=== PATIENT | male | born 1955 | race Caucasian/White ===

== ENCOUNTER 2018-01-30 00:29 | Inpatient (IN) ==
--- NOTE | 2018-01-30 01:09 | XR ---
EXAM DATE: 01/30/2018 12:56 AM EDT AGE/SEX: 62 years / Male INDICATIONS: Chest pain. Weakness. CLINICAL DATA: This is the patient's initial encounter. Patient reports that signs and symptoms have been present for 1 day and indicates a pain score of 5/10. MEDICAL/SURGICAL HISTORY: None. None. COMPARISON: No prior exams available for comparison. FINDINGS: A single AP view of the chest demonstrates the lungs to be symmetrically aerated without evidence of mass, infiltrate or effusion. The cardiomediastinal contours are unremarkable. Osseous structures a re intact. CONCLUSION: No acute cardiopulmonary disease Electronically signed by: Nikita Vernon MD 01/30/2018 1:07 AM EDT
[2018-01-30 01:19] LABS: Hematocrit 50.8 % (39.0-51.0); Hemoglobin 17.1 gm/dL (13.0-17.0); Mean Corpuscular HGB Conc 33.6 % (32.0-36.0); Mean Corpuscular Hemoglobin 32.3 pg (27.0-34.0); Mean Corpuscular Volume 95.9 fL (80.0-100.0); Mean Platelet Volume 7.1 fL (7.0-11.0); Platelet Count 233 th/mm3 (150-450); Red Blood Count 5.29 mil/mm3 (4.50-5.90); White Blood Count 5.3 th/mm3 (4.0-11.0)
[2018-01-30 01:30] LABS: Activated Partial Thrombo Time 30.7 sec (24.3-30.1); INR 1.1 Ratio
[2018-01-30 01:55] LABS: Anion Gap 16 meq/L (5-15); Blood Urea Nitrogen 15 mg/dL (7-18); Calcium 8.3 mg/dL (8.5-10.1); Carbon Dioxide 21.9 meq/L (21.0-32.0); Chloride 71 meq/L (98-107); Creatine Kinase 1575 U/L (39-308); Glomerular Filtration Rate 80 mL/min (>89); Glucose,Random 159 mg/dL (74-106); Magnesium 1.5 mg/dL (1.5-2.5); Potassium 4.1 meq/L (3.5-5.1)
[2018-01-30 01:57] LABS: Sodium 109 meq/L (136-145)
[2018-01-30] MEDS ORDERED: Sod Chloride 0.9% Inj 1,000 ML IV.SIG ONE (02:05)
[2018-01-30] MEDS ORDERED: Labetalol HCl Inj 100 MG/20 ML Vial IV.PUSH ONE (02:05)
[2018-01-30] MEDS ORDERED: Aspirin 325 MG Tablet PO ONE (02:06)
--- NOTE | 2018-01-30 02:11 | ED ---
HPI General Chief complaint: Chest Pain Stated complaint: High BP x 2 days Time Seen by Provider: 01/30/18 00:50 Source: patient Mode of arrival: ambulatory Limitations: no limitations History of Present Illness HPI narrative: Patient is a 62-year-old male with history of hypertension, hypothyroidism, alcoholism, presents the emergency room with multiple complaints. Patient reports that he is an alcoholic, reports that he usually drinks about 1/5 of whiskey per day. Patient reports that he decided to quit drinking alcohol 2 days ago and has put himself on a detox schedule. Patient has been decreasing the amount of alcohol he has been drinking, reports that today he only drinks 6 beers. Patient reports that tonight, he checked his blood pressure and noted it to be elevated and in the 200's. Reports that on route to the ER, he developed chest pain. Reports that he had chest tightness to his mid sternum. Denies any diaphoresis with this chest pain. Patient reports mild shortness of breath with this chest pain, reports resolution of chest pain while in the emergency room. Patient denies any history of coronary artery disease, she does not follow with a communications department chair. Patient reports that he thinks that the symptoms are due to his alcohol withdrawal. Patient reports that he is feeling shaky. Patient reports that he has not been feeling well over the past 2 days as he has been unable to tolerate p.o.'s. Reports "i just don't have an appetite and I'm not feeling well with the withdrawl symptoms." Related Data Home Medications Medication Instructions Recorded Confirmed levothyroxine 200 mcg PO DAILY 01/30/18 01/30/18 lisinopril 20 mg PO DAILY 01/30/18 01/30/18 Allergies Allergy/AdvReac Type Severity Reaction Status Date / Time No Known Allergies Allergy Unverified 01/30/18 01:38 Review of Systems Except as stated in HPI: all other systems reviewed are negative [facility] Medical History Medical History Hypertension (Acute) Hypothyroid (Acute) Social History Social History Second Hand Smoke Exposure: No Smoking Status: Current every day smoker Tobacco Type: Cigarettes How Often Do You Have a Drink Containing Alcohol: 4 or more times a week Recent Travel in [facility] within the Last 8 Weeks: No Recent Out of Country Travel within the Last 8 Weeks: No Immunization History Tetanus Immunization: Unsure Exam Narrative Exam Narrative: GENERAL: moderate distress SKIN: Focused skin assessment warm/dry. HEAD: Atraumatic. Normocephalic. EYES: Pupils equal and round. No scleral icterus. No injection or drainage. ENT: No nasal bleeding or discharge. Mucous membranes pink and moist. NECK: Trachea midline. No JVD. CARDIOVASCULAR: tachycardic. No murmur appreciated. RESPIRATORY: No accessory muscle use. Clear to auscultation. Breath sounds equal bilaterally. GASTROINTESTINAL: Abdomen soft, non-tender, nondistended. Hepatic and splenic margins not palpable. MUSCULOSKELETAL: No obvious deformities. No clubbing. No cyanosis. No edema. NEUROLOGICAL: Awake and alert. No obvious cranial nerve deficits. Motor grossly within normal limits. Normal speech. PSYCHIATRIC: Appropriate mood and affect; insight and judgment normal. Course Initial Documented Vital Signs Temperature 97.8 F 01/30/18 00:41 Pulse Rate 104 H 01/30/18 00:41 Respiratory Rate 24 01/30/18 00:41 Blood Pressure 232/124 H 01/30/18 00:41 Pulse Oximetry 99 01/30/18 00:41 Last Documented Vital Signs Temperature 97.8 F 01/30/18 00:41 Pulse Rate 92 H 01/30/18 01:42 Respiratory Rate 20 01/30/18 01:42 Blood Pressure 204/93 H 01/30/18 01:42 Pulse Oximetry 99 01/30/18 01:42 Critical Care Time Critical Care Time: Yes Total Critical Care Time: 30 Attestation: Aggregate critical care time was 30 minutes. Time to perform other separately billable procedures was not included in the critical care time. My time did not include minutes spent treating any other patients simultaneously or on activities that did not directly contribute to the patient's treatment. The services I provided to this patient were to treat and/or prevent clinically significant deterioration that could result in: , decompensation, deterioration I provided critical care services requiring my management, as noted below: Chart data review, documentation time, medication orders and management, vital sign assessments/reviewing monitor data, ordering and reviewing lab tests, ordering and interpreting/reviewing x-rays and diagnostic studies, care of the patient and discussion of the patient with the admitting physicians. Medical Decision Making MDM Narrative Medical decision making narrative: During the course of the patients emergency department visit, the patients history, examination, and differential diagnosis were reviewed with the patient. The patient was placed on a compliance monitor with oximetry and frequent blood pressure monitoring. The patient had an IV access obtained and blood work sent for analysis. The patient was initially provided IVF. Patient's initial blood pressure was 234/128, he was given 2 mg of IV Ativan as he does appear to be going through with alcohol withdrawal. His blood pressure did go down to 176/81. Blood pressure then went back up to 204/93, 10 mg of IV labetalol was ordered - repeat bp now with sbp's in the 170 - labetolol was held. Labs have resulted, patient with a sodium of 109, CK of 1575. Patient will require admission to the ICU Case reviewed with Dr. Lux who accepts patient to his service ASA was held as he took 3 baby asa at home Differential Diagnosis Differential Diagnosis: ACS, arrhythmia, alcohol withdrawal, electrolyte abnormality, hypertensive emergency, hypertensive urgency Medical Records Medical records reviewed: Yes I reviewed the patient's medical records. Lab Data Lab results reviewed: Yes I reviewed the patient's lab results. Result diagrams: 01/30/18 00:50 01/30/18 00:50 Lab Results 01/30/18 01/30/18 01/30/18 Range/Units 00:50 00:50 00:50 CBC w Diff Slide review pending WBC 5.3 (4.0-11.0) th/mm3 RBC 5.29 (4.50-5.90) mil/mm3 Hgb 17.1 H (13.0-17.0) gm/dL Hct 50.8 (39.0-51.0) % MCV 95.9 (80.0-100.0) fL MCH 32.3 (27.0-34.0) pg MCHC 33.6 (32.0-36.0) % RDW 13.0 (11.6-17.2) % Plt Count 233 (150-450) th/mm3 MPV 7.1 (7.0-11.0) fL Differential Comment . PT 11.0 (9.8-11.6) sec INR 1.1 Ratio APTT 30.7 H (24.3-30.1) sec Sodium 109 L* (136-145) meq/L Potassium 4.1 (3.5-5.1) meq/L Chloride 71 L (98-107) meq/L Carbon Dioxide 21.9 (21.0-32.0) meq/L Anion Gap 16 H (5-15) meq/L BUN 15 (7-18) mg/dL Creatinine 0.96 (0.60-1.30) mg/dL Estimated GFR 80 L (>89) mL/min Random Glucose 159 H (74-106) mg/dL Calcium 8.3 L (8.5-10.1) mg/dL Magnesium 1.5 (1.5-2.5) mg/dL Total Creatine Kinase 1575 H (39-308) U/L Troponin I Less than 0.02 L (0.02-0.05) ng/mL Serum Alcohol (0-5) mg/dL 01/30/18 Range/Units 00:50 CBC w Diff WBC (4.0-11.0) th/mm3 RBC (4.50-5.90) mil/mm3 Hgb (13.0-17.0) gm/dL Hct (39.0-51.0) % MCV (80.0-100.0) fL MCH (27.0-34.0) pg MCHC (32.0-36.0) % RDW (11.6-17.2) % Plt Count (150-450) th/mm3 MPV (7.0-11.0) fL Differential Comment PT (9.8-11.6) sec INR Ratio APTT (24.3-30.1) sec Sodium (136-145) meq/L Potassium (3.5-5.1) meq/L Chloride (98-107) meq/L Carbon Dioxide (21.0-32.0) meq/L Anion Gap (5-15) meq/L BUN (7-18) mg/dL Creatinine (0.60-1.30) mg/dL Estimated GFR (>89) mL/min Random Glucose (74-106) mg/dL Calcium (8.5-10.1) mg/dL Magnesium (1.5-2.5) mg/dL Total Creatine Kinase (39-308) U/L Troponin I (0.02-0.05) ng/mL Serum Alcohol Less than 3 (0-5) mg/dL Imaging Data Attestation: I personally reviewed and interpreted this imaging study as follows : Radiologist's impression: ITS Impressions Chest X-Ray 01/30/18 00:41 CONCLUSION: No acute cardiopulmonary disease ECG Data EKG Prior to Arrival: No Attestation: I personally reviewed and interpreted this ECG as follows: Interpretation: EKG at 0045: Sinus tachycardia at 102 bpm, QT/QTc 334/392, first -degree AV block Discharge Plan Discharge Disposition Patient Disposition: 30 Still Patient Discharge Condition Condition: Serious Physicians Team ED Provider: Samantha Block Primary Care Provider: Luke Gutiérrez Rxs /Orders / Referrals /Forms Prescriptions: No Action lisinopril 20 mg Tablet 20 mg PO DAILY RF: 0 levothyroxine 200 mcg Tablet 200 mcg PO DAILY RF: 0 Discharge Instructions Patient Printed Instructions: Chest Pain (ED) Status ED Status: With Doctor
[2018-01-30] MEDS ORDERED: Sodium Chloride 0.45 % Inj 1,000 ML IV.CONT SCH (02:15)
[2018-01-30] MEDS ORDERED: Potassium Chlor 20 mEq Premix 20 MEQ/100 ML PIGGYBACK IV.SIG PRN (02:16)
[2018-01-30] MEDS ORDERED: Magnesium Oxide 400 MG Tablet PO PRN (02:16)
[2018-01-30] MEDS ORDERED: Bisacodyl 10 MG Supp RECTAL PRN (02:16)
[2018-01-30] MEDS ORDERED: Magnesium Sulfate Inj 4 GM in Sodium Chlor 0.9% Inj 92 ML IV.SIG PRN (02:16)
[2018-01-30] MEDS ORDERED: Potassium Phosphate 500 MG Soluble Tablet PO PRN (02:16)
[2018-01-30] MEDS ORDERED: Potassium Chloride 25 MEQ Effervescent Tablet PO PRN (02:16)
[2018-01-30] MEDS ORDERED: Potassium Chlor 40 mEq Premix 40 MEQ/100 ML PIGGYBACK IV.SIG PRN ×2 (02:16)
[2018-01-30] MEDS ORDERED: LORazepam 1 MG Tablet PO PRN (02:16)
[2018-01-30 02:23] LABS: Creatine Kinase MB 15.2 ng/mL (0.5-3.6)
[2018-01-30 02:31] LABS: Lymphocytes 3 % (9-44); Monocytes 9 % (0-8); Platelet Estimate Normal (Normal); Platelet Morphology Normal (Normal); RBC Morphology Normal (Normal)
[2018-01-30] MEDS ORDERED: Thiamine Inj 500 MG in Sodium Chlor 0.9% Inj 250 ML IV.SIG SCH (03:00)
[2018-01-30 03:48] LABS: Baso % (Auto) 0.5 % (0.0-2.0); Eos % (Auto) 0.5 % (0.0-4.0); Hematocrit 50.1 % (39.0-51.0); Hemoglobin 17.2 gm/dL (13.0-17.0); Lymph # (Auto) 0.5 th/mm3 (1.0-4.8); Lymph % (Auto) 5.8 % (9.0-44.0); Mean Corpuscular HGB Conc 34.4 % (32.0-36.0); Mean Corpuscular Hemoglobin 32.1 pg (27.0-34.0); Mean Corpuscular Volume 93.3 fL (80.0-100.0); Mean Platelet Volume 7.3 fL (7.0-11.0); Mono % (Auto) 11.1 % (0.0-8.0); Neut # (Auto) 7.2 th/mm3 (1.8-7.7); Neut % (Auto) 82.1 % (16.0-70.0); Platelet Count 217 th/mm3 (150-450); Red Blood Count 5.37 mil/mm3 (4.50-5.90); Red Cell Distribution Width 13.1 % (11.6-17.2); White Blood Count 8.7 th/mm3 (4.0-11.0)
[2018-01-30] MEDS ORDERED: Chlorhexidine Gluconate 2% 1 Pack (2 Cloths) TOPICAL PRN (04:00)
[2018-01-30 04:10] LABS: Albumin 3.8 g/dL (3.4-5.0); Alkaline Phosphatase 80 U/L (45-117); Anion Gap 14 meq/L (5-15); Blood Urea Nitrogen 14 mg/dL (7-18); Calcium 8.3 mg/dL (8.5-10.1); Carbon Dioxide 23.1 meq/L (21.0-32.0); Chloride 73 meq/L (98-107); Glomerular Filtration Rate Greater Than 89 mL/min (>89); Glucose,Random 136 mg/dL (74-106); Potassium 3.8 meq/L (3.5-5.1); Total Protein 7.4 g/dL (6.4-8.2)
[2018-01-30 04:11] LABS: Alanine Aminotransferase 408 U/L (12-78); Aspartate Aminotransferase 463 U/L (15-37)
[2018-01-30 04:12] LABS: Sodium 110 meq/L (136-145)
[2018-01-30] MEDS ORDERED: diazePAM 5 MG Tablet PO ONE (04:15)
[2018-01-30] MEDS: Enoxaparin Inj 40 MG/0.4 ML Syringe SQ SCH (04:22)
[2018-01-30] MEDS: Chlorhexidine Gluconate 2% 1 Pack (2 Cloths) TOPICAL SCH (06:32)
[2018-01-30] MEDS ORDERED: Labetalol HCl Inj 100 MG/20 ML Vial IV.PUSH PRN (07:41)
--- NOTE | 2018-01-30 07:41 | P.HPCC ---
History of Present Illness Primary Care Physician: Luke Gutiérrez DO History of Present Illness: 01/30: Patient is a 62-year-old male with history of hypertension, hypothyroidism , alcoholism, presents the emergency room with multiple complaints. Patient reports that he is an alcoholic, reports that he usually drinks about 1/5 of whiskey per day. Patient reports that he decided to quit drinking alcohol 2 days ago and has put himself on a detox schedule. Patient has been decreasing the amount of alcohol he has been drinking, reports that today he only drinks 6 beers. Patient reports that tonight, he checked his blood pressure and noted it to be elevated and in the 200's. Reports that on route to the ER, he developed chest pain. Reports that he had chest tightness to his mid sternum. Denies any diaphoresis with this chest pain. Patient reports mild shortness of breath with this chest pain, reports resolution of chest pain while in the emergency room. Patient denies any history of coronary artery disease, she does not follow with a investor relations manager. Patient reports that he thinks that the symptoms are due to his alcohol withdrawal. Patient reports that he is feeling shaky. Patient reports that he has not been feeling well over the past 2 days as he has been unable to tolerate p.o.'s. Reports "i just don't have an appetite and I'm not feeling well with the withdrawl symptoms." Patient tells me he actually came to the hospital because his blood pressure was running extremely high in the 240 systolic range at home. Patient was noted to be hyponatremic with a sodium of 108 in the ER. Patient was accepted for admission by critical care medicine service. He has been receiving half normal saline overnight. This morning when I evaluated the patient he was awake and alert resting comfortably in bed not in any acute distress. Inpatient Certification: I certify that the inpatient services were ordered in accordance with Medicare regulations governing the order. This includes certification that hospital inpatient services are reasonable and necessary and in the case of services not specified as inpatient-only under 42 CFR 419.22(n), that they are appropriately provided as inpatient services in accordance to with the 2-midnight benchmark under 43 CFR 412.3(e) Estimated Total Length of Stay (Days): 5 Plans for Post Hospital Care: Not yet determined Review of Systems All other systems reviewed negative except as stated in HPI PMFSH - History History Provided By: Patient - Medical History Medical History: Medical History (Last Updated 01/30/18 @ 02:18 by Samantha Block) Hypertension Hypothyroid - Tobacco History Second Hand Smoke Exposure: No Tobacco Use In Past 30 Days: No Smoking Status: Former smoker Tobacco Type: Cigarettes - Alcohol History How Often Do You Have a Drink Containing Alcohol: 4 or more times a week - Substance Use History Substance History: Active Abuse - Substance Use Type Alcohol Status: Active Route Used: By Mouth Frequency: etoh abuse Reason for Use: Socialization - Travel History Recent Travel in the [place] Within the Last 8 Weeks: No Recent Travel Out of the Country Within the Last 8 Weeks: No - Immunization History Tetanus Immunization: Unsure Hx Influenza Vaccine This Season: No Medications and Allergies Active Medications: Active Medications Al Hydroxide/Mg Hydroxide (Milk Of Kyra Liq) 30 ml PO Q12H PRN PRN Reason: Mild Constipation Albuterol (Duoneb Neb (Prn)) 1 ampul NEB Q2HR NEB PRN PRN Reason: WHEEZING Bisacodyl (Dulcolax Supp) 10 mg RECTAL DAILY PRN PRN Reason: SEVERE CONSITIPATION Chlorhexidine Gluconate (Chlorhexidine 2% Cloth) 3 pack TOPICAL DAILY@0400 [facility] Stop: 02/04/18 03:59 Last Admin: 01/30/18 06:32 Dose: 3 pack Chlorhexidine Gluconate (Chlorhexidine 2% Cloth) 3 pack TOPICAL DAILY@0400 PRN PRN Reason: Extra cloth needed Stop: 02/04/18 03:59 Clonidine HCl (Catapres) 0.3 mg PO Q8H MICHAEL Diazepam (Valium) 10 mg PO Q8H MICHAEL Enoxaparin Sodium (Lovenox Inj) 40 mg SQ Q24H [facility] Last Admin: 01/30/18 04:22 Dose: 40 mg Flumazenil (Romazecon Inj) 0.2 mg IV.PUSH Q1M PRN PRN Reason: OVERSEDATION Folic Acid (Folic Acid) 1 mg PO DAILY [facility] Stop: 02/04/18 08:59 Haloperidol Lactate (Haldol Inj) 1 mg IV.PUSH Q15M PRN PRN Reason: for severe agitation Magnesium Sulfate Inj 4 gm/ (Sodium Chloride) 100 mls @ 50 mls/hr IV.SIG UNSCH PRN PRN Reason: For Magnesium 0.9 - 1.1 mg/dL Magnesium Sulfate Inj 2 gm/ (Sodium Chloride) 100 mls @ 50 mls/hr IV.SIG UNSCH PRN PRN Reason: For Magnesium 1.2 - 1.6 mg/dL Thiamine HCl 100 mg/ Sodium (Chloride) 101 mls @ 100 mls/hr IV.SIG DAILY MICHAEL Stop: 02/02/18 08:59 Potassium Chloride (Kcl 40 Meq Premix Inj) 40 meq in 100 mls @ 25 mls/hr IV.SIG Q2H PRN PRN Reason: For Potassium 2.8 - 3.2 mEq/L Potassium Chloride (Kcl 20 Meq Premix Inj) 20 meq in 100 mls @ 50 mls/hr IV.SIG Q2H PRN PRN Reason: For Potassium 3.3 - 3.5 mEq/L Potassium Chloride (Kcl 40 Meq Premix Inj) 40 meq in 100 mls @ 25 mls/hr IV.SIG UNSCH PRN PRN Reason: For Potassium 3.3 - 3.5 mEq/L Potassium Phosphate 30 mmol/ (Sodium Chloride) 260 mls @ 42 mls/hr IV.SIG UNSCH PRN PRN Reason: SEE LABEL COMMENTS Sodium Phosphate 30 mmol/ (Sodium Chloride) 260 mls @ 42 mls/hr IV.SIG UNSCH PRN PRN Reason: For Phosphorus < 2.5 mg/dL Potassium Chloride (Kcl 20 Meq Premix Inj) 20 meq in 100 mls @ 50 mls/hr IV.SIG Q2H PRN PRN Reason: For Potassium 2.8 - 3.2 mEq/L Lactated Ringer's (Lr 1000 Ml Inj) 1,000 mls @ 84 mls/hr IV.CONT .[id number] MICHAEL Lactulose (Lactulose Liq) 30 ml PO DAILY PRN PRN Reason: SEVERE CONSITIPATION Levothyroxine Sodium (Synthroid) 200 mcg PO DAILY MICHAEL Lisinopril (Prinivil) 20 mg PO DAILY MICHAEL Lorazepam (Ativan) 1 mg PO Q4H PRN PRN Reason: for CIWA 8-10 Last Admin: 01/30/18 03:35 Dose: 1 mg Lorazepam (Ativan) 2 mg PO Q2H PRN PRN Reason: for CIWA 11-14 Lorazepam (Ativan Inj) 2 mg IV.PUSH Q2H PRN PRN Reason: for CIWA 11-14 Lorazepam (Ativan Inj) 2 mg IV.PUSH Q1H PRN PRN Reason: for CIWA 15-20 Lorazepam (Ativan Inj) 2 mg IV.PUSH Q15M PRN PRN Reason: for CIWA > 20 Lorazepam (Ativan Inj) 1 mg IV.PUSH Q4H PRN PRN Reason: for CIWA 8-10 Magnesium Oxide (Mag-Ox) 800 mg PO UNSCH PRN PRN Reason: For Magnesium 1.2 - 1.6 mg/dL Multivitamins/Minerals (Theragran-M) 1 tab PO DAILY [facility] Stop: 02/04/18 08:59 Ondansetron HCl (Zofran Inj) 4 mg IV.PUSH Q6H PRN PRN Reason: NAUSEA OR VOMITING Pantoprazole Sodium (Protonix) 40 mg PO DAILY [facility] Potassium Bicarb/Potassium Chloride (K-Lyte Cl Eff) 50 meq PO UNSCH PRN PRN Reason: For Potassium 3.3 - 3.5 mEq/L Potassium Phosphate (K-Phos Original) 2,000 mg PO Q4H PRN PRN Reason: Phosphorus Less Than 2.5 mg/dL Potassium Phosphate (K-Phos Original) 2,000 mg PO UNSCH PRN PRN Reason: SEE LABEL COMMENTS Senna/Docusate Sodium (Ophelia-Colace) 1 tab PO BID [facility] Sennosides (Senokot) 17.2 mg PO Q12H PRN PRN Reason: Moderate Constipation Sodium Chloride (Ns Flush) 2 ml IV.FLUSH BID [facility] Sodium Chloride (Ns Flush) 2 ml IV.FLUSH PRN PRN PRN Reason: FLUSH AFTER USING IV ACCESS Thiamine HCl (Vitamin B1) 100 mg PO DAILY [facility] Allergies Allergy/AdvReac Type Severity Reaction Status Date / Time No Known Allergies Allergy Unverified 01/30/18 01:38 Home Medications Medication Instructions Recorded Confirmed Type clonidine HCl 0.2 mg PO BID 01/30/18 01/30/18 History levothyroxine 200 mcg PO DAILY 01/30/18 01/30/18 History lisinopril 20 mg PO DAILY 01/30/18 01/30/18 History Results - Labs CBC & Chem 7: 01/30/18 03:30 01/30/18 03:30 Labs: Short CBC 01/30/18 01/30/18 Range/Units 00:50 03:30 WBC 5.3 8.7 D (4.0-11.0) th/mm3 Hgb 17.1 H 17.2 H (13.0-17.0) gm/dL Hct 50.8 50.1 (39.0-51.0) % Plt Count 233 217 (150-450) th/mm3 BMP 01/30/18 01/30/18 00:50 03:30 Sodium 109 L* 110 L* Potassium 4.1 3.8 Chloride 71 L 73 L Carbon Dioxide 21.9 23.1 BUN 15 14 Creatinine 0.96 0.82 Calcium 8.3 L 8.3 L Cardiac Enzymes 01/30/18 Range/Units 00:50 Total Creatine Kinase 1575 H (39-308) U/L CK-MB (CK-2) 15.2 H (0.5-3.6) ng/mL Troponin I Less than 0.02 L (0.02-0.05) ng/mL Liver Function 01/30/18 Range/Units 03:30 Total Bilirubin 2.6 H (0.2-1.0) mg/dL AST 463 H (15-37) U/L ALT 408 H (12-78) U/L Alkaline Phosphatase 80 (45-117) U/L Albumin 3.8 (3.4-5.0) g/dL - Imaging Impressions Chest X-Ray 01/30/18 00:41 CONCLUSION: No acute cardiopulmonary disease Exam Vital signs: Vital Signs 01/30/18 00:41 01/30/18 01:30 01/30/18 01:42 Temperature 97.8 F Pulse Rate 104 H 100 H 92 H Respiratory Rate 24 22 20 Blood Pressure 232/124 H 176/81 H 204/93 H Pulse Oximetry 99 99 99 01/30/18 02:21 01/30/18 02:38 01/30/18 03:20 Temperature Pulse Rate 100 H 98 H Respiratory Rate 18 18 Blood Pressure 171/89 H 173/78 H Pulse Oximetry 99 99 01/30/18 04:27 01/30/18 05:00 01/30/18 05:06 Temperature 97.9 F Pulse Rate 90 88 Respiratory Rate 20 20 Blood Pressure 185/72 H 182/87 H 151/74 H Pulse Oximetry 98 98 01/30/18 06:00 01/30/18 06:51 Temperature Pulse Rate 88 88 Respiratory Rate 20 20 Blood Pressure 176/73 H 149/75 H Pulse Oximetry 97 98 Intake & Output 01/29/18 01/30/18 01/30/18 18:59 06:59 18:59 Output Total 350 / 350 Balance -350 / -350 Weight 97.5 kg Output: Urine 350 / 350 Other: # Voids 1 Date of Last Bowel Movement 01/29/18 Weight On Admission 97.5 kg Narrative: HEENT/Neuro: No pallor or icterus, tongue moist, ROMAN, Awake alert oriented 3 , nonfocal grossly, moving all 4 extremities. No tremors noted currently. Neck: No JVD Chest/pulmonary: CTA bilaterally Cardiovascular: S1-S2 regular no gallop or murmur GI/abdomen: Soft, nontender, bowel sounds present Extremities: Warm bilaterally, no edema Caprini VTE Risk Assessment Caprini VTE Risk Assessment: Moderate/High Risk (score >= 2) Caprini Risk Assessment Model: Point Value = 1 Point Value = 2 Point Value = 3 Point Value = 5 Age 41-60 Minor surgery BMI > 25 kg/m2 Swollen legs Varicose veins or History of unexplained or recurrent spontaneous Oral contraceptives or hormone replacement Sepsis (< 1 month) Serious lung disease, including pneumonia (< 1 month) Abnormal pulmonary function Acute myocardial infarction Congestive heart failure (< 1 month) History of inflammatory bowel disease Medical patient at bed rest Age 61-74 Arthroscopic surgery Major open surgery (> 45 min) Laparoscopic surgery (> 45 min) Malignancy Confined to bed (> 72 hours) Immobilizing plaster cast Central venous access Age >= 75 History of VTE Family history of VTE Factor V Leiden Prothrombin [id number] Lupus anticoagulant Anticardiolipin antibodies Elevated serum homocysteine Heparin-induced thrombocytopenia Other congenital or acquired thrombophilia Stroke (< 1 month) Elective arthroplasty Hip, pelvis, or leg fracture Acute spinal cord injury (< 1 month) Prophylaxis Regimen: Total Risk Factor Score Risk Level Prophylaxis Regimen 0-1 Low Early ambulation 2 Moderate Order ONE of the following: *Sequential Compression Device (SCD) *Heparin 5000 units SQ BID 3-4 Higher Order ONE of the following medications: *Heparin 5000 units SQ TID *Enoxaparin/Lovenox 40 mg SQ daily (WT < 150 kg, CrCl > 30 mL/min) *Enoxaparin/Lovenox 30 mg SQ daily (WT < 150 kg, CrCl > 10-29 mL/min) *Enoxaparin/Lovenox 30 mg SQ BID (WT < 150 kg, CrCl > 30 mL/min) AND/OR *Sequential Compression Device (SCD) 5 or more Highest Order ONE of the following medications: *Heparin 5000 units SQ TID (Preferred with Epidurals) *Enoxaparin/Lovenox 40 mg SQ daily (WT < 150 kg, CrCl > 30 mL/min) *Enoxaparin/Lovenox 30 mg SQ daily (WT < 150 kg, CrCl > 10-29 mL/min) *Enoxaparin/Lovenox 30 mg SQ BID (WT < 150 kg, CrCl > 30 mL/min) AND *Sequential Compression Device (SCD) Assessment and Plan - Assessment and Plan Plan: Severe hyponatremia Uncontrolled hypertension Alcohol withdrawal Hypothyroidism Plan: Neuro: Follow neuro status. Initiated CIWA alcohol withdrawal protocol. Continue IV thiamine MVI per protocol. Ativan/Haldol as needed. Follow serial sodium was correcting hyponatremia. Cardiovascular: Continue lisinopril, clonidine as needed. Will add labetalol as needed. Pulmonary: Supplemental O2 as needed. Bronchodilators as needed GI/liver: P.o. diet as tolerated Renal/: Follow serial sodiums. Switching IV fluid to LR in view of hyponatremia. Check TSH, triglycerides, serum osmolarity. Awaiting UA and urine osmolarity. Check urine sodium. Endocrine: Check TSH. Watch for hyperglycemia, SSI for glycemic control if needed. Heme: Follow CBC ID: No indication for antibiotics at this time Prophylaxis: PPI/SCDs/Lovenox Condition critical with severe hyponatremia, alcohol withdrawal. Time spent on critical care excluding procedures 60 minutes H&P: Quality - VTE Deep Vein Thrombosis/Pulmonary Embolism Present on Admission: No
[2018-01-30 08:28] LABS: Thyroid Stimulating Hormone 9.1 uIU/mL (0.358-3.740)
[2018-01-30] MEDS: Folic Acid 1 MG Tablet PO SCH (08:30)
[2018-01-30] MEDS: Senna/Docusate Sodium 8.6/50 MG Tablet PO SCH (08:30)
[2018-01-30] MEDS: Multivitamin/Minerals Therapeutic Tablet PO SCH (08:30)
[2018-01-30] MEDS ORDERED: Lisinopril 20 MG Tablet PO SCH (09:00)
[2018-01-30] MEDS: Acetaminophen 325 MG Tablet PO PRN (09:12)
[2018-01-30] MEDS: Thiamine Inj 100 MG in Sodium Chlor 0.9% Inj 100 ML IV.SIG SCH (09:55)
[2018-01-30] MEDS ORDERED: Diatrizoate Meglum/Diatrizoate Sod Liq 9 ML UDC PO ONE (15:25)
[2018-01-30] MEDS: chlordiazePOXIDE 25 MG Capsule PO SCH (15:50)
[2018-01-30] MEDS ORDERED: Dexmedetomidine Inj 200 MCG/2 ML Vial IV.PUSH ONE (16:35)
[2018-01-30] MEDS: Dexmedetomidine Inj 200 MCG/50 ML INFUS..BTL IV.CONT PRN (17:23)
--- NOTE | 2018-01-30 17:34 | ECG ---
Date Performed: 01/30/2018 Time Performed: 00:45:50 PTAGE: 62 years EKG: SINUS TACHYCARDIA WITH FIRST DEGREE AV BLOCK ABNORMAL ECG NO PREVIOUS TRACING DOCTOR: Rios Torres Interpretating Date/Time 01/30/2018 17:32:51
[2018-01-30] MEDS: Haloperidol Inj 5 MG/ML Ampul IV.PUSH PRN ×2 (17:37→17:55)
[2018-01-30] MEDS ORDERED: Albumin Human 5% Inj 500 ML IV.SIG STA (18:36)
[2018-01-30] MEDS ORDERED: Etomidate Inj 20 MG/10 ML Ampul IV.PUSH ONE (19:41)
[2018-01-30] MEDS ORDERED: Succinylcholine Inj 200 MG/10 ML Vial ONE (19:42)
[2018-01-30 19:55] LABS: Alanine Aminotransferase 274 U/L (12-78); Albumin 3.3 g/dL (3.4-5.0); Alkaline Phosphatase 67 U/L (45-117); Anion Gap 14 meq/L (5-15); Aspartate Aminotransferase 355 U/L (15-37); Blood Urea Nitrogen 12 mg/dL (7-18); Calcium 7.6 mg/dL (8.5-10.1); Carbon Dioxide 23.1 meq/L (21.0-32.0); Chloride 71 meq/L (98-107); Glomerular Filtration Rate 85 mL/min (>89); Glucose,Random 138 mg/dL (74-106); Potassium 3.8 meq/L (3.5-5.1); Total Protein 6.4 g/dL (6.4-8.2)
--- NOTE | 2018-01-30 19:55 | XR ---
EXAM DATE: 01/30/2018 7:17 PM EDT AGE/SEX: 62 years / Male INDICATIONS: Status post NG tube placement. CLINICAL DATA: This is the patient's initial encounter. Patient reports that signs and symptoms have been present for 1 day and indicates a pain score of Nonresponsive. MEDICAL/SURGICAL HISTORY: Non-responsive. Non-responsive. COMPARISON: No prior exams available for comparison. FINDINGS: Examination of the abdomen demonstrates a normal bowel gas pattern. No free air is identified. No o rganomegaly is evident. Osseous structures are intact. There is an NG tube in place with the tip in the stomach. There is hazy density in the abdomen which could be related to some ascites. The patient is scheduled for CT of the abdomen. CONCLUSION: NG tube in the stomach. Electronically signed by: Wisam Patiño MD 01/30/2018 7:53 PM EDT
[2018-01-30 19:56] LABS: Sodium 108 meq/L (136-145)
[2018-01-30] MEDS ORDERED: Propofol Inj 500 MG/50 ML Vial ONE (19:56)
[2018-01-30] MEDS ORDERED: Midazolam Inj 5 MG/ML 1 ML Vial ONE ×3 (20:02→20:21)
[2018-01-30] MEDS ORDERED: Midazolam Inj 5 MG/ML 1 ML Vial IV.PUSH ONE ×3 (20:02→20:21)
--- NOTE | 2018-01-30 20:37 | XR ---
EXAM DATE: 01/30/2018 8:20 PM EDT AGE/SEX: 62 years / Male INDICATIONS: Status post intubation. CLINICAL DATA: This is the patient's initial encounter. Patient reports that signs and symptoms have been present for 1 day and indicates a pain score of Nonresponsive. MEDICAL/SURGICAL HISTORY: Non-responsive. Non-responsive. COMPARISON: [facility]PO, CHEST 1V SINGLE AP, 01/30/2018. . FINDINGS: The ET tube and NG tube are well placed. The tip of ET tube is 3.7 cm from the gerard. The heart size is enlarged. The lungs are grossly clear. CONCLUSION: ET tube in good position. Electronically signed by: Wisam Patiño MD 01/30/2018 8:36 PM EDT
[2018-01-30] MEDS: Phenylephrine Inj 40 MG in Dextrose 5% in Water Inj 496 ML IV.CONT PRN ×2 (20:54)
[2018-01-30] MEDS: fentaNYL 10 mcg/mL Premix Drip 2,500 MCG/250 ML BAG IV.SIG PRN (21:21)
[2018-01-30] MEDS: Midazolam 50 MG/50 ML Inj 50 MG/50 ML BAG IV.CONT PRN (21:21)
[2018-01-30 21:26] LABS: ABG Base Excess -0.4 mmol/L (-2-2); ABG PCO2 32 mmHg (38-42); ABG PO2 276 mmHg (61-120)
[2018-01-30] MEDS ORDERED: Propofol 1000 mg/100 ml Inj 1,000 MG/100 ML BOTTLE IV.CONT PRN (22:50)
[2018-01-30 23:36] LABS: Bilirubin,Urine Negative (Negative); Clarity,Urine Clear (Clear); Color,Urine Yellow (Yellw/Straw); Glucose,Urine (UA) Negative (Negative); Leukocyte Esterase,Urine Negative (Negative); Nitrite,Urine Negative (Negative); Specific Gravity,Urine Less/Equal 1.005 (1.002-1.035); Urobilinogen,Urine 0.2 mg/dL (Less than 2)
[2018-01-30 23:43] LABS: RBC,Urine 0-3 /hpf (0-3); Squamous Epithelial Cell,Urine 0-5 /hpf (0-5); WBC,Urine 0-5 /hpf (0-5)
[2018-01-31 00:54] LABS: Amphetamine Screen,Urine Neg (Neg); Barbiturate Screen,Urine Neg (Neg); Cannabinoid Screen,Urine Neg (Neg)
[2018-01-31 00:55] LABS: Cocaine Screen,Urine Neg (Neg)
[2018-01-31 01:38] LABS: Opiate Screen,Urine Neg (Neg)
[2018-01-31] MEDS: Senna/Docusate Sodium 8.6/50 MG Tablet PO SCH ×3 (02:02→20:15)
[2018-01-31] MEDS: chlordiazePOXIDE 25 MG Capsule PO SCH ×4 (02:02→23:14)
[2018-01-31] MEDS: Chlorhexidine Gluconate 2% 1 Pack (2 Cloths) TOPICAL SCH (03:09)
[2018-01-31] MEDS: Enoxaparin Inj 40 MG/0.4 ML Syringe SQ SCH (03:51)
[2018-01-31] MEDS: Midazolam 50 MG/50 ML Inj 50 MG/50 ML BAG IV.CONT PRN ×3 (06:14→22:47)
[2018-01-31 06:56] LABS: Baso % (Auto) 0.3 % (0.0-2.0); Eos # (Auto) 0.1 th/mm3 (0.0-0.4); Eos % (Auto) 0.8 % (0.0-4.0); Hematocrit 41.3 % (39.0-51.0); Lymph # (Auto) 0.9 th/mm3 (1.0-4.8); Lymph % (Auto) 8.3 % (9.0-44.0); Mean Corpuscular HGB Conc 33.9 % (32.0-36.0); Mean Corpuscular Hemoglobin 31.9 pg (27.0-34.0); Mean Corpuscular Volume 94.1 fL (80.0-100.0); Mean Platelet Volume 7.7 fL (7.0-11.0); Mono # (Auto) 0.9 th/mm3 (0.0-0.9); Mono % (Auto) 8.9 % (0.0-8.0); Neut # (Auto) 8.4 th/mm3 (1.8-7.7); Neut % (Auto) 81.7 % (16.0-70.0); Platelet Count 175 th/mm3 (150-450); Red Blood Count 4.39 mil/mm3 (4.50-5.90); Red Cell Distribution Width 13.2 % (11.6-17.2); White Blood Count 10.3 th/mm3 (4.0-11.0)
[2018-01-31 07:11] LABS: Albumin 2.9 g/dL (3.4-5.0); Calcium 7.3 mg/dL (8.5-10.1); Carbon Dioxide 26.8 meq/L (21.0-32.0); Magnesium 1.5 mg/dL (1.5-2.5); Potassium 3.5 meq/L (3.5-5.1)
[2018-01-31 07:18] LABS: Total Protein 5.7 g/dL (6.4-8.2)
--- NOTE | 2018-01-31 07:59 | P.PNCC ---
Subjective Subjective Remarks/Hospital Course: 01/30: Patient is a 62-year-old male with history of hypertension, hypothyroidism , alcoholism, presents the emergency room with multiple complaints. Patient reports that he is an alcoholic, reports that he usually drinks about 1/5 of whiskey per day. Patient reports that he decided to quit drinking alcohol 2 days ago and has put himself on a detox schedule. Patient has been decreasing the amount of alcohol he has been drinking, reports that today he only drinks 6 beers. Patient reports that tonight, he checked his blood pressure and noted it to be elevated and in the 200's. Reports that on route to the ER, he developed chest pain. Reports that he had chest tightness to his mid sternum. Denies any diaphoresis with this chest pain. Patient reports mild shortness of breath with this chest pain, reports resolution of chest pain while in the emergency room. Patient denies any history of coronary artery disease, she does not follow with a collateral clerk. Patient reports that he thinks that the symptoms are due to his alcohol withdrawal. Patient reports that he is feeling shaky. Patient reports that he has not been feeling well over the past 2 days as he has been unable to tolerate p.o.'s. Reports "i just don't have an appetite and I'm not feeling well with the withdrawl symptoms." Patient tells me he actually came to the hospital because his blood pressure was running extremely high in the 240 systolic range at home. Patient was noted to be hyponatremic with a sodium of 108 in the ER. Patient was accepted for admission by critical care medicine service. He has been receiving half normal saline overnight. This morning when I evaluated the patient he was awake and alert resting comfortably in bed not in any acute distress. 01/31: Patient was complaining of some epigastric discomfort yesterday morning. CT abdomen pelvis was ordered however patient went into worsening alcohol withdrawal and despite starting Precedex and multiple boluses of Ativan was staying very agitated. Eventually he became more lethargic with tachypnea. He had also been vomiting previously. Decision was made to intubate and patient was placed on mechanical ventilation after intubation by ER physician. Of note patient had a difficult airway with some laryngeal edema noted per report and a 6.5 ET tube was used for intubation after failed attempt at intubating with an 8 Croatian and 7 Croatian ET tube. This morning patient is sedated with Versed and fentanyl drips, orally intubated on mechanical ventilation at the time of my evaluation. He was initiated on Son-Synephrine for hypotension following intubation and sedation. Currently he is on Son-Synephrine 70 mics per minute. He has had a good urine output overnight. He was started on 3% saline at 10 cc an hour last evening and the sodium has come up to 115 mEq/liter this morning. He has also been receiving LR at 1 50 cc an hour. NG tube was placed after intubation and 1 L of gastric contents were suctioned out. Patient did spike a temperature of 100.5 axillary this morning. Pancultures were ordered and empiric Zosyn to be started in view of concern for aspiration. Objective Vital Signs / I&O: Vital Signs 01/30/18 07:52 01/30/18 08:00 01/30/18 08:26 Temperature 97.8 F Pulse Rate 92 H Respiratory Rate 32 H Blood Pressure 134/72 Pulse Oximetry 96 98 01/30/18 09:00 01/30/18 10:36 01/30/18 11:36 Temperature Pulse Rate 86 80 82 Respiratory Rate 21 23 25 H Blood Pressure 133/75 164/91 H 183/149 H Pulse Oximetry 01/30/18 12:00 01/30/18 12:34 01/30/18 13:30 Temperature 97.8 F Pulse Rate 82 82 Respiratory Rate 28 H 26 H Blood Pressure 174/88 H 181/105 H 184/95 H Pulse Oximetry 01/30/18 13:46 01/30/18 14:00 01/30/18 14:18 Temperature Pulse Rate 78 82 90 Respiratory Rate 26 H 29 H 27 H Blood Pressure 183/99 H 195/91 H Pulse Oximetry 98 01/30/18 14:21 01/30/18 14:37 01/30/18 14:40 Temperature Pulse Rate 86 104 H Respiratory Rate 29 H 48 H Blood Pressure 168/76 H 204/103 H 210/91 H Pulse Oximetry 01/30/18 15:02 01/30/18 15:15 01/30/18 15:38 Temperature Pulse Rate 106 H 114 H 102 H Respiratory Rate 34 H 53 H Blood Pressure 194/87 H 187/126 H 197/102 H Pulse Oximetry 01/30/18 15:39 01/30/18 16:13 01/30/18 16:32 Temperature Pulse Rate 102 H 104 H Respiratory Rate 47 H Blood Pressure 152/102 H 159/78 H 195/137 H Pulse Oximetry 01/30/18 17:27 01/30/18 18:00 01/30/18 18:13 Temperature Pulse Rate 110 H 94 H Respiratory Rate 28 H 48 H 25 H Blood Pressure 206/88 H 133/108 H 117/56 L Pulse Oximetry 91 L 100 01/30/18 18:18 01/30/18 18:19 01/30/18 18:31 Temperature Pulse Rate 82 80 72 Respiratory Rate 23 20 13 Blood Pressure 99/53 L 100/55 L 88/48 L Pulse Oximetry 95 95 98 01/30/18 18:34 01/30/18 18:36 01/30/18 18:42 Temperature Pulse Rate 72 72 86 Respiratory Rate 9 L 15 30 H Blood Pressure 69/39 L 69/30 L 79/58 L Pulse Oximetry 99 98 98 01/30/18 18:43 01/30/18 18:45 01/30/18 18:46 Temperature Pulse Rate 80 84 Respiratory Rate 23 24 Blood Pressure 126/70 125/62 Pulse Oximetry 100 99 93 L 01/30/18 19:49 01/30/18 20:00 01/30/18 20:07 Temperature Pulse Rate 102 H 122 H 112 H Respiratory Rate 30 H 36 H 38 H Blood Pressure 229/116 H 261/117 H 165/72 H Pulse Oximetry 88 L 95 100 01/30/18 20:10 01/30/18 20:17 01/30/18 20:32 Temperature Pulse Rate 88 74 72 Respiratory Rate 16 16 16 Blood Pressure 109/66 100/64 93/56 L Pulse Oximetry 100 100 100 01/30/18 20:40 01/30/18 20:47 01/30/18 21:00 Temperature Pulse Rate 74 72 72 Respiratory Rate 16 16 17 Blood Pressure 84/63 L 91/57 L Pulse Oximetry 100 100 100 01/30/18 21:02 01/30/18 21:17 01/30/18 21:32 Temperature Pulse Rate 70 68 68 Respiratory Rate 15 16 16 Blood Pressure 104/59 L 99/55 L 100/58 L Pulse Oximetry 100 100 100 01/30/18 21:47 01/30/18 22:00 01/30/18 22:17 Temperature 100 F H Pulse Rate 68 66 64 Respiratory Rate 16 15 16 Blood Pressure 104/54 L 101/53 L 95/56 L Pulse Oximetry 100 100 100 01/30/18 22:32 01/30/18 22:47 01/30/18 23:00 Temperature Pulse Rate 64 64 Respiratory Rate 16 16 16 Blood Pressure 92/54 L 87/52 L Pulse Oximetry 100 100 100 01/30/18 23:02 01/30/18 23:17 01/30/18 23:32 Temperature Pulse Rate 62 62 62 Respiratory Rate 16 16 16 Blood Pressure 100/58 L 96/57 L 96/54 L Pulse Oximetry 100 100 100 01/30/18 23:47 01/31/18 00:02 01/31/18 00:08 Temperature 100.2 F H Pulse Rate 62 94 H 100 H Respiratory Rate 16 25 H 28 H Blood Pressure 94/55 L 147/78 H 133/65 Pulse Oximetry 100 85 L 100 01/31/18 00:15 01/31/18 00:17 01/31/18 00:32 Temperature Pulse Rate 76 68 Respiratory Rate 16 16 Blood Pressure 99/55 L 92/53 L 104/61 Pulse Oximetry 100 100 01/31/18 00:47 01/31/18 01:02 01/31/18 01:17 Temperature Pulse Rate 70 72 70 Respiratory Rate 15 16 16 Blood Pressure 105/60 110/61 102/63 Pulse Oximetry 100 100 100 01/31/18 01:32 01/31/18 01:47 01/31/18 02:00 Temperature Pulse Rate 68 66 Respiratory Rate 16 16 16 Blood Pressure 100/56 L 97/56 L Pulse Oximetry 100 100 100 01/31/18 02:02 01/31/18 02:17 01/31/18 02:32 Temperature Pulse Rate 66 66 66 Respiratory Rate 16 16 16 Blood Pressure 91/57 L 93/55 L 97/55 L Pulse Oximetry 100 100 100 01/31/18 02:47 01/31/18 03:00 01/31/18 03:02 Temperature Pulse Rate 66 68 68 Respiratory Rate 16 16 16 Blood Pressure 102/57 L 96/59 L 96/59 L Pulse Oximetry 100 100 100 01/31/18 03:17 01/31/18 03:32 01/31/18 03:47 Temperature Pulse Rate 68 66 68 Respiratory Rate 16 16 16 Blood Pressure 94/58 L 103/58 L 106/59 L Pulse Oximetry 100 100 100 01/31/18 04:02 01/31/18 04:17 01/31/18 04:32 Temperature Pulse Rate 68 68 68 Respiratory Rate 16 16 15 Blood Pressure 102/62 105/62 104/60 Pulse Oximetry 100 100 100 01/31/18 04:47 01/31/18 05:00 01/31/18 05:10 Temperature Pulse Rate 70 70 Respiratory Rate 16 15 16 Blood Pressure 107/60 98/57 L Pulse Oximetry 100 100 100 01/31/18 05:17 01/31/18 05:32 01/31/18 05:47 Temperature Pulse Rate 72 70 70 Respiratory Rate 16 16 16 Blood Pressure 106/64 102/60 104/61 Pulse Oximetry 100 100 100 01/31/18 06:02 01/31/18 06:17 01/31/18 06:32 Temperature 100.4 F H Pulse Rate 70 70 70 Respiratory Rate 16 16 15 Blood Pressure 106/57 L 100/56 L 99/58 L Pulse Oximetry 100 100 100 Intake & Output 01/30/18 01/31/18 01/31/18 18:59 06:59 18:59 Intake Total 2261 / 2261 2570 / 2570 Output Total 450 / 450 2800 / 2800 Balance 1811 / 1811 -230 / -230 Intake: IV 101 / 101 2570 / 2570 Precedex Inj 200 mcg In 50 ml @ 20 / 20 0.2 MCG/KG/HR 4.875 mls/hr IV. CONT TITRATE PRN Rx#:[id number] LR 1000 mL Inj 1,000 ML @ 150 1000 / 1000 mls/hr IV.CONT .[id number] MICHAEL Rx#: [id number] Versed Inj 50 mg In 50 ml @ 2 50 / 50 MG/HR 2 mls/hr IV.CONT TITRATE PRN Rx#:[id number] Alburx 5% Inj 500 ML @ 250 mls/ 500 / 500 hr IV.SIG STAT STA Rx#: [id number] Thiamine Inj 100 MG In NS Inj 101 / 101 100 ML @ 100 mls/hr IV.SIG DAILY MICHAEL Rx#:[id number] Oral 2159 / 2159 Output: Urine 450 / 450 Urine Amount (Catheter) 1849 Indwelling Urethral Catheter 1849 Gastric Drainage 950 / 950 Left Nare 950 / 950 Other: Date of Last Bowel Movement 01/29/18 01/29/18 Result Diagrams: 01/31/18 05:50 01/31/18 05:50 Other Results: Laboratory Results - last 24 hr 01/30/18 01/30/18 01/30/18 03:30 03:30 03:30 CBC w Diff WBC RBC Hgb Hct MCV MCH MCHC RDW Plt Count MPV Neut % (Auto) Lymph % (Auto) [place] % (Auto) Eos % (Auto) Baso % (Auto) Neut # (Auto) Lymph # (Auto) [place] # (Auto) Eos # (Auto) Baso # (Auto) WBC Differential Differential Comment Puncture Site Patient Temperature O2 Saturation ABG pH ABG pCO2 ABG pO2 ABG HCO3 ABG O2 Content ABG Base Excess ABG Methemoglobin Cristiano Test Hemoglobin Carboxyhemoglobin O2 Delivery Device Vent Setting Inspired O2 Critical Value Sodium Potassium Chloride Carbon Dioxide Anion Gap BUN Creatinine Estimated GFR POC Glucose Random Glucose Osmolality 244 L Calcium Prot Corrected Calcium Phosphorus Magnesium Total Bilirubin AST ALT Alkaline Phosphatase Total Protein Albumin Triglycerides Lipase TSH Urine Color Urine Clarity Urine pH Ur Specific [place] Urine Protein Urine Glucose (UA) Urine Ketones Urine Occult Blood Urine Nitrate Urine Bilirubin Urine Urobilinogen Ur Leukocyte Esterase Urine RBC Urine WBC Ur Squamous Epith Cells Micro UA Comment Urine Culture Comments Urine Osmolality 694 Ur Random Sodium 47 Nasal Screen MRSA (PCR) Urine Opiates Screen Ur Barbiturates Screen Ur Amphetamines Screen U Benzodiazepines Scrn Urine Cocaine Screen U Cannabinoids Screen 01/30/18 01/30/18 01/30/18 07:35 07:35 07:35 CBC w Diff WBC RBC Hgb Hct MCV MCH MCHC RDW Plt Count MPV Neut % (Auto) Lymph % (Auto) [place] % (Auto) Eos % (Auto) Baso % (Auto) Neut # (Auto) Lymph # (Auto) [place] # (Auto) Eos # (Auto) Baso # (Auto) WBC Differential Differential Comment Puncture Site Patient Temperature O2 Saturation ABG pH ABG pCO2 ABG pO2 ABG HCO3 ABG O2 Content ABG Base Excess ABG Methemoglobin Cristiano Test Hemoglobin Carboxyhemoglobin O2 Delivery Device Vent Setting Inspired O2 Critical Value Sodium 111 L* Potassium Chloride Carbon Dioxide Anion Gap BUN Creatinine Estimated GFR POC Glucose Random Glucose Osmolality 240 L Calcium Prot Corrected Calcium Phosphorus Magnesium Total Bilirubin AST ALT Alkaline Phosphatase Total Protein Albumin Triglycerides 1576 H Lipase TSH 9.100 H Urine Color Urine Clarity Urine pH Ur Specific [place] Urine Protein Urine Glucose (UA) Urine Ketones Urine Occult Blood Urine Nitrate Urine Bilirubin Urine Urobilinogen Ur Leukocyte Esterase Urine RBC Urine WBC Ur Squamous Epith Cells Micro UA Comment Urine Culture Comments Urine Osmolality Ur Random Sodium Nasal Screen MRSA (PCR) Urine Opiates Screen Ur Barbiturates Screen Ur Amphetamines Screen U Benzodiazepines Scrn Urine Cocaine Screen U Cannabinoids Screen 01/30/18 01/30/18 01/30/18 08:50 12:07 13:35 CBC w Diff WBC RBC Hgb Hct MCV MCH MCHC RDW Plt Count MPV Neut % (Auto) Lymph % (Auto) [place] % (Auto) Eos % (Auto) Baso % (Auto) Neut # (Auto) Lymph # (Auto) [place] # (Auto) Eos # (Auto) Baso # (Auto) WBC Differential Differential Comment Puncture Site Patient Temperature O2 Saturation ABG pH ABG pCO2 ABG pO2 ABG HCO3 ABG O2 Content ABG Base Excess ABG Methemoglobin Cristiano Test Hemoglobin Carboxyhemoglobin O2 Delivery Device Vent Setting Inspired O2 Critical Value Sodium 106 L* Potassium Chloride Carbon Dioxide Anion Gap BUN Creatinine Estimated GFR POC Glucose 141 H Random Glucose Osmolality Calcium Prot Corrected Calcium Phosphorus Magnesium Total Bilirubin AST ALT Alkaline Phosphatase Total Protein Albumin Triglycerides Lipase TSH Urine Color Urine Clarity Urine pH Ur Specific [place] Urine Protein Urine Glucose (UA) Urine Ketones Urine Occult Blood Urine Nitrate Urine Bilirubin Urine Urobilinogen Ur Leukocyte Esterase Urine RBC Urine WBC Ur Squamous Epith Cells Micro UA Comment Urine Culture Comments Urine Osmolality Ur Random Sodium Nasal Screen MRSA (PCR) Not detected Urine Opiates Screen Ur Barbiturates Screen Ur Amphetamines Screen U Benzodiazepines Scrn Urine Cocaine Screen U Cannabinoids Screen 01/30/18 01/30/18 01/30/18 13:35 18:30 18:30 CBC w Diff WBC RBC Hgb Hct MCV MCH MCHC RDW Plt Count MPV Neut % (Auto) Lymph % (Auto) [place] % (Auto) Eos % (Auto) Baso % (Auto) Neut # (Auto) Lymph # (Auto) [place] # (Auto) Eos # (Auto) Baso # (Auto) WBC Differential Differential Comment Puncture Site Patient Temperature O2 Saturation ABG pH ABG pCO2 ABG pO2 ABG HCO3 ABG O2 Content ABG Base Excess ABG Methemoglobin Cristiano Test Hemoglobin Carboxyhemoglobin O2 Delivery Device Vent Setting Inspired O2 Critical Value Sodium 108 L* Potassium 3.8 Chloride 71 L Carbon Dioxide 23.1 Anion Gap 14 BUN 12 Creatinine 0.91 Estimated GFR 85 L POC Glucose Random Glucose 138 H Osmolality Calcium 7.6 L Prot Corrected Calcium Phosphorus 2.7 Magnesium Total Bilirubin 2.5 H AST 355 H ALT 274 H Alkaline Phosphatase 67 Total Protein 6.4 D Albumin 3.3 L Triglycerides Lipase 1843 H TSH Urine Color Urine Clarity Urine pH Ur Specific [place] Urine Protein Urine Glucose (UA) Urine Ketones Urine Occult Blood Urine Nitrate Urine Bilirubin Urine Urobilinogen Ur Leukocyte Esterase Urine RBC Urine WBC Ur Squamous Epith Cells Micro UA Comment Urine Culture Comments Urine Osmolality Ur Random Sodium Nasal Screen MRSA (PCR) Urine Opiates Screen Ur Barbiturates Screen Ur Amphetamines Screen U Benzodiazepines Scrn Urine Cocaine Screen U Cannabinoids Screen 01/30/18 01/30/18 01/30/18 19:15 19:57 21:15 CBC w Diff WBC RBC Hgb Hct MCV MCH MCHC RDW Plt Count MPV Neut % (Auto) Lymph % (Auto) [place] % (Auto) Eos % (Auto) Baso % (Auto) Neut # (Auto) Lymph # (Auto) [place] # (Auto) Eos # (Auto) Baso # (Auto) WBC Differential Differential Comment Puncture Site Right radial Patient Temperature 98.6 O2 Saturation 98 ABG pH 7.46 H ABG pCO2 32 L ABG pO2 276 H ABG HCO3 23 ABG O2 Content 19.1 ABG Base Excess -0.4 ABG Methemoglobin 0.6 Cristiano Test Y Hemoglobin 13.4 Carboxyhemoglobin 1.1 O2 Delivery Device Ventilator Vent Setting Prvc/ac Inspired O2 100 Critical Value No Sodium Potassium Chloride Carbon Dioxide Anion Gap BUN Creatinine Estimated GFR POC Glucose 147 H Random Glucose Osmolality Calcium Prot Corrected Calcium Phosphorus Magnesium Total Bilirubin AST ALT Alkaline Phosphatase Total Protein Albumin Triglycerides Lipase TSH Urine Color Urine Clarity Urine pH Ur Specific [place] Urine Protein Urine Glucose (UA) Urine Ketones Urine Occult Blood Urine Nitrate Urine Bilirubin Urine Urobilinogen Ur Leukocyte Esterase Urine RBC Urine WBC Ur Squamous Epith Cells Micro UA Comment Urine Culture Comments Urine Osmolality Ur Random Sodium Nasal Screen MRSA (PCR) Urine Opiates Screen Neg Ur Barbiturates Screen Neg Ur Amphetamines Screen Neg U Benzodiazepines Scrn Pos H Urine Cocaine Screen Neg U Cannabinoids Screen Neg 01/30/18 01/31/1818 23:27 00:35 03:02 CBC w Diff WBC RBC Hgb Hct MCV MCH MCHC RDW Plt Count MPV Neut % (Auto) Lymph % (Auto) [place] % (Auto) Eos % (Auto) Baso % (Auto) Neut # (Auto) Lymph # (Auto) [place] # (Auto) Eos # (Auto) Baso # (Auto) WBC Differential Differential Comment Puncture Site Patient Temperature O2 Saturation ABG pH ABG pCO2 ABG pO2 ABG HCO3 ABG O2 Content ABG Base Excess ABG Methemoglobin Cristiano Test Hemoglobin Carboxyhemoglobin O2 Delivery Device Vent Setting Inspired O2 Critical Value Sodium 112 L* Potassium Chloride Carbon Dioxide Anion Gap BUN Creatinine Estimated GFR POC Glucose 106 Random Glucose Osmolality Calcium Prot Corrected Calcium Phosphorus Magnesium Total Bilirubin AST ALT Alkaline Phosphatase Total Protein Albumin Triglycerides Lipase TSH Urine Color Yellow Urine Clarity Clear Urine pH 6.0 Ur Specific [place] Less/equal 1.005 Urine Protein Negative Urine Glucose (UA) Negative Urine Ketones Negative Urine Occult Blood Moderate H Urine Nitrate Negative Urine Bilirubin Negative Urine Urobilinogen 0.2 Ur Leukocyte Esterase Negative Urine RBC 0-3 Urine WBC 0-5 Ur Squamous Epith Cells 0-5 Micro UA Comment Culture not ind Urine Culture Comments Culture not ind Urine Osmolality Ur Random Sodium Nasal Screen MRSA (PCR) Urine Opiates Screen Ur Barbiturates Screen Ur Amphetamines Screen U Benzodiazepines Scrn Urine Cocaine Screen U Cannabinoids Screen 01/31/18 01/31/18 05:50 05:50 CBC w Diff Auto diff final WBC 10.3 RBC 4.39 L Hgb 14.0 D Hct 41.3 MCV 94.1 MCH 31.9 MCHC 33.9 RDW 13.2 Plt Count 175 MPV 7.7 Neut % (Auto) 81.7 H Lymph % (Auto) 8.3 L [place] % (Auto) 8.9 H Eos % (Auto) 0.8 Baso % (Auto) 0.3 Neut # (Auto) 8.4 H Lymph # (Auto) 0.9 L [place] # (Auto) 0.9 Eos # (Auto) 0.1 Baso # (Auto) 0.0 WBC Differential . Differential Comment . Puncture Site Patient Temperature O2 Saturation ABG pH ABG pCO2 ABG pO2 ABG HCO3 ABG O2 Content ABG Base Excess ABG Methemoglobin Cristiano Test Hemoglobin Carboxyhemoglobin O2 Delivery Device Vent Setting Inspired O2 Critical Value Sodium 115 L* Potassium 3.5 Chloride 77 L Carbon Dioxide 26.8 Anion Gap 11 BUN 10 Creatinine 0.89 Estimated GFR 87 L POC Glucose Random Glucose 97 Osmolality Calcium 7.3 L* Prot Corrected Calcium 8.1 L Phosphorus Magnesium 1.5 Total Bilirubin 2.5 H AST 238 H ALT 185 H Alkaline Phosphatase 52 Total Protein 5.7 L D Albumin 2.9 L Triglycerides Lipase 1028 H TSH Urine Color Urine Clarity Urine pH Ur Specific [place] Urine Protein Urine Glucose (UA) Urine Ketones Urine Occult Blood Urine Nitrate Urine Bilirubin Urine Urobilinogen Ur Leukocyte Esterase Urine RBC Urine WBC Ur Squamous Epith Cells Micro UA Comment Urine Culture Comments Urine Osmolality Ur Random Sodium Nasal Screen MRSA (PCR) Urine Opiates Screen Ur Barbiturates Screen Ur Amphetamines Screen U Benzodiazepines Scrn Urine Cocaine Screen U Cannabinoids Screen Imaging: Chest X-Ray 01/30/18 00:41 CONCLUSION: No acute cardiopulmonary disease Abdomen X-Ray 01/30/18 18:46 CONCLUSION: NG tube in the stomach. Chest X-Ray 01/30/18 20:03 CONCLUSION: ET tube in good position. Objective Remarks: HEENT/ Neuro: Sedated, orally intubated, No pallor, no icterus, tongue/ mucosa moist Neck: No JVD Chest/Pulm: on mech vent, good air entry bilaterally, no wheezing or crackles CVS: S1-S2 regular, no murmur GI/abdomen: soft, nontender, bowel sounds sluggish Extremities: warm bilaterally, no edema Assessment and Plan - Assessment and Plan Plan: Severe hyponatremia Uncontrolled hypertension (resolved) Hypotension (possibly secondary to high sedation requirement as patient was admitted with severe hypertension) Acute pancreatitis Hypertriglyceridemia Elevated LFTs Fever: Possible source from pancreatitis versus sepsis versus related to alcohol withdrawal. Alcohol withdrawal Hypothyroidism Plan: Neuro: Follow neuro status. Initiated [facility] alcohol withdrawal protocol. Continue IV thiamine MVI per protocol. Ativan/Haldol as needed. Follow serial sodium . Switched IV fluids from NS and LR to normal saline at 150 cc/h Cardiovascular: Stopped lisinopril, clonidine, labetalol as needed due to hypotension requiring phenylephrine GTT for pressor support following intubation.. Pulmonary: Continue mechanical ventilation, vent bundle, bronchodilators as needed. GI/liver: NG tube to low intermittent wall suction. CT abdomen pelvis with p.o. and IV contrast pending. Consult GI for further evaluation of pancreatitis. Renal/: Follow serial sodiums. Switching IV fluid from LR 150cc/hr and 3% saline at 10 cc an hour to normal saline 150 cc/h. TSH 9, triglycerides elevated, low serum osmolarity(240s). urine osmolarity 694. Urine sodium 47. Nephrology consult. Endocrine: Elevated TSH(9). Continue Synthroid, watch for hyperglycemia, SSI for glycemic control if needed. Heme: Follow CBC ID: Pancultures ordered on 01/31 in view of fever. Possible cirrhosis related to pancreatitis and alcohol withdrawal however will initiate empiric Zosyn while awaiting culture results. Check pro-calcitonin. Prophylaxis: PPI/SCDs/Lovenox Condition critical with severe hyponatremia, alcohol withdrawal, acute respiratory failure on mechanical ventilation Time spent on critical care excluding procedures 60 minutes
[2018-01-31] MEDS ORDERED: Vasopressin Inj 40 UNIT in Sodium Chlor 0.9% Inj 98 ML IV.CONT SCH (08:00)
[2018-01-31] MEDS: Phenylephrine Inj 40 MG in Dextrose 5% in Water Inj 496 ML IV.CONT PRN ×6 (08:03→21:19)
[2018-01-31] MEDS ORDERED: Diatrizoate Meglum/Diatrizoate Sod Liq 9 ML UDC PO ONE (09:42)
[2018-01-31] MEDS: Folic Acid 1 MG Tablet PO SCH (09:48)
[2018-01-31] MEDS: Multivitamin/Minerals Therapeutic Tablet PO SCH (09:48)
[2018-01-31 10:09] LABS: CKMB Percent 0.4 % (0.0-4.0); Creatine Kinase MB 14.1 ng/mL (0.5-3.6)
[2018-01-31] MEDS: Magnesium Sulfate Inj 2 GM in Sodium Chlor 0.9% Inj 96 ML IV.SIG PRN (10:17)
[2018-01-31] MEDS: Piperacil/Tazo 3.375 GM Premix 50 ML IV.SIG SCH ×3 (10:21→21:08)
[2018-01-31] MEDS: Thiamine Inj 100 MG in Sodium Chlor 0.9% Inj 100 ML IV.SIG SCH (10:26)
--- NOTE | 2018-01-31 12:18 | P.CONNP ---
History of Present Illness Reason for Consult: Hyponatremia Primary Care Provider: Luke Gutiérrez DO Family Provider: Luke Gutiérrez DO History of Present Illness: This patient is a 62-year-old male who can provide me with no medical history due to mental status change and he is currently intubated also on the ventilator. Patient has a history of hypertension and alcohol abuse. Apparently the patient tried to discontinue alcohol usage 2 days prior to this admission subsequently presented with chest pain and elevated blood pressure and on presentation was found to have a sodium of 109. Critical care has been managing the sodium level overnight and it has improved to 115. Unfortunately the patient developed increasing decompensation related to his alcohol abuse and subsequent withdrawal and was intubated to protect his airway. He is also hypotensive. There is a question of cirrhosis also. [facility] - History History Provided By: Patient - Medical History Medical History: Medical History (Last Updated 01/31/18 @ 12:10 by Leonila Gotti MD) Alcohol abuse History of prostate cancer Hypertension Hypothyroid - Tobacco History Second Hand Smoke Exposure: No Tobacco Use In Past 30 Days: No Smoking Status: Former smoker Tobacco Type: Cigarettes - Alcohol History How Often Do You Have a Drink Containing Alcohol: 4 or more times a week - Substance Use History Substance History: Active Abuse - Substance Use Type Alcohol Status: Active Route Used: By Mouth Frequency: etoh abuse Reason for Use: Socialization - Travel History Recent Travel in the [place] Within the Last 8 Weeks: No Recent Travel Out of the Country Within the Last 8 Weeks: No - Immunization History Tetanus Immunization: Unsure Hx Influenza Vaccine This Season: No Medications and Allergies Active Medications: Active Medications Acetaminophen (Tylenol) 650 mg PO Q6H PRN PRN Reason: TEMP>100.4 &/OR PAIN Last Admin: 01/30/18 09:12 Dose: 650 mg Al Hydroxide/Mg Hydroxide (Milk Of Magnesia Liq) 30 ml PO Q12H PRN PRN Reason: Mild Constipation Albuterol (Duoneb Neb (Prn)) 1 ampul NEB Q2HR NEB PRN PRN Reason: WHEEZING Bisacodyl (Dulcolax Supp) 10 mg RECTAL DAILY PRN PRN Reason: SEVERE CONSITIPATION Chlordiazepoxide (Librium) 25 mg PO Q8H MICHAEL Last Admin: 01/31/18 07:51 Dose: 25 mg Chlorhexidine Gluconate (Chlorhexidine 2% Cloth) 3 pack TOPICAL DAILY@0400 [facility] Stop: 02/04/18 03:59 Last Admin: 01/31/18 03:09 Dose: 3 pack Chlorhexidine Gluconate (Chlorhexidine 2% Cloth) 3 pack TOPICAL DAILY@0400 PRN PRN Reason: Extra cloth needed Stop: 02/04/18 03:59 Diazepam (Valium) 10 mg PO Q8H [facility] Last Admin: 01/31/18 06:52 Dose: Not Given Enoxaparin Sodium (Lovenox Inj) 40 mg SQ Q24H [facility] Last Admin: 01/31/18 03:51 Dose: 40 mg Flumazenil (Romazecon Inj) 0.2 mg IV.PUSH Q1M PRN PRN Reason: OVERSEDATION Folic Acid (Folic Acid) 1 mg PO DAILY [facility] Stop: 02/04/18 08:59 Last Admin: 01/31/18 09:48 Dose: 1 mg Haloperidol Lactate (Haldol Inj) 1 mg IV.PUSH Q15M PRN PRN Reason: for severe agitation Last Admin: 01/30/18 17:55 Dose: 1 mg Magnesium Sulfate Inj 4 gm/ (Sodium Chloride) 100 mls @ 50 mls/hr IV.SIG UNSCH PRN PRN Reason: For Magnesium 0.9 - 1.1 mg/dL Magnesium Sulfate Inj 2 gm/ (Sodium Chloride) 100 mls @ 50 mls/hr IV.SIG UNSCH PRN PRN Reason: For Magnesium 1.2 - 1.6 mg/dL Last Admin: 01/31/18 10:17 Dose: 50 mls/hr Thiamine HCl 100 mg/ Sodium (Chloride) 101 mls @ 100 mls/hr IV.SIG DAILY [facility] Stop: 02/02/18 08:59 Last Admin: 01/31/18 10:26 Dose: 8 mls/hr Potassium Chloride (Kcl 40 Meq Premix Inj) 40 meq in 100 mls @ 25 mls/hr IV.SIG Q2H PRN PRN Reason: For Potassium 2.8 - 3.2 mEq/L Potassium Chloride (Kcl 20 Meq Premix Inj) 20 meq in 100 mls @ 50 mls/hr IV.SIG Q2H PRN PRN Reason: For Potassium 3.3 - 3.5 mEq/L Potassium Chloride (Kcl 40 Meq Premix Inj) 40 meq in 100 mls @ 25 mls/hr IV.SIG UNSCH PRN PRN Reason: For Potassium 3.3 - 3.5 mEq/L Potassium Phosphate 30 mmol/ (Sodium Chloride) 260 mls @ 42 mls/hr IV.SIG UNSCH PRN PRN Reason: SEE LABEL COMMENTS Sodium Phosphate 30 mmol/ (Sodium Chloride) 260 mls @ 42 mls/hr IV.SIG UNSCH PRN PRN Reason: For Phosphorus < 2.5 mg/dL Potassium Chloride (Kcl 20 Meq Premix Inj) 20 meq in 100 mls @ 50 mls/hr IV.SIG Q2H PRN PRN Reason: For Potassium 2.8 - 3.2 mEq/L Dexmedetomidine/Sodium Chloride (Precedex Inj) 200 mcg in 50 mls @ 4.875 mls/ hr IV.CONT TITRATE PRN; Protocol PRN Reason: Per Protocol Last Titration: 01/30/18 19:45 Dose: Infused Phenylephrine HCl 40 mg/ (Dextrose) 500 mls @ 30 mls/hr IV.CONT TITRATE PRN; Protocol PRN Reason: Per Protocol Last Admin: 01/31/18 08:03 Dose: 70 mcg/min, 52.5 mls/hr Fentanyl (Fentanyl 10 Mcg/Ml Premix Drip) 2,500 mcg in 250 mls @ 5 mls/hr IV.SIG TITRATE PRN; Protocol PRN Reason: Per Protocol Last Titration: 01/31/18 06:49 Dose: 200 mcg/hr, 20 mls/hr Midazolam HCl (Versed Inj) 50 mg in 50 mls @ 2 mls/hr IV.CONT TITRATE PRN; Protocol PRN Reason: SEDATION Last Titration: 01/31/18 06:49 Dose: 8 mg/hr, 8 mls/hr Propofol (Diprivan 1000 Mg/100 Ml Inj) 1,000 mg in 100 mls @ 2.925 mls/hr IV.CONT TITRATE PRN; Protocol PRN Reason: Per Protocol Potassium Chloride/Sodium Chloride (Ns + Kcl 20 Meq Inj) 1,000 mls @ 150 mls/ hr IV.CONT .Q6H40M MICHAEL Last Admin: 01/31/18 07:52 Dose: 150 mls/hr Piperacillin/Tazobactam/Dextrose (Zosyn 3.375 Gm Premix) 50 mls @ 100 mls/hr IV.SIG Q6H [facility] Last Admin: 01/31/18 10:21 Dose: 100 mls/hr Lactulose (Lactulose Liq) 30 ml PO DAILY PRN PRN Reason: SEVERE CONSITIPATION Levothyroxine Sodium (Synthroid) 200 mcg PO DAILY [facility] Last Admin: 01/31/18 09:48 Dose: 200 mcg Lorazepam (Ativan) 1 mg PO Q4H PRN PRN Reason: for CIWA 8-10 Last Admin: 01/30/18 03:35 Dose: 1 mg Lorazepam (Ativan) 2 mg PO Q2H PRN PRN Reason: for CIWA 11-14 Lorazepam (Ativan Inj) 2 mg IV.PUSH Q2H PRN PRN Reason: for CIWA 11-14 Last Admin: 01/30/18 13:52 Dose: 2 mg Lorazepam (Ativan Inj) 2 mg IV.PUSH Q1H PRN PRN Reason: for CIWA 15-20 Last Admin: 01/30/18 14:14 Dose: 2 mg Lorazepam (Ativan Inj) 2 mg IV.PUSH Q15M PRN PRN Reason: for CIWA > 20 Last Admin: 01/30/18 15:50 Dose: 2 mg Lorazepam (Ativan Inj) 1 mg IV.PUSH Q4H PRN PRN Reason: for CIWA 8-10 Last Admin: 01/30/18 12:49 Dose: 1 mg Magnesium Oxide (Mag-Ox) 800 mg PO UNSCH PRN PRN Reason: For Magnesium 1.2 - 1.6 mg/dL Multivitamins/Minerals (Theragran-M) 1 tab PO DAILY [facility] Stop: 02/04/18 08:59 Last Admin: 01/31/18 09:48 Dose: 1 tab Ondansetron HCl (Zofran Inj) 4 mg IV.PUSH Q6H PRN PRN Reason: NAUSEA OR VOMITING Pantoprazole Sodium (Protonix) 40 mg PO DAILY [facility] Last Admin: 01/31/18 09:48 Dose: 40 mg Potassium Bicarb/Potassium Chloride (K-Lyte Cl Eff) 50 meq PO UNSCH PRN PRN Reason: For Potassium 3.3 - 3.5 mEq/L Potassium Phosphate (K-Phos Original) 2,000 mg PO Q4H PRN PRN Reason: Phosphorus Less Than 2.5 mg/dL Potassium Phosphate (K-Phos Original) 2,000 mg PO UNSCH PRN PRN Reason: SEE LABEL COMMENTS Senna/Docusate Sodium (Ophelia-Colace) 1 tab PO BID [facility] Last Admin: 01/31/18 09:48 Dose: 1 tab Sennosides (Senokot) 17.2 mg PO Q12H PRN PRN Reason: Moderate Constipation Sodium Chloride (Ns Flush) 2 ml IV.FLUSH BID [facility] Last Admin: 01/31/18 09:48 Dose: 2 ml Sodium Chloride (Ns Flush) 2 ml IV.FLUSH PRN PRN PRN Reason: FLUSH AFTER USING IV ACCESS Last Admin: 01/30/18 22:44 Dose: 2 ml Terbutaline Sulfate (Brethine Inj) 1 mg SQ UNSCH PRN PRN Reason: For Extravasation Thiamine HCl (Vitamin B1) 100 mg PO DAILY [facility] Allergies Allergy/AdvReac Type Severity Reaction Status Date / Time No Known Allergies Allergy Unverified 01/30/18 01:38 Home Medications Medication Instructions Recorded Confirmed Type clonidine HCl 0.2 mg PO BID 01/30/18 01/30/18 History levothyroxine 200 mcg PO DAILY 01/30/18 01/30/18 History lisinopril 20 mg PO DAILY 01/30/18 01/30/18 History Exam Vital signs: Vital Signs 01/30/18 12:34 01/30/18 13:30 01/30/18 13:46 Temperature Pulse Rate 82 78 Respiratory Rate 26 H 26 H Blood Pressure 181/105 H 184/95 H 183/99 H Pulse Oximetry 01/30/18 14:00 01/30/18 14:18 01/30/18 14:21 Temperature Pulse Rate 82 90 86 Respiratory Rate 29 H 27 H 29 H Blood Pressure 195/91 H 168/76 H Pulse Oximetry 98 01/30/18 14:37 01/30/18 14:40 01/30/18 15:02 Temperature Pulse Rate 104 H 106 H Respiratory Rate 48 H 34 H Blood Pressure 204/103 H 210/91 H 194/87 H Pulse Oximetry 01/30/18 15:15 01/30/18 15:38 01/30/18 15:39 Temperature Pulse Rate 114 H 102 H 102 H Respiratory Rate 53 H 47 H Blood Pressure 187/126 H 197/102 H 152/102 H Pulse Oximetry 01/30/18 16:13 01/30/18 16:32 01/30/18 17:27 Temperature Pulse Rate 104 H Respiratory Rate 28 H Blood Pressure 159/78 H 195/137 H 206/88 H Pulse Oximetry 91 L 01/30/18 18:00 01/30/18 18:13 01/30/18 18:18 Temperature Pulse Rate 110 H 94 H 82 Respiratory Rate 48 H 25 H 23 Blood Pressure 133/108 H 117/56 L 99/53 L Pulse Oximetry 100 95 01/30/18 18:19 01/30/18 18:31 01/30/18 18:34 Temperature Pulse Rate 80 72 72 Respiratory Rate 20 13 9 L Blood Pressure 100/55 L 88/48 L 69/39 L Pulse Oximetry 95 98 99 01/30/18 18:36 01/30/18 18:42 01/30/18 18:43 Temperature Pulse Rate 72 86 Respiratory Rate 15 30 H Blood Pressure 69/30 L 79/58 L Pulse Oximetry 98 98 100 01/30/18 18:45 01/30/18 18:46 01/30/18 19:49 Temperature Pulse Rate 80 84 102 H Respiratory Rate 23 24 30 H Blood Pressure 126/70 125/62 229/116 H Pulse Oximetry 99 93 L 88 L 01/30/18 20:00 01/30/18 20:07 01/30/18 20:10 Temperature Pulse Rate 122 H 112 H 88 Respiratory Rate 36 H 38 H 16 Blood Pressure 261/117 H 165/72 H 109/66 Pulse Oximetry 95 100 100 01/30/18 20:17 01/30/18 20:32 01/30/18 20:40 Temperature Pulse Rate 74 72 74 Respiratory Rate 16 16 16 Blood Pressure 100/64 93/56 L 84/63 L Pulse Oximetry 100 100 100 01/30/18 20:47 01/30/18 21:00 01/30/18 21:02 Temperature Pulse Rate 72 72 70 Respiratory Rate 16 17 15 Blood Pressure 91/57 L 104/59 L Pulse Oximetry 100 100 100 01/30/18 21:17 01/30/18 21:32 01/30/18 21:47 Temperature 100 F H Pulse Rate 68 68 68 Respiratory Rate 16 16 16 Blood Pressure 99/55 L 100/58 L 104/54 L Pulse Oximetry 100 100 100 01/30/18 22:00 01/30/18 22:17 01/30/18 22:32 Temperature Pulse Rate 66 64 64 Respiratory Rate 15 16 16 Blood Pressure 101/53 L 95/56 L 92/54 L Pulse Oximetry 100 100 100 01/30/18 22:47 01/30/18 23:00 01/30/18 23:02 Temperature Pulse Rate 64 62 Respiratory Rate 16 16 16 Blood Pressure 87/52 L 100/58 L Pulse Oximetry 100 100 100 01/30/18 23:17 01/30/18 23:32 01/30/18 23:47 Temperature Pulse Rate 62 62 62 Respiratory Rate 16 16 16 Blood Pressure 96/57 L 96/54 L 94/55 L Pulse Oximetry 100 100 100 01/31/18 00:02 01/31/18 00:08 01/31/18 00:15 Temperature 100.2 F H Pulse Rate 94 H 100 H 76 Respiratory Rate 25 H 28 H 16 Blood Pressure 147/78 H 133/65 99/55 L Pulse Oximetry 85 L 100 100 01/31/18 00:17 01/31/18 00:32 01/31/18 00:47 Temperature Pulse Rate 68 70 Respiratory Rate 16 15 Blood Pressure 92/53 L 104/61 105/60 Pulse Oximetry 100 100 01/31/18 01:02 01/31/18 01:17 01/31/18 01:32 Temperature Pulse Rate 72 70 68 Respiratory Rate 16 16 16 Blood Pressure 110/61 102/63 100/56 L Pulse Oximetry 100 100 100 01/31/18 01:47 01/31/18 02:00 01/31/18 02:02 Temperature Pulse Rate 66 66 Respiratory Rate 16 16 16 Blood Pressure 97/56 L 91/57 L Pulse Oximetry 100 100 100 01/31/18 02:17 01/31/18 02:32 01/31/18 02:47 Temperature Pulse Rate 66 66 66 Respiratory Rate 16 16 16 Blood Pressure 93/55 L 97/55 L 102/57 L Pulse Oximetry 100 100 100 01/31/18 03:00 01/31/18 03:02 01/31/18 03:17 Temperature Pulse Rate 68 68 68 Respiratory Rate 16 16 16 Blood Pressure 96/59 L 96/59 L 94/58 L Pulse Oximetry 100 100 100 01/31/18 03:32 01/31/18 03:47 01/31/18 04:02 Temperature Pulse Rate 66 68 68 Respiratory Rate 16 16 16 Blood Pressure 103/58 L 106/59 L 102/62 Pulse Oximetry 100 100 100 01/31/18 04:17 01/31/18 04:32 01/31/18 04:47 Temperature Pulse Rate 68 68 70 Respiratory Rate 16 15 16 Blood Pressure 105/62 104/60 107/60 Pulse Oximetry 100 100 100 01/31/18 05:00 01/31/18 05:10 01/31/18 05:17 Temperature Pulse Rate 70 72 Respiratory Rate 15 16 16 Blood Pressure 98/57 L 106/64 Pulse Oximetry 100 100 100 01/31/18 05:32 01/31/18 05:47 01/31/18 06:02 Temperature 100.4 F H Pulse Rate 70 70 70 Respiratory Rate 16 16 16 Blood Pressure 102/60 104/61 106/57 L Pulse Oximetry 100 100 100 01/31/18 06:17 01/31/18 06:32 01/31/18 06:47 Temperature Pulse Rate 70 70 70 Respiratory Rate 16 15 12 Blood Pressure 100/56 L 99/58 L 111/79 Pulse Oximetry 100 100 100 01/31/18 07:00 01/31/18 07:02 01/31/18 07:17 Temperature Pulse Rate 72 72 68 Respiratory Rate 15 16 16 Blood Pressure 100/60 95/57 L Pulse Oximetry 99 99 100 01/31/18 07:30 01/31/18 07:32 01/31/18 07:47 Temperature Pulse Rate 68 66 Respiratory Rate 16 16 16 Blood Pressure 92/58 L 100/53 L Pulse Oximetry 100 100 100 01/31/18 08:00 01/31/18 08:02 01/31/18 08:17 Temperature 100 F H Pulse Rate 70 70 70 Respiratory Rate 15 15 15 Blood Pressure 90/56 L 96/53 L Pulse Oximetry 99 98 98 01/31/18 08:32 01/31/18 08:47 01/31/18 09:00 Temperature Pulse Rate 68 68 68 Respiratory Rate 16 16 16 Blood Pressure 90/54 L 87/53 L Pulse Oximetry 97 97 97 01/31/18 09:02 01/31/18 09:17 01/31/18 09:32 Temperature Pulse Rate 66 66 66 Respiratory Rate 16 15 16 Blood Pressure 91/53 L 88/51 L 89/48 L Pulse Oximetry 97 97 97 01/31/18 09:38 01/31/18 09:47 01/31/18 10:00 Temperature Pulse Rate 66 64 64 Respiratory Rate 16 16 15 Blood Pressure 85/51 L 83/49 L Pulse Oximetry 97 97 98 01/31/18 10:02 01/31/18 10:17 01/31/18 10:32 Temperature Pulse Rate 64 64 64 Respiratory Rate 16 16 16 Blood Pressure 90/52 L 92/50 L 90/52 L Pulse Oximetry 98 98 98 01/31/18 10:47 Temperature Pulse Rate Respiratory Rate 16 Blood Pressure Pulse Oximetry 100 Intake & Output 01/30/18 01/31/18 01/31/18 18:59 06:59 18:59 Intake Total 2261 / 2261 2570 / 2570 500 / 500 Output Total 450 / 450 2800 / 2800 Balance 1811 / 1811 -230 / -230 500 / 500 Weight 101.9 kg Intake: IV 101 / 101 2570 / 2570 500 / 500 Precedex Inj 200 mcg In 50 ml @ 20 / 20 0.2 MCG/KG/HR 4.875 mls/hr IV. CONT TITRATE PRN Rx#:[id number] LR 1000 mL Inj 1,000 ML @ 150 1000 / 1000 mls/hr IV.CONT .Q6H40M MICHAEL Rx#: [id number] Versed Inj 50 mg In 50 ml @ 2 50 / 50 MG/HR 2 mls/hr IV.CONT TITRATE PRN Rx#:[id number] Neosynephrine Inj 40 MG In D5W 500 / 500 Inj 496 ML @ 40 MCG/MIN 30 mls/ hr IV.CONT TITRATE PRN Rx#: [id number] Alburx 5% Inj 500 ML @ 250 mls/ 500 / 500 hr IV.SIG STAT STA Rx#: [id number] Thiamine Inj 100 MG In NS Inj 101 / 101 0 / 0 100 ML @ 100 mls/hr IV.SIG DAILY MICHAEL Rx#:[id number] Oral 2159 Output: Urine 450 / 450 Urine Amount (Catheter) 185 / 1850 Indwelling Urethral Catheter 1849 / 1849 Gastric Drainage 950 / 950 Left Nare 950 / 950 Other: Date of Last Bowel Movement 01/29/18 01/29/18 Narrative: GENERAL: Obese male lying in bed with an ET tube in place currently on ventilatory support. Sedated. SKIN: Warm and dry. HEAD: Normocephalic. EYES: No scleral icterus. No injection or drainage. NECK: Supple, trachea midline. No JVD or lymphadenopathy. CARDIOVASCULAR: Regular rate and rhythm without murmurs, gallops, or rubs. RESPIRATORY: Breath sounds equal bilaterally. No accessory muscle use. GASTROINTESTINAL: Abdomen soft, non-tender, nondistended. MUSCULOSKELETAL: No cyanosis, or edema. Results - Lab Results 01/31/18 05:50 01/31/18 05:50 Most recent lab results ABG pH 7.46 (7.380-7.420) H 01/30/18 21:15 ABG pCO2 32 mmHg (38-42) L 01/30/18 21:15 ABG pO2 276 mmHg (61-120) H 01/30/18 21:15 ABG HCO3 23 mmol/L (22-26) 01/30/18 21:15 Calcium 7.3 mg/dL (8.5-10.1) L* 01/31/18 05:50 Phosphorus 1.8 mg/dL (2.5-4.9) L 01/31/18 05:50 Magnesium 1.5 mg/dL (1.5-2.5) 01/31/18 05:50 Assessment and Plan - Assessment (1) Hyponatremia Code(s): E87.1 - Hypo-osmolality and hyponatremia Status: Acute Plan: Most likely multifactorial in origin. Primary etiology most likely related to alcohol abuse with a paucity of osmoles required for free water clearance. Also suspect some degree of intravascular volume depletion on presentation resulting in non-osmotic stimulation of antidiuretic hormone secretion. Patient also has a history of hypothyroidism and his TSH level was noted to be elevated at the time of presentation also a contributory factor possibly. Goal to increase him sodium level by about 6-8 mEq per 24 hours. Critical care has done a good job in improving his sodium level at desired rate. Continue to monitor sodium level every 6 hourly as already ordered. Would recommend administration of desmopressin 2 mcg plus or minus boluses 400 mL's of D5W every 6 hourly if the sodium level increases above desired rate. Long-term management of hyponatremia as an outpatient would of course include the patient discontinuing alcohol abuse, maintaining adequate nutritional intake and adequate treatment of his hyponatremia. Will defer that to his primary care physician. Patient will be followed peripherally. If any questions please call. (2) Alcohol withdrawal Code(s): F10.239 - Alcohol dependence with withdrawal, unspecified Status: Acute
--- NOTE | 2018-01-31 15:04 | CT ---
EXAM DATE: 01/31/2018 2:20 PM EDT AGE/SEX: 62 years / Male INDICATIONS: Abdominal pain, increased liver functions CLINICAL DATA: This is the patient's initial encounter. Patient reports that signs and symptoms have been present for 1 day and indicates a pain score of 5/10. MEDICAL/SURGICAL HISTORY: Hypertension. Carcinoma, prostatic. Hypothyroidism. Alcoholism No ne. ORAL CONTRAST: Prescribed oral contrast ingested. RADIATION DOSE: 20.35 CTDI (mGy) COMPARISON: No prior exams available for comparison. TECHNIQUE: Multiple contiguous axial images were obtained through the abdomen following bolus infusi on of 96ML ml Omnipaque 350 (iohexol) nonionic water-soluble contrast as a single exam dose. Prescr ibed oral contrast ingested. Using automated exposure control and adjustment of the mA and/or kV acc ording to patient size, radiation dose was kept as low as reasonably achievable to obtain optimal silvia gnostic quality images. DICOM format image data is available electronically for review and compariso n. FINDINGS: There is subsegmental atelectasis in the both bases. Coronary artery calcifications are present. Ther e is decreased density of the liver with respect to the spleen compatible with fatty infiltration. Th e spleen is unremarkable. There is inflammatory change surrounding the tail the pancreas as well as f luid surrounding the liver. This likely is related to pancreatitis. The gallbladder is normal without wall thickening or pericholecystic fluid. The adrenal glands and kidneys appear normal bilaterally. No hydronephrosis or mass lesions are identified. Examination of the pelvis demonstrates no evidence of free fluid or pelvic mass. No abnormally enlarg ed inguinal or retroperitoneal lymph nodes are present. A Conway catheter is present within the bladde r which does not allow for evaluation. CONCLUSION: Findings of pancreatitis involving the tail with phlegmonous change and fluid surrounding the spleen. Bibasilar atelectasis Hypodense liver compatible with fatty infiltration or hepatocellular disease. Electronically signed by: Pilo Churchill MD 01/31/2018 3:02 PM EDT
[2018-01-31] MEDS ORDERED: Desmopressin Inj 4 MCG/ML Ampul IV.SIG ONE (15:22)
[2018-01-31] MEDS: Potassium Phosphate Inj 30 MMOL in Sodium Chlor 0.9% Inj 250 ML IV.SIG PRN (15:33)
[2018-01-31] MEDS: fentaNYL 10 mcg/mL Premix Drip 2,500 MCG/250 ML BAG IV.SIG PRN (16:05)
--- NOTE | 2018-01-31 17:08 | MB ---
cc: Hayden Pimentel MD, Mohammad A MD DATE: 01/31/2018 REASON FOR CONSULTATION: Abnormal liver enzymes. HISTORY OF PRESENT ILLNESS: This is a 62-year-old male patient with history of alcoholism for several years, along with other comorbid conditions. The patient presented to the emergency room with multiple complaints. The patient has a history of long use of different kinds of alcoholic beverages, but drinks at least half a pint of whiskey per day. He he decided to quit drinking alcohol 2 days ago and to detoxify himself, when he went down to 6 cans of beers daily. He reported having agitation, chest pain along with other associated symptoms. When the patient presented to the emergency room, he was feeling shaky, not feeling well, requiring immediate intubation for controlling of his agitation. During the hospitalization, the patient's labs showed evidence of severe hyponatremia and increase in liver enzymes in the form of a transaminitis. GI was consulted for further evaluation and assessment and management. PAST MEDICAL HISTORY: Hypertension, hypothyroidism, chronic alcoholism. FAMILY HISTORY: Not available now. PSYCHOSOCIAL HISTORY: The patient is a heavy alcohol drinker as mentioned in the history of present illness, ex-smoker. CURRENT MEDICATIONS: 1. Thiamine 2. IV fluid 3. Valium 4. Librium. 5. Haldol p.r.n. ALLERGIES: NO KNOWN DRUG ALLERGIES. PHYSICAL EXAMINATION: GENERAL: The patient is currently intubated, hemodynamically stable and heavily sedated. HEENT: Normocephalic, atraumatic. Pupils equal and reactive to light. NECK: Supple. CHEST: Clear to auscultation bilaterally. No crackles or wheezes. CARDIOVASCULAR: Regular rate and rhythm. No murmurs. ABDOMEN: Soft, nontender. No hepatosplenomegaly. No palpable masses. EXTREMITIES: Normal pulses. NEUROLOGIC: Intubated and heavily sedated. SKIN: No rashes. LABORATORY DATA: Revealed a white count of 8.7, hemoglobin of 17, hematocrit 50.1 down to 14 and 41 after hydration, platelet count of 271. Electrolytes showed an ALT of 408, AST 463, total bilirubin of 2.6. INR of 1.2 and albumin of 3.3. IMAGING STUDIES: CT of the abdomen showed hypodense liver compatible with fatty infiltration or severe hepatocellular damage. ASSESSMENT: A 62-year-old male patient with multiple comorbid conditions with recent alcohol detoxification by himself, presented with the following problems: 1. Severe confusion and agitation requiring intubation. 2. Liver enzyme elevation in the form of transaminitis compatible with alcohol-induced hepatitis. 3. Hyponatremia, likely delusional and secondary to alcohol abuse. 4. Heavy alcohol use and recent detoxification. PLAN: Agree with the plan by the arch cushion press operator. We will need to monitor for DT. Continue Librium and Valium as needed. Thiamine and other multivitamins. Aggressive hydration. The patient does not need Pentoxifylline or methylprednisolone at this time since his DF function is below 30. We will follow up with you daily. Check liver enzymes and continue aggressive hydration. Thank you for the consult. MD CALVIN Stephenson/ , 04:46 PM , 05:07 PM
[2018-02-01 01:11] LABS: Phosphorus 2.2 mg/dL (2.5-4.9); Potassium 4.1 meq/L (3.5-5.1)
[2018-02-01] MEDS: Potassium Phosphate 500 MG Soluble Tablet PO PRN ×2 (01:30→05:45)
[2018-02-01] MEDS: Enoxaparin Inj 40 MG/0.4 ML Syringe SQ SCH (02:04)
[2018-02-01] MEDS ORDERED: Thiamine Inj 500 MG in Sodium Chlor 0.9% Inj 500 ML IV.SIG SCH (02:16)
[2018-02-01] MEDS: Piperacil/Tazo 3.375 GM Premix 50 ML IV.SIG SCH ×4 (02:46→23:17)
[2018-02-01] MEDS: Phenylephrine Inj 40 MG in Dextrose 5% in Water Inj 496 ML IV.CONT PRN ×4 (04:15→12:24)
[2018-02-01] MEDS: Midazolam 50 MG/50 ML Inj 50 MG/50 ML BAG IV.CONT PRN ×2 (04:58→15:15)
[2018-02-01 05:15] LABS: Baso % (Auto) 0.3 % (0.0-2.0); Eos % (Auto) 0.5 % (0.0-4.0); Hematocrit 37.5 % (39.0-51.0); Hemoglobin 12.7 gm/dL (13.0-17.0); Lymph # (Auto) 0.5 th/mm3 (1.0-4.8); Lymph % (Auto) 5.5 % (9.0-44.0); Mean Corpuscular HGB Conc 33.8 % (32.0-36.0); Mean Corpuscular Hemoglobin 32.2 pg (27.0-34.0); Mean Corpuscular Volume 95.2 fL (80.0-100.0); Mean Platelet Volume 7.3 fL (7.0-11.0); Mono % (Auto) 10.1 % (0.0-8.0); Neut # (Auto) 8.4 th/mm3 (1.8-7.7); Neut % (Auto) 83.6 % (16.0-70.0); Platelet Count 158 th/mm3 (150-450); Red Blood Count 3.94 mil/mm3 (4.50-5.90); Red Cell Distribution Width 13.6 % (11.6-17.2); White Blood Count 9.9 th/mm3 (4.0-11.0)
[2018-02-01] MEDS: Chlorhexidine Gluconate 2% 1 Pack (2 Cloths) TOPICAL SCH (05:20)
[2018-02-01 05:53] LABS: Albumin 2.3 g/dL (3.4-5.0); Calcium 6.9 mg/dL (8.5-10.1); Carbon Dioxide 25.9 meq/L (21.0-32.0); Potassium 4.2 meq/L (3.5-5.1); Total Protein 5.5 g/dL (6.4-8.2)
[2018-02-01] MEDS ORDERED: Magnesium Sulfate Inj 2 GM in Sodium Chlor 0.9% Inj 96 ML IV.SIG ONE (06:57)
--- NOTE | 2018-02-01 07:43 | XR ---
EXAM DATE: 02/01/2018 7:32 AM EDT AGE/SEX: 62 years / Male INDICATIONS: Respiratory failure CLINICAL DATA: This is the patient's subsequent encounter. Patient reports that signs and symptoms h ave been present for 3 days and indicates a pain score of Nonresponsive. MEDICAL/SURGICAL HISTORY: . Hypertension. Carcinoma, prostatic. Hypothyroidism. Alcoholism No ne. COMPARISON: HPO, CHEST 1V SINGLE AP, 01/30/2018. . FINDINGS: Single AP portable view of the chest demonstrates endotracheal tube with the tip at the level of the clavicles, stable. Gastric tubing extending beyond the imaged portion of the film. There is new hazy opacity overlying the inferior left hemithorax and loss of visualization of the lef t hemidiaphragm consistent with atelectasis and likely pleural effusion. The right hemithorax is brendan sly clear. Heart size is enlarged with diffuse cephalization of pulmonary vasculature. CONCLUSION: New airspace abnormalities identified within the left hemithorax consistent with left lower lobe atel ectasis and pleural effusion. Lines and tubes appear appropriate. Electronically signed by: Luma Shin MD 02/01/2018 7:42 AM EDT
[2018-02-01] MEDS: Thiamine Inj 100 MG in Sodium Chlor 0.9% Inj 100 ML IV.SIG SCH (08:18)
[2018-02-01] MEDS: Folic Acid 1 MG Tablet PO SCH (08:19)
[2018-02-01] MEDS: Multivitamin/Minerals Therapeutic Tablet PO SCH (08:19)
[2018-02-01] MEDS: chlordiazePOXIDE 25 MG Capsule PO SCH ×4 (08:19→21:58)
[2018-02-01] MEDS: Senna/Docusate Sodium 8.6/50 MG Tablet PO SCH ×2 (08:20→20:05)
[2018-02-01] MEDS: Acetaminophen 325 MG Tablet PO PRN (08:29)
[2018-02-01 09:14] LABS: CKMB Percent 0.2 % (0.0-4.0); Creatine Kinase MB 2.5 ng/mL (0.5-3.6)
--- NOTE | 2018-02-01 11:34 | P.DIET ---
Nutritional Evaluation Type of nutrition evaluation: initial Nutrition consult regarding: Tube Feeding Objective - Diagnosis Hyponatremia, impending DT's, chest pain - Objective % IBW: 134 (BMI using adm. wt-31.8) Body Weight Used for Calculations: IBW (72.7kg ) Energy Needs - Lower Range (kCal/kg): 25 Energy Needs - Upper Range (kCal/kg): 30 Lower Limit kCal/kg (kCals): 1,818 Upper Limit kCal/kg (kCals): 2,181 Lower Limit Protein Factor (Grams per Kg): 1.2 Upper Limit Protein Factor (Grams per Kg): 1.5 Lower Protein Needs (Protein): 87 Upper Protein Needs (Protein): 109 Dietitian Reviewed in Medical Record: Current diet, Curent medications, Intake & Output, Labs, Medical history Objective Comments: PMH: Alcohol Abuse, hx prostate CA, HTN, hypothyroidism Meds include: Fentanyl, Folic Acid, Theragran M, Thiamine, Synthroid Labs include: Na 122, Cr 1.1, elevated LFT's (-)BM Assessment Assessment: Pt at nutritional risk r/t need for a TF for nutrition support. Pt intubated and sedated on fentanyl. TF Jevity 1.5 with goal rate 60 ml/hr per MD. Because pt is on Synthroid and TF must be held one hour before and after administration , recommend goal rate of 65 ml/hr for 22 hrs to provide 2145 kcals, 91 gms protein and 1087 mls free water. Will monitor TF tolerance, clinical course. Recommendations: Recommend TF Jevity 1.5 with goal rate 65 ml/hr for 22 hrs (Synthroid) Dietitian to Monitor: Lab values, Intake & Output, Tube feeding tolerance, Weight change, Medical course
[2018-02-01] MEDS: fentaNYL 10 mcg/mL Premix Drip 2,500 MCG/250 ML BAG IV.SIG PRN ×2 (12:06→23:45)
[2018-02-01] MEDS: Norepinephrine Inj 4 MG in Sodium Chlor 0.9% Inj 246 ML IV.SIG PRN (15:27)
--- NOTE | 2018-02-01 15:47 | P.PNGI ---
Subjective Interval history: Still intubated and sedated, had BM after lactulose , very agitated when sedation is lowered. Physical Exam Vital signs: Vital Signs 01/31/18 15:45 01/31/18 16:00 01/31/18 16:15 Temperature Pulse Rate 60 58 L 60 Respiratory Rate 16 16 16 Blood Pressure 91/53 L 91/56 L 86/57 L Pulse Oximetry 97 99 99 01/31/18 16:23 01/31/18 16:30 01/31/18 16:45 Temperature Pulse Rate 62 60 58 L Respiratory Rate 16 16 15 Blood Pressure 90/53 L 98/51 L 95/49 L Pulse Oximetry 97 98 100 01/31/18 17:00 01/31/18 17:15 01/31/18 17:30 Temperature Pulse Rate 58 L 58 L 70 Respiratory Rate 16 15 17 Blood Pressure 97/48 L 95/49 L 95/41 L Pulse Oximetry 100 100 98 01/31/18 17:36 01/31/18 17:42 01/31/18 17:45 Temperature Pulse Rate 64 60 60 Respiratory Rate 13 16 16 Blood Pressure 86/44 L 99/52 L 102/53 L Pulse Oximetry 99 99 100 01/31/18 18:00 01/31/18 18:15 01/31/18 18:30 Temperature Pulse Rate 58 L 60 78 Respiratory Rate 16 18 21 Blood Pressure 93/48 L 96/50 L 79/52 L Pulse Oximetry 100 100 97 01/31/18 18:34 01/31/18 18:45 01/31/18 19:00 Temperature Pulse Rate 70 62 64 Respiratory Rate 15 13 12 Blood Pressure 91/48 L 103/50 L 82/48 L Pulse Oximetry 96 98 01/31/18 19:03 01/31/18 19:15 01/31/18 19:30 Temperature Pulse Rate 64 62 84 Respiratory Rate 16 16 18 Blood Pressure 89/50 L 92/51 L 98/60 L Pulse Oximetry 96 01/31/18 19:34 01/31/18 19:45 01/31/18 20:00 Temperature 100.3 F H Pulse Rate 64 62 Respiratory Rate 18 9 L 7 L Blood Pressure 97/53 L 95/52 L Pulse Oximetry 96 97 99 01/31/18 20:15 01/31/18 20:30 01/31/18 20:47 Temperature Pulse Rate 60 62 76 Respiratory Rate 10 L 15 21 Blood Pressure 94/51 L 96/52 L 114/58 L Pulse Oximetry 98 98 99 01/31/18 21:00 01/31/18 21:15 01/31/18 21:30 Temperature Pulse Rate 66 64 62 Respiratory Rate 17 16 16 Blood Pressure 114/59 L 111/51 L 109/53 L Pulse Oximetry 99 100 98 01/31/18 21:45 01/31/18 21:57 01/31/18 22:00 Temperature Pulse Rate 60 60 Respiratory Rate 16 16 16 Blood Pressure 110/52 L 107/50 L Pulse Oximetry 98 98 99 01/31/18 22:15 01/31/18 22:30 01/31/18 22:45 Temperature Pulse Rate 60 58 L 62 Respiratory Rate 16 16 15 Blood Pressure 114/55 L 115/57 L 107/50 L Pulse Oximetry 99 99 100 01/31/18 23:00 01/31/18 23:09 01/31/18 23:15 Temperature Pulse Rate 80 76 70 Respiratory Rate 34 H 21 15 Blood Pressure 137/70 101/54 L 113/59 L Pulse Oximetry 92 L 97 96 01/31/18 23:30 01/31/18 23:45 02/01/18 00:00 Temperature 99.6 F Pulse Rate 64 78 64 Respiratory Rate 16 15 16 Blood Pressure 113/63 115/57 L 114/60 Pulse Oximetry 97 95 94 L 02/01/18 00:15 02/01/18 00:30 02/01/18 00:45 Temperature Pulse Rate 64 62 60 Respiratory Rate 16 16 16 Blood Pressure 108/59 L 113/57 L 110/60 Pulse Oximetry 94 L 95 95 02/01/18 01:00 02/01/18 01:06 02/01/18 01:15 Temperature Pulse Rate 64 64 Respiratory Rate 17 16 15 Blood Pressure 107/55 L 111/56 L Pulse Oximetry 95 95 93 L 02/01/18 01:30 02/01/18 01:45 02/01/18 01:51 Temperature Pulse Rate 64 78 72 Respiratory Rate 19 22 15 Blood Pressure 104/58 L 152/72 H 91/49 L Pulse Oximetry 94 L 90 L 92 L 02/01/18 01:54 02/01/18 02:00 02/01/18 02:15 Temperature Pulse Rate 72 76 64 Respiratory Rate 15 14 16 Blood Pressure 98/50 L 117/55 L 117/61 Pulse Oximetry 91 L 95 96 02/01/18 02:30 02/01/18 02:45 02/01/18 03:00 Temperature Pulse Rate 62 60 60 Respiratory Rate 15 16 16 Blood Pressure 119/61 115/61 113/61 Pulse Oximetry 96 96 95 02/01/18 03:15 02/01/18 03:30 02/01/18 03:45 Temperature Pulse Rate 60 60 60 Respiratory Rate 16 16 16 Blood Pressure 104/56 L 111/62 120/65 Pulse Oximetry 95 96 96 02/01/18 04:00 02/01/18 04:03 02/01/18 04:15 Temperature 100.1 F H Pulse Rate 60 60 Respiratory Rate 16 16 16 Blood Pressure 124/62 123/61 Pulse Oximetry 96 96 96 02/01/18 04:30 02/01/18 04:45 02/01/18 05:00 Temperature Pulse Rate 58 L 78 66 Respiratory Rate 16 9 L 16 Blood Pressure 98/55 L 119/58 L 95/48 L Pulse Oximetry 95 95 97 02/01/18 05:06 02/01/18 05:08 02/01/18 05:15 Temperature Pulse Rate 64 62 62 Respiratory Rate 15 16 16 Blood Pressure 97/49 L 88/44 L Pulse Oximetry 98 100 96 02/01/18 05:21 02/01/18 05:30 02/01/18 05:45 Temperature Pulse Rate 60 58 L 58 L Respiratory Rate 16 15 19 Blood Pressure 100/50 L 114/54 L 116/57 L Pulse Oximetry 95 98 97 02/01/18 06:00 02/01/18 06:15 02/01/18 06:30 Temperature Pulse Rate 58 L 56 L 58 L Respiratory Rate 16 16 15 Blood Pressure 119/58 L 118/57 L 111/57 L Pulse Oximetry 97 97 96 02/01/18 06:45 02/01/18 07:00 02/01/18 07:15 Temperature Pulse Rate 58 L 58 L 58 L Respiratory Rate 15 15 15 Blood Pressure 98/55 L 98/53 L 99/53 L Pulse Oximetry 96 97 96 02/01/18 07:30 02/01/18 07:45 02/01/18 07:52 Temperature Pulse Rate 58 L 58 L Respiratory Rate 16 15 17 Blood Pressure 108/51 L 100/50 L Pulse Oximetry 96 96 97 02/01/18 08:00 02/01/18 08:15 02/01/18 08:30 Temperature 101.1 F H Pulse Rate 62 76 64 Respiratory Rate 15 13 16 Blood Pressure 86/59 L 111/63 117/58 L Pulse Oximetry 98 97 100 02/01/18 08:45 02/01/18 09:00 02/01/18 09:15 Temperature Pulse Rate 62 62 60 Respiratory Rate 16 16 15 Blood Pressure 115/55 L 100/50 L 100/50 L Pulse Oximetry 100 99 97 02/01/18 09:30 02/01/18 09:45 02/01/18 10:00 Temperature 100.6 F H Pulse Rate 58 L 58 L 56 L Respiratory Rate 16 15 16 Blood Pressure 104/52 L 103/51 L 108/51 L Pulse Oximetry 97 98 99 02/01/18 10:18 02/01/18 10:47 02/01/18 10:54 Temperature Pulse Rate 86 62 Respiratory Rate 16 16 16 Blood Pressure 115/59 L 105/55 L Pulse Oximetry 97 98 98 02/01/18 11:00 02/01/18 11:15 02/01/18 11:30 Temperature 99.2 F Pulse Rate 58 L 56 L 54 L Respiratory Rate 16 16 16 Blood Pressure 106/59 L 109/60 111/59 L Pulse Oximetry 98 99 99 02/01/18 11:45 02/01/18 12:00 02/01/18 12:15 Temperature Pulse Rate 54 L 52 L 56 L Respiratory Rate 15 15 16 Blood Pressure 111/60 112/64 79/47 L Pulse Oximetry 99 99 99 02/01/18 12:19 02/01/18 12:20 02/01/18 12:22 Temperature Pulse Rate 56 L 56 L 56 L Respiratory Rate 16 16 16 Blood Pressure 75/44 L 72/43 L 71/42 L Pulse Oximetry 98 98 97 02/01/18 12:23 02/01/18 12:27 02/01/18 12:30 Temperature Pulse Rate 56 L 56 L 54 L Respiratory Rate 16 16 16 Blood Pressure 73/43 L 75/42 L 99/55 L Pulse Oximetry 98 98 98 02/01/18 12:45 02/01/18 13:00 02/01/18 13:15 Temperature Pulse Rate 64 58 L 52 L Respiratory Rate 21 16 16 Blood Pressure 108/71 106/60 116/67 Pulse Oximetry 98 100 100 02/01/18 13:30 02/01/18 13:45 02/01/18 14:17 Temperature 98.6 F Pulse Rate 52 L 52 L Respiratory Rate 16 16 16 Blood Pressure 116/69 114/63 Pulse Oximetry 100 100 97 Intake & Output 01/31/18 02/01/18 02/01/18 18:59 06:59 18:59 Intake Total 3400 / 3400 3200 / 3200 701 / 701 Output Total 600 / 600 Balance 3400 / 3400 2600 / 2600 701 / 701 Weight 101.9 kg 102 kg Intake: IV 3400 / 3400 3200 / 3200 701 / 701 Versed Inj 50 mg In 50 ml @ 2 50 / 50 100 / 100 50 / 50 MG/HR 2 mls/hr IV.CONT TITRATE PRN Rx#:[id number] NS + KCl 20 mEq Inj 1,000 ML @ 1000 / 1000 2000 / 2000 150 mls/hr IV.CONT .Q6H40M MICHAEL Rx#:[id number] Neosynephrine Inj 40 MG In D5W 1000 / 1000 1000 / 1000 500 / 500 Inj 496 ML @ 40 MCG/MIN 30 mls/ hr IV.CONT TITRATE PRN Rx#: [id number] Zosyn 3.375 GM Premix 50 ML @ 100 / 100 100 / 100 50 / 50 100 mls/hr IV.SIG Q6H MICHAEL Rx#: [id number] Thiamine Inj 100 MG In NS Inj 0 / 0 101 / 101 100 ML @ 100 mls/hr IV.SIG DAILY MICHAEL Rx#:[id number] fentaNYL 10 mcg/mL Premix Drip 250 / 250 2,500 mcg In 250 ml @ 50 MCG/HR 5 mls/hr IV.SIG TITRATE PRN Rx #:[id number] Output: Stool 0 / 0 Urine Amount (Catheter) 450 / 450 Indwelling Urethral Catheter 450 / 450 Gastric Drainage 150 / 150 Left Nare 150 / 150 Other: Bladder Irrigation Fluid - Amount Drained Indwelling Urethral Catheter 1,700 Date of Last Bowel Movement 01/29/18 01/31/18 02/01/18 # Bowel Movements 0 0 - Constitutional no acute distress, morbidly obese, chronically ill appearing - Routine HEENT Exam Head: Present: normocephalic, atraumatic, facial swelling Eye: Present: scleral injection - Routine Respiratory Exam Present: patient mechanically ventilated, CTA bilaterally - Routine Cardiovascular Exam Present: RRR, S1, S2 - Routine Abdominal Exam Present: distended - Routine Extremities Exam Present: edema, pulses intact - Routine Skin Exam Present: intact, warm - Detailed Neurological Exam: Coma Scale Eye Opening: None - Urinary Catheter Management Indwelling Urethral Catheter Cath placed during this visit: yes Reason for continuing: Other continuation reason Insertion date: 01/30/18 Insertion time: 21:20 Results - Labs CBC & Chem 7: 02/01/18 05:02 02/01/18 12:00 Laboratory Results - last 24 hr 01/31/18 01/31/18 02/01/18 18:10 18:26 00:38 CBC w Diff WBC RBC Hgb Hct MCV MCH MCHC RDW Plt Count MPV Neut % (Auto) Lymph % (Auto) [place] % (Auto) Eos % (Auto) Baso % (Auto) Neut # (Auto) Lymph # (Auto) [place] # (Auto) Eos # (Auto) Baso # (Auto) WBC Differential Differential Comment Sodium 120 L* 122 L* Potassium Chloride Carbon Dioxide Anion Gap BUN Creatinine Estimated GFR POC Glucose 102 Random Glucose Calcium Prot Corrected Calcium Phosphorus Magnesium Total Bilirubin AST ALT Alkaline Phosphatase Total Creatine Kinase CK-MB (CK-2) CK-MB (CK-2) % Total Protein Albumin Lipase 02/01/18 02/01/18 02/01/18 00:38 01:12 05:02 CBC w Diff WBC RBC Hgb Hct MCV MCH MCHC RDW Plt Count MPV Neut % (Auto) Lymph % (Auto) [place] % (Auto) Eos % (Auto) Baso % (Auto) Neut # (Auto) Lymph # (Auto) [place] # (Auto) Eos # (Auto) Baso # (Auto) WBC Differential Differential Comment Sodium 122 L* Potassium 4.1 4.2 Chloride 89 L D Carbon Dioxide 25.9 Anion Gap 7 BUN 11 Creatinine 1.10 Estimated GFR 68 L POC Glucose 99 Random Glucose 96 Calcium 6.9 L* Prot Corrected Calcium 7.7 L Phosphorus 2.2 L Magnesium Total Bilirubin 1.5 H AST 117 H ALT 109 H Alkaline Phosphatase 48 Total Creatine Kinase CK-MB (CK-2) CK-MB (CK-2) % Total Protein 5.5 L Albumin 2.3 L D Lipase 239 02/01/18 02/01/18 02/01/18 05:02 08:00 10:50 CBC w Diff Auto diff final WBC 9.9 RBC 3.94 L Hgb 12.7 L Hct 37.5 L MCV 95.2 MCH 32.2 MCHC 33.8 RDW 13.6 Plt Count 158 MPV 7.3 Neut % (Auto) 83.6 H Lymph % (Auto) 5.5 L [place] % (Auto) 10.1 H Eos % (Auto) 0.5 Baso % (Auto) 0.3 Neut # (Auto) 8.4 H Lymph # (Auto) 0.5 L [place] # (Auto) 1.0 H Eos # (Auto) 0.0 Baso # (Auto) 0.0 WBC Differential . Differential Comment . Sodium Potassium Chloride Carbon Dioxide Anion Gap BUN Creatinine Estimated GFR POC Glucose Random Glucose Calcium Prot Corrected Calcium Phosphorus 2.2 L Magnesium Total Bilirubin AST ALT Alkaline Phosphatase Total Creatine Kinase 1373 H CK-MB (CK-2) 2.5 CK-MB (CK-2) % 0.2 Total Protein Albumin Lipase 02/01/18 02/01/18 02/01/18 12:00 12:00 12:16 CBC w Diff WBC RBC Hgb Hct MCV MCH MCHC RDW Plt Count MPV Neut % (Auto) Lymph % (Auto) [place] % (Auto) Eos % (Auto) Baso % (Auto) Neut # (Auto) Lymph # (Auto) [place] # (Auto) Eos # (Auto) Baso # (Auto) WBC Differential Differential Comment Sodium 122 L* Potassium Chloride Carbon Dioxide Anion Gap BUN Creatinine Estimated GFR POC Glucose 101 Random Glucose Calcium Prot Corrected Calcium Phosphorus Magnesium 2.8 H D Total Bilirubin AST ALT Alkaline Phosphatase Total Creatine Kinase CK-MB (CK-2) CK-MB (CK-2) % Total Protein Albumin Lipase Microbiology 01/31/18 08:30 Sputum - Endotracheal Gram Stain - Final 01/31/18 08:30 Sputum - Endotracheal Sputum Culture - Preliminary Staphylococcus aureus 01/31/18 08:40 Blood - Peripheral Aerobic Blood Culture - Preliminary No growth in 1 day 01/31/18 08:40 Blood - Peripheral Anaerobic Blood Culture - Preliminary Staphylococcus aureus 01/31/18 08:48 Blood - Peripheral Aerobic Blood Culture - Preliminary No growth in 1 day 01/31/18 08:48 Blood - Peripheral Anaerobic Blood Culture - Preliminary No growth in 1 day 01/31/18 11:30 Catheterized Urine Urine Culture - Preliminary No growth in 24 hours - Imaging Impressions Chest X-Ray 02/01/18 07:04 CONCLUSION: New airspace abnormalities identified within the left hemithorax consistent with left lower lobe atelectasis and pleural effusion. Lines and tubes appear appropriate. Assessment and Plan - Plan 1. Severe confusion and agitation requiring intubation. 2. Liver enzyme elevation in the form of transaminitis compatible with alcohol-induced hepatitis. 3. Hyponatremia, likely delusional and secondary to alcohol abuse. 4. Heavy alcohol use and recent detoxification. PLAN: Agree with the plan by the school social worker. We will need to monitor for DT. Continue Librium and Valium as needed. Thiamine and other multivitamins. Aggressive hydration. We will follow up with you daily. Check liver enzymes and continue aggressive hydration. Further recommendations to follow
--- NOTE | 2018-02-01 16:56 | P.PNCC ---
Subjective Subjective Remarks/Hospital Course: 01/30: Patient is a 62-year-old male with history of hypertension, hypothyroidism , alcoholism, presents the emergency room with multiple complaints. Patient reports that he is an alcoholic, reports that he usually drinks about 1/5 of whiskey per day. Patient reports that he decided to quit drinking alcohol 2 days ago and has put himself on a detox schedule. Patient has been decreasing the amount of alcohol he has been drinking, reports that today he only drinks 6 beers. Patient reports that tonight, he checked his blood pressure and noted it to be elevated and in the 200's. Reports that on route to the ER, he developed chest pain. Reports that he had chest tightness to his mid sternum. Denies any diaphoresis with this chest pain. Patient reports mild shortness of breath with this chest pain, reports resolution of chest pain while in the emergency room. Patient denies any history of coronary artery disease, she does not follow with a presser machine. Patient reports that he thinks that the symptoms are due to his alcohol withdrawal. Patient reports that he is feeling shaky. Patient reports that he has not been feeling well over the past 2 days as he has been unable to tolerate p.o.'s. Reports "i just don't have an appetite and I'm not feeling well with the withdrawl symptoms." Patient tells me he actually came to the hospital because his blood pressure was running extremely high in the 240 systolic range at home. Patient was noted to be hyponatremic with a sodium of 108 in the ER. Patient was accepted for admission by critical care medicine service. He has been receiving half normal saline overnight. This morning when I evaluated the patient he was awake and alert resting comfortably in bed not in any acute distress. 01/31: Patient was complaining of some epigastric discomfort yesterday morning. CT abdomen pelvis was ordered however patient went into worsening alcohol withdrawal and despite starting Precedex and multiple boluses of Ativan was staying very agitated. Eventually he became more lethargic with tachypnea. He had also been vomiting previously. Decision was made to intubate and patient was placed on mechanical ventilation after intubation by ER physician. Of note patient had a difficult airway with some laryngeal edema noted per report and a 6.5 ET tube was used for intubation after failed attempt at intubating with an 8 Nepali and 7 Nepali ET tube. This morning patient is sedated with Versed and fentanyl drips, orally intubated on mechanical ventilation at the time of my evaluation. He was initiated on Son-Synephrine for hypotension following intubation and sedation. Currently he is on Son-Synephrine 70 mics per minute. He has had a good urine output overnight. He was started on 3% saline at 10 cc an hour last evening and the sodium has come up to 115 mEq/liter this morning. He has also been receiving LR at 1 50 cc an hour. NG tube was placed after intubation and 1 L of gastric contents were suctioned out. Patient did spike a temperature of 100.5 axillary this morning. Pancultures were ordered and empiric Zosyn to be started in view of concern for aspiration. 02/01: Remains sedated, orally intubated on mechanical ventilation. On Levophed 2 mics per minute. Significant positive fluid balance. Sodium 122. CT abdomen pelvis done yesterday revealed inflammation around tail of pancreas with fluid around liver consistent with pancreatitis. Objective Vital Signs / I&O: Vital Signs 01/31/18 17:00 01/31/18 17:15 01/31/18 17:30 Temperature Pulse Rate 58 L 58 L 70 Respiratory Rate 16 15 17 Blood Pressure 97/48 L 95/49 L 95/41 L Pulse Oximetry 100 100 98 01/31/18 17:36 01/31/18 17:42 01/31/18 17:45 Temperature Pulse Rate 64 60 60 Respiratory Rate 13 16 16 Blood Pressure 86/44 L 99/52 L 102/53 L Pulse Oximetry 99 99 100 01/31/18 18:00 01/31/18 18:15 01/31/18 18:30 Temperature Pulse Rate 58 L 60 78 Respiratory Rate 16 18 21 Blood Pressure 93/48 L 96/50 L 79/52 L Pulse Oximetry 100 100 97 01/31/18 18:34 01/31/18 18:45 01/31/18 19:00 Temperature Pulse Rate 70 62 64 Respiratory Rate 15 13 12 Blood Pressure 91/48 L 103/50 L 82/48 L Pulse Oximetry 96 98 01/31/18 19:03 01/31/18 19:15 01/31/18 19:30 Temperature Pulse Rate 64 62 84 Respiratory Rate 16 16 18 Blood Pressure 89/50 L 92/51 L 98/60 L Pulse Oximetry 96 01/31/18 19:34 01/31/18 19:45 01/31/18 20:00 Temperature 100.3 F H Pulse Rate 64 62 Respiratory Rate 18 9 L 7 L Blood Pressure 97/53 L 95/52 L Pulse Oximetry 96 97 99 01/31/18 20:15 01/31/18 20:30 01/31/18 20:47 Temperature Pulse Rate 60 62 76 Respiratory Rate 10 L 15 21 Blood Pressure 94/51 L 96/52 L 114/58 L Pulse Oximetry 98 98 99 01/31/18 21:00 01/31/18 21:15 01/31/18 21:30 Temperature Pulse Rate 66 64 62 Respiratory Rate 17 16 16 Blood Pressure 114/59 L 111/51 L 109/53 L Pulse Oximetry 99 100 98 01/31/18 21:45 01/31/18 21:57 01/31/18 22:00 Temperature Pulse Rate 60 60 Respiratory Rate 16 16 16 Blood Pressure 110/52 L 107/50 L Pulse Oximetry 98 98 99 01/31/18 22:15 01/31/18 22:30 01/31/18 22:45 Temperature Pulse Rate 60 58 L 62 Respiratory Rate 16 16 15 Blood Pressure 114/55 L 115/57 L 107/50 L Pulse Oximetry 99 99 100 01/31/18 23:00 01/31/18 23:09 01/31/18 23:15 Temperature Pulse Rate 80 76 70 Respiratory Rate 34 H 21 15 Blood Pressure 137/70 101/54 L 113/59 L Pulse Oximetry 92 L 97 96 01/31/18 23:30 01/31/18 23:45 02/01/18 00:00 Temperature 99.6 F Pulse Rate 64 78 64 Respiratory Rate 16 15 16 Blood Pressure 113/63 115/57 L 114/60 Pulse Oximetry 97 95 94 L 02/01/18 00:15 02/01/18 00:30 02/01/18 00:45 Temperature Pulse Rate 64 62 60 Respiratory Rate 16 16 16 Blood Pressure 108/59 L 113/57 L 110/60 Pulse Oximetry 94 L 95 95 02/01/18 01:00 02/01/18 01:06 02/01/18 01:15 Temperature Pulse Rate 64 64 Respiratory Rate 17 16 15 Blood Pressure 107/55 L 111/56 L Pulse Oximetry 95 95 93 L 02/01/18 01:30 02/01/18 01:45 02/01/18 01:51 Temperature Pulse Rate 64 78 72 Respiratory Rate 19 22 15 Blood Pressure 104/58 L 152/72 H 91/49 L Pulse Oximetry 94 L 90 L 92 L 02/01/18 01:54 02/01/18 02:00 02/01/18 02:15 Temperature Pulse Rate 72 76 64 Respiratory Rate 15 14 16 Blood Pressure 98/50 L 117/55 L 117/61 Pulse Oximetry 91 L 95 96 02/01/18 02:30 02/01/18 02:45 02/01/18 03:00 Temperature Pulse Rate 62 60 60 Respiratory Rate 15 16 16 Blood Pressure 119/61 115/61 113/61 Pulse Oximetry 96 96 95 02/01/18 03:15 02/01/18 03:30 02/01/18 03:45 Temperature Pulse Rate 60 60 60 Respiratory Rate 16 16 16 Blood Pressure 104/56 L 111/62 120/65 Pulse Oximetry 95 96 96 02/01/18 04:00 02/01/18 04:03 02/01/18 04:15 Temperature 100.1 F H Pulse Rate 60 60 Respiratory Rate 16 16 16 Blood Pressure 124/62 123/61 Pulse Oximetry 96 96 96 02/01/18 04:30 02/01/18 04:45 02/01/18 05:00 Temperature Pulse Rate 58 L 78 66 Respiratory Rate 16 9 L 16 Blood Pressure 98/55 L 119/58 L 95/48 L Pulse Oximetry 95 95 97 02/01/18 05:06 02/01/18 05:08 02/01/18 05:15 Temperature Pulse Rate 64 62 62 Respiratory Rate 15 16 16 Blood Pressure 97/49 L 88/44 L Pulse Oximetry 98 100 96 02/01/18 05:21 02/01/18 05:30 02/01/18 05:45 Temperature Pulse Rate 60 58 L 58 L Respiratory Rate 16 15 19 Blood Pressure 100/50 L 114/54 L 116/57 L Pulse Oximetry 95 98 97 02/01/18 06:00 02/01/18 06:15 02/01/18 06:30 Temperature Pulse Rate 58 L 56 L 58 L Respiratory Rate 16 16 15 Blood Pressure 119/58 L 118/57 L 111/57 L Pulse Oximetry 97 97 96 02/01/18 06:45 02/01/18 07:00 02/01/18 07:15 Temperature Pulse Rate 58 L 58 L 58 L Respiratory Rate 15 15 15 Blood Pressure 98/55 L 98/53 L 99/53 L Pulse Oximetry 96 97 96 02/01/18 07:30 02/01/18 07:45 02/01/18 07:52 Temperature Pulse Rate 58 L 58 L Respiratory Rate 16 15 17 Blood Pressure 108/51 L 100/50 L Pulse Oximetry 96 96 97 02/01/18 08:00 02/01/18 08:15 02/01/18 08:30 Temperature 101.1 F H Pulse Rate 62 76 64 Respiratory Rate 15 13 16 Blood Pressure 86/59 L 111/63 117/58 L Pulse Oximetry 98 97 100 02/01/18 08:45 02/01/18 09:00 02/01/18 09:15 Temperature Pulse Rate 62 62 60 Respiratory Rate 16 16 15 Blood Pressure 115/55 L 100/50 L 100/50 L Pulse Oximetry 100 99 97 02/01/18 09:30 02/01/18 09:45 02/01/18 10:00 Temperature 100.6 F H Pulse Rate 58 L 58 L 56 L Respiratory Rate 16 15 16 Blood Pressure 104/52 L 103/51 L 108/51 L Pulse Oximetry 97 98 99 02/01/18 10:18 02/01/18 10:47 02/01/18 10:54 Temperature Pulse Rate 86 62 Respiratory Rate 16 16 16 Blood Pressure 115/59 L 105/55 L Pulse Oximetry 97 98 98 02/01/18 11:00 02/01/18 11:15 02/01/18 11:30 Temperature 99.2 F Pulse Rate 58 L 56 L 54 L Respiratory Rate 16 16 16 Blood Pressure 106/59 L 109/60 111/59 L Pulse Oximetry 98 99 99 02/01/18 11:45 02/01/18 12:00 02/01/18 12:15 Temperature Pulse Rate 54 L 52 L 56 L Respiratory Rate 15 15 16 Blood Pressure 111/60 112/64 79/47 L Pulse Oximetry 99 99 99 02/01/18 12:19 02/01/18 12:20 02/01/18 12:22 Temperature Pulse Rate 56 L 56 L 56 L Respiratory Rate 16 16 16 Blood Pressure 75/44 L 72/43 L 71/42 L Pulse Oximetry 98 98 97 02/01/18 12:23 02/01/18 12:27 02/01/18 12:30 Temperature Pulse Rate 56 L 56 L 54 L Respiratory Rate 16 16 16 Blood Pressure 73/43 L 75/42 L 99/55 L Pulse Oximetry 98 98 98 02/01/18 12:45 02/01/18 13:00 02/01/18 13:15 Temperature Pulse Rate 64 58 L 52 L Respiratory Rate 21 16 16 Blood Pressure 108/71 106/60 116/67 Pulse Oximetry 98 100 100 02/01/18 13:30 02/01/18 13:45 02/01/18 14:00 Temperature 98.6 F Pulse Rate 52 L 52 L 54 L Respiratory Rate 16 16 16 Blood Pressure 116/69 114/63 103/60 Pulse Oximetry 100 100 100 02/01/18 14:15 02/01/18 14:17 02/01/18 14:30 Temperature Pulse Rate 58 L 56 L Respiratory Rate 15 16 16 Blood Pressure 90/51 L 86/53 L Pulse Oximetry 100 97 100 02/01/18 14:31 02/01/18 14:34 02/01/18 14:38 Temperature Pulse Rate 56 L 54 L 54 L Respiratory Rate 16 16 15 Blood Pressure 87/52 L 94/56 L 95/54 L Pulse Oximetry 100 100 100 02/01/18 14:47 02/01/18 14:57 02/01/18 15:00 Temperature Pulse Rate 54 L 52 L 52 L Respiratory Rate 15 16 15 Blood Pressure 96/56 L 97/57 L Pulse Oximetry 100 100 100 02/01/18 15:07 02/01/18 15:17 02/01/18 15:27 Temperature Pulse Rate 54 L 54 L 52 L Respiratory Rate 15 16 16 Blood Pressure 95/58 L 103/58 L 101/58 L Pulse Oximetry 100 100 100 02/01/18 15:37 02/01/18 15:40 02/01/18 15:47 Temperature Pulse Rate 56 L 58 L 68 Respiratory Rate 16 16 16 Blood Pressure 85/58 L 87/54 L 131/71 Pulse Oximetry 100 100 98 02/01/18 15:57 02/01/18 16:00 02/01/18 16:07 Temperature 98.0 F Pulse Rate 58 L 58 L 60 Respiratory Rate 15 16 15 Blood Pressure 111/66 104/62 Pulse Oximetry 99 99 99 02/01/18 16:17 02/01/18 16:29 02/01/18 16:43 Temperature Pulse Rate 76 70 75 Respiratory Rate 16 16 18 Blood Pressure 128/80 102/59 L Pulse Oximetry 99 97 98 02/01/18 16:44 Temperature Pulse Rate 74 Respiratory Rate 14 Blood Pressure 121/67 Pulse Oximetry 99 Intake & Output 01/31/18 02/01/18 02/01/18 18:59 06:59 18:59 Intake Total 3400 / 3400 3200 / 3200 701 / 701 Output Total 600 / 600 300 / 300 Balance 3400 / 3400 2600 / 2600 401 / 401 Weight 101.9 kg 102 kg Intake: IV 3400 / 3400 3200 / 3200 701 / 701 Versed Inj 50 mg In 50 ml @ 2 50 / 50 100 / 100 50 / 50 MG/HR 2 mls/hr IV.CONT TITRATE PRN Rx#:[id number] NS + KCl 20 mEq Inj 1,000 ML @ 1000 / 1000 2000 / 2000 150 mls/hr IV.CONT .Q6H40M [facility] Rx#:[id number] Neosynephrine Inj 40 MG In D5W 1000 / 1000 1000 / 1000 500 / 500 Inj 496 ML @ 40 MCG/MIN 30 mls/ hr IV.CONT TITRATE PRN Rx#: [id number] Zosyn 3.375 GM Premix 50 ML @ 100 / 100 100 / 100 50 / 50 100 mls/hr IV.SIG Q6H [facility] Rx#: [id number] Thiamine Inj 100 MG In NS Inj 0 / 0 101 / 101 100 ML @ 100 mls/hr IV.SIG DAILY MICHAEL Rx#:[id number] fentaNYL 10 mcg/mL Premix Drip 250 / 250 2,500 mcg In 250 ml @ 50 MCG/HR 5 mls/hr IV.SIG TITRATE PRN Rx #:[id number] Output: Stool 0 / 0 Urine Amount (Catheter) 450 / 450 300 / 300 Indwelling Urethral Catheter 450 / 450 300 / 300 Gastric Drainage 150 / 150 Left Nare 150 / 150 Other: Bladder Irrigation Fluid - Amount Drained Indwelling Urethral Catheter 1,700 Date of Last Bowel Movement 01/29/18 01/31/18 02/01/18 # Bowel Movements 0 0 Result Diagrams: 02/01/18 05:02 02/01/18 12:00 Other Results: Laboratory Results - last 24 hr 01/31/18 01/31/18 02/01/18 18:10 18:26 00:38 CBC w Diff WBC RBC Hgb Hct MCV MCH MCHC RDW Plt Count MPV Neut % (Auto) Lymph % (Auto) [place] % (Auto) Eos % (Auto) Baso % (Auto) Neut # (Auto) Lymph # (Auto) [place] # (Auto) Eos # (Auto) Baso # (Auto) WBC Differential Differential Comment Sodium 120 L* 122 L* Potassium Chloride Carbon Dioxide Anion Gap BUN Creatinine Estimated GFR POC Glucose 102 Random Glucose Calcium Prot Corrected Calcium Phosphorus Magnesium Total Bilirubin AST ALT Alkaline Phosphatase Total Creatine Kinase CK-MB (CK-2) CK-MB (CK-2) % Total Protein Albumin Lipase 02/01/18 02/01/18 02/01/18 00:38 01:12 05:02 CBC w Diff WBC RBC Hgb Hct MCV MCH MCHC RDW Plt Count MPV Neut % (Auto) Lymph % (Auto) [place] % (Auto) Eos % (Auto) Baso % (Auto) Neut # (Auto) Lymph # (Auto) [place] # (Auto) Eos # (Auto) Baso # (Auto) WBC Differential Differential Comment Sodium 122 L* Potassium 4.1 4.2 Chloride 89 L D Carbon Dioxide 25.9 Anion Gap 7 BUN 11 Creatinine 1.10 Estimated GFR 68 L POC Glucose 99 Random Glucose 96 Calcium 6.9 L* Prot Corrected Calcium 7.7 L Phosphorus 2.2 L Magnesium Total Bilirubin 1.5 H AST 117 H ALT 109 H Alkaline Phosphatase 48 Total Creatine Kinase CK-MB (CK-2) CK-MB (CK-2) % Total Protein 5.5 L Albumin 2.3 L D Lipase 239 02/01/18 02/01/18 02/01/18 05:02 08:00 10:50 CBC w Diff Auto diff final WBC 9.9 RBC 3.94 L Hgb 12.7 L Hct 37.5 L MCV 95.2 MCH 32.2 MCHC 33.8 RDW 13.6 Plt Count 158 MPV 7.3 Neut % (Auto) 83.6 H Lymph % (Auto) 5.5 L [place] % (Auto) 10.1 H Eos % (Auto) 0.5 Baso % (Auto) 0.3 Neut # (Auto) 8.4 H Lymph # (Auto) 0.5 L [place] # (Auto) 1.0 H Eos # (Auto) 0.0 Baso # (Auto) 0.0 WBC Differential . Differential Comment . Sodium Potassium Chloride Carbon Dioxide Anion Gap BUN Creatinine Estimated GFR POC Glucose Random Glucose Calcium Prot Corrected Calcium Phosphorus 2.2 L Magnesium Total Bilirubin AST ALT Alkaline Phosphatase Total Creatine Kinase 1373 H CK-MB (CK-2) 2.5 CK-MB (CK-2) % 0.2 Total Protein Albumin Lipase 02/01/18 02/01/18 02/01/18 12:00 12:00 12:16 CBC w Diff WBC RBC Hgb Hct MCV MCH MCHC RDW Plt Count MPV Neut % (Auto) Lymph % (Auto) [place] % (Auto) Eos % (Auto) Baso % (Auto) Neut # (Auto) Lymph # (Auto) [place] # (Auto) Eos # (Auto) Baso # (Auto) WBC Differential Differential Comment Sodium 122 L* Potassium Chloride Carbon Dioxide Anion Gap BUN Creatinine Estimated GFR POC Glucose 101 Random Glucose Calcium Prot Corrected Calcium Phosphorus Magnesium 2.8 H D Total Bilirubin AST ALT Alkaline Phosphatase Total Creatine Kinase CK-MB (CK-2) CK-MB (CK-2) % Total Protein Albumin Lipase Imaging: Chest X-Ray 01/30/18 00:41 CONCLUSION: No acute cardiopulmonary disease Abdomen X-Ray 01/30/18 18:46 CONCLUSION: NG tube in the stomach. Chest X-Ray 01/30/18 20:03 CONCLUSION: ET tube in good position. Abdomen CT 01/31/18 00:00 Examination of the pelvis demonstrates no evidence of free fluid or pelvic mass. No abnormally enlarged inguinal or retroperitoneal lymph nodes are present. A [place] catheter is present within the bladder which does not allow for evaluation. CONCLUSION: Findings of pancreatitis involving the tail with phlegmonous change and fluid surrounding the spleen. Bibasilar atelectasis Hypodense liver compatible with fatty infiltration or hepatocellular disease. Chest X-Ray 02/01/18 07:04 CONCLUSION: New airspace abnormalities identified within the left hemithorax consistent with left lower lobe atelectasis and pleural effusion. Lines and tubes appear appropriate. Objective Remarks: HEENT/ Neuro: Sedated, orally intubated, No pallor, no icterus, tongue/ mucosa moist Neck: No JVD Chest/Pulm: on mech vent, good air entry bilaterally, no wheezing or crackles CVS: S1-S2 regular, no murmur GI/abdomen: soft, nontender, bowel sounds sluggish Extremities: warm bilaterally, no edema Assessment and Plan - Assessment and Plan Plan: Severe hyponatremia Uncontrolled hypertension (resolved) Hypotension (possibly secondary to high sedation requirement as patient was admitted with severe hypertension) Acute pancreatitis Hypertriglyceridemia Elevated LFTs Fever: Possible source from pancreatitis versus sepsis versus related to alcohol withdrawal. Alcohol withdrawal Hypothyroidism Plan: Neuro: Follow neuro status. Initiated CIWA alcohol withdrawal protocol. Continue IV thiamine MVI per protocol. Ativan/Haldol as needed. Follow serial sodium . Switched IV fluids from NS and LR to normal saline at 150 cc/h. increase Librium from 25 mg to 50 mg p.o. every 8 hourly, continue Valium. Remains on Versed and fentanyl drips at high doses and still gets agitated with minimal movement of stimulation. Cardiovascular: Stopped lisinopril, clonidine, labetalol as needed due to hypotension. Switched to Levophed for pressor support. Pulmonary: Continue mechanical ventilation, vent bundle, bronchodilators as needed. GI/ liver: Tolerating tube feeds. CT revealed acute pancreatitis. GI following. Lipase has come down. Renal/: TSH 9, triglycerides elevated, low serum osmolarity(240s). urine osmolarity 694. Urine sodium 47. Nephrology consult. Follow serial sodiums. Decreased normal saline to 42 cc/h in view of significant positive fluid balance. Started on salt tabs per nephrology. Sodium 122. Endocrine: Elevated TSH(9). Continue Synthroid, watch for hyperglycemia, SSI for glycemic control if needed. Heme: Follow CBC ID: Pancultures ordered on 01/31 in view of fever. Possible cirrhosis related to pancreatitis and alcohol withdrawal however will initiate empiric Zosyn while awaiting culture results. Sputum and blood cultures growing staph aureus , sensitivities pending. Added Zyvox 600 mg IV every 12 hourly on 02/01. Prophylaxis: PPI/SCDs/Lovenox Condition critical with severe hyponatremia, alcohol withdrawal, acute pancreatitis, septic shock, staph pneumonia, acute respiratory failure on mechanical ventilation Time spent on critical care excluding procedures 50 minutes
[2018-02-01] MEDS: Sodium Chloride 1 GM Tablet PO SCH ×2 (17:06→20:04)
[2018-02-01] MEDS: Sodium Phosphate Inj 30 MMOL in Sodium Chlor 0.9% Inj 250 ML IV.SIG PRN (18:29)
[2018-02-01] MEDS: Chlorhexidine 0.12% Oral Kit 15 ML UDC OROPHARYNG SCH (21:34)
[2018-02-01] MEDS: Artificial Tears Opth Drops 15 ML Bottle EACH EYE SCH (21:58)
[2018-02-02] MEDS: Artificial Tears Opth Drops 15 ML Bottle EACH EYE SCH ×6 (01:57→23:12)
[2018-02-02] MEDS: Enoxaparin Inj 40 MG/0.4 ML Syringe SQ SCH (02:50)
[2018-02-02] MEDS: Piperacil/Tazo 3.375 GM Premix 50 ML IV.SIG SCH ×4 (03:40→21:44)
[2018-02-02] MEDS: Midazolam 50 MG/50 ML Inj 50 MG/50 ML BAG IV.CONT PRN ×4 (04:32→20:01)
[2018-02-02] MEDS: Chlorhexidine Gluconate 2% 1 Pack (2 Cloths) TOPICAL SCH (05:01)
[2018-02-02 05:09] LABS: Baso % (Auto) 0.3 % (0.0-2.0); Eos # (Auto) 0.2 th/mm3 (0.0-0.4); Eos % (Auto) 2.1 % (0.0-4.0); Hematocrit 35.4 % (39.0-51.0); Hemoglobin 11.9 gm/dL (13.0-17.0); Lymph # (Auto) 0.7 th/mm3 (1.0-4.8); Lymph % (Auto) 7.5 % (9.0-44.0); Mean Corpuscular HGB Conc 33.6 % (32.0-36.0); Mean Corpuscular Volume 95.3 fL (80.0-100.0); Mean Platelet Volume 7.4 fL (7.0-11.0); Mono # (Auto) 0.9 th/mm3 (0.0-0.9); Mono % (Auto) 10.3 % (0.0-8.0); Neut % (Auto) 79.8 % (16.0-70.0); Platelet Count 166 th/mm3 (150-450); Red Blood Count 3.72 mil/mm3 (4.50-5.90); Red Cell Distribution Width 13.7 % (11.6-17.2); White Blood Count 8.8 th/mm3 (4.0-11.0)
[2018-02-02 05:27] LABS: Albumin 2.2 g/dL (3.4-5.0); Calcium 7.2 mg/dL (8.5-10.1); Carbon Dioxide 26.6 meq/L (21.0-32.0); Magnesium 2.5 mg/dL (1.5-2.5); Phosphorus 2.4 mg/dL (2.5-4.9); Potassium 3.9 meq/L (3.5-5.1)
[2018-02-02 05:47] LABS: CKMB Percent 0.2 % (0.0-4.0); Creatine Kinase MB 1.6 ng/mL (0.5-3.6)
[2018-02-02] MEDS: chlordiazePOXIDE 25 MG Capsule PO SCH ×3 (06:14→21:44)
--- NOTE | 2018-02-02 09:20 | XR ---
EXAM DATE: 02/02/2018 8:21 AM EDT AGE/SEX: 62 years / Male INDICATIONS: Central line placement. CLINICAL DATA: This is the patient's subsequent encounter. Patient reports that signs and symptoms h ave been present for 3 days and indicates a pain score of Nonresponsive. MEDICAL/SURGICAL HISTORY: . Hypertension. Carcinoma, prostatic. Hypothyroidism. Alcoholism No ne. COMPARISON: HPO, CHEST 1V SINGLE AP, 02/01/2018. HPO, CHEST 1V SINGLE AP, 01/30/2018. . FINDINGS: 2 portable AP views of the chest demonstrate cardiac silhouette size at the upper limits for normal w ith calcification of the aorta. Endotracheal tube distal tip remains at the clavicular head level, na sogastric tube courses beyond the GE junction, and right IJ line tip is in the SVC. EKG lines overlie the patient. Lungs are underinflated with atelectasis at the right lung base and is stable small lef t basilar pleural-parenchymal opacity. No pneumothorax is visualized. CONCLUSION: 1. Right IJ central line distal tip in the superior vena cava. No pneumothorax is present. 2. Stable small left basilar opacity representing pleural effusion with associated volume loss and/o r airspace consolidation. Electronically signed by: Wisam Goetz MD 02/02/2018 9:19 AM EDT
[2018-02-02] MEDS: Pantoprazole Inj 40 MG Vial IV.PUSH SCH (09:41)
[2018-02-02] MEDS: Sodium Chloride 1 GM Tablet PO SCH ×3 (09:42→20:10)
[2018-02-02] MEDS: Senna/Docusate Sodium 8.6/50 MG Tablet PO SCH ×2 (09:42→20:10)
[2018-02-02] MEDS: Multivitamin/Minerals Therapeutic Tablet PO SCH (09:42)
[2018-02-02] MEDS: Folic Acid 1 MG Tablet PO SCH (09:42)
[2018-02-02] MEDS: Chlorhexidine 0.12% Oral Kit 15 ML UDC OROPHARYNG SCH ×2 (12:34→20:17)
--- NOTE | 2018-02-02 17:04 | P.PNGI ---
Subjective Interval history: Seen during rounds.Remains intubated, sedated .On TF. Physical Exam Vital signs: Vital Signs 02/01/18 16:59 02/01/18 17:00 02/01/18 17:14 Temperature Pulse Rate 68 68 66 Respiratory Rate 5 L 4 L 16 Blood Pressure 101/59 L 96/54 L Pulse Oximetry 98 98 98 02/01/18 17:29 02/01/18 17:44 02/01/18 17:59 Temperature Pulse Rate 66 68 66 Respiratory Rate 15 16 15 Blood Pressure 99/55 L 95/54 L 99/56 L Pulse Oximetry 98 98 99 02/01/18 18:00 02/01/18 18:14 02/01/18 18:29 Temperature Pulse Rate 66 66 66 Respiratory Rate 16 16 16 Blood Pressure 97/56 L 92/55 L Pulse Oximetry 99 99 99 02/01/18 18:44 02/01/18 18:59 02/01/18 19:00 Temperature Pulse Rate 66 64 64 Respiratory Rate 16 15 16 Blood Pressure 90/54 L 89/55 L 89/55 L Pulse Oximetry 99 99 100 02/01/18 19:14 02/01/18 19:23 02/01/18 19:28 Temperature Pulse Rate 66 70 Respiratory Rate 15 16 16 Blood Pressure 90/55 L Pulse Oximetry 99 100 02/01/18 19:29 02/01/18 19:44 02/01/18 20:00 Temperature 99.8 F H Pulse Rate 64 84 73 Respiratory Rate 16 15 16 Blood Pressure 91/54 L 123/54 L 115/61 Pulse Oximetry 99 97 99 02/01/18 20:14 02/01/18 20:29 02/01/18 20:44 Temperature Pulse Rate 74 76 74 Respiratory Rate 8 L 16 16 Blood Pressure 129/76 103/56 L 83/46 L Pulse Oximetry 100 100 100 02/01/18 20:59 02/01/18 21:00 02/01/18 21:14 Temperature Pulse Rate 72 72 72 Respiratory Rate 16 16 16 Blood Pressure 81/42 L 83/43 L Pulse Oximetry 99 99 100 02/01/18 21:29 02/01/18 21:44 02/01/18 22:00 Temperature Pulse Rate 70 68 68 Respiratory Rate 16 16 16 Blood Pressure 90/47 L 94/49 L 92/49 L Pulse Oximetry 100 100 100 02/01/18 22:06 02/01/18 22:14 02/01/18 22:31 Temperature Pulse Rate 68 72 Respiratory Rate 16 16 22 Blood Pressure 89/50 L 84/55 L Pulse Oximetry 100 100 100 02/01/18 22:46 02/01/18 23:00 02/01/18 23:15 Temperature Pulse Rate 72 70 70 Respiratory Rate 16 16 16 Blood Pressure 97/54 L 94/52 L 96/52 L Pulse Oximetry 100 100 99 02/01/18 23:30 02/01/18 23:45 02/02/18 00:00 Temperature 100.2 F H Pulse Rate 70 70 70 Respiratory Rate 16 16 16 Blood Pressure 93/52 L 92/53 L 96/52 L Pulse Oximetry 97 97 96 02/02/18 00:15 02/02/18 00:30 02/02/18 00:45 Temperature Pulse Rate 68 70 70 Respiratory Rate 16 16 16 Blood Pressure 96/51 L 97/56 L 98/56 L Pulse Oximetry 98 97 98 02/02/18 00:47 02/02/18 01:00 02/02/18 01:15 Temperature Pulse Rate 70 84 Respiratory Rate 16 16 16 Blood Pressure 95/53 L 142/62 H Pulse Oximetry 98 97 97 02/02/18 01:30 02/02/18 01:45 02/02/18 02:00 Temperature Pulse Rate 74 72 72 Respiratory Rate 16 16 16 Blood Pressure 111/59 L 104/55 L 98/56 L Pulse Oximetry 98 100 98 02/02/18 02:15 02/02/18 02:30 02/02/18 02:45 Temperature Pulse Rate 72 70 70 Respiratory Rate 16 15 16 Blood Pressure 97/53 L 102/53 L 100/55 L Pulse Oximetry 98 96 96 02/02/18 03:00 02/02/18 03:15 02/02/18 03:30 Temperature Pulse Rate 70 68 68 Respiratory Rate 15 16 16 Blood Pressure 104/58 L 101/57 L 96/56 L Pulse Oximetry 96 97 96 02/02/18 03:45 02/02/18 04:00 02/02/18 04:04 Temperature 100.4 F H Pulse Rate 68 68 Respiratory Rate 16 16 16 Blood Pressure 98/56 L 100/58 L Pulse Oximetry 96 96 96 02/02/18 04:15 02/02/18 04:33 02/02/18 04:55 Temperature Pulse Rate 68 86 94 H Respiratory Rate 16 22 16 Blood Pressure 101/56 L 167/85 H 132/60 Pulse Oximetry 96 97 95 02/02/18 05:00 02/02/18 05:15 02/02/18 05:30 Temperature Pulse Rate 86 80 76 Respiratory Rate 15 15 16 Blood Pressure 121/67 92/53 L 89/54 L Pulse Oximetry 95 97 97 02/02/18 06:00 02/02/18 06:15 02/02/18 06:30 Temperature Pulse Rate 72 70 68 Respiratory Rate 16 16 15 Blood Pressure 92/53 L 91/54 L 95/56 L Pulse Oximetry 98 99 100 02/02/18 06:45 02/02/18 07:00 02/02/18 07:15 Temperature 100.1 F H Pulse Rate 78 72 78 Respiratory Rate 22 17 16 Blood Pressure 99/62 L 111/70 110/60 Pulse Oximetry 97 99 98 02/02/18 07:30 02/02/18 07:45 02/02/18 08:00 Temperature Pulse Rate 72 72 72 Respiratory Rate 16 16 16 Blood Pressure 110/64 101/56 L 106/66 Pulse Oximetry 99 98 98 02/02/18 08:12 02/02/18 08:15 02/02/18 08:30 Temperature Pulse Rate 70 66 Respiratory Rate 16 16 15 Blood Pressure 95/61 L 91/59 L Pulse Oximetry 96 96 96 02/02/18 08:45 02/02/18 09:00 02/02/18 09:15 Temperature Pulse Rate 64 64 62 Respiratory Rate 16 15 16 Blood Pressure 85/57 L 90/58 L 90/55 L Pulse Oximetry 96 96 96 02/02/18 09:30 02/02/18 09:45 02/02/18 10:00 Temperature Pulse Rate 62 62 64 Respiratory Rate 16 16 15 Blood Pressure 97/66 L 100/60 98/58 L Pulse Oximetry 96 96 02/02/18 10:15 02/02/18 10:30 02/02/18 10:45 Temperature Pulse Rate 64 64 64 Respiratory Rate 16 15 16 Blood Pressure 95/57 L 94/60 L 95/58 L Pulse Oximetry 97 96 97 02/02/18 11:00 02/02/18 11:15 02/02/18 11:28 Temperature Pulse Rate 64 64 Respiratory Rate 16 16 16 Blood Pressure 96/57 L 95/58 L Pulse Oximetry 97 96 96 02/02/18 11:30 02/02/18 11:45 02/02/18 12:00 Temperature Pulse Rate 64 64 64 Respiratory Rate 16 16 Blood Pressure 93/55 L 92/59 L Pulse Oximetry 96 96 02/02/18 14:00 02/02/18 16:35 Temperature Pulse Rate Respiratory Rate 16 16 Blood Pressure Pulse Oximetry 93 L 96 Intake & Output 02/01/18 02/02/18 02/02/18 18:59 06:59 18:59 Intake Total 2050 400 / 400 1100 / 1100 Output Total 850 / 850 675 / 675 Balance 1201 / 1201 -275 / -275 1100 / 1100 Weight 104.5 kg Intake: IV 2050 400 / 400 1100 / 1100 Versed Inj 50 mg In 50 ml @ 2 50 / 50 50 / 50 100 / 100 MG/HR 2 mls/hr IV.CONT TITRATE PRN Rx#:[id number] NS + KCl 20 mEq Inj 1,000 ML @ 1000 / 1000 1000 / 1000 42 mls/hr IV.CONT .[id number] MICHAEL Rx#:[id number] Neosynephrine Inj 40 MG In D5W 500 / 500 Inj 496 ML @ 40 MCG/MIN 30 mls/ hr IV.CONT TITRATE PRN Rx#: [id number] Zyvox 600 mg Premix 300 ML @ 300 / 300 300 mls/hr IV.SIG Q12H MICHAEL Rx#: [id number] Zosyn 3.375 GM Premix 50 ML @ 100 / 100 100 / 100 100 mls/hr IV.SIG Q6H MICHAEL Rx#: [id number] Thiamine Inj 100 MG In NS Inj 101 / 101 100 ML @ 100 mls/hr IV.SIG DAILY MICHAEL Rx#:[id number] fentaNYL 10 mcg/mL Premix Drip 250 / 250 2,500 mcg In 250 ml @ 50 MCG/HR 5 mls/hr IV.SIG TITRATE PRN Rx #:[id number] Output: Urine Amount (Catheter) 850 / 850 675 / 675 Indwelling Urethral Catheter 850 / 850 675 / 675 Other: Date of Last Bowel Movement 02/01/18 02/01/18 02/01/18 # Bowel Movements 0 - Constitutional Comments: patient intubated , sedated, unable to obtain informations - Routine HEENT Exam Head: Present: normocephalic - Routine Neck Exam Present: supple - Routine Respiratory Exam Comments: intubated - Routine Cardiovascular Exam Present: S1, S2 - Routine Abdominal Exam Present: soft - Routine Extremities Exam Present: pulses intact - Routine Skin Exam Present: intact - Routine Neurological Exam sedated - Routine Psychiatric Exam Comments: sedated - Urinary Catheter Management Indwelling Urethral Catheter Cath placed during this visit: yes Reason for continuing: Other continuation reason Insertion date: 01/30/18 Insertion time: 21:20 Results - Labs CBC & Chem 7: 02/02/18 05:00 02/02/18 12:15 Laboratory Results - last 24 hr 02/01/18 02/01/18 02/02/18 17:02 17:32 00:30 CBC w Diff WBC RBC Hgb Hct MCV MCH MCHC RDW Plt Count MPV Neut % (Auto) Lymph % (Auto) Walsh % (Auto) Eos % (Auto) Baso % (Auto) Neut # (Auto) Lymph # (Auto) Walsh # (Auto) Eos # (Auto) Baso # (Auto) WBC Differential Differential Comment Sodium 123 L* 124 L* Potassium Chloride Carbon Dioxide Anion Gap BUN Creatinine Estimated GFR POC Glucose 99 Random Glucose Calcium Prot Corrected Calcium Phosphorus Magnesium Total Bilirubin AST ALT Alkaline Phosphatase Total Creatine Kinase CK-MB (CK-2) CK-MB (CK-2) % Total Protein Albumin Lipase 02/02/18 02/02/18 02/02/18 00:30 05:00 05:00 CBC w Diff Auto diff final WBC 8.8 RBC 3.72 L Hgb 11.9 L Hct 35.4 L MCV 95.3 MCH 32.0 MCHC 33.6 RDW 13.7 Plt Count 166 MPV 7.4 Neut % (Auto) 79.8 H Lymph % (Auto) 7.5 L Walsh % (Auto) 10.3 H Eos % (Auto) 2.1 Baso % (Auto) 0.3 Neut # (Auto) 7.0 Lymph # (Auto) 0.7 L Walsh # (Auto) 0.9 Eos # (Auto) 0.2 Baso # (Auto) 0.0 WBC Differential . Differential Comment . Sodium 123 L* Potassium 3.9 Chloride 89 L Carbon Dioxide 26.6 Anion Gap 7 BUN 10 Creatinine 0.99 Estimated GFR 77 L POC Glucose 122 H Random Glucose 112 H Calcium 7.2 L* Prot Corrected Calcium 7.8 L Phosphorus 2.4 L Magnesium 2.5 Total Bilirubin 1.1 H AST 72 H ALT 82 H Alkaline Phosphatase 56 Total Creatine Kinase 648 H CK-MB (CK-2) 1.6 CK-MB (CK-2) % 0.2 Total Protein 6.0 L Albumin 2.2 L Lipase 113 02/02/18 02/02/18 02/02/18 05:01 12:15 12:15 CBC w Diff WBC RBC Hgb Hct MCV MCH MCHC RDW Plt Count MPV Neut % (Auto) Lymph % (Auto) Walsh % (Auto) Eos % (Auto) Baso % (Auto) Neut # (Auto) Lymph # (Auto) Walsh # (Auto) Eos # (Auto) Baso # (Auto) WBC Differential Differential Comment Sodium 127 L Potassium Chloride Carbon Dioxide Anion Gap BUN Creatinine Estimated GFR POC Glucose 131 H 151 H Random Glucose Calcium Prot Corrected Calcium Phosphorus Magnesium Total Bilirubin AST ALT Alkaline Phosphatase Total Creatine Kinase CK-MB (CK-2) CK-MB (CK-2) % Total Protein Albumin Lipase Microbiology 01/31/18 08:30 Sputum - Endotracheal Gram Stain - Final 01/31/18 08:30 Sputum - Endotracheal Sputum Culture - Final Staphylococcus aureus 01/31/18 08:40 Blood - Peripheral Aerobic Blood Culture - Preliminary No growth in 2 days 01/31/18 08:40 Blood - Peripheral Anaerobic Blood Culture - Preliminary Staphylococcus aureus 01/31/18 08:48 Blood - Peripheral Aerobic Blood Culture - Preliminary No growth in 2 days 01/31/18 08:48 Blood - Peripheral Anaerobic Blood Culture - Preliminary No growth in 2 days 01/31/18 11:30 Catheterized Urine Urine Culture - Final No growth in 48 hours - Imaging Impressions Chest X-Ray 02/02/18 00:00 CONCLUSION: 1. Right IJ central line distal tip in the superior vena cava. No pneumothorax is present. 2. Stable small left basilar opacity representing pleural effusion with associated volume loss and/or airspace consolidation. Assessment and Plan - Attending Attestation acute pancreatitis secondary ETOH withdrawal syndrome from etoh-intubated, sedated elevated lfts secondary etoh Recommendations Supportive care monitor lfts iv hydration ammonia level-if high add Rifaximin 550 mg po bid avoid etoh
--- NOTE | 2018-02-02 20:01 | P.PNCC ---
Subjective Subjective Remarks/Hospital Course: 01/30: Patient is a 62-year-old male with history of hypertension, hypothyroidism , alcoholism, presents the emergency room with multiple complaints. Patient reports that he is an alcoholic, reports that he usually drinks about 1/5 of whiskey per day. Patient reports that he decided to quit drinking alcohol 2 days ago and has put himself on a detox schedule. Patient has been decreasing the amount of alcohol he has been drinking, reports that today he only drinks 6 beers. Patient reports that tonight, he checked his blood pressure and noted it to be elevated and in the 200's. Reports that on route to the ER, he developed chest pain. Reports that he had chest tightness to his mid sternum. Denies any diaphoresis with this chest pain. Patient reports mild shortness of breath with this chest pain, reports resolution of chest pain while in the emergency room. Patient denies any history of coronary artery disease, she does not follow with a resolution analyst. Patient reports that he thinks that the symptoms are due to his alcohol withdrawal. Patient reports that he is feeling shaky. Patient reports that he has not been feeling well over the past 2 days as he has been unable to tolerate p.o.'s. Reports "i just don't have an appetite and I'm not feeling well with the withdrawl symptoms." Patient tells me he actually came to the hospital because his blood pressure was running extremely high in the 240 systolic range at home. Patient was noted to be hyponatremic with a sodium of 108 in the ER. Patient was accepted for admission by critical care medicine service. He has been receiving half normal saline overnight. This morning when I evaluated the patient he was awake and alert resting comfortably in bed not in any acute distress. 01/31: Patient was complaining of some epigastric discomfort yesterday morning. CT abdomen pelvis was ordered however patient went into worsening alcohol withdrawal and despite starting Precedex and multiple boluses of Ativan was staying very agitated. Eventually he became more lethargic with tachypnea. He had also been vomiting previously. Decision was made to intubate and patient was placed on mechanical ventilation after intubation by ER physician. Of note patient had a difficult airway with some laryngeal edema noted per report and a 6.5 ET tube was used for intubation after failed attempt at intubating with an 8 Estonian and 7 Estonian ET tube. This morning patient is sedated with Versed and fentanyl drips, orally intubated on mechanical ventilation at the time of my evaluation. He was initiated on Son-Synephrine for hypotension following intubation and sedation. Currently he is on Son-Synephrine 70 mics per minute. He has had a good urine output overnight. He was started on 3% saline at 10 cc an hour last evening and the sodium has come up to 115 mEq/liter this morning. He has also been receiving LR at 1 50 cc an hour. NG tube was placed after intubation and 1 L of gastric contents were suctioned out. Patient did spike a temperature of 100.5 axillary this morning. Pancultures were ordered and empiric Zosyn to be started in view of concern for aspiration. 02/01: Remains sedated, orally intubated on mechanical ventilation. On Levophed 2 mics per minute. Significant positive fluid balance. Sodium 122. CT abdomen pelvis done yesterday revealed inflammation around tail of pancreas with fluid around liver consistent with pancreatitis. 02/02: Remains sedated, orally intubated on mechanical ventilation. Femoral central line replaced with right IJ central line today. Remains on Levophed for pressor support. Objective Vital Signs / I&O: Vital Signs 02/01/18 20:00 02/01/18 20:14 02/01/18 20:29 Temperature 99.8 F H Pulse Rate 73 74 76 Respiratory Rate 16 8 L 16 Blood Pressure 115/61 129/76 103/56 L Pulse Oximetry 99 100 100 02/01/18 20:44 02/01/18 20:59 02/01/18 21:00 Temperature Pulse Rate 74 72 72 Respiratory Rate 16 16 16 Blood Pressure 83/46 L 81/42 L Pulse Oximetry 100 99 99 02/01/18 21:14 02/01/18 21:29 02/01/18 21:44 Temperature Pulse Rate 72 70 68 Respiratory Rate 16 16 16 Blood Pressure 83/43 L 90/47 L 94/49 L Pulse Oximetry 100 100 100 02/01/18 22:00 02/01/18 22:06 02/01/18 22:14 Temperature Pulse Rate 68 68 Respiratory Rate 16 16 16 Blood Pressure 92/49 L 89/50 L Pulse Oximetry 100 100 100 02/01/18 22:31 02/01/18 22:46 02/01/18 23:00 Temperature Pulse Rate 72 72 70 Respiratory Rate 22 16 16 Blood Pressure 84/55 L 97/54 L 94/52 L Pulse Oximetry 100 100 100 02/01/18 23:15 02/01/18 23:30 02/01/18 23:45 Temperature Pulse Rate 70 70 70 Respiratory Rate 16 16 16 Blood Pressure 96/52 L 93/52 L 92/53 L Pulse Oximetry 99 97 97 02/02/18 00:00 02/02/18 00:15 02/02/18 00:30 Temperature 100.2 F H Pulse Rate 70 68 70 Respiratory Rate 16 16 16 Blood Pressure 96/52 L 96/51 L 97/56 L Pulse Oximetry 96 98 97 02/02/18 00:45 02/02/18 00:47 02/02/18 01:00 Temperature Pulse Rate 70 70 Respiratory Rate 16 16 16 Blood Pressure 98/56 L 95/53 L Pulse Oximetry 98 98 97 02/02/18 01:15 02/02/18 01:30 02/02/18 01:45 Temperature Pulse Rate 84 74 72 Respiratory Rate 16 16 16 Blood Pressure 142/62 H 111/59 L 104/55 L Pulse Oximetry 97 98 100 02/02/18 02:00 02/02/18 02:15 02/02/18 02:30 Temperature Pulse Rate 72 72 70 Respiratory Rate 16 16 15 Blood Pressure 98/56 L 97/53 L 102/53 L Pulse Oximetry 98 98 96 02/02/18 02:45 02/02/18 03:00 02/02/18 03:15 Temperature Pulse Rate 70 70 68 Respiratory Rate 16 15 16 Blood Pressure 100/55 L 104/58 L 101/57 L Pulse Oximetry 96 96 97 02/02/18 03:30 02/02/18 03:45 02/02/18 04:00 Temperature 100.4 F H Pulse Rate 68 68 68 Respiratory Rate 16 16 16 Blood Pressure 96/56 L 98/56 L 100/58 L Pulse Oximetry 96 96 96 02/02/18 04:04 02/02/18 04:15 02/02/18 04:33 Temperature Pulse Rate 68 86 Respiratory Rate 16 16 22 Blood Pressure 101/56 L 167/85 H Pulse Oximetry 96 96 97 02/02/18 04:55 02/02/18 05:00 02/02/18 05:15 Temperature Pulse Rate 94 H 86 80 Respiratory Rate 16 15 15 Blood Pressure 132/60 121/67 92/53 L Pulse Oximetry 95 95 97 02/02/18 05:30 02/02/18 06:00 02/02/18 06:15 Temperature Pulse Rate 76 72 70 Respiratory Rate 16 16 16 Blood Pressure 89/54 L 92/53 L 91/54 L Pulse Oximetry 97 98 99 02/02/18 06:30 02/02/18 06:45 02/02/18 07:00 Temperature 100.1 F H Pulse Rate 68 78 72 Respiratory Rate 15 22 17 Blood Pressure 95/56 L 99/62 L 111/70 Pulse Oximetry 100 97 99 02/02/18 07:15 02/02/18 07:30 02/02/18 07:45 Temperature Pulse Rate 78 72 72 Respiratory Rate 16 16 16 Blood Pressure 110/60 110/64 101/56 L Pulse Oximetry 98 99 98 02/02/18 08:00 02/02/18 08:12 02/02/18 08:15 Temperature Pulse Rate 72 70 Respiratory Rate 16 16 16 Blood Pressure 106/66 95/61 L Pulse Oximetry 98 96 96 02/02/18 08:30 02/02/18 08:45 02/02/18 09:00 Temperature Pulse Rate 66 64 64 Respiratory Rate 15 16 15 Blood Pressure 91/59 L 85/57 L 90/58 L Pulse Oximetry 96 96 96 02/02/18 09:15 02/02/18 09:30 02/02/18 09:45 Temperature Pulse Rate 62 62 62 Respiratory Rate 16 16 16 Blood Pressure 90/55 L 97/66 L 100/60 Pulse Oximetry 96 96 02/02/18 10:00 02/02/18 10:15 02/02/18 10:30 Temperature Pulse Rate 64 64 64 Respiratory Rate 15 16 15 Blood Pressure 98/58 L 95/57 L 94/60 L Pulse Oximetry 96 97 96 02/02/18 10:45 02/02/18 11:00 02/02/18 11:15 Temperature Pulse Rate 64 64 64 Respiratory Rate 16 16 16 Blood Pressure 95/58 L 96/57 L 95/58 L Pulse Oximetry 97 97 96 02/02/18 11:28 02/02/18 11:30 02/02/18 11:45 Temperature Pulse Rate 64 64 Respiratory Rate 16 16 16 Blood Pressure 93/55 L 92/59 L Pulse Oximetry 96 96 96 02/02/18 12:00 02/02/18 12:15 02/02/18 12:20 Temperature 99 F Pulse Rate 64 64 66 Respiratory Rate 16 16 16 Blood Pressure 89/53 L 99/60 L 98/60 L Pulse Oximetry 96 96 96 02/02/18 12:30 02/02/18 12:45 02/02/18 13:00 Temperature Pulse Rate 72 72 76 Respiratory Rate 15 16 16 Blood Pressure 109/64 110/64 112/65 Pulse Oximetry 96 96 96 02/02/18 13:15 02/02/18 13:30 02/02/18 13:45 Temperature Pulse Rate 98 H 84 92 H Respiratory Rate 16 16 16 Blood Pressure 126/71 132/71 131/71 Pulse Oximetry 95 94 L 94 L 02/02/18 14:00 02/02/18 14:15 02/02/18 14:30 Temperature Pulse Rate 86 78 96 H Respiratory Rate 16 16 16 Blood Pressure 125/68 113/63 133/74 Pulse Oximetry 93 L 93 L 93 L 02/02/18 14:45 02/02/18 15:00 02/02/18 15:15 Temperature Pulse Rate 96 H 90 66 Respiratory Rate 16 16 16 Blood Pressure 131/72 105/59 L 90/49 L Pulse Oximetry 93 L 92 L 93 L 02/02/18 15:30 02/02/18 15:45 02/02/18 16:00 Temperature Pulse Rate 66 66 66 Respiratory Rate 16 16 15 Blood Pressure 91/52 L 92/54 L 92/52 L Pulse Oximetry 95 95 95 02/02/18 16:15 02/02/18 16:30 02/02/18 16:35 Temperature Pulse Rate 66 70 Respiratory Rate 16 16 16 Blood Pressure 89/53 L 92/52 L Pulse Oximetry 95 96 96 02/02/18 16:45 02/02/18 17:00 02/02/18 17:15 Temperature 98.9 F Pulse Rate 72 66 72 Respiratory Rate 16 16 16 Blood Pressure 93/56 L 92/54 L 91/52 L Pulse Oximetry 95 95 95 02/02/18 17:30 02/02/18 17:45 02/02/18 18:00 Temperature Pulse Rate 68 78 102 H Respiratory Rate 16 16 16 Blood Pressure 89/52 L 98/62 L 109/63 Pulse Oximetry 95 95 94 L 02/02/18 18:15 02/02/18 18:19 02/02/18 18:30 Temperature Pulse Rate 102 H 106 H 102 H Respiratory Rate 16 16 16 Blood Pressure 112/64 114/61 109/67 Pulse Oximetry 93 L 93 L 93 L 02/02/18 18:45 02/02/18 19:00 02/02/18 19:15 Temperature Pulse Rate 102 H 100 H 98 H Respiratory Rate 16 16 16 Blood Pressure 111/60 106/68 109/64 Pulse Oximetry 93 L 93 L 93 L 02/02/18 19:30 02/02/18 19:45 Temperature Pulse Rate 90 Respiratory Rate 16 Blood Pressure 107/62 108/66 Pulse Oximetry 93 L Intake & Output 02/02/18 02/02/18 02/03/18 06:59 18:59 06:59 Intake Total 400 / 400 1450 / 1450 50 / 50 Output Total 675 / 675 2200 / 2200 Balance -275 / -275 -750 / -750 50 / 50 Weight 104.5 kg Intake: IV 400 / 400 1450 / 1450 50 / 50 Versed Inj 50 mg In 50 ml @ 2 50 / 50 100 / 100 MG/HR 2 mls/hr IV.CONT TITRATE PRN Rx#:[id number] NS + KCl 20 mEq Inj 1,000 ML @ 1000 / 1000 42 mls/hr IV.CONT .[id number] MICHAEL Rx#:[id number] Zyvox 600 mg Premix 300 ML @ 300 / 300 300 mls/hr IV.SIG Q12H MICHAEL Rx#: [id number] Zosyn 3.375 GM Premix 50 ML @ 100 / 100 50 / 50 50 / 50 100 mls/hr IV.SIG Q6H MICHAEL Rx#: [id number] fentaNYL 10 mcg/mL Premix Drip 250 / 250 2,500 mcg In 250 ml @ 50 MCG/HR 5 mls/hr IV.SIG TITRATE PRN Rx #:[id number] Output: Urine Amount (Catheter) 675 / 675 2200 / 2200 Indwelling Urethral Catheter 675 / 675 2200 / 2200 Other: Date of Last Bowel Movement 02/01/18 02/01/18 # Bowel Movements 0 Result Diagrams: 02/02/18 05:00 02/02/18 18:20 Imaging: Impressions Chest X-Ray 02/01/18 07:04 CONCLUSION: New airspace abnormalities identified within the left hemithorax consistent with left lower lobe atelectasis and pleural effusion. Lines and tubes appear appropriate. Chest X-Ray 02/02/18 00:00 CONCLUSION: 1. Right IJ central line distal tip in the superior vena cava. No pneumothorax is present. 2. Stable small left basilar opacity representing pleural effusion with associated volume loss and/or airspace consolidation. Objective Remarks: HEENT/ Neuro: Sedated, orally intubated, No pallor, no icterus, tongue/ mucosa moist Neck: No JVD Chest/Pulm: on mech vent, good air entry bilaterally, no wheezing or crackles CVS: S1-S2 regular, no murmur GI/abdomen: soft, nontender, bowel sounds sluggish Extremities: warm bilaterally, trace edema Assessment and Plan - Assessment and Plan Plan: Severe hyponatremia Uncontrolled hypertension (resolved) Hypotension (possibly secondary to high sedation requirement as patient was admitted with severe hypertension) Acute pancreatitis Hypertriglyceridemia Elevated LFTs Fever: Possible source from pancreatitis versus sepsis versus related to alcohol withdrawal. Septic shock Staph pneumonia Staph bacteremia Alcohol withdrawal Hypothyroidism Plan: Neuro: Follow neuro status. Initiated [facility] alcohol withdrawal protocol. Continue IV thiamine MVI per protocol. Ativan/Haldol as needed. Follow serial sodium . Switched IV fluids from NS and LR to normal saline at 150 cc/h. increase Librium from 25 mg to 50 mg p.o. every 8 hourly, continue Valium. Remains on Versed and fentanyl drips at high doses and still gets agitated with minimal movement of stimulation. Cardiovascular: Stopped lisinopril, clonidine, labetalol as needed due to hypotension. Switched to Levophed for pressor support. Pulmonary: Continue mechanical ventilation, vent bundle, bronchodilators as needed. GI/ liver: Tolerating tube feeds. CT revealed acute pancreatitis. GI following. Lipase has come down. Renal/: TSH 9, triglycerides elevated, low serum osmolarity(240s). urine osmolarity 694. Urine sodium 47. Nephrology consult. Follow serial sodiums. Decreased normal saline to 42 cc/h in view of significant positive fluid balance. Started on salt tabs per nephrology. Sodium 122. Endocrine: Elevated TSH(9). Continue Synthroid, watch for hyperglycemia, SSI for glycemic control if needed. Heme: Follow CBC ID: Pancultures ordered on 01/31 in view of fever. Possible cirrhosis related to pancreatitis and alcohol withdrawal however will initiate empiric Zosyn while awaiting culture results. Sputum and blood cultures growing staph aureus , sensitivities pending. Added Zyvox 600 mg IV every 12 hourly on 02/01. Prophylaxis: PPI/SCDs/Lovenox Access: RIJ central line (placed 02/02) Condition critical with severe hyponatremia, alcohol withdrawal, acute pancreatitis, septic shock, staph pneumonia, acute respiratory failure on mechanical ventilation Time spent on critical care excluding procedures : 40 minutes
--- NOTE | 2018-02-02 20:03 | P.PCN ---
Date of procedure: 02/02/18 Pre-op diagnosis: Septic shock, pneumonia, bacteremia, acute respiratory failure Post-op diagnosis: same Procedure: PROCEDURE PERFORMED [] internal jugular vein central venous catheter placement under ultrasound guidance. INDICATIONS Hypotension requiring pressors, multiple IV infusions INFORMED CONSENT Informed consent obtained from family and documented on chart. ANESTHESIA 1% Lidocaine for local infiltration anesthesia. PROCEDURE After sterile prepping and draping using 1% lidocaine for local infiltration anesthesia, the right internal jugular vein was visualized using an ultrasound vessel finder and under direct visualization was cannulated using an introducer Angiocath with dark non-pulsatile blood return. An Angiocath was advanced into the internal jugular vein without any resistance and the needle was then removed. Blood return was confirmed through the Angiocath following which a guidewire was passed through the Angiocath into the right internal jugular vein without any resistance and the Angiocath was then removed. After making a skin robert and dilation of tract, a 20 cm antimicrobial coated triple lumen catheter was passed over the guidewire by modified Seldinger technique into the right internal jugular vein up to the 19 cm sol and the guidewire was then removed. Good blood return obtained through all three ports which were then flushed and capped. After suturing the catheter in place, a Bio-occlusive dressing with Biopatch was applied to the site. The patient tolerated the procedure well with no immediate complications noted. A postprocedure chest x-ray was ordered and reviewed with good placement of right IJ central venous catheter with tip overlying SVC. No pneumothorax on post- procedure film.
[2018-02-02] MEDS: fentaNYL 10 mcg/mL Premix Drip 2,500 MCG/250 ML BAG IV.SIG PRN (23:12)
[2018-02-03] MEDS: Enoxaparin Inj 40 MG/0.4 ML Syringe SQ SCH (02:39)
[2018-02-03] MEDS: Piperacil/Tazo 3.375 GM Premix 50 ML IV.SIG SCH (02:39)
[2018-02-03 05:02] LABS: Baso % (Auto) 0.5 % (0.0-2.0); Eos # (Auto) 0.3 th/mm3 (0.0-0.4); Eos % (Auto) 4.5 % (0.0-4.0); Hematocrit 32.6 % (39.0-51.0); Lymph # (Auto) 0.4 th/mm3 (1.0-4.8); Lymph % (Auto) 6.3 % (9.0-44.0); Mean Corpuscular HGB Conc 33.7 % (32.0-36.0); Mean Corpuscular Hemoglobin 32.1 pg (27.0-34.0); Mean Corpuscular Volume 95.4 fL (80.0-100.0); Mean Platelet Volume 7.3 fL (7.0-11.0); Mono # (Auto) 0.8 th/mm3 (0.0-0.9); Mono % (Auto) 13.5 % (0.0-8.0); Neut # (Auto) 4.2 th/mm3 (1.8-7.7); Neut % (Auto) 75.2 % (16.0-70.0); Platelet Count 206 th/mm3 (150-450); Red Blood Count 3.42 mil/mm3 (4.50-5.90); Red Cell Distribution Width 13.8 % (11.6-17.2); White Blood Count 5.7 th/mm3 (4.0-11.0)
[2018-02-03 05:13] LABS: Potassium 3.9 meq/L (3.5-5.1)
[2018-02-03 05:17] LABS: Calcium 7.1 mg/dL (8.5-10.1); Magnesium 2.1 mg/dL (1.5-2.5)
[2018-02-03 05:18] LABS: Carbon Dioxide 29.2 meq/L (21.0-32.0)
[2018-02-03 05:23] LABS: Phosphorus 1.6 mg/dL (2.5-4.9); Total Protein 5.6 g/dL (6.4-8.2)
[2018-02-03] MEDS: chlordiazePOXIDE 25 MG Capsule PO SCH ×4 (05:57→22:26)
[2018-02-03] MEDS: Midazolam 50 MG/50 ML Inj 50 MG/50 ML BAG IV.CONT PRN ×5 (06:06→19:49)
[2018-02-03] MEDS: Artificial Tears Opth Drops 15 ML Bottle EACH EYE SCH ×5 (06:08→19:49)
[2018-02-03] MEDS: Chlorhexidine Gluconate 2% 1 Pack (2 Cloths) TOPICAL SCH (06:08)
[2018-02-03] MEDS ORDERED: Magnesium Citrate Liq 300 ML Bottle PO ONE (06:17)
[2018-02-03] MEDS ORDERED: Calcium Chloride Inj 1 GM in Sodium Chlor 0.9% Inj 100 ML IV.SIG ONE (06:19)
[2018-02-03] MEDS ORDERED: chlordiazePOXIDE 25 MG Capsule PO SCH (06:22)
--- NOTE | 2018-02-03 06:39 | P.PNCC ---
Subjective Subjective Remarks/Hospital Course: 01/30: Patient is a 62-year-old male with history of hypertension, hypothyroidism , alcoholism, presents the emergency room with multiple complaints. Patient reports that he is an alcoholic, reports that he usually drinks about 1/5 of whiskey per day. Patient reports that he decided to quit drinking alcohol 2 days ago and has put himself on a detox schedule. Patient has been decreasing the amount of alcohol he has been drinking, reports that today he only drinks 6 beers. Patient reports that tonight, he checked his blood pressure and noted it to be elevated and in the 200's. Reports that on route to the ER, he developed chest pain. Reports that he had chest tightness to his mid sternum. Denies any diaphoresis with this chest pain. Patient reports mild shortness of breath with this chest pain, reports resolution of chest pain while in the emergency room. Patient denies any history of coronary artery disease, she does not follow with a manufacturing engineering technologist. Patient reports that he thinks that the symptoms are due to his alcohol withdrawal. Patient reports that he is feeling shaky. Patient reports that he has not been feeling well over the past 2 days as he has been unable to tolerate p.o.'s. Reports "i just don't have an appetite and I'm not feeling well with the withdrawl symptoms." Patient tells me he actually came to the hospital because his blood pressure was running extremely high in the 240 systolic range at home. Patient was noted to be hyponatremic with a sodium of 108 in the ER. Patient was accepted for admission by critical care medicine service. He has been receiving half normal saline overnight. This morning when I evaluated the patient he was awake and alert resting comfortably in bed not in any acute distress. 01/31: Patient was complaining of some epigastric discomfort yesterday morning. CT abdomen pelvis was ordered however patient went into worsening alcohol withdrawal and despite starting Precedex and multiple boluses of Ativan was staying very agitated. Eventually he became more lethargic with tachypnea. He had also been vomiting previously. Decision was made to intubate and patient was placed on mechanical ventilation after intubation by ER physician. Of note patient had a difficult airway with some laryngeal edema noted per report and a 6.5 ET tube was used for intubation after failed attempt at intubating with an 8 Kisw[place]ili and 7 Kiswahili ET tube. This morning patient is sedated with Versed and fentanyl drips, orally intubated on mechanical ventilation at the time of my evaluation. He was initiated on Son-Synephrine for hypotension following intubation and sedation. Currently he is on Son-Synephrine 70 mics per minute. He has had a good urine output overnight. He was started on 3% saline at 10 cc an hour last evening and the sodium has come up to 115 mEq/liter this morning. He has also been receiving LR at 1 50 cc an hour. NG tube was placed after intubation and 1 L of gastric contents were suctioned out. Patient did spike a temperature of 100.5 axillary this morning. Pancultures were ordered and empiric Zosyn to be started in view of concern for aspiration. 02/01: Remains sedated, orally intubated on mechanical ventilation. On Levophed 2 mics per minute. Significant positive fluid balance. Sodium 122. CT abdomen pelvis done yesterday revealed inflammation around tail of pancreas with fluid around liver consistent with pancreatitis. 02/02: Remains sedated, orally intubated on mechanical ventilation. Femoral central line replaced with right IJ central line today. Remains on Levophed for pressor support. 02/03: remains intubated. perioral edema persists, but this is concomitant with significant generalized edema. remains on vasopressor support. lipase trending down. Objective Vital Signs / I&O: Vital Signs 02/02/18 06:30 02/02/18 06:45 02/02/18 07:00 Temperature 37.8 C H Pulse Rate 68 78 72 Respiratory Rate 15 22 17 Blood Pressure 95/56 L 99/62 L 111/70 Pulse Oximetry 100 97 99 02/02/18 07:15 02/02/18 07:30 02/02/18 07:45 Temperature Pulse Rate 78 72 72 Respiratory Rate 16 16 16 Blood Pressure 110/60 110/64 101/56 L Pulse Oximetry 98 99 98 02/02/18 08:00 02/02/18 08:12 02/02/18 08:15 Temperature Pulse Rate 72 70 Respiratory Rate 16 16 16 Blood Pressure 106/66 95/61 L Pulse Oximetry 98 96 96 02/02/18 08:30 02/02/18 08:45 02/02/18 09:00 Temperature Pulse Rate 66 64 64 Respiratory Rate 15 16 15 Blood Pressure 91/59 L 85/57 L 90/58 L Pulse Oximetry 96 96 96 02/02/18 09:15 02/02/18 09:30 02/02/18 09:45 Temperature Pulse Rate 62 62 62 Respiratory Rate 16 16 16 Blood Pressure 90/55 L 97/66 L 100/60 Pulse Oximetry 96 96 02/02/18 10:00 02/02/18 10:15 02/02/18 10:30 Temperature Pulse Rate 64 64 64 Respiratory Rate 15 16 15 Blood Pressure 98/58 L 95/57 L 94/60 L Pulse Oximetry 96 97 96 02/02/18 10:45 02/02/18 11:00 02/02/18 11:15 Temperature Pulse Rate 64 64 64 Respiratory Rate 16 16 16 Blood Pressure 95/58 L 96/57 L 95/58 L Pulse Oximetry 97 97 96 02/02/18 11:28 02/02/18 11:30 02/02/18 11:45 Temperature Pulse Rate 64 64 Respiratory Rate 16 16 16 Blood Pressure 93/55 L 92/59 L Pulse Oximetry 96 96 96 02/02/18 12:00 02/02/18 12:15 02/02/18 12:20 Temperature 37.2 C Pulse Rate 64 64 66 Respiratory Rate 16 16 16 Blood Pressure 89/53 L 99/60 L 98/60 L Pulse Oximetry 96 96 96 02/02/18 12:30 02/02/18 12:45 02/02/18 13:00 Temperature Pulse Rate 72 72 76 Respiratory Rate 15 16 16 Blood Pressure 109/64 110/64 112/65 Pulse Oximetry 96 96 96 02/02/18 13:15 02/02/18 13:30 02/02/18 13:45 Temperature Pulse Rate 98 H 84 92 H Respiratory Rate 16 16 16 Blood Pressure 126/71 132/71 131/71 Pulse Oximetry 95 94 L 94 L 02/02/18 14:00 02/02/18 14:15 02/02/18 14:30 Temperature Pulse Rate 86 78 96 H Respiratory Rate 16 16 16 Blood Pressure 125/68 113/63 133/74 Pulse Oximetry 93 L 93 L 93 L 02/02/18 14:45 02/02/18 15:00 02/02/18 15:15 Temperature Pulse Rate 96 H 90 66 Respiratory Rate 16 16 16 Blood Pressure 131/72 105/59 L 90/49 L Pulse Oximetry 93 L 92 L 93 L 0716/18 15:30 02/02/18 15:45 02/02/18 16:00 Temperature Pulse Rate 66 66 66 Respiratory Rate 16 16 15 Blood Pressure 91/52 L 92/54 L 92/52 L Pulse Oximetry 95 95 95 02/02/18 16:15 02/02/18 16:30 02/02/18 16:35 Temperature Pulse Rate 66 70 Respiratory Rate 16 16 16 Blood Pressure 89/53 L 92/52 L Pulse Oximetry 95 96 96 02/02/18 16:45 02/02/18 17:00 02/02/18 17:15 Temperature 37.2 C Pulse Rate 72 66 72 Respiratory Rate 16 16 16 Blood Pressure 93/56 L 92/54 L 91/52 L Pulse Oximetry 95 95 95 02/02/18 17:30 02/02/18 17:45 02/02/18 18:00 Temperature Pulse Rate 68 78 102 H Respiratory Rate 16 16 16 Blood Pressure 89/52 L 98/62 L 109/63 Pulse Oximetry 95 95 94 L 02/02/18 18:15 02/02/18 18:19 02/02/18 18:30 Temperature Pulse Rate 102 H 106 H 102 H Respiratory Rate 16 16 16 Blood Pressure 112/64 114/61 109/67 Pulse Oximetry 93 L 93 L 93 L 02/02/18 18:45 02/02/18 19:00 02/02/18 19:15 Temperature Pulse Rate 102 H 100 H 98 H Respiratory Rate 16 16 16 Blood Pressure 111/60 106/68 109/64 Pulse Oximetry 93 L 93 L 93 L 02/02/18 19:30 02/02/18 19:40 02/02/18 19:45 Temperature Pulse Rate 90 Respiratory Rate 16 16 Blood Pressure 107/62 108/66 Pulse Oximetry 94 L 93 L 02/02/18 20:00 02/02/18 20:45 02/02/18 21:14 Temperature 37.2 C Pulse Rate 74 90 76 Respiratory Rate 12 16 Blood Pressure 100/68 98/55 L Pulse Oximetry 96 92 L 96 02/02/18 21:30 02/02/18 22:00 18 22:45 Temperature Pulse Rate 82 Respiratory Rate 17 16 Blood Pressure 97/51 L 122/74 Pulse Oximetry 95 95 02/02/18 23:00 02/02/18 23:30 02/03/18 00:00 Temperature Pulse Rate 68 64 84 Respiratory Rate 16 16 Blood Pressure 97/60 L 94/60 L Pulse Oximetry 95 96 02/03/18 01:15 02/03/18 01:18 02/03/18 01:30 Temperature 36.7 C Pulse Rate 76 82 Respiratory Rate 16 24 16 Blood Pressure 119/72 124/62 Pulse Oximetry 93 L 94 L 92 L 02/03/18 02:00 02/03/18 03:00 02/03/18 04:00 Temperature Pulse Rate 72 66 75 Respiratory Rate 16 16 Blood Pressure 96/53 L 98/56 L Pulse Oximetry 92 L 94 L 02/03/18 04:09 02/03/18 04:25 02/03/18 05:00 Temperature 37.3 C Pulse Rate 92 H 64 Respiratory Rate 20 16 16 Blood Pressure 152/73 H 99/59 L Pulse Oximetry 93 L 93 L 95 02/03/18 05:14 02/03/18 06:00 Temperature Pulse Rate 66 66 Respiratory Rate 15 15 Blood Pressure 99/59 L 109/68 Pulse Oximetry 94 L 94 L Intake & Output 02/02/18 02/02/18 02/03/18 06:59 18:59 06:59 Intake Total 400 / 400 1450 / 1450 500 / 500 Output Total 675 / 675 2200 / 2200 1950 / 1950 Balance -275 / -275 -750 / -750 -1450 / -1450 Weight 104.5 kg 106.5 kg Intake: IV 400 / 400 1450 / 1450 500 / 500 Versed Inj 50 mg In 50 ml @ 2 50 / 50 100 / 100 100 / 100 MG/HR 2 mls/hr IV.CONT TITRATE PRN Rx#:[id number] NS + KCl 20 mEq Inj 1,000 ML @ 1000 / 1000 42 mls/hr IV.CONT .[id number] MICHAEL Rx#:[id number] Zyvox 600 mg Premix 300 ML @ 300 / 300 300 / 300 300 mls/hr IV.SIG Q12H MICHAEL Rx#: [id number] Zosyn 3.375 GM Premix 50 ML @ 100 / 100 50 / 50 100 / 100 100 mls/hr IV.SIG Q6H MICHAEL Rx#: [id number] fentaNYL 10 mcg/mL Premix Drip 250 / 250 2,500 mcg In 250 ml @ 50 MCG/HR 5 mls/hr IV.SIG TITRATE PRN Rx #:[id number] Oral 0 / 0 Output: Urine 1800 / 1800 Stool 0 / 0 Urine Amount (Catheter) 675 / 675 2200 / 2200 Indwelling Urethral Catheter 675 / 675 2200 / 2200 Gastric Drainage 150 / 150 Left Nare 150 / 150 Other: # Voids 1 Date of Last Bowel Movement 02/01/18 02/01/18 02/01/18 # Bowel Movements 0 0 Result Diagrams: 02/03/18 04:05 02/03/18 04:05 Objective Remarks: gen: middle-aged male, lying in bed, intubated. HEENT: Sedated, orally intubated, No pallor, no icterus, tongue/ mucosa moist, significant perioral edema. Neck: No JVD Chest/Pulm: on mech vent, good air entry bilaterally, no wheezing or crackles CVS: S1-S2 regular, no murmur GI/abdomen: soft, nontender, bowel sounds sluggish Extremities: warm bilaterally, 2+ generalized edema. neuro: RASS -3. withdraws to pain. Assessment and Plan - Assessment and Plan Plan: Severe Agitated Delirium Severe hyponatremia Uncontrolled hypertension (resolved) Distributive Shock secondary to acute pancreatitis Severe Acute pancreatitis Hypertriglyceridemia Acute liver dysfunction secondary to alcoholic hepatitis Staph pneumonia Staph bacteremia Alcohol withdrawal Hypothyroidism Plan: Neuro: taper librium- currently on 3 benzos. continue valium scheduled. continue versed drip. continue fentanyl drip goal RASS -2 d/c ciwa. start seroquel for persistent agitation 50mg po q8hr haldol for breakthrough agitation. Cardiovascular: continue to hold antihypertensives. continue levophed, goal map > 65 mmHg. Pulmonary: Continue mechanical ventilation, vent bundle, bronchodilators as needed. no SBT yet- still in shock and with persistent edema, airway concerns. 6.5 ett due to laryngeal edema diuresing as below wean fio2 for goal spo2 > 90% FEN/GI/ liver: Tolerating tube feeds. CT revealed acute pancreatitis. GI following. Lipase has come down. Add miralax, schedule suppository, add lactulose. goal BM today. increase sodium tabs to 2gm q6h Renal/: TSH 9, triglycerides elevated, low serum osmolarity(240s). urine osmolarity 694. Urine sodium 47. Nephrology consult. Follow serial sodiums. Decreased normal saline to 42 cc/h in view of significant positive fluid balance. increase lasix to 40mg iv q8h add concentrated albumin to help with oncotic intravascular pressure (and additional salt balance). Endocrine: Elevated TSH(9). Continue Synthroid, watch for hyperglycemia, SSI for glycemic control if needed. Heme: Follow CBC ID: blood cultures 01/31: pansensitive staph. d/c linezolid and zosyn. start unasyn 3gm iv q6h with a anticipated stop date 02/06 (full 7 day course for aspiration pneumonia, MSSA). Prophylaxis: PPI/SCDs/Lovenox Access: RIJ central line (placed 02/02). must keep while on vasopressors. Condition critical with severe hyponatremia, alcohol withdrawal, acute pancreatitis, septic shock, staph pneumonia, acute respiratory failure on mechanical ventilation. minimal improvements. still life-threatening at this time. Time spent on critical care excluding procedures : 51 minutes
[2018-02-03] MEDS: fentaNYL 10 mcg/mL Premix Drip 2,500 MCG/250 ML BAG IV.SIG PRN ×2 (09:16→20:44)
[2018-02-03] MEDS: Ampicillin/Sulbactam Inj 3 GM in Sodium Chloride 0.9% Inj 100 ML IV.SIG SCH ×3 (09:46→19:58)
[2018-02-03] MEDS: Sodium Phosphate Inj 30 MMOL in Sodium Chlor 0.9% Inj 250 ML IV.SIG PRN (09:49)
[2018-02-03] MEDS: Pantoprazole Inj 40 MG Vial IV.PUSH SCH (09:52)
[2018-02-03] MEDS: Folic Acid 1 MG Tablet PO SCH (09:53)
[2018-02-03] MEDS: Sodium Chloride 1 GM Tablet PO SCH ×4 (09:53→20:12)
[2018-02-03] MEDS: Multivitamin/Minerals Therapeutic Tablet PO SCH (09:54)
[2018-02-03] MEDS: Senna/Docusate Sodium 8.6/50 MG Tablet PO SCH ×2 (09:54→20:02)
[2018-02-03] MEDS: Bisacodyl 10 MG Supp RECTAL SCH (09:55)
[2018-02-03] MEDS: Chlorhexidine 0.12% Oral Kit 15 ML UDC OROPHARYNG SCH ×2 (09:56→19:50)
[2018-02-03] MEDS: Albumin Human 25% Inj 100 ML IV.SIG SCH ×3 (09:59→23:26)
[2018-02-03] MEDS: Acetaminophen 325 MG Tablet PO PRN (14:28)
[2018-02-03] MEDS: QUEtiapine 25 MG Tablet PO SCH ×2 (14:30→22:25)
[2018-02-03 16:16] LABS: Potassium 3.4 meq/L (3.5-5.1)
[2018-02-03 16:18] LABS: Magnesium 1.9 mg/dL (1.5-2.5)
[2018-02-03 17:03] LABS: Phosphorus 2.8 mg/dL (2.5-4.9)
[2018-02-03] MEDS: Norepinephrine Inj 4 MG in Sodium Chlor 0.9% Inj 246 ML IV.SIG PRN (19:00)
[2018-02-03] MEDS ORDERED: Magnesium Sulfate Inj 2 GM in Sodium Chlor 0.9% Inj 96 ML IV.SIG ONE (21:00)
[2018-02-04] MEDS: Midazolam 50 MG/50 ML Inj 50 MG/50 ML BAG IV.CONT PRN ×5 (00:38→21:50)
[2018-02-04] MEDS: Enoxaparin Inj 40 MG/0.4 ML Syringe SQ SCH (01:38)
[2018-02-04] MEDS: Ampicillin/Sulbactam Inj 3 GM in Sodium Chloride 0.9% Inj 100 ML IV.SIG SCH ×4 (01:38→21:15)
[2018-02-04] MEDS ORDERED: Dexmedetomidine Inj 200 MCG/50 ML INFUS..BTL IV.CONT PRN (02:24)
[2018-02-04] MEDS ORDERED: Dexmedetomidine Inj 200 MCG in Sodium Chlor 0.9% Inj 48 ML IV.CONT PRN (02:37)
[2018-02-04] MEDS: Dexmedetomidine Inj 200 MCG/50 ML INFUS..BTL IV.CONT PRN (02:58)
[2018-02-04] MEDS: Artificial Tears Opth Drops 15 ML Bottle EACH EYE SCH ×6 (03:00→21:16)
[2018-02-04 05:02] LABS: Baso % (Auto) 0.5 % (0.0-2.0); Eos # (Auto) 0.1 th/mm3 (0.0-0.4); Eos % (Auto) 2.5 % (0.0-4.0); Hematocrit 32.6 % (39.0-51.0); Hemoglobin 11.1 gm/dL (13.0-17.0); Lymph # (Auto) 0.3 th/mm3 (1.0-4.8); Lymph % (Auto) 5.2 % (9.0-44.0); Mean Corpuscular Hemoglobin 32.5 pg (27.0-34.0); Mean Corpuscular Volume 95.7 fL (80.0-100.0); Mean Platelet Volume 6.8 fL (7.0-11.0); Mono # (Auto) 0.9 th/mm3 (0.0-0.9); Mono % (Auto) 15.9 % (0.0-8.0); Neut # (Auto) 4.5 th/mm3 (1.8-7.7); Neut % (Auto) 75.9 % (16.0-70.0); Platelet Count 269 th/mm3 (150-450); Red Cell Distribution Width 13.9 % (11.6-17.2); White Blood Count 5.8 th/mm3 (4.0-11.0)
[2018-02-04 05:11] LABS: Chloride 91 meq/L (98-107); Potassium 3.5 meq/L (3.5-5.1); Sodium 130 meq/L (136-145)
[2018-02-04 05:15] LABS: Calcium 7.6 mg/dL (8.5-10.1)
[2018-02-04 05:19] LABS: Alanine Aminotransferase 63 U/L (12-78); Albumin 2.7 g/dL (3.4-5.0); Anion Gap 5 meq/L (5-15); Aspartate Aminotransferase 54 U/L (15-37); Blood Urea Nitrogen 8 mg/dL (7-18); Carbon Dioxide 34.3 meq/L (21.0-32.0); Glomerular Filtration Rate 87 mL/min (>89); Glucose,Random 135 mg/dL (74-106); Magnesium 2.1 mg/dL (1.5-2.5); Phosphorus 2.5 mg/dL (2.5-4.9)
[2018-02-04 05:28] LABS: Alkaline Phosphatase 79 U/L (45-117); Total Protein 6.2 g/dL (6.4-8.2)
[2018-02-04] MEDS: QUEtiapine 25 MG Tablet PO SCH (06:23)
[2018-02-04] MEDS ORDERED: Potassium Bicarbonate 25 MEQ Effervescent Tablet PO ONE (06:33)
--- NOTE | 2018-02-04 06:51 | P.PNCC ---
Subjective Subjective Remarks/Hospital Course: 01/30: Patient is a 62-year-old male with history of hypertension, hypothyroidism , alcoholism, presents the emergency room with multiple complaints. Patient reports that he is an alcoholic, reports that he usually drinks about 1/5 of whiskey per day. Patient reports that he decided to quit drinking alcohol 2 days ago and has put himself on a detox schedule. Patient has been decreasing the amount of alcohol he has been drinking, reports that today he only drinks 6 beers. Patient reports that tonight, he checked his blood pressure and noted it to be elevated and in the 200's. Reports that on route to the ER, he developed chest pain. Reports that he had chest tightness to his mid sternum. Denies any diaphoresis with this chest pain. Patient reports mild shortness of breath with this chest pain, reports resolution of chest pain while in the emergency room. Patient denies any history of coronary artery disease, she does not follow with a direct marketing analyst. Patient reports that he thinks that the symptoms are due to his alcohol withdrawal. Patient reports that he is feeling shaky. Patient reports that he has not been feeling well over the past 2 days as he has been unable to tolerate p.o.'s. Reports "i just don't have an appetite and I'm not feeling well with the withdrawl symptoms." Patient tells me he actually came to the hospital because his blood pressure was running extremely high in the 240 systolic range at home. Patient was noted to be hyponatremic with a sodium of 108 in the ER. Patient was accepted for admission by critical care medicine service. He has been receiving half normal saline overnight. This morning when I evaluated the patient he was awake and alert resting comfortably in bed not in any acute distress. 01/31: Patient was complaining of some epigastric discomfort yesterday morning. CT abdomen pelvis was ordered however patient went into worsening alcohol withdrawal and despite starting Precedex and multiple boluses of Ativan was staying very agitated. Eventually he became more lethargic with tachypnea. He had also been vomiting previously. Decision was made to intubate and patient was placed on mechanical ventilation after intubation by ER physician. Of note patient had a difficult airway with some laryngeal edema noted per report and a 6.5 ET tube was used for intubation after failed attempt at intubating with an 8 Khmer and 7 Khmer ET tube. This morning patient is sedated with Versed and fentanyl drips, orally intubated on mechanical ventilation at the time of my evaluation. He was initiated on Son-Synephrine for hypotension following intubation and sedation. Currently he is on Son-Synephrine 70 mics per minute. He has had a good urine output overnight. He was started on 3% saline at 10 cc an hour last evening and the sodium has come up to 115 mEq/liter this morning. He has also been receiving LR at 1 50 cc an hour. NG tube was placed after intubation and 1 L of gastric contents were suctioned out. Patient did spike a temperature of 100.5 axillary this morning. Pancultures were ordered and empiric Zosyn to be started in view of concern for aspiration. 02/01: Remains sedated, orally intubated on mechanical ventilation. On Levophed 2 mics per minute. Significant positive fluid balance. Sodium 122. CT abdomen pelvis done yesterday revealed inflammation around tail of pancreas with fluid around liver consistent with pancreatitis. 02/02: Remains sedated, orally intubated on mechanical ventilation. Femoral central line replaced with right IJ central line today. Remains on Levophed for pressor support. 02/03: remains intubated. perioral edema persists, but this is concomitant with significant generalized edema. remains on vasopressor support. lipase trending down. 02/04: continues with severe agitated delirium. precedex added to control agitation. good diuresis with net -2L/24h. Objective Vital Signs / I&O: Vital Signs 02/03/18 07:00 02/03/18 08:00 02/03/18 09:00 Temperature 37.9 C H Pulse Rate 62 64 70 Respiratory Rate 16 Blood Pressure 109/68 107/65 116/71 Pulse Oximetry 95 95 94 L 02/03/18 10:00 02/03/18 11:03 02/03/18 12:00 Temperature Pulse Rate 60 74 Respiratory Rate 16 15 Blood Pressure 102/65 118/62 Pulse Oximetry 95 97 90 L 02/03/18 13:00 02/03/18 14:00 02/03/18 15:00 Temperature 37.8 C H Pulse Rate 62 62 64 Respiratory Rate 15 16 Blood Pressure 99/52 L 106/58 L 113/61 Pulse Oximetry 93 L 95 94 L 02/03/18 16:00 02/03/18 16:26 02/03/18 17:00 Temperature 37.4 C Pulse Rate 64 56 L Respiratory Rate 15 16 16 Blood Pressure 92/52 L 97/60 L Pulse Oximetry 92 L 94 L 94 L 02/03/18 18:00 02/03/18 19:15 02/03/18 19:25 Temperature Pulse Rate 62 56 L Respiratory Rate 16 15 16 Blood Pressure 102/58 L 112/62 Pulse Oximetry 93 L 97 96 02/03/18 19:30 02/03/18 20:00 02/03/18 20:15 Temperature Pulse Rate 65 58 L Respiratory Rate 16 Blood Pressure 115/69 109/64 Pulse Oximetry 96 02/03/18 20:30 02/03/18 20:45 02/03/18 21:00 Temperature Pulse Rate 58 L 60 Respiratory Rate 16 16 Blood Pressure 116/63 115/62 113/65 Pulse Oximetry 95 95 02/03/18 21:15 02/03/18 21:20 02/03/18 21:30 Temperature Pulse Rate 82 78 104 H Respiratory Rate 33 H 14 29 H Blood Pressure 153/81 H 151/70 H 160/86 H Pulse Oximetry 91 L 92 L 92 L 02/03/18 21:50 02/03/18 22:08 02/03/18 22:15 Temperature 36.6 C Pulse Rate 126 H 110 H 102 H Respiratory Rate 30 H 17 16 Blood Pressure 148/105 H 217/96 H 179/87 H Pulse Oximetry 91 L 92 L 92 L 02/03/18 22:40 02/03/18 22:45 02/03/18 23:00 Temperature Pulse Rate 84 84 Respiratory Rate 16 16 16 Blood Pressure 133/66 113/63 Pulse Oximetry 93 L 93 L 94 L 02/03/18 23:15 02/03/18 23:30 02/03/18 23:45 Temperature Pulse Rate 86 84 88 Respiratory Rate 16 14 15 Blood Pressure 116/65 119/66 117/58 L Pulse Oximetry 95 95 94 L 02/04/18 00:00 02/04/18 00:15 02/04/18 00:30 Temperature 37.5 C Pulse Rate 82 74 72 Respiratory Rate 16 16 16 Blood Pressure 104/56 L 109/62 112/60 Pulse Oximetry 95 96 96 02/04/18 00:45 02/04/18 01:00 02/04/18 01:15 Temperature Pulse Rate 70 66 64 Respiratory Rate 16 16 15 Blood Pressure 106/59 L 105/60 108/60 Pulse Oximetry 97 98 98 02/04/18 01:30 02/04/18 01:45 02/04/18 02:00 Temperature Pulse Rate 64 78 98 H Respiratory Rate 15 16 21 Blood Pressure 112/65 145/73 H 165/74 H Pulse Oximetry 99 92 L 91 L 02/04/18 02:15 02/04/18 02:30 02/04/18 02:45 Temperature Pulse Rate 114 H 120 H 118 H Respiratory Rate 23 21 26 H Blood Pressure 172/87 H 197/86 H 178/85 H Pulse Oximetry 86 L 91 L 92 L 02/04/18 03:00 02/04/18 03:15 02/04/18 03:18 Temperature Pulse Rate 90 80 78 Respiratory Rate 16 16 16 Blood Pressure 100/55 L 86/49 L 90/54 L Pulse Oximetry 95 97 97 02/04/18 03:23 02/04/18 03:30 02/04/18 03:45 Temperature Pulse Rate 76 72 68 Respiratory Rate 16 16 16 Blood Pressure 100/59 L 105/60 103/56 L Pulse Oximetry 98 98 98 02/04/18 04:00 02/04/18 04:15 02/04/18 04:30 Temperature 37.2 C Pulse Rate 66 82 74 Respiratory Rate 16 14 16 Blood Pressure 108/60 118/62 105/61 Pulse Oximetry 99 93 L 93 L 02/04/18 04:40 02/04/18 04:45 02/04/18 04:51 Temperature Pulse Rate 68 64 Respiratory Rate 16 16 Blood Pressure 87/52 L 80/49 L Pulse Oximetry 95 94 L 95 02/04/18 04:55 02/04/18 05:00 02/04/18 05:15 Temperature Pulse Rate 62 68 60 Respiratory Rate 16 16 16 Blood Pressure 119/69 127/70 89/55 L Pulse Oximetry 95 96 95 02/04/18 05:20 02/04/18 05:27 02/04/18 05:30 Temperature Pulse Rate 60 60 60 Respiratory Rate 16 16 16 Blood Pressure 86/54 L 105/67 105/63 Pulse Oximetry 95 95 96 02/04/18 05:37 02/04/18 05:45 02/04/18 05:50 Temperature Pulse Rate 60 Respiratory Rate 16 Blood Pressure 102/61 Pulse Oximetry 95 95 95 02/04/18 06:00 Temperature Pulse Rate 60 Respiratory Rate 16 Blood Pressure 109/66 Pulse Oximetry 94 L Intake & Output 02/03/18 02/03/18 02/04/18 06:59 18:59 06:59 Intake Total 500 / 500 4264 / 4264 1550 / 1550 Output Total 1950 / 1950 4110 / 4110 3800 / 3800 Balance -1450 / -1450 154 / 154 -2250 / -2250 Weight 106.5 kg 103.4 kg Intake: IV 500 / 500 1720 / 1720 1550 / 1550 Versed Inj 50 mg In 50 ml @ 2 100 / 100 100 / 100 200 / 200 MG/HR 2 mls/hr IV.CONT TITRATE PRN Rx#:[id number] NS + KCl 20 mEq Inj 1,000 ML @ 1000 / 1000 42 mls/hr IV.CONT .[id number] MICHAEL Rx#:[id number] Flexbumin 25% Inj 100 ML @ 12.5 200 / 200 mls/hr IV.SIG Q8H MICHAEL Rx#: [id number] Unasyn Inj 3 GM In NS Inj 100 200 / 200 100 / 100 ML @ 200 mls/hr IV.SIG Q6H MICHAEL Rx#:[id number] Calcium Chloride Inj 1 GM In NS 110 / 110 Inj 100 ML @ 110 mls/hr IV.SIG ONCE ONE Rx#:[id number] Zyvox 600 mg Premix 300 ML @ 300 / 300 300 / 300 300 mls/hr IV.SIG Q12H MICHAEL Rx#: [id number] Levophed Inj 4 MG In NS Inj 246 250 / 250 ML @ 2 MCG/MIN 7.5 mls/hr IV. SIG TITRATE PRN Rx#:[id number] Zosyn 3.375 GM Premix 50 ML @ 100 / 100 50 / 50 100 mls/hr IV.SIG Q6H MICHAEL Rx#: [id number] Sodium Phosphate Inj 30 MMOL In 260 / 260 NS Inj 250 ML @ 42 mls/hr IV. SIG UNSCH PRN Rx#:[id number] fentaNYL 10 mcg/mL Premix Drip 250 / 250 250 / 250 2,500 mcg In 250 ml @ 50 MCG/HR 5 mls/hr IV.SIG TITRATE PRN Rx #:[id number] Oral 0 / 0 Tube Feeding 2454 / 2454 Tube Irrigant 90 / 90 Output: Urine 1800 / 1800 3800 / 3800 Stool 0 / 0 Urine Amount (Catheter) 4110 / 4110 Indwelling Urethral Catheter 4110 / 4110 Gastric Drainage 150 / 150 Left Nare 150 / 150 Other: # Voids 1 Date of Last Bowel Movement 02/01/18 02/01/18 02/04/18 # Bowel Movements 0 0 Result Diagrams: 02/04/18 04:55 02/04/18 04:55 Objective Remarks: gen: middle-aged male, lying in bed, intubated. HEENT: Sedated, orally intubated, No pallor, no icterus, tongue/ mucosa moist, significant perioral edema. Neck: No JVD Chest/Pulm: on mech vent, good air entry bilaterally, no wheezing or crackles CVS: S1-S2 regular, no murmur GI/abdomen: soft, nontender, bowel sounds sluggish Extremities: warm bilaterally, 2+ generalized edema. neuro: RASS -3. withdraws to pain. Assessment and Plan - Assessment and Plan Plan: Severe Agitated Delirium Severe hyponatremia Uncontrolled hypertension (resolved) Distributive Shock secondary to acute pancreatitis Severe Acute pancreatitis Hypertriglyceridemia Acute liver dysfunction secondary to alcoholic hepatitis Staph pneumonia Staph bacteremia Alcohol withdrawal Hypothyroidism Contraction metabolic alkalosis Plan: Neuro: taper librium- currently on 3 benzos. continue valium scheduled. continue versed drip. continue fentanyl drip goal RASS -2 d/c ciwa. increased seroquel for persistent agitation 100mg po q8hr haldol for breakthrough agitation. Cardiovascular: continue to hold antihypertensives. continue levophed, goal map > 65 mmHg. Pulmonary: Continue mechanical ventilation, vent bundle, bronchodilators as needed. no SBT yet- still in shock and with persistent edema, airway concerns. 6.5 ett due to laryngeal edema diuresing as below wean fio2 for goal spo2 > 90% FEN/GI/ liver: Tolerating tube feeds. CT revealed acute pancreatitis. GI following. Lipase has come down. miralax, schedule suppository, lactulose. goal BM today. add one dose of methylnaltrexone today. sodium tabs 2gm q6h Renal/: TSH 9, triglycerides elevated, low serum osmolarity(240s). urine osmolarity 694. Urine sodium 47. Nephrology consult. Follow serial sodiums. continue normal saline to 42 cc/h in view of significant positive fluid balance. lasix 40mg iv q8h add concentrated albumin to help with oncotic intravascular pressure (and additional salt balance). start diamox 500mg iv q8h for metabolic alkalosis. Endocrine: Elevated TSH(9). Continue Synthroid, watch for hyperglycemia, SSI for glycemic control if needed. Heme: Follow CBC ID: blood cultures 01/31: pansensitive staph. unasyn 3gm iv q6h with a anticipated stop date 02/06 (full 7 day course for aspiration pneumonia, MSSA). Prophylaxis: PPI/SCDs/Lovenox Access: RIJ central line (placed 02/02). must keep while on vasopressors. Condition critical with severe hyponatremia, alcohol withdrawal, acute pancreatitis, septic shock, staph pneumonia, acute respiratory failure on mechanical ventilation. minimal improvements. still life-threatening at this time. Time spent on critical care excluding procedures : 35 minutes
[2018-02-04] MEDS ORDERED: Methylnaltrexone Inj 12 MG/0.6 ML Vial SQ ONE (07:32)
[2018-02-04] MEDS: Chlorhexidine 0.12% Oral Kit 15 ML UDC OROPHARYNG SCH ×2 (08:10→21:27)
[2018-02-04] MEDS: Pantoprazole Inj 40 MG Vial IV.PUSH SCH (08:11)
[2018-02-04] MEDS: Bisacodyl 10 MG Supp RECTAL SCH (08:42)
[2018-02-04] MEDS: chlordiazePOXIDE 25 MG Capsule PO SCH ×2 (08:42→21:14)
[2018-02-04] MEDS: Senna/Docusate Sodium 8.6/50 MG Tablet PO SCH ×2 (08:42→21:12)
[2018-02-04] MEDS: Sodium Chloride 1 GM Tablet PO SCH ×4 (08:43→21:27)
[2018-02-04] MEDS: QUEtiapine 100 MG Tablet PO SCH ×3 (08:47→21:14)
[2018-02-04] MEDS: Dexmedetomidine Inj 200 MCG in Sodium Chlor 0.9% Inj 48 ML IV.CONT PRN (09:19)
[2018-02-04] MEDS: fentaNYL 10 mcg/mL Premix Drip 2,500 MCG/250 ML BAG IV.SIG PRN ×2 (09:35→23:22)
[2018-02-04 16:21] LABS: Potassium 3.4 meq/L (3.5-5.1)
[2018-02-04 16:24] LABS: Magnesium 2.1 mg/dL (1.5-2.5)
--- NOTE | 2018-02-04 18:35 | P.PNGI ---
Subjective Interval history: Remains intubated , sedated .No gi symptoms so far . Physical Exam Vital signs: Vital Signs 02/03/18 19:15 02/03/18 19:25 02/03/18 19:30 Temperature Pulse Rate 56 L Respiratory Rate 15 16 Blood Pressure 112/62 115/69 Pulse Oximetry 97 96 02/03/18 20:00 02/03/18 20:15 02/03/18 20:30 Temperature Pulse Rate 65 58 L Respiratory Rate 16 Blood Pressure 109/64 116/63 Pulse Oximetry 96 02/03/18 20:45 02/03/18 21:00 02/03/18 21:15 Temperature Pulse Rate 58 L 60 82 Respiratory Rate 16 16 33 H Blood Pressure 115/62 113/65 153/81 H Pulse Oximetry 95 95 91 L 02/03/18 21:20 02/03/18 21:30 02/03/18 21:50 Temperature Pulse Rate 78 104 H 126 H Respiratory Rate 14 29 H 30 H Blood Pressure 151/70 H 160/86 H 148/105 H Pulse Oximetry 92 L 92 L 91 L 02/03/18 22:08 02/03/18 22:15 02/03/18 22:40 Temperature 97.9 F Pulse Rate 110 H 102 H Respiratory Rate 17 16 16 Blood Pressure 217/96 H 179/87 H Pulse Oximetry 92 L 92 L 93 L 02/03/18 22:45 02/03/18 23:00 02/03/18 23:15 Temperature Pulse Rate 84 84 86 Respiratory Rate 16 16 16 Blood Pressure 133/66 113/63 116/65 Pulse Oximetry 93 L 94 L 95 02/03/18 23:30 02/03/18 23:45 02/04/18 00:00 Temperature 99.5 F Pulse Rate 84 88 82 Respiratory Rate 14 15 16 Blood Pressure 119/66 117/58 L 104/56 L Pulse Oximetry 95 94 L 95 02/04/18 00:15 02/04/18 00:30 02/04/18 00:45 Temperature Pulse Rate 74 72 70 Respiratory Rate 16 16 16 Blood Pressure 109/62 112/60 106/59 L Pulse Oximetry 96 96 97 02/04/18 01:00 02/04/18 01:15 02/04/18 01:30 Temperature Pulse Rate 66 64 64 Respiratory Rate 16 15 15 Blood Pressure 105/60 108/60 112/65 Pulse Oximetry 98 98 99 02/04/18 01:45 02/04/18 02:00 02/04/18 02:15 Temperature Pulse Rate 78 98 H 114 H Respiratory Rate 16 21 23 Blood Pressure 145/73 H 165/74 H 172/87 H Pulse Oximetry 92 L 91 L 86 L 02/04/18 02:30 02/04/18 02:45 02/04/18 03:00 Temperature Pulse Rate 120 H 118 H 90 Respiratory Rate 21 26 H 16 Blood Pressure 197/86 H 178/85 H 100/55 L Pulse Oximetry 91 L 92 L 95 02/04/18 03:15 02/04/18 03:18 02/04/18 03:23 Temperature Pulse Rate 80 78 76 Respiratory Rate 16 16 16 Blood Pressure 86/49 L 90/54 L 100/59 L Pulse Oximetry 97 97 98 02/04/18 03:30 02/04/18 03:45 02/04/18 04:00 Temperature 99.0 F Pulse Rate 72 68 66 Respiratory Rate 16 16 16 Blood Pressure 105/60 103/56 L 108/60 Pulse Oximetry 98 98 99 02/04/18 04:15 02/04/18 04:30 02/04/18 04:40 Temperature Pulse Rate 82 74 Respiratory Rate 14 16 Blood Pressure 118/62 105/61 Pulse Oximetry 93 L 93 L 95 02/04/18 04:45 02/04/18 04:51 02/04/18 04:55 Temperature Pulse Rate 68 64 62 Respiratory Rate 16 16 16 Blood Pressure 87/52 L 80/49 L 119/69 Pulse Oximetry 94 L 95 95 02/04/18 05:00 02/04/18 05:15 02/04/18 05:20 Temperature Pulse Rate 68 60 60 Respiratory Rate 16 16 16 Blood Pressure 127/70 89/55 L 86/54 L Pulse Oximetry 96 95 95 02/04/18 05:27 02/04/18 05:30 02/04/18 05:37 Temperature Pulse Rate 60 60 Respiratory Rate 16 16 Blood Pressure 105/67 105/63 Pulse Oximetry 95 96 95 02/04/18 05:45 02/04/18 05:50 02/04/18 06:00 Temperature Pulse Rate 60 60 Respiratory Rate 16 16 Blood Pressure 102/61 109/66 Pulse Oximetry 95 95 94 L 07/18/18 06:15 02/04/18 06:30 02/04/18 06:31 Temperature Pulse Rate 78 78 82 Respiratory Rate 15 17 16 Blood Pressure 172/116 H 175/98 H 164/91 H Pulse Oximetry 95 93 L 93 L 02/04/18 06:45 02/04/18 07:00 02/04/18 07:15 Temperature Pulse Rate 74 68 62 Respiratory Rate 15 0 L 16 Blood Pressure 139/77 106/62 104/65 Pulse Oximetry 93 L 93 L 93 L 02/04/18 07:17 02/04/18 07:30 02/04/18 07:45 Temperature Pulse Rate 62 58 L Respiratory Rate 16 16 16 Blood Pressure 97/61 L 104/64 Pulse Oximetry 93 L 93 L 93 L 02/04/18 08:00 02/04/18 08:15 02/04/18 08:30 Temperature 98.7 F Pulse Rate 58 L 58 L 56 L Respiratory Rate 15 15 15 Blood Pressure 106/67 103/64 114/69 Pulse Oximetry 93 L 93 L 94 L 02/04/18 08:45 02/04/18 09:00 02/04/18 09:01 Temperature Pulse Rate 74 84 88 Respiratory Rate 16 16 17 Blood Pressure 144/78 H 181/102 H Pulse Oximetry 93 L 90 L 90 L 02/04/18 09:04 02/04/18 09:11 02/04/18 09:16 Temperature Pulse Rate 82 99 H 98 H Respiratory Rate 13 18 17 Blood Pressure 171/94 H 199/100 H Pulse Oximetry 93 L 89 L 02/04/18 09:25 02/04/18 09:31 02/04/18 09:46 Temperature Pulse Rate 86 74 Respiratory Rate 14 0 L Blood Pressure 140/72 95/50 L Pulse Oximetry 88 L 92 L 91 L 02/04/18 10:00 02/04/18 10:01 02/04/18 10:16 Temperature Pulse Rate 68 68 64 Respiratory Rate 16 16 16 Blood Pressure 90/52 L 94/53 L Pulse Oximetry 93 L 94 L 95 02/04/18 10:31 02/04/18 10:46 02/04/18 11:00 Temperature Pulse Rate 60 60 58 L Respiratory Rate 16 16 16 Blood Pressure 91/55 L 98/58 L Pulse Oximetry 96 97 97 02/04/18 11:01 02/04/18 11:13 02/04/18 11:16 Temperature Pulse Rate 58 L 56 L Respiratory Rate 16 16 16 Blood Pressure 98/60 L 101/58 L Pulse Oximetry 97 97 97 02/04/18 11:31 02/04/18 11:46 02/04/18 12:00 Temperature 98.6 F Pulse Rate 56 L 56 L 56 L Respiratory Rate 16 16 16 Blood Pressure 95/58 L 96/54 L 97/58 L Pulse Oximetry 96 96 97 02/04/18 12:01 02/04/18 12:16 02/04/18 12:31 Temperature Pulse Rate 54 L 54 L 54 L Respiratory Rate 16 16 15 Blood Pressure 97/58 L 96/60 L 96/55 L Pulse Oximetry 97 97 97 02/04/18 12:46 02/04/18 13:00 02/04/18 13:01 Temperature Pulse Rate 54 L 54 L 54 L Respiratory Rate 15 15 15 Blood Pressure 94/59 L 96/58 L Pulse Oximetry 97 97 97 02/04/18 13:16 02/04/18 13:31 02/04/18 13:46 Temperature Pulse Rate 52 L 52 L 52 L Respiratory Rate 5 L 15 16 Blood Pressure 103/62 92/58 L 102/64 Pulse Oximetry 98 97 97 02/04/18 13:48 02/04/18 14:00 02/04/18 14:01 Temperature Pulse Rate 52 L 52 L Respiratory Rate 16 16 15 Blood Pressure 104/61 Pulse Oximetry 98 96 96 02/04/18 14:16 02/04/18 14:31 02/04/18 14:46 Temperature Pulse Rate 52 L 52 L 52 L Respiratory Rate 16 16 15 Blood Pressure 100/60 99/63 L 103/61 Pulse Oximetry 96 96 95 02/04/18 15:00 02/04/18 15:01 02/04/18 15:16 Temperature Pulse Rate 52 L 52 L 52 L Respiratory Rate 16 15 16 Blood Pressure 96/59 L 98/60 L Pulse Oximetry 96 95 95 02/04/18 15:31 02/04/18 15:46 02/04/18 16:00 Temperature 96.6 F L Pulse Rate 54 L 50 L 52 L Respiratory Rate 15 16 16 Blood Pressure 100/58 L 95/59 L 91/59 L Pulse Oximetry 96 96 95 02/04/18 16:01 02/04/18 16:16 02/04/18 16:31 Temperature Pulse Rate 50 L 52 L 54 L Respiratory Rate 16 16 16 Blood Pressure 91/59 L 114/69 91/51 L Pulse Oximetry 95 97 97 02/04/18 16:38 02/04/18 16:46 02/04/18 16:55 Temperature Pulse Rate 78 72 Respiratory Rate 16 16 16 Blood Pressure 110/69 112/68 Pulse Oximetry 96 95 94 L 02/04/18 17:00 02/04/18 17:01 02/04/18 17:16 Temperature Pulse Rate 76 72 90 Respiratory Rate 16 15 20 Blood Pressure 98/55 L 53/32 L Pulse Oximetry 92 L 92 L 92 L 02/04/18 17:19 02/04/18 17:31 02/04/18 17:39 Temperature Pulse Rate 90 98 H 86 Respiratory Rate 22 27 H 15 Blood Pressure 107/60 153/81 H 102/57 L Pulse Oximetry 95 95 97 02/04/18 17:46 02/04/18 17:54 02/04/18 18:00 Temperature Pulse Rate 82 64 Respiratory Rate 15 13 Blood Pressure 100/51 L Pulse Oximetry 97 94 L 94 L 02/04/18 18:01 Temperature Pulse Rate 66 Respiratory Rate 14 Blood Pressure 123/72 Pulse Oximetry 94 L Intake & Output 02/03/18 02/04/18 02/04/18 18:59 06:59 18:59 Intake Total 4264 / 4264 1650 / 1650 1190 / 1190 Output Total 4110 / 4110 3800 / 3800 4495 / 4495 Balance 154 / 154 -2150 / -2150 -3305 / -3305 Weight 103.4 kg Intake: IV 1720 / 1720 1650 / 1650 800 / 800 Precedex Inj 200 mcg In 50 ml @ 50 / 50 0.5 MCG/KG/HR 12.188 mls/hr IV .CONT TITRATE PRN Rx#: [id number] Versed Inj 50 mg In 50 ml @ 2 100 / 100 200 / 200 100 / 100 MG/HR 2 mls/hr IV.CONT TITRATE PRN Rx#:[id number] NS + KCl 20 mEq Inj 1,000 ML @ 1000 / 1000 42 mls/hr IV.CONT .[id number] MICHAEL Rx#:[id number] Flexbumin 25% Inj 100 ML @ 12.5 200 / 200 100 / 100 mls/hr IV.SIG Q8H MICHAEL Rx#: [id number] Unasyn Inj 3 GM In NS Inj 100 200 / 200 200 / 200 200 / 200 ML @ 200 mls/hr IV.SIG Q6H MICHAEL Rx#:[id number] Calcium Chloride Inj 1 GM In NS 110 / 110 Inj 100 ML @ 110 mls/hr IV.SIG ONCE ONE Rx#:[id number] Zyvox 600 mg Premix 300 ML @ 300 / 300 300 mls/hr IV.SIG Q12H MICHAEL Rx#: [id number] Magnesium Sulfate Inj 2 GM In 100 / 100 NS Inj 96 ML @ 50 mls/hr IV.SIG ONCE ONE Rx#:[id number] Levophed Inj 4 MG In NS Inj 246 250 / 250 ML @ 2 MCG/MIN 7.5 mls/hr IV. SIG TITRATE PRN Rx#:[id number] Zosyn 3.375 GM Premix 50 ML @ 50 / 50 100 mls/hr IV.SIG Q6H MICHAEL Rx#: [id number] Sodium Phosphate Inj 30 MMOL In 260 / 260 NS Inj 250 ML @ 42 mls/hr IV. SIG UNSCH PRN Rx#:[id number] fentaNYL 10 mcg/mL Premix Drip 250 / 250 250 / 250 250 / 250 2,500 mcg In 250 ml @ 50 MCG/HR 5 mls/hr IV.SIG TITRATE PRN Rx #:[id number] Tube Feeding 2454 / 2454 330 / 330 Tube Irrigant 90 / 90 60 / 60 Output: Urine 3800 / 3800 2725 / 2725 Urine Amount (Catheter) 4110 / 4110 1670 / 1670 Indwelling Urethral Catheter 4110 / 4110 1670 / 1670 Gastric Drainage 100 / 100 Left Nare 100 / 100 Other: Date of Last Bowel Movement 02/01/18 02/04/18 # Bowel Movements 0 0 - Constitutional Comments: intubated, sedated - Routine HEENT Exam Head: Present: normocephalic Eye: Present: PERRL ENT: Present: mucous membranes moist - Routine Abdominal Exam Present: soft - Routine Neurological Exam sedated - Urinary Catheter Management Indwelling Urethral Catheter Cath placed during this visit: yes Reason for continuing: Hourly intake/output Insertion date: 01/30/18 Insertion time: 21:20 Results - Labs CBC & Chem 7: 02/04/18 04:55 02/04/18 15:57 Laboratory Results - last 24 hr 02/04/18 02/04/18 02/04/18 00:17 04:55 04:55 CBC w Diff WBC RBC Hgb Hct MCV MCH MCHC RDW Plt Count MPV Neut % (Auto) Lymph % (Auto) Curry % (Auto) Eos % (Auto) Baso % (Auto) Neut # (Auto) Lymph # (Auto) Curry # (Auto) Eos # (Auto) Baso # (Auto) WBC Differential Differential Comment Sodium 130 L Potassium 3.5 Chloride 91 L Carbon Dioxide 34.3 H Anion Gap 5 BUN 8 Creatinine 0.89 Estimated GFR 87 L POC Glucose 121 H Random Glucose 135 H Lactic Acid 0.8 Calcium 7.6 L Phosphorus 2.5 Magnesium 2.1 Total Bilirubin 0.8 AST 54 H ALT 63 Alkaline Phosphatase 79 Total Protein 6.2 L D Albumin 2.7 L D 02/04/18 02/04/18 02/04/18 04:55 11:52 15:57 CBC w Diff Auto diff final WBC 5.8 RBC 3.40 L Hgb 11.1 L Hct 32.6 L MCV 95.7 MCH 32.5 MCHC 34.0 RDW 13.9 Plt Count 269 D MPV 6.8 L Neut % (Auto) 75.9 H Lymph % (Auto) 5.2 L Curry % (Auto) 15.9 H Eos % (Auto) 2.5 Baso % (Auto) 0.5 Neut # (Auto) 4.5 Lymph # (Auto) 0.3 L Curry # (Auto) 0.9 Eos # (Auto) 0.1 Baso # (Auto) 0.0 WBC Differential . Differential Comment . Sodium 130 L Potassium 3.4 L Chloride Carbon Dioxide Anion Gap BUN Creatinine Estimated GFR POC Glucose 102 Random Glucose Lactic Acid Calcium Phosphorus Magnesium 2.1 Total Bilirubin AST ALT Alkaline Phosphatase Total Protein Albumin 02/04/18 17:53 CBC w Diff WBC RBC Hgb Hct MCV MCH MCHC RDW Plt Count MPV Neut % (Auto) Lymph % (Auto) Curry % (Auto) Eos % (Auto) Baso % (Auto) Neut # (Auto) Lymph # (Auto) Curry # (Auto) Eos # (Auto) Baso # (Auto) WBC Differential Differential Comment Sodium Potassium Chloride Carbon Dioxide Anion Gap BUN Creatinine Estimated GFR POC Glucose 113 H Random Glucose Lactic Acid Calcium Phosphorus Magnesium Total Bilirubin AST ALT Alkaline Phosphatase Total Protein Albumin Microbiology 01/31/18 08:48 Blood - Peripheral Aerobic Blood Culture - Preliminary No growth in 4 days 01/31/18 08:48 Blood - Peripheral Anaerobic Blood Culture - Preliminary No growth in 4 days 01/31/18 08:40 Blood - Peripheral Aerobic Blood Culture - Preliminary No growth in 4 days 01/31/18 08:40 Blood - Peripheral Anaerobic Blood Culture - Final Staphylococcus aureus Assessment and Plan - Attending Attestation pancreatitis secondary etoh- elevted lfts secondary etoh-stable DT's remains intubated Recommendations continue present care monitor lfts avoid etoh gi will sign off call us as needed fu gi op
[2018-02-04] MEDS: Albumin Human 25% Inj 100 ML IV.SIG SCH (21:24)
[2018-02-05] MEDS: Artificial Tears Opth Drops 15 ML Bottle EACH EYE SCH ×6 (00:54→21:01)
[2018-02-05] MEDS: Ampicillin/Sulbactam Inj 3 GM in Sodium Chloride 0.9% Inj 100 ML IV.SIG SCH ×4 (02:05→19:17)
[2018-02-05] MEDS: Enoxaparin Inj 40 MG/0.4 ML Syringe SQ SCH (02:05)
[2018-02-05] MEDS: Norepinephrine Inj 4 MG in Sodium Chlor 0.9% Inj 246 ML IV.SIG PRN (02:15)
[2018-02-05] MEDS: Albumin Human 25% Inj 100 ML IV.SIG SCH ×2 (03:04→11:45)
[2018-02-05] MEDS: Dexmedetomidine Inj 200 MCG in Sodium Chlor 0.9% Inj 48 ML IV.CONT PRN ×6 (03:17→23:27)
[2018-02-05] MEDS: Midazolam 50 MG/50 ML Inj 50 MG/50 ML BAG IV.CONT PRN (03:18)
[2018-02-05 05:14] LABS: Baso % (Auto) 0.4 % (0.0-2.0); Eos # (Auto) 0.4 th/mm3 (0.0-0.4); Eos % (Auto) 5.1 % (0.0-4.0); Hematocrit 37.2 % (39.0-51.0); Hemoglobin 12.5 gm/dL (13.0-17.0); Lymph # (Auto) 0.4 th/mm3 (1.0-4.8); Lymph % (Auto) 5.9 % (9.0-44.0); Mean Corpuscular HGB Conc 33.5 % (32.0-36.0); Mean Corpuscular Hemoglobin 32.2 pg (27.0-34.0); Mean Corpuscular Volume 95.9 fL (80.0-100.0); Mean Platelet Volume 6.7 fL (7.0-11.0); Mono % (Auto) 13.8 % (0.0-8.0); Neut # (Auto) 5.5 th/mm3 (1.8-7.7); Neut % (Auto) 74.8 % (16.0-70.0); Platelet Count 375 th/mm3 (150-450); Red Blood Count 3.88 mil/mm3 (4.50-5.90); Red Cell Distribution Width 13.8 % (11.6-17.2); White Blood Count 7.3 th/mm3 (4.0-11.0)
[2018-02-05] MEDS: QUEtiapine 100 MG Tablet PO SCH ×3 (05:21→22:41)
[2018-02-05 05:26] LABS: Chloride 97 meq/L (98-107); Potassium 3.6 meq/L (3.5-5.1); Sodium 132 meq/L (136-145)
[2018-02-05 06:16] LABS: Alanine Aminotransferase 55 U/L (12-78); Albumin 3.2 g/dL (3.4-5.0); Alkaline Phosphatase 71 U/L (45-117); Anion Gap 8 meq/L (5-15); Aspartate Aminotransferase 35 U/L (15-37); Blood Urea Nitrogen 11 mg/dL (7-18); Calcium 8.8 mg/dL (8.5-10.1); Carbon Dioxide 27.3 meq/L (21.0-32.0); Glomerular Filtration Rate 82 mL/min (>89); Glucose,Random 105 mg/dL (74-106); Magnesium 2.3 mg/dL (1.5-2.5); Phosphorus 3.1 mg/dL (2.5-4.9); Total Protein 7.4 g/dL (6.4-8.2)
--- NOTE | 2018-02-05 06:31 | P.PNCC ---
Subjective Subjective Remarks/Hospital Course: 01/30: Patient is a 62-year-old male with history of hypertension, hypothyroidism , alcoholism, presents the emergency room with multiple complaints. Patient reports that he is an alcoholic, reports that he usually drinks about 1/5 of whiskey per day. Patient reports that he decided to quit drinking alcohol 2 days ago and has put himself on a detox schedule. Patient has been decreasing the amount of alcohol he has been drinking, reports that today he only drinks 6 beers. Patient reports that tonight, he checked his blood pressure and noted it to be elevated and in the 200's. Reports that on route to the ER, he developed chest pain. Reports that he had chest tightness to his mid sternum. Denies any diaphoresis with this chest pain. Patient reports mild shortness of breath with this chest pain, reports resolution of chest pain while in the emergency room. Patient denies any history of coronary artery disease, she does not follow with a fleece tier. Patient reports that he thinks that the symptoms are due to his alcohol withdrawal. Patient reports that he is feeling shaky. Patient reports that he has not been feeling well over the past 2 days as he has been unable to tolerate p.o.'s. Reports "i just don't have an appetite and I'm not feeling well with the withdrawl symptoms." Patient tells me he actually came to the hospital because his blood pressure was running extremely high in the 240 systolic range at home. Patient was noted to be hyponatremic with a sodium of 108 in the ER. Patient was accepted for admission by critical care medicine service. He has been receiving half normal saline overnight. This morning when I evaluated the patient he was awake and alert resting comfortably in bed not in any acute distress. 01/31: Patient was complaining of some epigastric discomfort yesterday morning. CT abdomen pelvis was ordered however patient went into worsening alcohol withdrawal and despite starting Precedex and multiple boluses of Ativan was staying very agitated. Eventually he became more lethargic with tachypnea. He had also been vomiting previously. Decision was made to intubate and patient was placed on mechanical ventilation after intubation by ER physician. Of note patient had a difficult airway with some laryngeal edema noted per report and a 6.5 ET tube was used for intubation after failed attempt at intubating with an 8 Maltese and 7 Maltese ET tube. This morning patient is sedated with Versed and fentanyl drips, orally intubated on mechanical ventilation at the time of my evaluation. He was initiated on Son-Synephrine for hypotension following intubation and sedation. Currently he is on Son-Synephrine 70 mics per minute. He has had a good urine output overnight. He was started on 3% saline at 10 cc an hour last evening and the sodium has come up to 115 mEq/liter this morning. He has also been receiving LR at 1 50 cc an hour. NG tube was placed after intubation and 1 L of gastric contents were suctioned out. Patient did spike a temperature of 100.5 axillary this morning. Pancultures were ordered and empiric Zosyn to be started in view of concern for aspiration. 02/01: Remains sedated, orally intubated on mechanical ventilation. On Levophed 2 mics per minute. Significant positive fluid balance. Sodium 122. CT abdomen pelvis done yesterday revealed inflammation around tail of pancreas with fluid around liver consistent with pancreatitis. 02/02: Remains sedated, orally intubated on mechanical ventilation. Femoral central line replaced with right IJ central line today. Remains on Levophed for pressor support. 02/03: remains intubated. perioral edema persists, but this is concomitant with significant generalized edema. remains on vasopressor support. lipase trending down. 02/04: continues with severe agitated delirium. precedex added to control agitation. good diuresis with net -2L/24h. 02/05: net -4L/24h. good diuresis. clinically improving. sodium very slowly uptrending. agitation persists. will attempt to start weaning sedation today. Objective Vital Signs / I&O: Vital Signs 02/04/18 06:30 02/04/18 06:31 02/04/18 06:45 Temperature Pulse Rate 78 82 74 Respiratory Rate 17 16 15 Blood Pressure 175/98 H 164/91 H 139/77 Pulse Oximetry 93 L 93 L 93 L 02/04/18 07:00 02/04/18 07:15 02/04/18 07:17 Temperature Pulse Rate 68 62 Respiratory Rate 0 L 16 16 Blood Pressure 106/62 104/65 Pulse Oximetry 93 L 93 L 93 L 02/04/18 07:30 02/04/18 07:45 02/04/18 08:00 Temperature 37.1 C Pulse Rate 62 58 L 58 L Respiratory Rate 16 16 15 Blood Pressure 97/61 L 104/64 106/67 Pulse Oximetry 93 L 93 L 93 L 02/04/18 08:15 02/04/18 08:30 02/04/18 08:45 Temperature Pulse Rate 58 L 56 L 74 Respiratory Rate 15 15 16 Blood Pressure 103/64 114/69 144/78 H Pulse Oximetry 93 L 94 L 93 L 02/04/18 09:00 02/04/18 09:01 02/04/18 09:04 Temperature Pulse Rate 84 88 82 Respiratory Rate 16 17 13 Blood Pressure 181/102 H 171/94 H Pulse Oximetry 90 L 90 L 93 L 02/04/18 09:11 02/04/18 09:16 02/04/18 09:25 Temperature Pulse Rate 99 H 98 H Respiratory Rate 18 17 Blood Pressure 199/100 H Pulse Oximetry 89 L 88 L 02/04/18 09:31 02/04/18 09:46 02/04/18 10:00 Temperature Pulse Rate 86 74 68 Respiratory Rate 14 0 L 16 Blood Pressure 140/72 95/50 L Pulse Oximetry 92 L 91 L 93 L 02/04/18 10:01 02/04/18 10:16 02/04/18 10:31 Temperature Pulse Rate 68 64 60 Respiratory Rate 16 16 16 Blood Pressure 90/52 L 94/53 L 91/55 L Pulse Oximetry 94 L 95 96 02/04/18 10:46 02/04/18 11:00 02/04/18 11:01 Temperature Pulse Rate 60 58 L 58 L Respiratory Rate 16 16 16 Blood Pressure 98/58 L 98/60 L Pulse Oximetry 97 97 97 02/04/18 11:13 02/04/18 11:16 02/04/18 11:31 Temperature Pulse Rate 56 L 56 L Respiratory Rate 16 16 16 Blood Pressure 101/58 L 95/58 L Pulse Oximetry 97 97 96 02/04/18 11:46 02/04/18 12:00 02/04/18 12:01 Temperature 37.0 C Pulse Rate 56 L 54 L 54 L Respiratory Rate 16 16 16 Blood Pressure 96/54 L 97/58 L 97/58 L Pulse Oximetry 96 97 97 02/04/18 12:16 02/04/18 12:31 02/04/18 12:46 Temperature Pulse Rate 54 L 54 L 54 L Respiratory Rate 16 15 15 Blood Pressure 96/60 L 96/55 L 94/59 L Pulse Oximetry 97 97 97 02/04/18 13:00 02/04/18 13:01 02/04/18 13:16 Temperature Pulse Rate 54 L 54 L 52 L Respiratory Rate 15 15 5 L Blood Pressure 96/58 L 103/62 Pulse Oximetry 97 97 98 02/04/18 13:31 02/04/18 13:46 02/04/18 13:48 Temperature Pulse Rate 52 L 52 L Respiratory Rate 15 16 16 Blood Pressure 92/58 L 102/64 Pulse Oximetry 97 97 98 02/04/18 14:00 02/04/18 14:01 02/04/18 14:16 Temperature Pulse Rate 52 L 52 L 52 L Respiratory Rate 16 15 16 Blood Pressure 104/61 100/60 Pulse Oximetry 96 96 96 02/04/18 14:31 02/04/18 14:46 02/04/18 15:00 Temperature Pulse Rate 52 L 52 L 52 L Respiratory Rate 16 15 16 Blood Pressure 99/63 L 103/61 Pulse Oximetry 96 95 96 02/04/18 15:01 02/04/18 15:16 02/04/18 15:31 Temperature Pulse Rate 52 L 52 L 54 L Respiratory Rate 15 16 15 Blood Pressure 96/59 L 98/60 L 100/58 L Pulse Oximetry 95 95 96 02/04/18 15:46 02/04/18 16:00 02/04/18 16:01 Temperature 35.9 C L Pulse Rate 50 L 52 L 50 L Respiratory Rate 16 16 16 Blood Pressure 95/59 L 91/59 L 91/59 L Pulse Oximetry 96 95 95 02/04/18 16:16 02/04/18 16:31 02/04/18 16:38 Temperature Pulse Rate 52 L 54 L 78 Respiratory Rate 16 16 16 Blood Pressure 114/69 91/51 L 110/69 Pulse Oximetry 97 97 96 02/04/18 16:46 02/04/18 16:55 02/04/18 17:00 Temperature Pulse Rate 72 76 Respiratory Rate 16 16 16 Blood Pressure 112/68 Pulse Oximetry 95 94 L 92 L 02/04/18 17:01 02/04/18 17:16 02/04/18 17:19 Temperature Pulse Rate 72 90 90 Respiratory Rate 15 20 22 Blood Pressure 98/55 L 53/32 L 107/60 Pulse Oximetry 92 L 92 L 95 02/04/18 17:31 02/04/18 17:39 02/04/18 17:46 Temperature Pulse Rate 98 H 86 82 Respiratory Rate 27 H 15 15 Blood Pressure 153/81 H 102/57 L 100/51 L Pulse Oximetry 95 97 97 02/04/18 17:54 02/04/18 18:00 02/04/18 18:01 Temperature Pulse Rate 64 66 Respiratory Rate 13 14 Blood Pressure 123/72 Pulse Oximetry 94 L 94 L 94 L 02/04/18 18:16 02/04/18 18:31 02/04/18 18:46 Temperature Pulse Rate 58 L 54 L 52 L Respiratory Rate 15 16 16 Blood Pressure 107/64 93/55 L 90/55 L Pulse Oximetry 95 96 97 02/04/18 19:00 02/04/18 19:01 02/04/18 19:16 Temperature 37.1 C Pulse Rate 52 L 52 L 52 L Respiratory Rate 16 16 16 Blood Pressure 97/60 L 97/60 L 102/60 Pulse Oximetry 98 98 98 02/04/18 19:31 02/04/18 19:46 02/04/18 20:00 Temperature Pulse Rate 50 L 50 L 52 L Respiratory Rate 16 16 16 Blood Pressure 101/63 104/62 Pulse Oximetry 98 99 99 02/04/18 20:01 02/04/18 20:16 02/04/18 20:31 Temperature Pulse Rate 52 L 50 L 50 L Respiratory Rate 16 16 15 Blood Pressure 108/66 104/60 105/65 Pulse Oximetry 99 99 98 02/04/18 20:46 02/04/18 21:00 02/04/18 21:01 Temperature Pulse Rate 50 L 50 L 50 L Respiratory Rate 15 16 16 Blood Pressure 107/63 115/67 Pulse Oximetry 98 99 99 02/04/18 21:16 02/04/18 21:31 02/04/18 21:46 Temperature Pulse Rate 50 L 50 L 60 Respiratory Rate 16 16 27 H Blood Pressure 113/64 109/64 144/93 H Pulse Oximetry 99 98 100 02/04/18 22:00 02/04/18 22:01 02/04/18 22:16 Temperature Pulse Rate 54 L 54 L 54 L Respiratory Rate 15 16 15 Blood Pressure 114/71 115/66 Pulse Oximetry 99 99 99 02/04/18 22:31 02/04/18 22:46 02/04/18 23:00 Temperature Pulse Rate 54 L 52 L 50 L Respiratory Rate 15 16 16 Blood Pressure 109/66 100/61 96/60 L Pulse Oximetry 99 98 98 02/04/18 23:01 02/04/18 23:16 02/04/18 23:30 Temperature Pulse Rate 50 L 52 L Respiratory Rate 16 16 16 Blood Pressure 100/62 110/69 Pulse Oximetry 98 99 98 02/04/18 23:31 02/04/18 23:46 02/05/18 00:00 Temperature 36.4 C L Pulse Rate 52 L 50 L 54 L Respiratory Rate 15 15 16 Blood Pressure 103/62 91/59 L 110/69 Pulse Oximetry 99 98 98 02/05/18 00:01 02/05/18 00:16 02/05/18 01:00 Temperature Pulse Rate 52 L 50 L 48 L Respiratory Rate 16 16 16 Blood Pressure 102/64 96/60 L 100/63 Pulse Oximetry 99 99 99 02/05/18 02:00 02/05/18 03:00 02/05/18 03:53 Temperature Pulse Rate 62 88 Respiratory Rate 16 24 16 Blood Pressure 139/81 137/86 Pulse Oximetry 98 02/05/18 04:00 02/05/18 05:00 02/05/18 05:50 Temperature 36.5 C Pulse Rate 62 90 72 Respiratory Rate 16 Blood Pressure 95/59 L 139/80 Pulse Oximetry 99 100 Intake & Output 02/04/18 02/04/18 02/05/18 06:59 18:59 06:59 Intake Total 1650 / 1650 1190 / 1190 3723 / 3723 Output Total 3800 / 3800 4495 / 4495 5250 / 5250 Balance -2150 / -2150 -3305 / -3305 -1527 / -1527 Weight 103.4 kg 99 kg Intake: IV 1650 / 1650 800 / 800 3723 / 3723 Precedex Inj 200 MCG In NS Inj 239 / 239 48 ML @ 0.2 MCG/KG/HR 5.32 mls/ hr IV.CONT TITRATE PRN Rx#: [id number] Precedex Inj 200 mcg In 50 ml @ 50 / 50 0.5 MCG/KG/HR 12.188 mls/hr IV .CONT TITRATE PRN Rx#: [id number] Versed Inj 50 mg In 50 ml @ 2 200 / 200 100 / 100 201 / 201 MG/HR 2 mls/hr IV.CONT TITRATE PRN Rx#:[id number] NS + KCl 20 mEq Inj 1,000 ML @ 1000 / 1000 1975 / 1975 42 mls/hr IV.CONT .[id number] MICHAEL Rx#:[id number] Flexbumin 25% Inj 100 ML @ 12.5 100 / 100 300 / 300 mls/hr IV.SIG Q8H MICHAEL Rx#: [id number] Unasyn Inj 3 GM In NS Inj 100 200 / 200 200 / 200 300 / 300 ML @ 200 mls/hr IV.SIG Q6H MICHAEL Rx#:[id number] Magnesium Sulfate Inj 2 GM In 100 / 100 NS Inj 96 ML @ 50 mls/hr IV.SIG ONCE ONE Rx#:[id number] Levophed Inj 4 MG In NS Inj 246 101 / 101 ML @ 2 MCG/MIN 7.5 mls/hr IV. SIG TITRATE PRN Rx#:[id number] fentaNYL 10 mcg/mL Premix Drip 250 / 250 250 / 250 606 / 606 2,500 mcg In 250 ml @ 50 MCG/HR 5 mls/hr IV.SIG TITRATE PRN Rx #:[id number] Tube Feeding 330 / 330 Tube Irrigant 60 / 60 Output: Urine 3800 / 3800 2725 / 2725 Urine Amount (Catheter) 1670 / 1670 5250 / 5250 Indwelling Urethral Catheter 1670 / 1670 5250 / 5250 Gastric Drainage 100 / 100 Left Nare 100 / 100 Other: Date of Last Bowel Movement 02/04/18 02/05/18 # Bowel Movements 0 3 # Incontinent Bowel Movements 3 Result Diagrams: 02/05/18 04:50 02/05/18 04:50 Objective Remarks: gen: middle-aged male, lying in bed, intubated. HEENT: Sedated, orally intubated, No pallor, no icterus, tongue/ mucosa moist, perioral edema significantly improved. Neck: No JVD. right IJ central line in place, site clean dry and intact. Chest/Pulm: on mech vent, good air entry bilaterally, no wheezing or crackles CVS: S1-S2 regular, no murmur GI/abdomen: soft, nontender, bowel sounds sluggish Extremities: warm bilaterally, 2+ generalized edema. neuro: RASS -3. withdraws to pain. Assessment and Plan - Assessment and Plan Plan: Severe Agitated Delirium Severe hyponatremia- very slowly improving. Uncontrolled hypertension (resolved) Distributive Shock secondary to acute pancreatitis- resolving. Severe Acute pancreatitis Hypertriglyceridemia Acute liver dysfunction secondary to alcoholic hepatitis Staph pneumonia Staph bacteremia Alcohol withdrawal Hypothyroidism Contraction metabolic alkalosis- improving. Plan: Neuro: continue valium scheduled. d/c versed drip. wean fentanyl drip. continue precedex. goal RASS -2 seroquel for persistent agitation 100mg po q8hr haldol for breakthrough agitation. Cardiovascular: continue to hold antihypertensives. continue levophed, goal map > 65 mmHg. Pulmonary: Continue mechanical ventilation, vent bundle, bronchodilators as needed. will start weaning sedation today. may start SBT. very high risk for reintubation given airway concerns and delirium. 6.5 ett due to laryngeal edema diuresing as below wean fio2 for goal spo2 > 90% FEN/GI/ liver: Tolerating tube feeds. CT revealed acute pancreatitis. GI following. Lipase has come down. miralax, schedule suppository, lactulose. goal BM today. sodium tabs 2gm q6h continue to monitor sodium serially. Renal/: TSH 9, triglycerides elevated, low serum osmolarity(240s). urine osmolarity 694. Urine sodium 47. Nephrology consult. Follow serial sodiums. d/c NS @ 42cc/hr. lasix 40mg iv q8h concentrated albumin to help with oncotic intravascular pressure (and additional salt balance). Endocrine: Elevated TSH(9). Continue Synthroid, watch for hyperglycemia, SSI for glycemic control if needed. Heme: Follow CBC ID: blood cultures 01/31: pansensitive staph. unasyn 3gm iv q6h with a anticipated stop date 02/06 (full 7 day course for aspiration pneumonia, MSSA). Prophylaxis: PPI/SCDs/Lovenox Access: RIJ central line (placed 02/02). must keep while on vasopressors. Condition critical with severe hyponatremia, alcohol withdrawal, acute pancreatitis, septic shock, staph pneumonia, acute respiratory failure on mechanical ventilation. remains very high risk for decompensation and . still life-threatening at this time. Time spent on critical care excluding procedures : 31 minutes
[2018-02-05] MEDS: Senna/Docusate Sodium 8.6/50 MG Tablet PO SCH ×2 (08:00→21:01)
[2018-02-05] MEDS: Bisacodyl 10 MG Supp RECTAL SCH (08:00)
[2018-02-05] MEDS ORDERED: chlordiazePOXIDE 25 MG Capsule PO ONE (09:00)
[2018-02-05] MEDS: Pantoprazole Inj 40 MG Vial IV.PUSH SCH (09:05)
[2018-02-05] MEDS: Sodium Chloride 1 GM Tablet PO SCH ×4 (09:06→21:01)
[2018-02-05] MEDS: Chlorhexidine 0.12% Oral Kit 15 ML UDC OROPHARYNG SCH ×2 (09:07→19:19)
[2018-02-05] MEDS: Dexmedetomidine Inj 200 MCG/50 ML INFUS..BTL IV.CONT PRN ×3 (10:00→16:54)
--- NOTE | 2018-02-05 18:03 | XR ---
EXAM DATE: 02/05/2018 5:59 PM EDT AGE/SEX: 62 years / Male INDICATIONS: Aspiration. CLINICAL DATA: This is the patient's subsequent encounter. Patient reports that signs and symptoms h ave been present for 1 day and indicates a pain score of Nonresponsive. MEDICAL/SURGICAL HISTORY: Non-responsive. Non-responsive. COMPARISON: [facility]PO, CHEST 1V SINGLE AP, 02/02/2018. . FINDINGS: A single AP view of the chest demonstrates the lungs to be symmetrically aerated with persistent left basilar consolidation/effusion. Stable position of life-support tubes including right IJ central aime ous catheter, endotracheal tube and nasogastric tubes. Heart size is upper limits of normal and appea rs to be well compensated. Right lung is clear CONCLUSION: 1. . Stable left basilar consolidation/effusion. 2. Stable position of life-support tubes. Electronically signed by: Benjamin Lynch MD 02/05/2018 6:01 PM EDT
[2018-02-05] MEDS ORDERED: Cathflo Activase Inj 2 MG Vial IV.PUSH PRN (19:37)
[2018-02-06] MEDS: Artificial Tears Opth Drops 15 ML Bottle EACH EYE SCH ×6 (00:31→22:00)
[2018-02-06] MEDS ORDERED: Dexmedetomidine Inj 1,000 MCG in Sodium Chlor 0.9% Inj 240 ML IV.CONT PRN (01:09)
[2018-02-06] MEDS: Dexmedetomidine Inj 200 MCG in Sodium Chlor 0.9% Inj 48 ML IV.CONT PRN (01:14)
[2018-02-06] MEDS: Ampicillin/Sulbactam Inj 3 GM in Sodium Chloride 0.9% Inj 100 ML IV.SIG SCH (01:25)
[2018-02-06] MEDS: Enoxaparin Inj 40 MG/0.4 ML Syringe SQ SCH (01:30)
[2018-02-06] MEDS: QUEtiapine 100 MG Tablet PO SCH ×2 (05:18→13:06)
--- NOTE | 2018-02-06 06:39 | P.PNCC ---
Subjective Subjective Remarks/Hospital Course: 01/30: Patient is a 62-year-old male with history of hypertension, hypothyroidism , alcoholism, presents the emergency room with multiple complaints. Patient reports that he is an alcoholic, reports that he usually drinks about 1/5 of whiskey per day. Patient reports that he decided to quit drinking alcohol 2 days ago and has put himself on a detox schedule. Patient has been decreasing the amount of alcohol he has been drinking, reports that today he only drinks 6 beers. Patient reports that tonight, he checked his blood pressure and noted it to be elevated and in the 200's. Reports that on route to the ER, he developed chest pain. Reports that he had chest tightness to his mid sternum. Denies any diaphoresis with this chest pain. Patient reports mild shortness of breath with this chest pain, reports resolution of chest pain while in the emergency room. Patient denies any history of coronary artery disease, she does not follow with a clinical research management associate. Patient reports that he thinks that the symptoms are due to his alcohol withdrawal. Patient reports that he is feeling shaky. Patient reports that he has not been feeling well over the past 2 days as he has been unable to tolerate p.o.'s. Reports "i just don't have an appetite and I'm not feeling well with the withdrawl symptoms." Patient tells me he actually came to the hospital because his blood pressure was running extremely high in the 240 systolic range at home. Patient was noted to be hyponatremic with a sodium of 108 in the ER. Patient was accepted for admission by critical care medicine service. He has been receiving half normal saline overnight. This morning when I evaluated the patient he was awake and alert resting comfortably in bed not in any acute distress. 01/31: Patient was complaining of some epigastric discomfort yesterday morning. CT abdomen pelvis was ordered however patient went into worsening alcohol withdrawal and despite starting Precedex and multiple boluses of Ativan was staying very agitated. Eventually he became more lethargic with tachypnea. He had also been vomiting previously. Decision was made to intubate and patient was placed on mechanical ventilation after intubation by ER physician. Of note patient had a difficult airway with some laryngeal edema noted per report and a 6.5 ET tube was used for intubation after failed attempt at intubating with an 8 Estonian and 7 Estonian ET tube. This morning patient is sedated with Versed and fentanyl drips, orally intubated on mechanical ventilation at the time of my evaluation. He was initiated on Son-Synephrine for hypotension following intubation and sedation. Currently he is on Son-Synephrine 70 mics per minute. He has had a good urine output overnight. He was started on 3% saline at 10 cc an hour last evening and the sodium has come up to 115 mEq/liter this morning. He has also been receiving LR at 1 50 cc an hour. NG tube was placed after intubation and 1 L of gastric contents were suctioned out. Patient did spike a temperature of 100.5 axillary this morning. Pancultures were ordered and empiric Zosyn to be started in view of concern for aspiration. 02/01: Remains sedated, orally intubated on mechanical ventilation. On Levophed 2 mics per minute. Significant positive fluid balance. Sodium 122. CT abdomen pelvis done yesterday revealed inflammation around tail of pancreas with fluid around liver consistent with pancreatitis. 02/02: Remains sedated, orally intubated on mechanical ventilation. Femoral central line replaced with right IJ central line today. Remains on Levophed for pressor support. 02/03: remains intubated. perioral edema persists, but this is concomitant with significant generalized edema. remains on vasopressor support. lipase trending down. 02/04: continues with severe agitated delirium. precedex added to control agitation. good diuresis with net -2L/24h. 02/05: net -4L/24h. good diuresis. clinically improving. sodium very slowly uptrending. agitation persists. will attempt to start weaning sedation today. 02/06: failed weaning attempts yesterday. today less agitated. tolerating CPAP today. plan to wean to extubate. Objective Vital Signs / I&O: Vital Signs 02/05/18 07:00 02/05/18 07:02 02/05/18 07:14 Temperature 37.3 C Pulse Rate 58 L 58 L 76 Respiratory Rate 16 16 54 H Blood Pressure 95/59 L 88/59 L Pulse Oximetry 99 99 99 02/05/18 07:17 02/05/18 07:32 02/05/18 07:47 Temperature Pulse Rate 76 58 L 56 L Respiratory Rate 28 H 18 16 Blood Pressure 108/66 104/62 103/60 Pulse Oximetry 98 97 98 02/05/18 07:55 02/05/18 08:00 02/05/18 08:02 Temperature Pulse Rate 58 L 58 L 58 L Respiratory Rate 16 18 18 Blood Pressure 94/59 L Pulse Oximetry 98 98 97 02/05/18 08:17 02/05/18 08:32 02/05/18 08:47 Temperature Pulse Rate 56 L 56 L 54 L Respiratory Rate 16 16 16 Blood Pressure 97/57 L 95/56 L 99/60 L Pulse Oximetry 98 98 98 02/05/18 09:00 02/05/18 09:02 02/05/18 09:17 Temperature Pulse Rate 54 L 54 L 62 Respiratory Rate 16 16 18 Blood Pressure 97/56 L 107/62 Pulse Oximetry 98 98 99 02/05/18 09:32 02/05/18 09:47 02/05/18 10:00 Temperature Pulse Rate 58 L 60 56 L Respiratory Rate 17 16 17 Blood Pressure 117/72 116/57 L Pulse Oximetry 99 98 99 02/05/18 10:02 02/05/18 10:17 02/05/18 10:32 Temperature Pulse Rate 56 L 56 L 54 L Respiratory Rate 18 16 16 Blood Pressure 105/67 94/58 L 86/54 L Pulse Oximetry 98 98 98 02/05/18 10:38 02/05/18 10:47 02/05/18 11:00 Temperature Pulse Rate 54 L 56 L Respiratory Rate 17 17 17 Blood Pressure 97/61 L Pulse Oximetry 98 98 99 02/05/18 11:02 02/05/18 11:17 02/05/18 11:32 Temperature Pulse Rate 54 L 54 L 52 L Respiratory Rate 16 17 16 Blood Pressure 94/63 L 96/58 L 81/58 L Pulse Oximetry 98 98 98 02/05/18 11:41 02/05/18 11:47 02/05/18 12:00 Temperature Pulse Rate 54 L 54 L 58 L Respiratory Rate 18 16 Blood Pressure 97/60 L 95/58 L Pulse Oximetry 99 99 02/05/18 12:02 02/05/18 12:17 02/05/18 12:32 Temperature 36.9 C Pulse Rate 60 58 L 62 Respiratory Rate 19 17 18 Blood Pressure 114/70 106/64 107/68 Pulse Oximetry 99 99 99 02/05/18 12:47 02/05/18 13:00 02/05/18 13:02 Temperature Pulse Rate 56 L 54 L 54 L Respiratory Rate 17 16 17 Blood Pressure 105/65 105/64 Pulse Oximetry 98 99 99 02/05/18 13:13 02/05/18 13:17 02/05/18 13:32 Temperature Pulse Rate 58 L 74 Respiratory Rate 18 17 22 Blood Pressure 108/64 125/85 Pulse Oximetry 99 99 99 02/05/18 13:40 02/05/18 13:47 02/05/18 14:00 Temperature 37.3 C Pulse Rate 80 98 H Respiratory Rate 21 19 29 H Blood Pressure 124/71 Pulse Oximetry 97 97 98 02/05/18 14:02 02/05/18 14:05 02/05/18 14:17 Temperature Pulse Rate 94 H 109 H 88 Respiratory Rate 26 H 24 21 Blood Pressure 124/70 142/86 H Pulse Oximetry 98 96 02/05/18 14:32 02/05/18 14:47 02/05/18 15:00 Temperature Pulse Rate 94 H 112 H 118 H Respiratory Rate 23 20 27 H Blood Pressure 155/80 H 120/73 Pulse Oximetry 96 95 93 L 02/05/18 15:02 02/05/18 15:17 02/05/18 15:32 Temperature Pulse Rate 118 H 94 H 88 Respiratory Rate 20 18 19 Blood Pressure 131/83 135/89 119/75 Pulse Oximetry 92 L 96 95 02/05/18 15:47 02/05/18 16:00 02/05/18 16:02 Temperature Pulse Rate 108 H 98 H 102 H Respiratory Rate 24 16 23 Blood Pressure 135/77 136/77 Pulse Oximetry 93 L 95 95 02/05/18 16:17 02/05/18 16:32 02/05/18 16:34 Temperature Pulse Rate 112 H 110 H Respiratory Rate 24 22 23 Blood Pressure 154/83 H 115/77 Pulse Oximetry 94 L 96 96 02/05/18 16:40 02/05/18 16:47 02/05/18 17:00 Temperature Pulse Rate 114 H 106 H 122 H Respiratory Rate 23 23 24 Blood Pressure 137/86 Pulse Oximetry 96 93 L 02/05/18 17:02 02/05/18 17:17 02/05/18 17:32 Temperature Pulse Rate 118 H 122 H 136 H Respiratory Rate 22 24 27 H Blood Pressure 114/68 128/81 147/102 H Pulse Oximetry 95 96 93 L 02/05/18 17:40 02/05/18 17:47 02/05/18 18:00 Temperature Pulse Rate 126 H 120 H 138 H Respiratory Rate 29 H 24 31 H Blood Pressure 178/85 H 147/79 H Pulse Oximetry 98 96 94 L 02/05/18 18:02 02/05/18 18:05 02/05/18 18:07 Temperature Pulse Rate 140 H 118 H Respiratory Rate 35 H 26 H 23 Blood Pressure 173/89 H 134/82 Pulse Oximetry 96 98 96 02/05/18 18:17 02/05/18 19:00 02/05/18 19:02 Temperature 37.7 C H 37.3 C Pulse Rate 100 H 74 74 Respiratory Rate 23 16 17 Blood Pressure 119/73 99/65 L 94/70 L Pulse Oximetry 96 96 97 02/05/18 19:17 02/05/18 19:56 02/05/18 20:00 Temperature 37.7 C H Pulse Rate 112 H 78 Respiratory Rate 23 18 18 Blood Pressure 135/75 120/79 Pulse Oximetry 96 97 97 02/05/18 20:01 02/05/18 21:00 02/05/18 22:00 Temperature Pulse Rate 75 68 64 Respiratory Rate 17 16 6 L Blood Pressure 91/59 L 97/63 L Pulse Oximetry 96 98 02/05/18 22:28 02/05/18 23:00 02/06/18 00:00 Temperature 37.1 C Pulse Rate 64 66 Respiratory Rate 16 15 17 Blood Pressure 99/62 L 116/73 Pulse Oximetry 97 98 99 02/06/18 00:38 02/06/18 01:00 02/06/18 02:00 Temperature Pulse Rate 70 58 L Respiratory Rate 16 20 16 Blood Pressure 101/59 L 103/65 Pulse Oximetry 98 97 98 02/06/18 03:00 02/06/18 04:00 02/06/18 04:17 Temperature 36.8 C Pulse Rate 64 54 L Respiratory Rate 20 16 16 Blood Pressure 116/75 110/68 Pulse Oximetry 97 97 97 02/06/18 04:20 02/06/18 04:59 02/06/18 05:00 Temperature Pulse Rate 55 L 58 L 60 Respiratory Rate 16 16 16 Blood Pressure 123/72 Pulse Oximetry 95 95 02/06/18 06:00 Temperature Pulse Rate 60 Respiratory Rate 14 Blood Pressure 134/78 Pulse Oximetry 97 Intake & Output 02/05/18 02/05/18 02/06/18 06:59 18:59 06:59 Intake Total 3723 / 3723 200 / 200 300 / 300 Output Total 5250 / 5250 3750 / 3750 1475 / 1475 Balance -1527 / -1527 -3550 / -3550 -1175 / -1175 Weight 99 kg Intake: IV 3723 / 3723 200 / 200 300 / 300 Precedex Inj 200 MCG In NS Inj 239 / 239 200 / 200 48 ML @ 0.2 MCG/KG/HR 5.32 mls/ hr IV.CONT TITRATE PRN Rx#: [id number] Versed Inj 50 mg In 50 ml @ 2 201 / 201 MG/HR 2 mls/hr IV.CONT TITRATE PRN Rx#:[id number] NS + KCl 20 mEq Inj 1,000 ML @ 1975 / 1975 42 mls/hr IV.CONT .[id number] MICHAEL Rx#:[id number] Flexbumin 25% Inj 100 ML @ 12.5 300 / 300 mls/hr IV.SIG Q8H MICHAEL Rx#: [id number] Unasyn Inj 3 GM In NS Inj 100 300 / 300 200 / 200 100 / 100 ML @ 200 mls/hr IV.SIG Q6H MICHAEL Rx#:[id number] Levophed Inj 4 MG In NS Inj 246 101 / 101 ML @ 2 MCG/MIN 7.5 mls/hr IV. SIG TITRATE PRN Rx#:[id number] fentaNYL 10 mcg/mL Premix Drip 606 / 606 2,500 mcg In 250 ml @ 50 MCG/HR 5 mls/hr IV.SIG TITRATE PRN Rx #:[id number] Output: Urine 3750 / 3750 Urine Amount (Catheter) 5250 / 5250 1475 / 1475 Indwelling Urethral Catheter 5250 / 5250 1475 / 1475 Other: Date of Last Bowel Movement 02/05/18 02/05/18 02/05/18 # Bowel Movements 3 # Incontinent Bowel Movements 3 Result Diagrams: 02/06/18 06:30 02/06/18 06:30 Objective Remarks: gen: middle-aged male, lying in bed, intubated. HEENT: Sedated, orally intubated, No pallor, no icterus, tongue/ mucosa moist, perioral edema significantly improved. Neck: No JVD. right IJ central line in place, site clean dry and intact. Chest/Pulm: on mech vent, good air entry bilaterally, no wheezing or crackles CVS: S1-S2 regular, no murmur GI/abdomen: soft, nontender, bowel sounds sluggish Extremities: warm bilaterally, 2+ generalized edema. neuro: RASS -1. follows commands. Assessment and Plan - Assessment and Plan Plan: Severe Agitated Delirium Severe hyponatremia- resolving. Uncontrolled hypertension (resolved) Distributive Shock secondary to acute pancreatitis- resolved. Severe Acute pancreatitis- improving. Hypertriglyceridemia Acute liver dysfunction secondary to alcoholic hepatitis Staph pneumonia- resolved Staph bacteremia- resolved Alcohol withdrawal Hypothyroidism Contraction metabolic alkalosis- improving. Plan: Neuro: start valium taper goal RASS 0. seroquel for persistent agitation 50mg po q8hr haldol for breakthrough agitation. Cardiovascular: continue to hold antihypertensives. off vasopressors. Pulmonary: wean to extubate. at dry weight. hold additional diuresis. wean fio2 for goal spo2 > 90% OOB PT/OT consults. aggressive pulmonary toilet. FEN/GI/ liver: Tolerating tube feeds. CT revealed acute pancreatitis. GI following. Lipase has come down. miralax, schedule suppository, lactulose. goal BM today. Renal/: TSH 9, triglycerides elevated, low serum osmolarity(240s). urine osmolarity 694. Urine sodium 47. Nephrology consult. Follow serial sodiums. Endocrine: Elevated TSH(9). Continue Synthroid, watch for hyperglycemia, SSI for glycemic control if needed. Heme: Follow CBC ID: blood cultures 01/31: pansensitive staph. unasyn 3gm iv q6h with a anticipated stop date 02/06 (full 7 day course for aspiration pneumonia, MSSA). Prophylaxis: PPI/SCDs/Lovenox Access: d/c cvl. d/c parisi. clinically improving. will work towards extubation and pulmonary toilet with PT as well.
[2018-02-06 06:40] LABS: Hematocrit 34.5 % (39.0-51.0); Hemoglobin 11.9 gm/dL (13.0-17.0); Mean Corpuscular HGB Conc 34.3 % (32.0-36.0); Mean Corpuscular Hemoglobin 32.1 pg (27.0-34.0); Mean Corpuscular Volume 93.5 fL (80.0-100.0); Mean Platelet Volume 7.1 fL (7.0-11.0); Platelet Count 479 th/mm3 (150-450); Red Blood Count 3.69 mil/mm3 (4.50-5.90); Red Cell Distribution Width 14.1 % (11.6-17.2); White Blood Count 6.8 th/mm3 (4.0-11.0)
[2018-02-06 06:46] LABS: Potassium 3.4 meq/L (3.5-5.1)
[2018-02-06 06:48] LABS: Calcium 9.5 mg/dL (8.5-10.1)
[2018-02-06 06:49] LABS: Carbon Dioxide 26.7 meq/L (21.0-32.0)
[2018-02-06] MEDS: Senna/Docusate Sodium 8.6/50 MG Tablet PO SCH ×2 (08:03→22:00)
[2018-02-06] MEDS: Pantoprazole Inj 40 MG Vial IV.PUSH SCH (08:03)
[2018-02-06] MEDS: Sodium Chloride 1 GM Tablet PO SCH ×4 (08:03→22:02)
[2018-02-06] MEDS: Chlorhexidine 0.12% Oral Kit 15 ML UDC OROPHARYNG SCH ×2 (08:04→22:00)
[2018-02-06] MEDS: Bisacodyl 10 MG Supp RECTAL SCH (10:59)
[2018-02-06] MEDS: diazePAM 5 MG Tablet PO SCH ×2 (11:02→22:00)
[2018-02-06] MEDS: QUEtiapine 25 MG Tablet PO SCH (21:59)
[2018-02-07] MEDS: Melatonin 5 MG Tablet PO ONE ×2 (01:14→03:15)
[2018-02-07] MEDS: Artificial Tears Opth Drops 15 ML Bottle EACH EYE SCH ×7 (01:15→23:42)
[2018-02-07] MEDS: Labetalol HCl Inj 100 MG/20 ML Vial IV.PUSH PRN ×2 (01:43→07:39)
[2018-02-07] MEDS: Haloperidol Inj 5 MG/ML Ampul IV.PUSH PRN ×2 (01:57→02:57)
[2018-02-07] MEDS: Enoxaparin Inj 40 MG/0.4 ML Syringe SQ SCH (02:57)
--- NOTE | 2018-02-07 04:41 | XR ---
EXAM DATE: 02/07/2018 4:34 AM EDT AGE/SEX: 62 years / Male INDICATIONS: Vomiting, abdominal pain CLINICAL DATA: This is the patient's initial encounter. Patient reports that signs and symptoms have been present for 1 day and indicates a pain score of 8/10. MEDICAL/SURGICAL HISTORY: . Hypertension. Carcinoma, prostatic. Hypothyroidism. None. COMPARISON: No prior exams available for comparison. FINDINGS: 2 AP supine views of the abdomen. Scattered gas in mildly distended loops of small bowel. Scattered gas in nondilated colon. Air-filled mildly distended stomach. Mild degenerative findings of the lumba r spine. Surgical clips in the pelvis bilaterally. No abnormal abdominal calcification. CONCLUSION: Nonspecific bowel gas pattern with air-filled mildly distended small bowel loops. Electronically signed by: Miah Buchanan MD 02/07/2018 4:40 AM EDT
[2018-02-07] MEDS: hydrALAZINE HCl Inj 20 MG/ML Vial IV.PUSH PRN (05:47)
[2018-02-07] MEDS: diazePAM 5 MG Tablet PO SCH ×3 (05:47→23:42)
[2018-02-07] MEDS: QUEtiapine 25 MG Tablet PO SCH ×3 (05:50→23:29)
--- NOTE | 2018-02-07 06:30 | P.PNCC ---
Subjective Subjective Remarks/Hospital Course: 01/30: Patient is a 62-year-old male with history of hypertension, hypothyroidism , alcoholism, presents the emergency room with multiple complaints. Patient reports that he is an alcoholic, reports that he usually drinks about 1/5 of whiskey per day. Patient reports that he decided to quit drinking alcohol 2 days ago and has put himself on a detox schedule. Patient has been decreasing the amount of alcohol he has been drinking, reports that today he only drinks 6 beers. Patient reports that tonight, he checked his blood pressure and noted it to be elevated and in the 200's. Reports that on route to the ER, he developed chest pain. Reports that he had chest tightness to his mid sternum. Denies any diaphoresis with this chest pain. Patient reports mild shortness of breath with this chest pain, reports resolution of chest pain while in the emergency room. Patient denies any history of coronary artery disease, she does not follow with a programmer developer. Patient reports that he thinks that the symptoms are due to his alcohol withdrawal. Patient reports that he is feeling shaky. Patient reports that he has not been feeling well over the past 2 days as he has been unable to tolerate p.o.'s. Reports "i just don't have an appetite and I'm not feeling well with the withdrawl symptoms." Patient tells me he actually came to the hospital because his blood pressure was running extremely high in the 240 systolic range at home. Patient was noted to be hyponatremic with a sodium of 108 in the ER. Patient was accepted for admission by critical care medicine service. He has been receiving half normal saline overnight. This morning when I evaluated the patient he was awake and alert resting comfortably in bed not in any acute distress. 01/31: Patient was complaining of some epigastric discomfort yesterday morning. CT abdomen pelvis was ordered however patient went into worsening alcohol withdrawal and despite starting Precedex and multiple boluses of Ativan was staying very agitated. Eventually he became more lethargic with tachypnea. He had also been vomiting previously. Decision was made to intubate and patient was placed on mechanical ventilation after intubation by ER physician. Of note patient had a difficult airway with some laryngeal edema noted per report and a 6.5 ET tube was used for intubation after failed attempt at intubating with an 8 Yi and 7 Yi ET tube. This morning patient is sedated with Versed and fentanyl drips, orally intubated on mechanical ventilation at the time of my evaluation. He was initiated on Son-Synephrine for hypotension following intubation and sedation. Currently he is on Son-Synephrine 70 mics per minute. He has had a good urine output overnight. He was started on 3% saline at 10 cc an hour last evening and the sodium has come up to 115 mEq/liter this morning. He has also been receiving LR at 1 50 cc an hour. NG tube was placed after intubation and 1 L of gastric contents were suctioned out. Patient did spike a temperature of 100.5 axillary this morning. Pancultures were ordered and empiric Zosyn to be started in view of concern for aspiration. 02/01: Remains sedated, orally intubated on mechanical ventilation. On Levophed 2 mics per minute. Significant positive fluid balance. Sodium 122. CT abdomen pelvis done yesterday revealed inflammation around tail of pancreas with fluid around liver consistent with pancreatitis. 02/02: Remains sedated, orally intubated on mechanical ventilation. Femoral central line replaced with right IJ central line today. Remains on Levophed for pressor support. 02/03: remains intubated. perioral edema persists, but this is concomitant with significant generalized edema. remains on vasopressor support. lipase trending down. 02/04: continues with severe agitated delirium. precedex added to control agitation. good diuresis with net -2L/24h. 02/05: net -4L/24h. good diuresis. clinically improving. sodium very slowly uptrending. agitation persists. will attempt to start weaning sedation today. 02/06: failed weaning attempts yesterday. today less agitated. tolerating CPAP today. plan to wean to extubate. 02/07: extubated successfully yesterday. net -700cc/24h. confused and CAM+. significant diarrhea as well as nausea and vomiting overnight, not resolved with zofran and reglan. patient denies abdominal pain. only complaint is that he does not want blood work until talking with his . Objective Vital Signs / I&O: Vital Signs 02/06/18 06:55 02/06/18 06:59 02/06/18 07:00 Temperature 37.1 C Pulse Rate 81 76 76 Respiratory Rate 16 18 15 Blood Pressure 147/83 H Pulse Oximetry 99 100 02/06/18 07:18 02/06/18 07:59 02/06/18 08:00 Temperature 37.2 C Pulse Rate 82 82 Respiratory Rate 20 Blood Pressure 153/83 H Pulse Oximetry 92 L 95 02/06/18 09:00 02/06/18 10:00 02/06/18 10:39 Temperature Pulse Rate 98 H 116 H 118 H Respiratory Rate 19 22 27 H Blood Pressure 204/89 H Pulse Oximetry 95 94 L 94 L 02/06/18 10:41 02/06/18 10:54 02/06/18 11:00 Temperature Pulse Rate 118 H 122 H Respiratory Rate 26 H 28 H Blood Pressure 170/87 H 158/94 H Pulse Oximetry 94 L 95 95 02/06/18 11:42 02/06/18 12:00 02/06/18 13:00 Temperature 38.1 C H Pulse Rate 126 H 116 H 114 H Respiratory Rate 26 H 21 24 Blood Pressure 164/80 H Pulse Oximetry 96 95 95 02/06/18 13:37 02/06/18 14:00 02/06/18 14:48 Temperature Pulse Rate 114 H 116 H 120 H Respiratory Rate 35 H 31 H 26 H Blood Pressure 145/69 H 164/86 H Pulse Oximetry 95 97 98 02/06/18 14:50 02/06/18 15:00 02/06/18 16:00 Temperature 37.6 C 38.2 C H Pulse Rate 118 H 106 H 108 H Respiratory Rate 25 H 25 H 25 H Blood Pressure 151/76 H Pulse Oximetry 98 98 99 02/06/18 16:25 02/06/18 16:38 02/06/18 16:43 Temperature Pulse Rate 108 H 106 H 102 H Respiratory Rate 29 H 20 24 Blood Pressure 168/85 H 164/89 H Pulse Oximetry 97 99 02/06/18 17:00 02/06/18 17:52 02/06/18 18:00 Temperature 37.3 C Pulse Rate 104 H 102 H 102 H Respiratory Rate 26 H 26 H 28 H Blood Pressure 145/71 H Pulse Oximetry 96 94 L 95 02/06/18 19:58 02/06/18 20:00 02/06/18 20:10 Temperature 37.5 C Pulse Rate 96 H 92 H Respiratory Rate 23 Blood Pressure 174/85 H Pulse Oximetry 97 98 02/06/18 20:58 02/06/18 21:58 02/06/18 22:58 Temperature Pulse Rate 100 H 90 88 Respiratory Rate 35 H 24 30 H Blood Pressure 181/85 H 183/87 H 182/80 H Pulse Oximetry 96 94 L 91 L 02/07/18 00:00 02/07/18 00:01 02/07/18 00:59 Temperature 37.2 C Pulse Rate 94 H 92 H 90 Respiratory Rate 30 H 34 H Blood Pressure 178/76 H 192/90 H Pulse Oximetry 92 L 97 02/07/18 01:59 02/07/18 02:59 02/07/18 03:59 Temperature 37.1 C Pulse Rate 84 94 H 92 H Respiratory Rate 41 H 28 H 33 H Blood Pressure 168/86 H 183/90 H 151/77 H Pulse Oximetry 95 96 96 02/07/18 04:00 02/07/18 04:59 02/07/18 05:59 Temperature Pulse Rate 92 H 94 H 94 H Respiratory Rate 36 H 35 H Blood Pressure 171/98 H 183/86 H Pulse Oximetry 98 96 Intake & Output 02/06/18 02/06/18 02/07/18 06:59 18:59 06:59 Intake Total 300 / 300 240 / 240 580 / 580 Output Total 1475 / 1475 850 / 850 700 / 700 Balance -1175 / -1175 -610 / -610 -120 / -120 Weight 94.602 kg 92.986 kg Intake: IV 300 / 300 100 / 100 Precedex Inj 200 MCG In NS Inj 200 / 200 48 ML @ 0.2 MCG/KG/HR 5.32 mls/ hr IV.CONT TITRATE PRN Rx#: [id number] Unasyn Inj 3 GM In NS Inj 100 100 / 100 ML @ 200 mls/hr IV.SIG Q6H MICHAEL Rx#:[id number] KCl 40 mEq Premix Inj 40 meq In 100 / 100 100 ml @ 25 mls/hr IV.SIG UNSCH PRN Rx#:[id number] Oral 240 / 240 480 / 480 Output: Urine 850 / 850 700 / 700 Urine Amount (Catheter) 1475 / 1475 Indwelling Urethral Catheter 1475 / 1475 Other: Date of Last Bowel Movement 02/05/18 02/05/18 02/07/18 # Bowel Movements 4 5 Result Diagrams: 02/06/18 06:30 02/06/18 06:30 Objective Remarks: gen: middle-aged male, lying in bed HEENT: nc. at. perrl. mmm. no oral edema. Neck: No JVD. IJ CVL has been removed, dressing over site clean and dry. Chest/Pulm: equal chest rise. mildly tachypneic. unlabored. CVS: normal rate of 91, regular rhythm. sinus. GI/abdomen: soft, nontender, mildly distended. no guarding or rebound. Extremities: warm bilaterally, no edema. neuro: RASS +1. CAM+. follows commands. Assessment and Plan - Assessment and Plan Plan: Assessment: 62yM with etoh dependence, admitted for acute pancreatitis and severe life-threatening hyponatremia. His clinical course has been complicated by acute hypoxic respiratory failure, community acquired staph pneumonia, mechanical ventilation, acute etoh withdraw with severe agitated delirium, and significant laryngeal edema. Although his organ function is improving, he is still high risk for decompensation. Diarrhea and N/V is worsening: will obtain CT abd/pelvis with PO contrast to eval interval change in pancreatitis as well as look for signs of mechanical obstruction. continue anti-delirium meds as he continues to be quite agitation and not oriented. Aggressive PT and pulmonary toilet. Severe Agitated Delirium Alcohol withdrawal Severe Acute pancreatitis- improving. Nausea/Vomiting Diarrhea Hypertriglyceridemia Acute liver dysfunction secondary to alcoholic hepatitis Hypothyroidism Contraction metabolic alkalosis- improving. Hypertension Severe hyponatremia- resolved Uncontrolled hypertension (resolved) Distributive Shock secondary to acute pancreatitis- resolved. Staph pneumonia- resolved Staph bacteremia- resolved Plan: Neuro: valium taper goal RASS 0. seroquel for persistent agitation 50mg po q8hr haldol for breakthrough agitation. Cardiovascular: clonidine 0.2mg po q8h Pulmonary: at dry weight. hold additional diuresis. wean nc for goal spo2 > 90% OOB PT/OT consults. aggressive pulmonary toilet. FEN/GI/ liver: repeat CT abd/pelvis today with PO contrast reglan 10mg iv q8h zofran 4mg iv q8h GI following. Lipase has come down. Renal/: TSH 9, triglycerides elevated, low serum osmolarity(240s). urine osmolarity 694. Urine sodium 47. Nephrology consult. Endocrine: Elevated TSH(9). Continue Synthroid, watch for hyperglycemia, SSI for glycemic control if needed. Heme: Follow CBC ID: blood cultures 01/31: pansensitive staph: s/p full course of abx (zosyn --> unasyn). Prophylaxis: PPI/SCDs/Lovenox Access: piv
[2018-02-07 06:36] LABS: Hematocrit 39.1 % (39.0-51.0); Hemoglobin 13.6 gm/dL (13.0-17.0); Mean Corpuscular HGB Conc 34.6 % (32.0-36.0); Mean Corpuscular Hemoglobin 32.1 pg (27.0-34.0); Mean Corpuscular Volume 92.6 fL (80.0-100.0); Mean Platelet Volume 6.4 fL (7.0-11.0); Platelet Count 599 th/mm3 (150-450); Red Blood Count 4.22 mil/mm3 (4.50-5.90); Red Cell Distribution Width 14.3 % (11.6-17.2); White Blood Count 10.1 th/mm3 (4.0-11.0)
[2018-02-07 06:45] LABS: Chloride 103 meq/L (98-107); Potassium 3.4 meq/L (3.5-5.1); Sodium 134 meq/L (136-145)
[2018-02-07 06:49] LABS: Albumin 3.6 g/dL (3.4-5.0); Anion Gap 8 meq/L (5-15); Blood Urea Nitrogen 24 mg/dL (7-18); Carbon Dioxide 23.2 meq/L (21.0-32.0); Glucose,Random 114 mg/dL (74-106); Lipase 380 U/L (73-393)
[2018-02-07 06:52] LABS: Alanine Aminotransferase 53 U/L (12-78); Aspartate Aminotransferase 58 U/L (15-37); Glomerular Filtration Rate 88 mL/min (>89)
[2018-02-07 06:55] LABS: Alkaline Phosphatase 68 U/L (45-117)
--- NOTE | 2018-02-07 07:27 | CT ---
EXAM DATE: 02/07/2018 7:14 AM EDT AGE/SEX: 62 years / Male INDICATIONS: Nausea and vomiting, interval change in pancreatitis CLINICAL DATA: This is the patient's initial encounter. Patient reports that signs and symptoms have been present for 1 week and indicates a pain score of 4/10. MEDICAL/SURGICAL HISTORY: Hypertension. Carcinoma, prostatic. Hypothyroidism. Alcohol Abuse None. RADIATION DOSE: 24.36 CTDI (mGy) COMPARISON: [facility], CT ABDOMEN W CONTRAST, 01/31/2018. . TECHNIQUE: Multiple contiguous axial images were obtained through the abdomen. Images were obtained using multiple row detector helical technique. Using automated exposure control and adjustment of the mA and/or kV according to patient size, radiation dose was kept as low as reasonably achievable to o btain optimal diagnostic quality images. DICOM format image data is available electronically for rev iew and comparison. FINDINGS: Lower Lungs: Small bilateral pleural effusions and left basilar density. Coronary artery calcificatio ns Liver: The liver has a homogeneous density without space-occupying lesion. There is no dilation of th e biliary tree. Spleen: Homogeneous density without enlargement. Pancreas: Minimal inflammatory changes and fluid adjacent to the pancreatic tail but has improved fr om previous study.. Kidneys: Normal in size and shape. No evidence of mass or hydronephrosis. Adrenal Glands: Unremarkable. Aorta: Atherosclerotic changes without aneurysmal dilation. Bowel/Mesentery: Diverticulosis without diverticulitis. Abdominal Wall: Intact. Retroperitoneum: No evidence of adenopathy in the retrocrural, para-aortic, or deep pelvic regions. Bladder: Contours are smooth. Reproductive Organs: No abnormal masses or calcifications seen. Inguinal: The right inguinal region is unremarkable without evidence of adenopathy. Fat-containing l eft inguinal hernia. Bony Structures: Unremarkable. CONCLUSION: 1. Minimal inflammatory changes/fluid adjacent to the pancreatic tail. Overall findings have improve d from previous study. 2. Diverticulosis without diverticulitis. 3. Small bilateral pleural effusions and minimal left basilar density, likely atelectasis/. Electronically signed by: Nikita Vernon MD 02/07/2018 7:26 AM EDT
[2018-02-07] MEDS: Chlorhexidine 0.12% Oral Kit 15 ML UDC OROPHARYNG SCH ×2 (07:42→20:04)
[2018-02-07] MEDS: Senna/Docusate Sodium 8.6/50 MG Tablet PO SCH ×2 (09:13→20:05)
[2018-02-07] MEDS: Pantoprazole Inj 40 MG Vial IV.PUSH SCH ×2 (09:13→21:35)
[2018-02-07] MEDS: Sodium Chloride 1 GM Tablet PO SCH ×4 (09:13→21:35)
[2018-02-07] MEDS: Bisacodyl 10 MG Supp RECTAL SCH (09:14)
[2018-02-07] MEDS: Potassium Chlor 20 mEq Premix 20 MEQ/100 ML PIGGYBACK IV.SIG PRN ×2 (09:27→11:46)
--- NOTE | 2018-02-07 14:28 | P.PNGI ---
Subjective Interval history: Patient had a episode of nausea and projectile vomiting this a.m. He denies any hematemesis melena or hematochezia. Continues to have abdominal pain located in the epigastrium. Physical Exam Vital signs: Vital Signs 02/06/18 14:48 02/06/18 14:50 02/06/18 15:00 Temperature 99.6 F Pulse Rate 120 H 118 H 106 H Respiratory Rate 26 H 25 H 25 H Blood Pressure 164/86 H 151/76 H Pulse Oximetry 98 98 98 02/06/18 16:00 02/06/18 16:25 02/06/18 16:38 Temperature 100.8 F H Pulse Rate 108 H 108 H 106 H Respiratory Rate 25 H 29 H 20 Blood Pressure 168/85 H 164/89 H Pulse Oximetry 99 97 99 02/06/18 16:43 02/06/18 17:00 02/06/18 17:52 Temperature Pulse Rate 102 H 104 H 102 H Respiratory Rate 24 26 H 26 H Blood Pressure 145/71 H Pulse Oximetry 96 94 L 02/06/18 18:00 02/06/18 19:58 02/06/18 20:00 Temperature 99.1 F 99.5 F Pulse Rate 102 H 96 H 92 H Respiratory Rate 28 H 23 Blood Pressure 174/85 H Pulse Oximetry 95 97 02/06/18 20:10 02/06/18 20:58 02/06/18 21:58 Temperature Pulse Rate 100 H 90 Respiratory Rate 35 H 24 Blood Pressure 181/85 H 183/87 H Pulse Oximetry 98 96 94 L 02/06/18 22:58 02/07/18 00:00 02/07/18 00:01 Temperature 99 F Pulse Rate 88 94 H 92 H Respiratory Rate 30 H 30 H Blood Pressure 182/80 H 178/76 H Pulse Oximetry 91 L 92 L 02/07/18 00:59 02/07/18 01:59 02/07/18 02:59 Temperature Pulse Rate 90 84 94 H Respiratory Rate 34 H 41 H 28 H Blood Pressure 192/90 H 168/86 H 183/90 H Pulse Oximetry 97 95 96 02/07/18 03:59 02/07/18 04:00 02/07/18 04:59 Temperature 98.8 F Pulse Rate 92 H 92 H 94 H Respiratory Rate 33 H 36 H Blood Pressure 151/77 H 171/98 H Pulse Oximetry 96 98 02/07/18 05:59 02/07/18 06:12 02/07/18 06:53 Temperature Pulse Rate 94 H 94 H 98 H Respiratory Rate 35 H 37 H 41 H Blood Pressure 183/86 H 172/82 H 185/81 H Pulse Oximetry 96 96 02/07/18 07:00 02/07/18 07:32 02/07/18 08:00 Temperature 97.4 F L 98.4 F Pulse Rate 96 H 102 H 80 Respiratory Rate 33 H 33 H 49 H Blood Pressure 189/82 H 186/91 H 160/80 H Pulse Oximetry 95 95 94 L 02/07/18 08:18 02/07/18 09:00 02/07/18 10:00 Temperature Pulse Rate 94 H 90 Respiratory Rate 32 H 31 H Blood Pressure 167/86 H 166/79 H Pulse Oximetry 96 96 02/07/18 11:00 Temperature Pulse Rate 96 H Respiratory Rate 34 H Blood Pressure 184/74 H Pulse Oximetry 96 Intake & Output 02/06/18 02/07/18 02/07/18 18:59 06:59 18:59 Intake Total 240 / 240 580 / 580 100 / 100 Output Total 850 / 850 700 / 700 Balance -610 / -610 -120 / -120 100 / 100 Weight 92.986 kg Intake: IV 100 / 100 100 / 100 KCl 20 mEq Premix Inj 20 meq In 100 / 100 100 ml @ 50 mls/hr IV.SIG Q2H PRN Rx#:[id number] KCl 40 mEq Premix Inj 40 meq In 100 / 100 100 ml @ 25 mls/hr IV.SIG UNSCH PRN Rx#:[id number] Oral 240 / 240 480 / 480 Output: Urine 850 / 850 700 / 700 Other: Date of Last Bowel Movement 02/05/18 02/07/18 02/07/18 # Bowel Movements 4 5 - Constitutional no acute distress, obese, disheveled, agitated, somnolent - Routine HEENT Exam Head: Present: normocephalic Eye: Present: EOMI, PERRL ENT: Present: mucous membranes moist - Routine Neck Exam Present: supple - Routine Respiratory Exam Present: distant breath sounds - Routine Cardiovascular Exam Present: RRR, S1, S2 - Routine Abdominal Exam Comments: Abdomen distended tenderness in the epigastrium mild guarding no rigidity liver palpable spleen not palpable no ascites bowel sounds sluggish - Detailed Neurological Exam: Coma Scale Eye Opening: Spontaneous Verbal Response: Confused Motor Response: Obey commands Oscar Coma Scale Total: 14 - Urinary Catheter Management Indwelling Urethral Catheter Cath placed during this visit: yes, but has since been removed by the nurse Reason for continuing: Other continuation reason Insertion date: 01/30/18 Insertion time: 21:20 Removal date: 02/06/18 Removal time: 23:00 Results - Labs CBC & Chem 7: 02/07/18 06:30 02/07/18 06:30 Laboratory Results - last 24 hr 02/06/18 02/07/18 02/07/18 14:54 06:30 06:30 WBC 10.1 RBC 4.22 L Hgb 13.6 Hct 39.1 MCV 92.6 MCH 32.1 MCHC 34.6 RDW 14.3 Plt Count 599 H MPV 6.4 L Sodium 134 L Potassium 3.4 L Chloride 103 Carbon Dioxide 23.2 Anion Gap 8 BUN 24 H Creatinine 0.88 Estimated GFR 88 L POC Glucose 115 H Random Glucose 114 H Calcium 10.0 Total Bilirubin 0.6 AST 58 H ALT 53 Alkaline Phosphatase 68 Total Protein 8.0 D Albumin 3.6 Lipase 380 - Imaging Impressions Abdomen X-Ray 02/07/18 00:00 CONCLUSION: Nonspecific bowel gas pattern with air-filled mildly distended small bowel loops. Abdomen/Pelvis CT 02/07/18 06:11 CONCLUSION: 1. Minimal inflammatory changes/fluid adjacent to the pancreatic tail. Overall findings have improved from previous study. 2. Diverticulosis without diverticulitis. 3. Small bilateral pleural effusions and minimal left basilar density, likely atelectasis/. Assessment and Plan (1) Acute alcoholic pancreatitis Status: Acute Code(s): K85.20 - Alcohol induced acute pancreatitis without necrosis or infection - Attending Attestation 1. Increase Protonix to 40 mg twice daily IV 2. Continue Zofran as needed 3. EGD next week 4. Monitor labs
[2018-02-08] MEDS: hydrALAZINE HCl Inj 20 MG/ML Vial IV.PUSH PRN ×2 (01:29→06:47)
[2018-02-08] MEDS: Artificial Tears Opth Drops 15 ML Bottle EACH EYE SCH ×5 (03:59→22:49)
[2018-02-08] MEDS: Enoxaparin Inj 40 MG/0.4 ML Syringe SQ SCH (03:59)
[2018-02-08] MEDS: QUEtiapine 25 MG Tablet PO SCH ×3 (05:06→22:55)
[2018-02-08 05:35] LABS: Hematocrit 38.5 % (39.0-51.0); Hemoglobin 13.1 gm/dL (13.0-17.0); Mean Corpuscular HGB Conc 34.1 % (32.0-36.0); Mean Corpuscular Hemoglobin 32.2 pg (27.0-34.0); Mean Corpuscular Volume 94.5 fL (80.0-100.0); Mean Platelet Volume 6.2 fL (7.0-11.0); Platelet Count 685 th/mm3 (150-450); Red Blood Count 4.07 mil/mm3 (4.50-5.90); Red Cell Distribution Width 13.5 % (11.6-17.2); White Blood Count 11.7 th/mm3 (4.0-11.0)
[2018-02-08] MEDS: Chlorhexidine 0.12% Oral Kit 15 ML UDC OROPHARYNG SCH ×2 (07:19→22:49)
[2018-02-08] MEDS: Labetalol HCl Inj 100 MG/20 ML Vial IV.PUSH PRN (07:29)
[2018-02-08] MEDS: Pantoprazole Inj 40 MG Vial IV.PUSH SCH ×2 (07:38→22:49)
[2018-02-08] MEDS: Sodium Chloride 1 GM Tablet PO SCH ×4 (08:33→22:53)
[2018-02-08] MEDS: Senna/Docusate Sodium 8.6/50 MG Tablet PO SCH ×2 (08:34→22:50)
[2018-02-08] MEDS: Bisacodyl 10 MG Supp RECTAL SCH (08:35)
[2018-02-08] MEDS ORDERED: diazePAM 5 MG Tablet PO SCH (12:00)
--- NOTE | 2018-02-08 13:23 | P.PN ---
Subjective Interval history: This is a 62-year-old male with a history of hypertension, hypothyroidism, alcoholism who decided to quit drinking alcohol [place] 2 days prior to admission. He presented to the ER with complaints of chest pain, elevated blood pressure, anorexia, shakes from withdrawal. One day after admission he became very agitated began vomiting profusely and developed tachypnea. He was intubated and placed on a vent on January 31. During the course of his ICU stay he had fevers, was treated for pancreatitis, hyponatremia, hypotension. He made it through his alcohol withdrawal course and successfully extubated on 02/06. He still remains weak and is having trouble talking due to swollen vocal cords in general swollen upper airway. Physical Exam Vital signs: Vital Signs 02/07/18 14:00 02/07/18 15:00 02/07/18 15:06 Temperature Pulse Rate 98 H 98 H 96 H Respiratory Rate 34 H 34 H 36 H Blood Pressure 170/84 H 178/93 H 174/84 H Pulse Oximetry 95 96 94 L 02/07/18 16:00 02/07/18 17:00 02/07/18 18:00 Temperature 99.7 F H Pulse Rate 91 H 96 H 92 H Respiratory Rate 28 H 33 H 35 H Blood Pressure 169/87 H 200/105 H 186/92 H Pulse Oximetry 95 95 95 02/07/18 19:30 02/07/18 20:00 02/07/18 20:05 Temperature 99.9 F H 99.9 F H Pulse Rate 90 95 H Respiratory Rate 34 H 38 H Blood Pressure 173/92 H 173/92 H Pulse Oximetry 95 95 95 02/07/18 21:00 02/07/18 22:04 02/07/18 23:04 Temperature Pulse Rate 104 H 96 H 92 H Respiratory Rate 30 H 35 H 37 H Blood Pressure 184/84 H 185/86 H Pulse Oximetry 94 L 94 L 94 L 02/08/18 00:00 02/08/18 00:04 02/08/18 01:04 Temperature Pulse Rate 91 H 88 90 Respiratory Rate 22 30 H Blood Pressure 169/87 H 179/88 H Pulse Oximetry 94 L 97 02/08/18 02:04 02/08/18 03:04 02/08/18 04:00 Temperature Pulse Rate 94 H 90 96 H Respiratory Rate 32 H 31 H Blood Pressure 144/75 H 169/85 H Pulse Oximetry 97 95 02/08/18 04:04 02/08/18 05:06 02/08/18 06:04 Temperature Pulse Rate 104 H 100 H 98 H Respiratory Rate 33 H 33 H 30 H Blood Pressure 180/87 H 194/92 H 189/76 H Pulse Oximetry 96 95 97 02/08/18 06:30 02/08/18 06:46 02/08/18 07:00 Temperature Pulse Rate 94 H 102 H 104 H Respiratory Rate 30 H 25 H 30 H Blood Pressure 176/99 H 179/76 H Pulse Oximetry 96 97 94 L 02/08/18 07:04 02/08/18 07:18 02/08/18 07:42 Temperature 98.1 F Pulse Rate 104 H 106 H 88 Respiratory Rate 29 H 31 H 28 H Blood Pressure 150/71 H 163/81 H 134/69 Pulse Oximetry 95 94 L 93 L 02/08/18 07:59 02/08/18 08:00 02/08/18 08:04 Temperature Pulse Rate 88 88 Respiratory Rate 28 H 28 H Blood Pressure 137/71 Pulse Oximetry 94 L 93 L 94 L 02/08/18 09:00 02/08/18 09:04 02/08/18 09:08 Temperature Pulse Rate 84 92 H 94 H Respiratory Rate 29 H 27 H 24 Blood Pressure 157/83 H 166/82 H Pulse Oximetry 96 96 95 02/08/18 10:00 02/08/18 10:04 02/08/18 10:15 Temperature Pulse Rate 84 84 92 H Respiratory Rate 27 H 27 H Blood Pressure 142/74 H Pulse Oximetry 97 96 02/08/18 10:29 Temperature Pulse Rate Respiratory Rate Blood Pressure 173/76 H Pulse Oximetry Intake & Output 02/07/18 02/08/18 02/08/18 18:59 06:59 18:59 Intake Total 820 / 820 Output Total 400 / 400 600 / 600 Balance 420 / 420 -600 / -600 Weight 88.3 kg Intake: IV 100 / 100 KCl 20 mEq Premix Inj 20 meq In 100 / 100 100 ml @ 50 mls/hr IV.SIG Q2H PRN Rx#:[id number] Oral 720 / 720 Output: Urine 600 / 600 Emesis 400 / 400 Other: # Voids 3 # Urine Diapers 3 Date of Last Bowel Movement 02/07/18 02/08/18 02/08/18 # Bowel Movements 1 # Incontinent Bowel Movements 1 # Emeses 1 Narrative: GENERAL: Alert and oriented 2, generally weak, softened voice, unsteady on feet SKIN: Warm and dry. HEAD: Normocephalic. EYES: No scleral icterus. No injection or drainage. NECK: Supple, trachea midline. No JVD or lymphadenopathy. CARDIOVASCULAR: Regular rate and rhythm without murmurs, gallops, or rubs. RESPIRATORY: Breath sounds equal bilaterally. No accessory muscle use. GASTROINTESTINAL: Abdomen soft, non-tender, nondistended. MUSCULOSKELETAL: No cyanosis, or edema. Neurological: Mild resting tremor, no focal deficits, softened voice, able to swallow water - Urinary Catheter Management Indwelling Urethral Catheter Cath placed during this visit: yes, but has since been removed by the nurse Reason for continuing: Other continuation reason Insertion date: 01/30/18 Insertion time: 21:20 Removal date: 02/06/18 Removal time: 23:00 Results - Labs CBC & Chem 7: 02/08/18 05:29 02/07/18 06:30 Laboratory Results - last 24 hr 02/08/18 02/08/18 05:29 11:37 WBC 11.7 H RBC 4.07 L Hgb 13.1 Hct 38.5 L MCV 94.5 MCH 32.2 MCHC 34.1 RDW 13.5 Plt Count 685 H MPV 6.2 L POC Glucose 112 H Assessment and Plan - Plan Delirium tremens status post severe alcohol withdrawal Severe withdrawal that required 6 days of intubation Patient is motivated to stay off of alcohol Continue with [facility] protocol Acute pancreatitis Lipase is down to 380, patient denies current nausea and vomiting Tolerating liquid diet We will advance diet after swallowing and vocal strength is more intact Tracheitis Voice is weak, swallowing is slow following extubation Give single dose of Solu-Medrol followed by Chloraseptic spray Hypothyroidism Continue home dose Synthroid 200 mcg daily Hypertriglyceridemia Recheck soon following more time for recovery from shock s/p distributive shock, staph pneumonia, staph bacteremia, hyponatremia, hypertensive urgency Resolved following bout with alcohol withdrawal Received full course of antibiotics, Zosyn and Unasyn DVT prophylaxis Lovenox
[2018-02-08] MEDS ORDERED: MethylPREDNISolone Sod Succinate Inj 125 MG/2 ML Vial IV.PUSH ONE (14:00)
--- NOTE | 2018-02-08 14:00 | P.PNGI ---
Subjective Interval history: Patient continues to have episodes of projectile vomiting. There is no history of GI bleeding jaundice fever chills. His lipase levels are normal. Last CT scan showed resolving pancreatitis. Physical Exam Vital signs: Vital Signs 02/07/18 14:00 02/07/18 15:00 02/07/18 15:06 Temperature Pulse Rate 98 H 98 H 96 H Respiratory Rate 34 H 34 H 36 H Blood Pressure 170/84 H 178/93 H 174/84 H Pulse Oximetry 95 96 94 L 02/07/18 16:00 02/07/18 17:00 02/07/18 18:00 Temperature 99.7 F H Pulse Rate 91 H 96 H 92 H Respiratory Rate 28 H 33 H 35 H Blood Pressure 169/87 H 200/105 H 186/92 H Pulse Oximetry 95 95 95 02/07/18 19:30 02/07/18 20:00 02/07/18 20:05 Temperature 99.9 F H 99.9 F H Pulse Rate 90 95 H Respiratory Rate 34 H 38 H Blood Pressure 173/92 H 173/92 H Pulse Oximetry 95 95 95 02/07/18 21:00 02/07/18 22:04 02/07/18 23:04 Temperature Pulse Rate 104 H 96 H 92 H Respiratory Rate 30 H 35 H 37 H Blood Pressure 184/84 H 185/86 H Pulse Oximetry 94 L 94 L 94 L 02/08/18 00:00 02/08/18 00:04 02/08/18 01:04 Temperature Pulse Rate 91 H 88 90 Respiratory Rate 22 30 H Blood Pressure 169/87 H 179/88 H Pulse Oximetry 94 L 97 02/08/18 02:04 02/08/18 03:04 02/08/18 04:00 Temperature Pulse Rate 94 H 90 96 H Respiratory Rate 32 H 31 H Blood Pressure 144/75 H 169/85 H Pulse Oximetry 97 95 02/08/18 04:04 02/08/18 05:06 02/08/18 06:04 Temperature Pulse Rate 104 H 100 H 98 H Respiratory Rate 33 H 33 H 30 H Blood Pressure 180/87 H 194/92 H 189/76 H Pulse Oximetry 96 95 97 02/08/18 06:30 02/08/18 06:46 02/08/18 07:00 Temperature Pulse Rate 94 H 102 H 104 H Respiratory Rate 30 H 25 H 30 H Blood Pressure 176/99 H 179/76 H Pulse Oximetry 96 97 94 L 02/08/18 07:04 02/08/18 07:18 02/08/18 07:42 Temperature 98.1 F Pulse Rate 104 H 106 H 88 Respiratory Rate 29 H 31 H 28 H Blood Pressure 150/71 H 163/81 H 134/69 Pulse Oximetry 95 94 L 93 L 02/08/18 07:59 02/08/18 08:00 02/08/18 08:04 Temperature Pulse Rate 88 88 Respiratory Rate 28 H 28 H Blood Pressure 137/71 Pulse Oximetry 94 L 93 L 94 L 02/08/18 09:00 02/08/18 09:04 02/08/18 09:08 Temperature Pulse Rate 84 92 H 94 H Respiratory Rate 29 H 27 H 24 Blood Pressure 157/83 H 166/82 H Pulse Oximetry 96 96 95 02/08/18 10:00 02/08/18 10:04 02/08/18 10:15 Temperature Pulse Rate 84 84 92 H Respiratory Rate 27 H 27 H Blood Pressure 142/74 H Pulse Oximetry 97 96 02/08/18 10:29 Temperature Pulse Rate Respiratory Rate Blood Pressure 173/76 H Pulse Oximetry Intake & Output 02/07/18 02/08/18 02/08/18 18:59 06:59 18:59 Intake Total 820 / 820 Output Total 400 / 400 600 / 600 Balance 420 / 420 -600 / -600 Weight 88.3 kg Intake: IV 100 / 100 KCl 20 mEq Premix Inj 20 meq In 100 / 100 100 ml @ 50 mls/hr IV.SIG Q2H PRN Rx#:[id number] Oral 720 / 720 Output: Urine 600 / 600 Emesis 400 / 400 Other: # Voids 3 # Urine Diapers 3 Date of Last Bowel Movement 02/07/18 02/08/18 02/08/18 # Bowel Movements 1 # Incontinent Bowel Movements 1 # Emeses 1 - Constitutional no acute distress - Routine HEENT Exam Head: Present: normocephalic Eye: Present: EOMI, PERRL ENT: Present: mucous membranes moist - Routine Neck Exam Present: supple - Routine Respiratory Exam Present: crackles - Routine Cardiovascular Exam Present: RRR - Routine Abdominal Exam Comments: Abdomen soft no tenderness guarding rigidity. Mildly distended. Liver palpable. Spleen not palpable. No other masses. Bowel sounds sluggish. - Urinary Catheter Management Indwelling Urethral Catheter Cath placed during this visit: yes, but has since been removed by the nurse Reason for continuing: Other continuation reason Insertion date: 01/30/18 Insertion time: 21:20 Removal date: 02/06/18 Removal time: 23:00 Results - Labs CBC & Chem 7: 02/08/18 05:29 02/07/18 06:30 Laboratory Results - last 24 hr 02/08/18 02/08/18 05:29 11:37 WBC 11.7 H RBC 4.07 L Hgb 13.1 Hct 38.5 L MCV 94.5 MCH 32.2 MCHC 34.1 RDW 13.5 Plt Count 685 H MPV 6.2 L POC Glucose 112 H Assessment and Plan (1) Acute alcoholic pancreatitis Status: Acute Code(s): K85.20 - Alcohol induced acute pancreatitis without necrosis or infection (2) Acute cholecystitis Status: Acute Code(s): K81.0 - Acute cholecystitis (3) Dyskinesia of gallbladder Status: Acute Code(s): K82.8 - Other specified diseases of gallbladder - Plan 1. N.p.o. 2. IV fluids 3. HIDA scan with CCK 4. Phenergan 12.5 mg every 6 hours IM as needed
[2018-02-08] MEDS: KCL 20 mEq/D5W/NaCl 0.45% Inj 1,000 ML IV.CONT SCH ×2 (14:15→22:54)
[2018-02-09] MEDS: Artificial Tears Opth Drops 15 ML Bottle EACH EYE SCH ×6 (00:54→21:23)
[2018-02-09] MEDS: Enoxaparin Inj 40 MG/0.4 ML Syringe SQ SCH (02:51)
[2018-02-09] MEDS: Labetalol HCl Inj 100 MG/20 ML Vial IV.PUSH PRN (04:42)
[2018-02-09] MEDS: Phenol 1.4% 180 ML Spray Bottle OROPHARYNG PRN ×3 (04:45→22:27)
[2018-02-09 04:56] LABS: Potassium 3.6 meq/L (3.5-5.1)
[2018-02-09 04:57] LABS: Hematocrit 39.1 % (39.0-51.0); Hemoglobin 12.8 gm/dL (13.0-17.0); Mean Corpuscular HGB Conc 32.8 % (32.0-36.0); Mean Corpuscular Hemoglobin 31.5 pg (27.0-34.0); Mean Corpuscular Volume 95.8 fL (80.0-100.0); Mean Platelet Volume 6.7 fL (7.0-11.0); Platelet Count 778 th/mm3 (150-450); Red Blood Count 4.08 mil/mm3 (4.50-5.90); Red Cell Distribution Width 13.9 % (11.6-17.2); White Blood Count 11.4 th/mm3 (4.0-11.0)
[2018-02-09 04:58] LABS: Calcium 9.6 mg/dL (8.5-10.1)
[2018-02-09 04:59] LABS: Carbon Dioxide 27.9 meq/L (21.0-32.0)
[2018-02-09] MEDS: KCL 20 mEq/D5W/NaCl 0.45% Inj 1,000 ML IV.CONT SCH ×4 (06:10→22:42)
[2018-02-09] MEDS: QUEtiapine 25 MG Tablet PO SCH ×3 (06:11→21:21)
[2018-02-09] MEDS: Pantoprazole Inj 40 MG Vial IV.PUSH SCH ×2 (08:44→21:21)
[2018-02-09] MEDS: Sodium Chloride 1 GM Tablet PO SCH ×4 (08:45→21:25)
[2018-02-09] MEDS: Chlorhexidine 0.12% Oral Kit 15 ML UDC OROPHARYNG SCH ×2 (08:46→21:23)
[2018-02-09] MEDS: Senna/Docusate Sodium 8.6/50 MG Tablet PO SCH ×2 (08:47→21:23)
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
[2018-02-09 10:25] LABS: Chol/HDL Ratio 5.5 Ratio; HDL Cholesterol 37.8 mg/dL (40.0-60.0)
[2018-02-09] MEDS ORDERED: Sincalide Inj 5 MCG Vial IV.PUSH ONE (12:56)
[2018-02-09] MEDS: Nystatin Liq 500,000 UNIT/5 ML UDC SWISH-SWAL SCH ×3 (14:20→21:21)
--- NOTE | 2018-02-09 14:37 | NM ---
EXAM DATE: 02/09/2018 2:00 PM EDT AGE/SEX: 62 years / Male INDICATIONS: Projectile vomiting. CLINICAL DATA: This is the patient's initial encounter. Patient reports that signs and symptoms have been present for 4 - 6 days and indicates a pain score of 0/10. MEDICAL/SURGICAL HISTORY: Carcinoma, prostatic. Hypertension. Pancreatitis. Alcohol abuse. A cute cholecystitis. None. COMPARISON: No prior exams available for comparison. DOSE: 4.2 mCi Tc-99m mebrofenin i.v. Medication: 1.8 mcg Cholecystokinin IV No symptomatic response Cholecystokinin was administered by slow infusion over 8 minutes beginning at frame 60 mi nutes. TECHNIQUE: Following the intravenous administration of radiotracer, dynamic sequential images were pe rformed with continuous acquisition. Time-activity curves were generated. FINDINGS: Hepatic Kinetics: There is prompt uptake of radiotracer in the liver. No focal defects are seen. Ther e is normal rate of washout from the hepatic parenchyma. Biliary Clearance: Activity is first seen in the extrahepatic biliary system at 10 minutes. There is normal excretion into the small bowel. Gallbladder: Activity is first seen in the gallbladder at 15 minutes. Post-CCK: The gallbladder is obscured the later images in the AP projection by overlying activity wit hin the bowel. No ejection fraction could be related. Common bile duct kinetics are normal and there is no evidence of biliary obstruction. No symptomatic response after cholecystokinin infusion. Biliary-Enteric Reflux: None observed. CONCLUSION: 1. Normal gallbladder visualization and no evidence of biliary obstruction. 2. The gallbladder was obscured on the later images in the AP projection by overlying activity in th e bowel. No ejection fraction could be calculated. Electronically signed by: Adam Carrillo MD 02/09/2018 2:35 PM EDT
[2018-02-09] MEDS: Acetaminophen 325 MG Tablet PO PRN (17:18)
[2018-02-10] MEDS: Artificial Tears Opth Drops 15 ML Bottle EACH EYE SCH ×6 (01:37→23:35)
[2018-02-10] MEDS: Enoxaparin Inj 40 MG/0.4 ML Syringe SQ SCH (03:29)
[2018-02-10] MEDS: hydrALAZINE HCl Inj 20 MG/ML Vial IV.PUSH PRN ×2 (04:13→20:04)
[2018-02-10 04:41] LABS: Hematocrit 39.3 % (39.0-51.0); Hemoglobin 13.4 gm/dL (13.0-17.0); Mean Corpuscular Hemoglobin 32.3 pg (27.0-34.0); Mean Corpuscular Volume 94.7 fL (80.0-100.0); Mean Platelet Volume 6.2 fL (7.0-11.0); Platelet Count 781 th/mm3 (150-450); Red Blood Count 4.14 mil/mm3 (4.50-5.90); Red Cell Distribution Width 13.8 % (11.6-17.2); White Blood Count 10.8 th/mm3 (4.0-11.0)
[2018-02-10] MEDS: KCL 20 mEq/D5W/NaCl 0.45% Inj 1,000 ML IV.CONT SCH ×3 (05:30→21:51)
[2018-02-10] MEDS: Acetaminophen 325 MG Tablet PO PRN (08:06)
[2018-02-10] MEDS: Pantoprazole Inj 40 MG Vial IV.PUSH SCH ×2 (08:17→20:04)
[2018-02-10] MEDS: Nystatin Liq 500,000 UNIT/5 ML UDC SWISH-SWAL SCH ×4 (08:18→23:34)
[2018-02-10] MEDS: Chlorhexidine 0.12% Oral Kit 15 ML UDC OROPHARYNG SCH ×2 (11:21→20:06)
[2018-02-10] MEDS: Sodium Chloride 1 GM Tablet PO SCH ×4 (11:25→23:35)
[2018-02-10] MEDS: Senna/Docusate Sodium 8.6/50 MG Tablet PO SCH ×2 (11:25→20:06)
--- NOTE | 2018-02-10 13:22 | FL ---
EXAM DATE: 02/10/2018 1:08 PM EDT AGE/SEX: 62 years / Male INDICATIONS: Dysphagia. Cough, vomiting, and loss of voice CLINICAL DATA: This is the patient's subsequent encounter. Patient reports that signs and symptoms h ave been present for 4 - 6 days and indicates a pain score of 3/10. MEDICAL/SURGICAL HISTORY: Carcinoma, prostatic. Pancreatitis. Hypothyroidism. Alcohol abuse, Hypertension. None. COMPARISON: No prior exams available for comparison. FLUORO TIME: 1.5 IMAGE COUNT: 0 FINDINGS: A modified barium swallow was performed with speech pathology. Patient was given a variety of liquids to swallow. The patient is noted to aspirate with all phases of administered contrast. No anatomic lesions are ap preciated. For a full detailed report, see report by the speech pathologist. CONCLUSION: Prominent, consistent aspiration Electronically signed by: Wisam Chapman MD 02/10/2018 1:21 PM EDT
--- NOTE | 2018-02-10 13:45 | P.DIET ---
Nutritional Evaluation Type of nutrition evaluation: follow-up Nutrition consult regarding: Tube Feeding Subjective Barriers to Nutrition: Swallowing problem Subjective Comments: Pt is speaking w/his RN when visit attempted; pt waiting for a modified barium swallow. Objective - Diagnosis Hyponatremia, impending DT's, chest pain - Objective % IBW: 134 (BMI using adm. wt-31.8) Body Weight Used for Calculations: IBW (72.7kg ) Energy Needs - Lower Range (kCal/kg): 25 Energy Needs - Upper Range (kCal/kg): 30 Lower Limit kCal/kg (kCals): 1,818 Upper Limit kCal/kg (kCals): 2,181 Lower Limit Protein Factor (Grams per Kg): 1.2 Upper Limit Protein Factor (Grams per Kg): 1.5 Lower Protein Needs (Protein): 87 Upper Protein Needs (Protein): 109 Dietitian Reviewed in Medical Record: Current diet, Curent medications, Intake & Output, Labs, Medical history Diet Order: NPO Objective Comments: PMH: Alcohol Abuse, hx prostate CA, HTN, hypothyroidism Meds include: Folic Acid, Theragran M, Thiamine, Synthroid LBM 02/08, -UOP 1225ml Assessment Assessment: Pt continues at nutritional risk r/t previous need for TF'ing; extubated 02/06. Pt is NPO per ST and waiting to complete Modified Barium Swallow today. Monitor NPO status. Wt changes noted. Additional Recs to follow r/t Clinical Course. Recommendations: 1.Monitor NPO status 2.Additional Recs to follow r/t Clinical Course Dietitian to Monitor: Lab values, Intake & Output, Weight change, Diet advancement, Medical course
[2018-02-10] MEDS: Labetalol HCl Inj 100 MG/20 ML Vial IV.PUSH PRN (16:44)
[2018-02-10] MEDS: QUEtiapine 25 MG Tablet PO SCH ×2 (16:55→16:56)
--- NOTE | 2018-02-10 19:03 | P.PNGI ---
Subjective Interval history: Sitting comfortably in a chair with suction in hand unable to swallow he failed a swallow evaluation earlier to at bedside but he denies any more nausea or vomiting and denies any pain Physical Exam Vital signs: Vital Signs 02/09/18 20:00 02/09/18 20:13 02/09/18 21:00 Temperature 98.3 F Pulse Rate 90 76 Respiratory Rate 29 H Blood Pressure 180/88 H Pulse Oximetry 95 95 02/09/18 22:00 02/10/18 00:00 02/10/18 03:00 Temperature 98.6 F Pulse Rate 74 92 H 74 Respiratory Rate 22 29 H 28 H Blood Pressure 168/91 H Pulse Oximetry 95 02/10/18 04:00 02/10/18 07:38 02/10/18 07:39 Temperature 98.9 F Pulse Rate 80 81 Respiratory Rate 26 H 16 Blood Pressure 191/110 H Pulse Oximetry 98 96 02/10/18 08:00 02/10/18 12:00 02/10/18 12:21 Temperature 99 F Pulse Rate 84 82 82 Respiratory Rate 27 H 24 Blood Pressure 157/87 H 150/74 H Pulse Oximetry 02/10/18 16:00 02/10/18 16:34 02/10/18 16:56 Temperature Pulse Rate 76 82 68 Respiratory Rate 25 H 24 Blood Pressure 173/100 H 140/77 Pulse Oximetry 02/10/18 17:00 Temperature Pulse Rate 70 Respiratory Rate 18 Blood Pressure Pulse Oximetry Intake & Output 02/10/18 02/10/18 02/11/18 06:59 18:59 06:59 Intake Total 2099 1000 / 1000 Output Total 1225 / 1225 Balance 875 / 875 1000 / 1000 Weight 91.1 kg Intake: IV 2099 1000 / 1000 D5W/1/2NS + KCL 20 mEq Inj , 1999 / 1999 1000 / 1000 000 ML @ 150 mls/hr IV.CONT . Q6H40M MICHAEL Rx#:[id number] Diflucan 200 mg Premix Bag 100 100 / 100 ML @ 100 mls/hr IV.SIG Q24H MICHAEL Rx#:[id number] Oral 0 / 0 Output: Urine 1225 / 1225 Other: # Voids 2 3 Date of Last Bowel Movement 02/08/18 02/10/18 # Bowel Movements 0 # Incontinent Bowel Movements 1 - Constitutional no acute distress - Routine HEENT Exam Head: Present: normocephalic Eye: Present: EOMI - Routine Neck Exam Present: supple - Routine Respiratory Exam Present: CTA bilaterally - Routine Abdominal Exam Present: soft, normoactive bowel sounds - Routine Extremities Exam Absent: cyanosis, clubbing, edema - Urinary Catheter Management Indwelling Urethral Catheter Cath placed during this visit: yes, but has since been removed by the nurse Reason for continuing: Other continuation reason Insertion date: 01/30/18 Insertion time: 21:20 Removal date: 02/06/18 Removal time: 23:00 Results - Labs CBC & Chem 7: 02/10/18 04:30 02/09/18 04:30 Laboratory Results - last 24 hr 02/10/18 04:30 WBC 10.8 RBC 4.14 L Hgb 13.4 Hct 39.3 MCV 94.7 MCH 32.3 MCHC 34.0 RDW 13.8 Plt Count 781 H MPV 6.2 L - Imaging Impressions Videofluoroscopic Swallow 02/10/18 00:00 CONCLUSION: Prominent, consistent aspiration Assessment and Plan - Plan Nausea and vomiting has resolved Patient with underlying alcoholism that led to a traumatic intubation the patient has since been extubated Dysphagia and aspiration etiology unclear at this point possibly related to the intubation 1. N.p.o. 2. IV fluids 3. Await ENT evaluation 4. Consider PEG tube if necessary
--- NOTE | 2018-02-10 19:24 | P.PN ---
Subjective Interval history: Patient is somewhat upset about having his water and food taken away. He failed a swallow evaluation yesterday and was awaiting barium swallow study this morning. His is at bedside. Physical Exam Vital signs: Vital Signs 02/09/18 20:00 02/09/18 20:13 02/09/18 21:00 Temperature 98.3 F Pulse Rate 90 76 Respiratory Rate 29 H Blood Pressure 180/88 H Pulse Oximetry 95 95 02/09/18 22:00 02/10/18 00:00 02/10/18 03:00 Temperature 98.6 F Pulse Rate 74 92 H 74 Respiratory Rate 22 29 H 28 H Blood Pressure 168/91 H Pulse Oximetry 95 02/10/18 04:00 02/10/18 07:38 02/10/18 07:39 Temperature 98.9 F Pulse Rate 80 81 Respiratory Rate 26 H 16 Blood Pressure 191/110 H Pulse Oximetry 98 96 02/10/18 08:00 02/10/18 12:00 02/10/18 12:21 Temperature 99 F Pulse Rate 84 82 82 Respiratory Rate 27 H 24 Blood Pressure 157/87 H 150/74 H Pulse Oximetry 02/10/18 16:00 02/10/18 16:34 02/10/18 16:56 Temperature Pulse Rate 76 82 68 Respiratory Rate 25 H 24 Blood Pressure 173/100 H 140/77 Pulse Oximetry 02/10/18 17:00 Temperature Pulse Rate 70 Respiratory Rate 18 Blood Pressure Pulse Oximetry Intake & Output 02/10/18 02/10/18 02/11/18 06:59 18:59 06:59 Intake Total 2099 / 2099 1000 / 1000 100 / 100 Output Total 1225 / 1225 Balance 875 / 875 1000 / 1000 100 / 100 Weight 91.1 kg Intake: IV 2099 1000 / 1000 100 / 100 D5W/1/2NS + KCL 20 mEq Inj 1999 / 1999 1000 / 1000 000 ML @ 150 mls/hr IV.CONT . Q6H40M MICHAEL Rx#:[id number] Diflucan 200 mg Premix Bag 100 100 / 100 ML @ 100 mls/hr IV.SIG Q24H MICHAEL Rx#:[id number] Oral 0 / 0 Output: Urine 1225 / 1225 Other: # Voids 2 3 Date of Last Bowel Movement 07/22/18 07/24/18 # Bowel Movements 0 # Incontinent Bowel Movements 1 Narrative: GENERAL: Alert and oriented 2, generally weak, softened voice, unsteady on feet SKIN: Warm and dry. HEAD: Normocephalic. Oral thrush improving. EYES: No scleral icterus. No injection or drainage. NECK: Supple, trachea midline. No JVD or lymphadenopathy. CARDIOVASCULAR: Regular rate and rhythm without murmurs, gallops, or rubs. RESPIRATORY: Breath sounds equal bilaterally. No accessory muscle use. GASTROINTESTINAL: Abdomen soft, non-tender, nondistended. MUSCULOSKELETAL: No cyanosis, or edema. Neurological: Mild resting tremor, no focal deficits, softened voice - Urinary Catheter Management Indwelling Urethral Catheter Cath placed during this visit: yes, but has since been removed by the nurse Reason for continuing: Other continuation reason Insertion date: 01/30/18 Insertion time: 21:20 Removal date: 02/06/18 Removal time: 23:00 Results - Labs CBC & Chem 7: 02/10/18 04:30 02/09/18 04:30 Laboratory Results - last 24 hr 02/10/18 04:30 WBC 10.8 RBC 4.14 L Hgb 13.4 Hct 39.3 MCV 94.7 MCH 32.3 MCHC 34.0 RDW 13.8 Plt Count 781 H MPV 6.2 L - Imaging Impressions Videofluoroscopic Swallow 02/10/18 00:00 CONCLUSION: Prominent, consistent aspiration Assessment and Plan - Plan Delirium tremens status post severe alcohol withdrawal Severe withdrawal that required 6 days of intubation Patient is motivated to stay off of alcohol Continue with CIWA protocol Dysphagia Patient failed bedside swallow evaluation, subsequently failed barium swallow study Patient is on n.p.o. status at this time, continue D5 half-normal saline ENT consult placed Acute pancreatitis Lipase is down to 380, patient denies current nausea and vomiting, but he had 3 episodes yesterday HIDA scan was normal Appreciate gastroenterology consult Tracheitis, oral thrush Voice is weak, swallowing is slow following extubation Failed swallow study and barium video swallow study N.p.o. at this time Continue IV Diflucan Hypothyroidism Continue home dose Synthroid 200 mcg daily Hypertriglyceridemia Updated triglyceride level has normalized, pattern was likely stress-induced s/p distributive shock, staph pneumonia, staph bacteremia, hyponatremia, hypertensive urgency Resolved following bout with alcohol withdrawal Received full course of antibiotics, Zosyn and Unasyn DVT prophylaxis Lovenox
[2018-02-11] MEDS: Artificial Tears Opth Drops 15 ML Bottle EACH EYE SCH ×6 (00:04→19:52)
[2018-02-11] MEDS: hydrALAZINE HCl Inj 20 MG/ML Vial IV.PUSH PRN ×2 (04:59→05:00)
[2018-02-11 05:01] LABS: Hematocrit 41.2 % (39.0-51.0); Hemoglobin 13.9 gm/dL (13.0-17.0); Mean Corpuscular HGB Conc 33.7 % (32.0-36.0); Mean Corpuscular Hemoglobin 31.9 pg (27.0-34.0); Mean Corpuscular Volume 94.6 fL (80.0-100.0); Mean Platelet Volume 6.5 fL (7.0-11.0); Platelet Count 842 th/mm3 (150-450); Red Blood Count 4.35 mil/mm3 (4.50-5.90); Red Cell Distribution Width 13.4 % (11.6-17.2); White Blood Count 14.5 th/mm3 (4.0-11.0)
[2018-02-11] MEDS: KCL 20 mEq/D5W/NaCl 0.45% Inj 1,000 ML IV.CONT SCH ×2 (05:04→14:17)
[2018-02-11] MEDS: Enoxaparin Inj 40 MG/0.4 ML Syringe SQ SCH (05:09)
[2018-02-11 05:10] LABS: Chloride 101 meq/L (98-107); Potassium 3.3 meq/L (3.5-5.1); Sodium 134 meq/L (136-145)
[2018-02-11 05:13] LABS: Anion Gap 8 meq/L (5-15); Calcium 9.4 mg/dL (8.5-10.1); Carbon Dioxide 25.1 meq/L (21.0-32.0); Glucose,Random 114 mg/dL (74-106)
[2018-02-11 05:18] LABS: Blood Urea Nitrogen 12 mg/dL (7-18); Glomerular Filtration Rate Greater Than 89 mL/min (>89)
[2018-02-11] MEDS ORDERED: Potassium Chlor 20 mEq Premix 20 MEQ/100 ML PIGGYBACK IV.SIG ONE (08:00)
[2018-02-11] MEDS: Nystatin Liq 500,000 UNIT/5 ML UDC SWISH-SWAL SCH ×4 (10:36→20:12)
[2018-02-11] MEDS: Chlorhexidine 0.12% Oral Kit 15 ML UDC OROPHARYNG SCH ×2 (10:37→19:53)
[2018-02-11] MEDS: Pantoprazole Inj 40 MG Vial IV.PUSH SCH ×2 (10:37→19:51)
[2018-02-11] MEDS: Senna/Docusate Sodium 8.6/50 MG Tablet PO SCH ×2 (10:50→20:12)
[2018-02-11] MEDS: Sodium Chloride 1 GM Tablet PO SCH ×4 (10:50→20:12)
--- NOTE | 2018-02-11 13:52 | P.PN ---
Subjective Interval history: Patient remains n.p.o. after failing barium swallow evaluation. He understands that his workup will include an evaluation by ENT. He requests that expanded workup of MRI, which we discussed the value above, be done today rather than waiting. He has been up ambulating and improving each day with physical therapy. Physical Exam Vital signs: Vital Signs 02/10/18 16:00 02/10/18 16:34 02/10/18 16:56 Temperature Pulse Rate 76 82 68 Respiratory Rate 25 H 24 Blood Pressure 173/100 H 140/77 Pulse Oximetry 02/10/18 17:00 02/10/18 20:00 02/10/18 20:15 Temperature 98.2 F Pulse Rate 70 76 Respiratory Rate 18 20 Blood Pressure 182/100 H 166/85 H Pulse Oximetry 02/10/18 21:42 02/10/18 22:15 02/11/18 00:00 Temperature 98.1 F 99.3 F Pulse Rate 85 81 Respiratory Rate 18 18 Blood Pressure 178/89 H 172/92 H Pulse Oximetry 97 96 96 02/11/18 00:21 02/11/18 01:44 02/11/18 04:00 Temperature 99.3 F 97.5 F L Pulse Rate 81 76 84 Respiratory Rate 18 18 Blood Pressure 172/92 H 186/96 H Pulse Oximetry 96 98 02/11/18 04:54 02/11/18 08:00 02/11/18 09:20 Temperature 97.5 F L 99.1 F Pulse Rate 84 90 83 Respiratory Rate 18 20 Blood Pressure 186/96 H 178/94 H Pulse Oximetry 98 96 02/11/18 12:00 Temperature 98.4 F Pulse Rate 68 Respiratory Rate 16 Blood Pressure 176/96 H Pulse Oximetry 95 Intake & Output 02/10/18 02/11/18 02/11/18 18:59 06:59 18:59 Intake Total 1000 / 999 2200 / 2200 Output Total 201 / 201 Balance 999 Weight 91.1 kg Intake: IV 999 / 999 2200 / 2200 D5W/1/2NS + KCL 20 mEq Inj , 999 / 1999 000 ML @ 150 mls/hr IV.CONT . Q6H40M MICHAEL Rx#:[id number] Diflucan 200 mg Premix Bag 100 100 / 100 ML @ 100 mls/hr IV.SIG Q24H MICHAEL Rx#:[id number] Oral 0 / 0 Output: Urine 200 / 200 Urine/Stool Mix Other: # Voids 3 Date of Last Bowel Movement 02/10/18 02/11/18 02/11/18 # Bowel Movements 1 Narrative: GENERAL: Alert and oriented 3, whispering voice SKIN: Warm and dry. HEAD: Normocephalic. Oral thrush improved EYES: No scleral icterus. No injection or drainage. NECK: Supple, trachea midline. No JVD or lymphadenopathy. CARDIOVASCULAR: Regular rate and rhythm without murmurs, gallops, or rubs. RESPIRATORY: Breath sounds equal bilaterally. No accessory muscle use. GASTROINTESTINAL: Abdomen soft, non-tender, nondistended. MUSCULOSKELETAL: No cyanosis, or edema. Neurological: Mild resting tremor, no focal deficits, softened voice - Urinary Catheter Management Indwelling Urethral Catheter Cath placed during this visit: yes, but has since been removed by the nurse Reason for continuing: Other continuation reason Insertion date: 01/30/18 Insertion time: 21:20 Removal date: 02/06/18 Removal time: 23:00 Results - Labs CBC & Chem 7: 02/11/18 04:25 02/11/18 04:25 Laboratory Results - last 24 hr 02/11/18 02/11/18 04:25 04:25 WBC 14.5 H RBC 4.35 L Hgb 13.9 Hct 41.2 MCV 94.6 MCH 31.9 MCHC 33.7 RDW 13.4 Plt Count 842 H MPV 6.5 L Sodium 134 L Potassium 3.3 L Chloride 101 Carbon Dioxide 25.1 Anion Gap 8 BUN 12 Creatinine 0.74 Estimated GFR Greater than 89 Random Glucose 114 H Calcium 9.4 Assessment and Plan - Plan Delirium tremens status post severe alcohol withdrawal Severe withdrawal that required 6 days of intubation Patient is motivated to stay off of alcohol Continue with CIWA protocol Dysphagia Patient failed bedside swallow evaluation, subsequently failed barium swallow study Patient is on n.p.o. status at this time, continue D5 half-normal saline ENT consult pending MRI brain pending Tracheitis, oral thrush Voice is weak, speaking in whisper since extubation Failed barium video swallow study N.p.o. at this time, continue D5 half normal saline Continue IV Diflucan Hypothyroidism Continue home dose Synthroid 200 mcg daily Acute pancreatitis Resolved, normal HIDA scan Appreciate gastroenterology consult Hypertriglyceridemia Resolved, pattern was likely stress-induced s/p distributive shock, staph pneumonia, staph bacteremia, hyponatremia, hypertensive urgency Resolved following bout with alcohol withdrawal Received full course of antibiotics, Zosyn and Unasyn DVT prophylaxis Lovenox
--- NOTE | 2018-02-11 18:01 | MR ---
EXAM DATE: 02/11/2018 5:55 PM EDT AGE/SEX: 62 years / Male INDICATIONS: . Dysphagia CLINICAL DATA: This is the patient's subsequent encounter. Patient reports that signs and symptoms h ave been present for 2 weeks and indicates a pain score of 0/10. MEDICAL/SURGICAL HISTORY: Carcinoma, prostatic. Hypertension. Prostatectomy. COMPARISON: No prior exams available for comparison. TECHNIQUE: Multiplanar, multisequence examination of the brain was performed without contrast. FINDINGS: Cerebrum: The ventricles are normal for age. No evidence of midline shift, mass lesion, hemorrhage or acute infarction. No extraaxial fluid collections are seen. The pituitary gland and suprasellar cistern are normal in configuration. White Matter: On the FLAIR weighted images there is increased signal in the periventricular white ma tter characteristic of chronic small vessel ischemic change. Posterior Fossa: The cerebellum and brainstem are intact. The 4th ventricle is midline. The cerebel lopontine angle is unremarkable. The cerebellar tonsils are normal in position. Diffusion Imaging: No focal areas of restricted diffusion are seen. No evidence of acute infarction . Extracranial: The visualized portions of the orbits are unremarkable. There is mild mucosal thickeni ng in the left maxillary sinus and sphenoid sinuses. CONCLUSION: 1. No acute hemorrhage, mass or acute infarction. 2. Mild atrophy and chronic small vessel ischemic change. 3. Mild mucosal thickening in the left maxillary sinus and sphenoid sinus. Electronically signed by: Adam Carrillo MD 02/11/2018 6:00 PM EDT
--- NOTE | 2018-02-11 21:33 | P.PNGI ---
Subjective Interval history: Patient sleeping comfortably in bed, easily arousable, no new complaints Physical Exam Vital signs: Vital Signs 02/10/18 21:42 02/10/18 22:15 02/11/18 00:00 Temperature 98.1 F 99.3 F Pulse Rate 85 81 Respiratory Rate 18 18 Blood Pressure 178/89 H 172/92 H Pulse Oximetry 97 96 96 02/11/18 00:21 02/11/18 01:44 02/11/18 04:00 Temperature 99.3 F 97.5 F L Pulse Rate 81 76 84 Respiratory Rate 18 18 Blood Pressure 172/92 H 186/96 H Pulse Oximetry 96 98 02/11/18 04:54 02/11/18 08:00 02/11/18 09:20 Temperature 97.5 F L 99.1 F Pulse Rate 84 90 83 Respiratory Rate 18 20 Blood Pressure 186/96 H 178/94 H Pulse Oximetry 98 96 02/11/18 12:00 02/11/18 14:20 02/11/18 16:00 Temperature 98.4 F 98.2 F Pulse Rate 91 H 74 Respiratory Rate 16 20 Blood Pressure 176/96 H 158/88 H 174/94 H Pulse Oximetry 95 96 02/11/18 20:00 Temperature 98.1 F Pulse Rate 75 Respiratory Rate 24 Blood Pressure 179/99 H Pulse Oximetry 98 Intake & Output 02/11/18 02/11/18 02/12/18 06:59 18:59 06:59 Intake Total 2200 / 2200 2150 / 2150 Output Total 201 / 201 Balance 1998 / 1998 2150 / 2150 Weight 91.1 kg Intake: IV 220 / 0 2150 / 2150 D5W/1/2NS + KCL 20 mEq Inj 1999 / 1999 000 ML @ 60 mls/hr IV.CONT . [id number] MICHAEL Rx#:[id number] Diflucan 200 mg Premix Bag 100 100 / 100 100 / 100 ML @ 100 mls/hr IV.SIG Q24H MICHAEL Rx#:[id number] KCl 20 mEq Premix Inj 20 meq In 50 / 50 100 ml @ 50 mls/hr IV.SIG ONCE ONE Rx#:[id number] Oral 0 / 0 Output: Urine 200 / 200 Urine/Stool Mix Other: # Voids 3 Date of Last Bowel Movement 02/11/18 02/11/18 # Bowel Movements 1 1 - Constitutional no acute distress - Routine HEENT Exam Head: Present: normocephalic Eye: Present: EOMI - Routine Neck Exam Present: supple - Routine Respiratory Exam Present: CTA bilaterally - Routine Cardiovascular Exam Present: RRR - Routine Abdominal Exam Present: soft, normoactive bowel sounds - Routine Extremities Exam Absent: cyanosis, clubbing, edema - Urinary Catheter Management Indwelling Urethral Catheter Cath placed during this visit: yes, but has since been removed by the nurse Reason for continuing: Other continuation reason Insertion date: 01/30/18 Insertion time: 21:20 Removal date: 02/06/18 Removal time: 23:00 Results - Labs CBC & Chem 7: 02/11/18 04:25 02/11/18 04:25 Laboratory Results - last 24 hr 02/11/18 02/11/18 04:25 04:25 WBC 14.5 H RBC 4.35 L Hgb 13.9 Hct 41.2 MCV 94.6 MCH 31.9 MCHC 33.7 RDW 13.4 Plt Count 842 H MPV 6.5 L Sodium 134 L Potassium 3.3 L Chloride 101 Carbon Dioxide 25.1 Anion Gap 8 BUN 12 Creatinine 0.74 Estimated GFR Greater than 89 Random Glucose 114 H Calcium 9.4 - Imaging Impressions Head MRI 02/11/18 00:00 CONCLUSION: Assessment and Plan - Plan Nausea and vomiting has resolved Patient with underlying alcoholism that led to a traumatic intubation the patient has since been extubated Hoarseness with dysphagia and aspiration etiology unclear at this point possibly related to the intubation 1. MRI of the head appears to be unremarkable 2. Will order CT of the neck 3. Await ENT evaluation 4. Consider PEG tube if necessary
[2018-02-12] MEDS: Artificial Tears Opth Drops 15 ML Bottle EACH EYE SCH ×3 (02:35→08:41)
[2018-02-12] MEDS: Enoxaparin Inj 40 MG/0.4 ML Syringe SQ SCH (02:42)
[2018-02-12] MEDS: KCL 20 mEq/D5W/NaCl 0.45% Inj 1,000 ML IV.CONT SCH (02:43)
--- NOTE | 2018-02-12 06:28 | CT ---
EXAM DATE: 02/12/2018 6:19 AM EDT AGE/SEX: 62 years / Male INDICATIONS: Dysphagia and hoarseness post extubation. CLINICAL DATA: This is the patient's subsequent encounter. Patient reports that signs and symptoms h ave been present for 1 day and indicates a pain score of 3/10. MEDICAL/SURGICAL HISTORY: Carcinoma, prostatic. Hypertension. Prostatectomy. RADIATION DOSE: 15.00 CTDI (mGy) COMPARISON: No prior exams available for comparison. TECHNIQUE: Helical acquisition was performed using a multirow detector CT scanner during the adminis tration of 75 ml Omnipaque 350 (iohexol) nonionic water-soluble contrast as a single exam dose. Usi ng automated exposure control and adjustment of the mA and/or kV according to patient size, radiation dose was kept as low as reasonably achievable to obtain optimal diagnostic quality images. DICOM fo rmat image data is available electronically for review and comparison. FINDINGS: Nasopharynx: The nasopharyngeal airway has a normal configuration. No mucosal thickening or mass is seen. Oropharynx: The intrinsic muscles of the tongue are symmetric. The tonsillar pillars are intact. T he prevertebral soft tissues are not thickened. Larynx: The supraglottic, glottic, and infraglottic structures are intact. Parapharyngeal: The parapharyngeal space is intact. Salivary Glands: The parotid and submandibular glands are intact. Lymph Nodes: No enlarged or necrotic-appearing nodes. Thyroid: Homogeneous enhancement without evidence of nodule. Bones: Unremarkable. Post Contrast: No abnormal areas of enhancement seen. Sinuses: Mucoperiosteal thickening in the left maxillary antra and left sphenoid. Vasculature: Dense calcification in the proximal right internal with a resulting stenosis of 60-65%. On the very last image, there is a questionable 3 mm aneurysm off the cavernous portion of the right internal carotid. 1. Mild chronic sinus disease in the left maxillary antra and left sphenoid. 2. Otherwise, no pharyngeal or laryngeal anatomic abnormality to explain current clinical symptoms. No regional adenopathy. 3. 60-65% stenosis of the proximal right internal carotid artery due to regional calcification. Poss ible 3 mm intracavernous carotid artery aneurysm on the right. This is only seen on one image, carolyn r. If there is a clinical concern, dedicated CTA of the carotid vessels could be performed for furthe r characterization. Electronically signed by: Benjamin Lynch MD 02/12/2018 6:27 AM EDT
[2018-02-12 07:26] LABS: Hematocrit 39.6 % (39.0-51.0); Hemoglobin 13.8 gm/dL (13.0-17.0); Mean Corpuscular HGB Conc 34.8 % (32.0-36.0); Mean Corpuscular Hemoglobin 32.2 pg (27.0-34.0); Mean Corpuscular Volume 92.7 fL (80.0-100.0); Mean Platelet Volume 6.6 fL (7.0-11.0); Platelet Count 835 th/mm3 (150-450); Red Blood Count 4.27 mil/mm3 (4.50-5.90); Red Cell Distribution Width 13.8 % (11.6-17.2); White Blood Count 11.1 th/mm3 (4.0-11.0)
[2018-02-12 07:31] LABS: Chloride 99 meq/L (98-107); Potassium 3.3 meq/L (3.5-5.1); Sodium 133 meq/L (136-145)
[2018-02-12 07:37] LABS: Anion Gap 7 meq/L (5-15); Calcium 9.2 mg/dL (8.5-10.1); Carbon Dioxide 26.8 meq/L (21.0-32.0); Glucose,Random 100 mg/dL (74-106)
[2018-02-12 07:38] LABS: Blood Urea Nitrogen 14 mg/dL (7-18)
[2018-02-12 07:41] LABS: Glomerular Filtration Rate Greater Than 89 mL/min (>89)
[2018-02-12] MEDS: Pantoprazole Inj 40 MG Vial IV.PUSH SCH ×2 (08:38→21:56)
[2018-02-12] MEDS: Nystatin Liq 500,000 UNIT/5 ML UDC SWISH-SWAL SCH ×4 (08:39→21:47)
--- NOTE | 2018-02-12 08:43 | MB ---
cc: Adam Brasher MD DATE: 02/12/2018 DATE OF SERVICE: 02/12/2018 This is a gentleman status post intubation, NG tube for alcohol withdrawal, who was having difficulty swallowing and speaking. PHYSICAL EXAMINATION: GENERAL: Today, he is in no acute distress. HEENT: Ears are clear with minor cerumen in the left ear canal. Nasal cavity reveals mild septal deviation with dry crusting. Oral cavity reveals no obvious evidence of thrush, no lesion. A flexible exam reveals good vocal cord mobility with significant edema and some ulceration of the cords, with some pooling of secretions postcricoid. NECK: Soft, supple. No masses noted. IMPRESSION: Edema from prolonged intubation causing difficulty swallowing and speaking. This will resolve likely over the next few days if not under 1 week. I recommend outpatient followup and continuation of n.p.o. until he can swallow his secretions, at which time I recommend a repeat barium swallow. Thank you for this consultation. MD KARLI Ware/CALLI , 07:12 AM , 07:17 AM
--- NOTE | 2018-02-12 13:29 | P.PNIM ---
Subjective Interval history: Patient seen in follow-up for vocal cord inflammation, hypothyroidism. Care plan discussed with patient and family. ENT eval appreciated. Patient did fail his barium swallow and has significant cord edema. The patient will need repeat barium swallow prior to clearance for diet. In the meantime he is receiving some nutrition through the IV. The patient does not present have a permanent condition and a feeding tube is not indicated at this time. I discussed at length with the patient and family at bedside Physical Exam Vital signs: Vital Signs 02/11/18 14:20 02/11/18 16:00 02/11/18 20:00 Temperature 98.2 F 98.1 F Pulse Rate 74 75 Respiratory Rate 20 24 Blood Pressure 158/88 H 174/94 H 179/99 H Pulse Oximetry 96 98 02/12/18 00:00 02/12/18 04:00 02/12/18 08:14 Temperature 99.1 F 98.9 F 98.0 F Pulse Rate 73 74 81 Respiratory Rate 16 16 20 Blood Pressure 176/93 H 176/84 H 170/84 H Pulse Oximetry 98 99 96 02/12/18 12:00 Temperature 98.1 F Pulse Rate 81 Respiratory Rate 20 Blood Pressure 175/88 H Pulse Oximetry 98 Intake & Output 02/11/18 02/12/18 02/12/18 18:59 06:59 18:59 Intake Total 2150 / 2150 0 / 0 0 / 0 Output Total 1300 / 1300 Balance 2150 / 2150 -1300 / -1300 0 / 0 Intake: IV 2150 / 2150 D5W/1/2NS + KCL 20 mEq Inj 1, 2000 / 1999 000 ML @ 60 mls/hr IV.CONT . [id number] [facility] Rx#:[id number] Diflucan 200 mg Premix Bag 100 100 / 100 ML @ 100 mls/hr IV.SIG Q24H [facility] Rx#:[id number] KCl 20 mEq Premix Inj 20 meq In 50 / 50 100 ml @ 50 mls/hr IV.SIG ONCE ONE Rx#:[id number] Oral 0 / 0 0 / 0 0 / 0 Output: Urine 1300 / 1300 Other: # Voids 3 Date of Last Bowel Movement 02/11/18 02/11/18 # Bowel Movements 1 Narrative: GENERAL: Patient calm resting and with hoarse voice SKIN: Warm and dry. No rashes or ecchymotic injuries EYES: Pupils equal and round. No scleral icterus. No injection or drainage. ENT: External ear exam normal. No acute nasal bleeding or discharge. Mucous membranes pink and moist. CARDIOVASCULAR: Regular rate and rhythm. No murmurs gallops or rubs appreciated RESPIRATORY: Good air flow and effort without accessory muscle use. Clear to auscultation. Breath sounds equal bilaterally. GASTROINTESTINAL: Abdomen soft, non-tender, nondistended. Hepatic and splenic margins not palpable. MUSCULOSKELETAL: Extremities without clubbing, cyanosis, or edema. No obvious deformities. NEUROLOGICAL: Awake and alert. No obvious cranial nerve deficits. Motor grossly within normal limits. Five out of 5 muscle strength in the arms and legs. Normal speech. - Urinary Catheter Management Indwelling Urethral Catheter Cath placed during this visit: yes, but has since been removed by the nurse Reason for continuing: Other continuation reason Insertion date: 01/30/18 Insertion time: 21:20 Removal date: 02/06/18 Removal time: 23:00 Results - Labs CBC & Chem 7: 02/12/18 06:53 02/12/18 06:53 Laboratory Results - last 24 hr 02/12/18 02/12/18 06:53 06:53 WBC 11.1 H RBC 4.27 L Hgb 13.8 Hct 39.6 MCV 92.7 MCH 32.2 MCHC 34.8 RDW 13.8 Plt Count 835 H MPV 6.6 L Sodium 133 L Potassium 3.3 L Chloride 99 Carbon Dioxide 26.8 Anion Gap 7 BUN 14 Creatinine 0.75 Estimated GFR Greater than 89 Random Glucose 100 Calcium 9.2 - Imaging Impressions Impressions Head MRI 02/11/18 00:00 CONCLUSION: 1. No acute hemorrhage, mass or acute infarction. 2. Mild atrophy and chronic small vessel ischemic change. 3. Mild mucosal thickening in the left maxillary sinus and sphenoid sinus. Soft Tissue Neck CT 02/12/18 00:00 CONCLUSION: 1. Mild chronic sinus disease in the left maxillary antra and left sphenoid. 2. Otherwise, no pharyngeal or laryngeal anatomic abnormality to explain current clinical symptoms. No regional adenopathy. 3. 60-65% stenosis of the proximal right internal carotid artery due to regional calcification. Possible 3 mm intracavernous carotid artery aneurysm on the right. This is only seen on one image, however. If there is a clinical concern, dedicated CTA of the carotid vessels could be performed for further characterization. Assessment and Plan - Assessment (1) Vocal cord edema Code(s): J38.4 - Edema of larynx Status: Acute Plan: Patient with failed barium swallow. Likely will need to continue with vocal rest and n.p.o. status. Care plan discussed at length with patient and family as well as ENT physician Dr. Wall. Continue with IV fluids with multivitamin , dextrose and potassium for now. Repeat barium swallow 02/14 - Plan 01/30: Patient is a 62-year-old male with history of hypertension, hypothyroidism , alcoholism, presents the emergency room with multiple complaints. Patient reports that he is an alcoholic, reports that he usually drinks about 1/5 of whiskey per day. Patient reports that he decided to quit drinking alcohol 2 days ago and has put himself on a detox schedule. Patient has been decreasing the amount of alcohol he has been drinking, reports that today he only drinks 6 beers. Patient reports that tonight, he checked his blood pressure and noted it to be elevated and in the 200's. Reports that on route to the ER, he developed chest pain. Reports that he had chest tightness to his mid sternum. Denies any diaphoresis with this chest pain. Patient reports mild shortness of breath with this chest pain, reports resolution of chest pain while in the emergency room. Patient denies any history of coronary artery disease, she does not follow with a public relations assistant. Patient reports that he thinks that the symptoms are due to his alcohol withdrawal. Patient reports that he is feeling shaky. Patient reports that he has not been feeling well over the past 2 days as he has been unable to tolerate p.o.'s. Reports "i just don't have an appetite and I'm not feeling well with the withdrawl symptoms." Patient tells me he actually came to the hospital because his blood pressure was running extremely high in the 240 systolic range at home. Patient was noted to be hyponatremic with a sodium of 108 in the ER. Patient was accepted for admission by critical care medicine service. He has been receiving half normal saline overnight. This morning when I evaluated the patient he was awake and alert resting comfortably in bed not in any acute distress. 01/31: Patient was complaining of some epigastric discomfort yesterday morning. CT abdomen pelvis was ordered however patient went into worsening alcohol withdrawal and despite starting Precedex and multiple boluses of Ativan was staying very agitated. Eventually he became more lethargic with tachypnea. He had also been vomiting previously. Decision was made to intubate and patient was placed on mechanical ventilation after intubation by ER physician. Of note patient had a difficult airway with some laryngeal edema noted per report and a 6.5 ET tube was used for intubation after failed attempt at intubating with an 8 Cuban and 7 Cuban ET tube. This morning patient is sedated with Versed and fentanyl drips, orally intubated on mechanical ventilation at the time of my evaluation. He was initiated on Son-Synephrine for hypotension following intubation and sedation. Currently he is on Son-Synephrine 70 mics per minute. He has had a good urine output overnight. He was started on 3% saline at 10 cc an hour last evening and the sodium has come up to 115 mEq/liter this morning. He has also been receiving LR at 1 50 cc an hour. NG tube was placed after intubation and 1 L of gastric contents were suctioned out. Patient did spike a temperature of 100.5 axillary this morning. Pancultures were ordered and empiric Zosyn to be started in view of concern for aspiration. 02/01: Remains sedated, orally intubated on mechanical ventilation. On Levophed 2 mics per minute. Significant positive fluid balance. Sodium 122. CT abdomen pelvis done yesterday revealed inflammation around tail of pancreas with fluid around liver consistent with pancreatitis. 02/02: Remains sedated, orally intubated on mechanical ventilation. Femoral central line replaced with right IJ central line today. Remains on Levophed for pressor support. 02/03: remains intubated. perioral edema persists, but this is concomitant with significant generalized edema. remains on vasopressor support. lipase trending down. 02/04: continues with severe agitated delirium. precedex added to control agitation. good diuresis with net -2L/24h. 02/05: net -4L/24h. good diuresis. clinically improving. sodium very slowly uptrending. agitation persists. will attempt to start weaning sedation today. 02/06: failed weaning attempts yesterday. today less agitated. tolerating CPAP today. plan to wean to extubate. 02/07: extubated successfully yesterday. net -700cc/24h. confused and CAM+. significant diarrhea as well as nausea and vomiting overnight, not resolved with zofran and reglan. patient denies abdominal pain. only complaint is that he does not want blood work until talking with his . 02/08 This is a 62-year-old male with a history of hypertension, hypothyroidism, alcoholism who decided to quit drinking alcohol cold turkey 2 days prior to admission. He presented to the ER with complaints of chest pain, elevated blood pressure, anorexia, shakes from withdrawal. One day after admission he became very agitated began vomiting profusely and developed tachypnea. He was intubated and placed on a vent on January 31. During the course of his ICU stay he had fevers, was treated for pancreatitis, hyponatremia, hypotension. He made it through his alcohol withdrawal course and successfully extubated on 02/06. He still remains weak and is having trouble talking due to swollen vocal cords in general swollen upper airway. 02/09 62-year-old male who spent time intubated in the ICU for severe alcohol withdrawal. He is 3 days post extubation. Making attempts to speak but his oropharynx is somewhat swollen therefore he speaks in a whisper. He remains somewhat confused reporting a story of being abducted, placed in cage which is why he went into alcohol withdrawal. That story is not reliable. 02/10 Patient is somewhat upset about having his water and food taken away. He failed a swallow evaluation yesterday and was awaiting barium swallow study this morning. His is at bedside. 02/11 Patient remains n.p.o. after failing barium swallow evaluation. He understands that his workup will include an evaluation by ENT. He requests that expanded workup of MRI, which we discussed the value above, be done today rather than waiting. He has been up ambulating and improving each day with physical therapy. Discharge Planning: transfer to accepting facility
[2018-02-12] MEDS: Chlorhexidine 0.12% Oral Kit 15 ML UDC OROPHARYNG SCH ×2 (16:03→21:57)
[2018-02-12] MEDS: Sodium Chloride 1 GM Tablet PO SCH ×4 (16:03→21:47)
[2018-02-12] MEDS: Potassium Chlor 20 mEq Premix 20 MEQ/100 ML PIGGYBACK IV.SIG SCH ×2 (16:07→18:22)
--- NOTE | 2018-02-12 17:26 | P.PNGI ---
Subjective Interval history: Patient sitting comfortably in bed his voice is coming back feeling a little better no having to suction quite as much Physical Exam Vital signs: Vital Signs 02/11/18 20:00 02/12/18 00:00 02/12/18 04:00 Temperature 98.1 F 99.1 F 98.9 F Pulse Rate 75 73 74 Respiratory Rate 24 16 16 Blood Pressure 179/99 H 176/93 H 176/84 H Pulse Oximetry 98 98 99 02/12/18 08:14 02/12/18 12:00 Temperature 98.0 F 98.1 F Pulse Rate 81 81 Respiratory Rate 20 20 Blood Pressure 170/84 H 175/88 H Pulse Oximetry 96 98 Intake & Output 02/11/18 02/12/18 02/12/18 18:59 06:59 18:59 Intake Total 2150 / 2150 0 / 0 0 / 0 Output Total 1300 / 1300 Balance 2150 / 2150 -1300 / -1300 0 / 0 Intake: IV 2150 / 2150 D5W/1/2NS + KCL 20 mEq Inj 1, 2000 / 2000 000 ML @ 60 mls/hr IV.CONT . [id number] [facility] Rx#:[id number] Diflucan 200 mg Premix Bag 100 100 / 100 ML @ 100 mls/hr IV.SIG Q24H [facility] Rx#:[id number] KCl 20 mEq Premix Inj 20 meq In 50 / 50 100 ml @ 50 mls/hr IV.SIG ONCE ONE Rx#:[id number] Oral 0 / 0 0 / 0 0 / 0 Output: Urine 1300 / 1300 Other: # Voids 3 Date of Last Bowel Movement 02/11/18 02/11/18 # Bowel Movements 1 - Constitutional no acute distress - Routine HEENT Exam Head: Present: normocephalic Eye: Present: EOMI - Routine Neck Exam Present: supple - Routine Respiratory Exam Present: CTA bilaterally - Routine Cardiovascular Exam Present: RRR - Routine Abdominal Exam Present: soft, normoactive bowel sounds - Routine Extremities Exam Absent: cyanosis, clubbing, edema - Urinary Catheter Management Indwelling Urethral Catheter Cath placed during this visit: yes, but has since been removed by the nurse Reason for continuing: Other continuation reason Insertion date: 01/30/18 Insertion time: 21:20 Removal date: 02/06/18 Removal time: 23:00 Results - Labs CBC & Chem 7: 02/12/18 06:53 02/12/18 06:53 Laboratory Results - last 24 hr 02/12/18 02/12/18 06:53 06:53 WBC 11.1 H RBC 4.27 L Hgb 13.8 Hct 39.6 MCV 92.7 MCH 32.2 MCHC 34.8 RDW 13.8 Plt Count 835 H MPV 6.6 L Sodium 133 L Potassium 3.3 L Chloride 99 Carbon Dioxide 26.8 Anion Gap 7 BUN 14 Creatinine 0.75 Estimated GFR Greater than 89 Random Glucose 100 Calcium 9.2 - Imaging Impressions Head MRI 02/11/18 00:00 CONCLUSION: Soft Tissue Neck CT 02/12/18 00:00 CONCLUSION: Assessment and Plan - Plan Nausea and vomiting has resolved Patient with underlying alcoholism that led to a traumatic intubation the patient has since been extubated Hoarseness with dysphagia and aspiration etiology unclear at this point possibly related to the intubation 1. CT of the neck is negative 2. Patient was seen by ENT who report edema otherwise unremarkable 3. At this point most appropriate approach would be to repeat the barium swallow in the day or 2 and hopefully he will be able to regain his ability to swallow and no further action would be warranted 4. We will defer to attending physician to proceed with the barium swallow Not much to add at this point from a GI perspective we will sign off
[2018-02-12] MEDS: MULTIVITAMIN IV.SIG SCH (18:13)
[2018-02-12] MEDS: [UNRECOGNIZED DRUG - OTHER] IV.SIG SCH (18:13)
[2018-02-12] MEDS: POTASSIUM CHLORIDE IV.SIG SCH (18:13)
[2018-02-13] MEDS: Enoxaparin Inj 40 MG/0.4 ML Syringe SQ SCH (03:04)
[2018-02-13 06:14] LABS: Hematocrit 40.8 % (39.0-51.0); Hemoglobin 14.1 gm/dL (13.0-17.0); Mean Corpuscular HGB Conc 34.5 % (32.0-36.0); Mean Corpuscular Hemoglobin 31.6 pg (27.0-34.0); Mean Corpuscular Volume 91.6 fL (80.0-100.0); Mean Platelet Volume 6.8 fL (7.0-11.0); Platelet Count 853 th/mm3 (150-450); Red Blood Count 4.45 mil/mm3 (4.50-5.90); Red Cell Distribution Width 13.6 % (11.6-17.2); White Blood Count 9.3 th/mm3 (4.0-11.0)
[2018-02-13] MEDS: Nystatin Liq 500,000 UNIT/5 ML UDC SWISH-SWAL SCH ×4 (09:07→21:41)
[2018-02-13] MEDS: Pantoprazole Inj 40 MG Vial IV.PUSH SCH ×2 (09:08→21:41)
[2018-02-13] MEDS: Sodium Chloride 1 GM Tablet PO SCH ×4 (09:09→20:19)
--- NOTE | 2018-02-13 10:36 | P.PN ---
Subjective Interval history: Patient seen in follow-up for vocal cord inflammation, hypothyroidism. Patient seen and examined, and family at bedside. Case discussed with them. Patient failed barium swallow, will repeat today. Patient states that he does have improvement with the pain in his throat as well as able to vocalize better today. ENT has seen patient, recommendations for repeat barium. GI following. Afebrile vital signs stable. Physical Exam Vital signs: Vital Signs 02/12/18 12:00 02/12/18 20:00 02/13/18 00:00 Temperature 98.1 F 98.2 F 98.1 F Pulse Rate 81 73 75 Respiratory Rate 20 21 20 Blood Pressure 175/88 H 155/84 H 177/66 H Pulse Oximetry 98 97 98 02/13/18 08:00 Temperature 98.4 F Pulse Rate 81 Respiratory Rate 18 Blood Pressure 168/92 H Pulse Oximetry 97 Intake & Output 02/12/18 02/13/18 02/13/18 18:59 06:59 18:59 Intake Total 100 / 100 680 / 680 Output Total 400 / 400 375 / 375 Balance -300 / -300 305 / 305 Weight 91.3 kg Intake: IV 100 / 100 200 / 200 Diflucan 200 mg Premix Bag 100 100 / 100 ML @ 100 mls/hr IV.SIG Q24H [facility] Rx#:[id number] KCl 20 mEq Premix Inj 20 meq In 100 / 100 100 / 100 100 ml @ 50 mls/hr IV.SIG Q2H [facility] Rx#:[id number] Oral 0 / 0 480 / 480 Output: Urine 400 / 400 375 / 375 Stool 0 / 0 Other: # Voids 4 Date of Last Bowel Movement 02/12/18 02/13/18 # Bowel Movements 2 Narrative: GENERAL: Patient calm resting and with hoarse voice, clear. SKIN: Warm and dry. No rashes or ecchymotic injuries EYES: Pupils equal and round. No scleral icterus. No injection or drainage. ENT: External ear exam normal. No acute nasal bleeding or discharge. Mucous membranes pink and moist. Thrush improving, no erythema in throat. CARDIOVASCULAR: Regular rate and rhythm. No murmurs gallops or rubs appreciated RESPIRATORY: Good air flow and effort without accessory muscle use. Clear to auscultation. Breath sounds equal bilaterally. GASTROINTESTINAL: Abdomen soft, non-tender, nondistended. Hepatic and splenic margins not palpable. MUSCULOSKELETAL: Extremities without clubbing, cyanosis, or edema. No obvious deformities. NEUROLOGICAL: Awake and alert. No obvious cranial nerve deficits. Motor grossly within normal limits. Five out of 5 muscle strength in the arms and legs. Normal speech. - Urinary Catheter Management Indwelling Urethral Catheter Cath placed during this visit: yes, but has since been removed by the nurse Reason for continuing: Other continuation reason Insertion date: 01/30/18 Insertion time: 21:20 Removal date: 02/06/18 Removal time: 23:00 Results - Labs CBC & Chem 7: 02/13/18 06:02 02/12/18 06:53 Laboratory Results - last 24 hr 02/13/18 06:02 WBC 9.3 RBC 4.45 L Hgb 14.1 Hct 40.8 MCV 91.6 MCH 31.6 MCHC 34.5 RDW 13.6 Plt Count 853 H MPV 6.8 L Assessment and Plan - Assessment (1) Vocal cord edema Code(s): J38.4 - Edema of larynx Status: Acute Plan: Patient with failed barium swallow. Will need to continue with vocal rest and n.p.o. status. Care plan discussed at length with patient and family. ENT following. Continue with IV fluids with multivitamin, dextrose and potassium for now. Repeat barium swallow today. Further hospitalization and treatment plan will depend on clinical improvement and barium swallow results. - Plan This is a 62-year-old male patient who initially presented to the emergency room requiring intubation secondary to alcohol withdrawal treated with Precedex and Ativan requiring intubation. There was some difficulty with intubation, presence of laryngeal edema and patient sustained intubation roughly 6 days. Since that time he has had vocal cord edema with aspiration as well as thrush, ENT following. 01/30: Patient is a 62-year-old male with history of hypertension, hypothyroidism , alcoholism, presents the emergency room with multiple complaints. Patient reports that he is an alcoholic, reports that he usually drinks about 1/5 of whiskey per day. Patient reports that he decided to quit drinking alcohol 2 days ago and has put himself on a detox schedule. Patient has been decreasing the amount of alcohol he has been drinking, reports that today he only drinks 6 beers. Patient reports that tonight, he checked his blood pressure and noted it to be elevated and in the 200's. Reports that on route to the ER, he developed chest pain. Reports that he had chest tightness to his mid sternum. Denies any diaphoresis with this chest pain. Patient reports mild shortness of breath with this chest pain, reports resolution of chest pain while in the emergency room. Patient denies any history of coronary artery disease, she does not follow with a piece goods packer. Patient reports that he thinks that the symptoms are due to his alcohol withdrawal. Patient reports that he is feeling shaky. Patient reports that he has not been feeling well over the past 2 days as he has been unable to tolerate p.o.'s. Reports "i just don't have an appetite and I'm not feeling well with the withdrawal symptoms." Patient tells me he actually came to the hospital because his blood pressure was running extremely high in the 240 systolic range at home. Patient was noted to be hyponatremic with a sodium of 108 in the ER. Patient was accepted for admission by critical care medicine service. He has been receiving half normal saline overnight. This morning when I evaluated the patient he was awake and alert resting comfortably in bed not in any acute distress. 01/31: Patient was complaining of some epigastric discomfort yesterday morning. CT abdomen pelvis was ordered however patient went into worsening alcohol withdrawal and despite starting Precedex and multiple boluses of Ativan was staying very agitated. Eventually he became more lethargic with tachypnea. He had also been vomiting previously. Decision was made to intubate and patient was placed on mechanical ventilation after intubation by ER physician. Of note patient had a difficult airway with some laryngeal edema noted per report and a 6.5 ET tube was used for intubation after failed attempt at intubating with an 8 [place] and 7 [place]anian ET tube. This morning patient is sedated with Versed and fentanyl drips, orally intubated on mechanical ventilation at the time of my evaluation. He was initiated on Son-Synephrine for hypotension following intubation and sedation. Currently he is on Son-Synephrine 70 mics per minute. He has had a good urine output overnight. He was started on 3% saline at 10 cc an hour last evening and the sodium has come up to 115 mEq/liter this morning. He has also been receiving LR at 1 50 cc an hour. NG tube was placed after intubation and 1 L of gastric contents were suctioned out. Patient did spike a temperature of 100.5 axillary this morning. Pancultures were ordered and empiric Zosyn to be started in view of concern for aspiration. 02/01: Remains sedated, orally intubated on mechanical ventilation. On Levophed 2 mics per minute. Significant positive fluid balance. Sodium 122. CT abdomen pelvis done yesterday revealed inflammation around tail of pancreas with fluid around liver consistent with pancreatitis. 02/02: Remains sedated, orally intubated on mechanical ventilation. Femoral central line replaced with right IJ central line today. Remains on Levophed for pressor support. 02/03: remains intubated. perioral edema persists, but this is concomitant with significant generalized edema. remains on vasopressor support. lipase trending down. 02/04: continues with severe agitated delirium. precedex added to control agitation. good diuresis with net -2L/24h. 02/05: net -4L/24h. good diuresis. clinically improving. sodium very slowly uptrending. agitation persists. will attempt to start weaning sedation today. 02/06: failed weaning attempts yesterday. today less agitated. tolerating CPAP today. plan to wean to extubate. 02/07: extubated successfully yesterday. net -700cc/24h. confused and CAM+. significant diarrhea as well as nausea and vomiting overnight, not resolved with zofran and reglan. patient denies abdominal pain. only complaint is that he does not want blood work until talking with his . 02/08 This is a 62-year-old male with a history of hypertension, hypothyroidism, alcoholism who decided to quit drinking alcohol cold [place] 2 days prior to admission. He presented to the ER with complaints of chest pain, elevated blood pressure, anorexia, shakes from withdrawal. One day after admission he became very agitated began vomiting profusely and developed tachypnea. He was intubated and placed on a vent on January 31. During the course of his ICU stay he had fevers, was treated for pancreatitis, hyponatremia, hypotension. He made it through his alcohol withdrawal course and successfully extubated on 02/06. He still remains weak and is having trouble talking due to swollen vocal cords in general swollen upper airway. 02/09 62-year-old male who spent time intubated in the ICU for severe alcohol withdrawal. He is 3 days post extubation. Making attempts to speak but his oropharynx is somewhat swollen therefore he speaks in a whisper. He remains somewhat confused reporting a story of being abducted, placed in cage which is why he went into alcohol withdrawal. That story is not reliable. 02/10 Patient is somewhat upset about having his water and food taken away. He failed a swallow evaluation yesterday and was awaiting barium swallow study this morning. His is at bedside. 02/11 Patient remains n.p.o. after failing barium swallow evaluation. He understands that his workup will include an evaluation by ENT. He requests that expanded workup of MRI, which we discussed the value above, be done today rather than waiting. He has been up ambulating and improving each day with physical therapy
[2018-02-13] MEDS: MULTIVITAMIN IV.SIG SCH (11:34)
[2018-02-13] MEDS: POTASSIUM CHLORIDE IV.SIG SCH (11:34)
[2018-02-13] MEDS: [UNRECOGNIZED DRUG - OTHER] IV.SIG SCH (11:34)
[2018-02-13] MEDS: Chlorhexidine 0.12% Oral Kit 15 ML UDC OROPHARYNG SCH ×2 (11:35→20:43)
--- NOTE | 2018-02-13 15:10 | FL ---
EXAM DATE: 02/13/2018 1:40 PM EDT AGE/SEX: 62 years / Male INDICATIONS: Dysphagia. Evaluate for aspiration CLINICAL DATA: This is the patient's subsequent encounter. Patient reports that signs and symptoms h ave been present for 4 - 6 days and indicates a pain score of 0/10. MEDICAL/SURGICAL HISTORY: . Carcinoma, prostatic. Hypertension. Prostatectomy None. COMPARISON: [facility], CT SOFT TISSUE NECK W CONTRAST, 02/12/2018. [facility], BARIUM SWALLOW W SPEECH PTH, . . FLUORO TIME: 1.7 IMAGE COUNT: 14 FINDINGS: Double contrast esophagram was performed. At the beginning of the procedure, lateral views were obtai malka of the hypopharynx and the cervical esophagus to evaluate for aspiration. 3 swallowing attempts w ere made and there is mild laryngeal penetration but no aspiration. Since no aspiration was observed at the initial portion of the examination, effervescing granules and thick liquid barium were administered in an upright LPO position. No mucosal abnormality is apprecia chris on the few images obtained. However, the patient aspirated during the swallowing attempts which e licited coughing. Since aspiration occurred the procedure was concluded. CONCLUSION: 1. The patient aspirated during the beginning portions of the examination. Therefore, the complete e sophagram examination was not performed. 2. The images obtained of the esophagus demonstrate no mucosal abnormality or mass. Electronically signed by: Wisam Goetz MD 02/13/2018 3:09 PM EDT
[2018-02-13] MEDS: Senna/Docusate Sodium 8.6/50 MG Tablet PO SCH (20:20)
[2018-02-13] MEDS: Artificial Tears Opth Drops 15 ML Bottle EACH EYE SCH (20:20)
[2018-02-13] MEDS: Magnesium Sulfate Inj 2 GM in Sodium Chlor 0.9% Inj 96 ML IV.SIG PRN (20:21)
[2018-02-13] MEDS: Potassium Phosphate Inj 30 MMOL in Sodium Chlor 0.9% Inj 250 ML IV.SIG PRN (20:22)
[2018-02-14] MEDS: Enoxaparin Inj 40 MG/0.4 ML Syringe SQ SCH (04:34)
[2018-02-14] MEDS: MULTIVITAMIN IV.SIG SCH (08:01)
[2018-02-14] MEDS: Pantoprazole Inj 40 MG Vial IV.PUSH SCH ×2 (08:01→20:35)
[2018-02-14] MEDS: [UNRECOGNIZED DRUG - OTHER] IV.SIG SCH (08:01)
[2018-02-14] MEDS: POTASSIUM CHLORIDE IV.SIG SCH (08:01)
[2018-02-14] MEDS: Nystatin Liq 500,000 UNIT/5 ML UDC SWISH-SWAL SCH ×4 (08:02→20:36)
--- NOTE | 2018-02-14 11:30 | P.PNIM ---
Subjective Interval history: Patient seen and evaluated today in follow-up for severe vocal cord edema and dysphasia. No new events. Voice is stronger Physical Exam Vital signs: Vital Signs 02/13/18 12:00 02/13/18 16:00 02/13/18 20:00 Temperature 98.9 F 98.9 F 98.6 F Pulse Rate 78 75 71 Respiratory Rate 18 18 20 Blood Pressure 173/93 H 139/78 155/89 H Pulse Oximetry 97 97 97 02/13/18 20:20 02/14/18 00:00 02/14/18 04:00 Temperature 98.3 F 97.9 F Pulse Rate 72 70 Respiratory Rate 20 20 Blood Pressure 151/96 H 172/89 H Pulse Oximetry 93 L 96 97 02/14/18 05:17 02/14/18 07:45 02/14/18 11:11 Temperature 97.9 F 98.5 F 98.4 F Pulse Rate 68 72 64 Respiratory Rate 20 20 20 Blood Pressure 147/91 H 157/91 H 139/78 Pulse Oximetry 98 97 96 Intake & Output 02/13/18 02/14/18 02/14/18 18:59 06:59 18:59 Intake Total 1120 / 1120 800 / 800 220 / 220 Output Total 350 / 350 275 / 275 Balance 770 / 770 525 / 525 220 / 220 Weight 87.4 kg Intake: IV 1120 / 1120 800 / 800 220 / 220 Diflucan 200 mg Premix Bag 100 100 / 100 ML @ 100 mls/hr IV.SIG Q24H MICHAEL Rx#:[id number] MVI-12 Inj 10 ML KCl Inj 20 MEQ 1020 / 1020 800 / 800 220 / 220 In D5W/1/2 NS Inj 1,000 ML @ 60 mls/hr IV.SIG .Q17H MICHAEL Rx#: [id number] Oral 0 / 0 0 / 0 Output: Urine 350 / 350 275 / 275 Other: # Voids 3 1 Date of Last Bowel Movement 02/13/18 02/14/18 # Bowel Movements 0 Narrative: GENERAL: Patient calm resting and with improvement in hoarse voice, clear. SKIN: Warm and dry. No rashes or ecchymotic injuries EYES: Pupils equal and round. No scleral icterus. No injection or drainage. ENT: External ear exam normal. No acute nasal bleeding or discharge. Mucous membranes pink and moist. Thrush improving, no erythema in throat. CARDIOVASCULAR: Regular rate and rhythm. No murmurs gallops or rubs appreciated RESPIRATORY: Good air flow and effort without accessory muscle use. Clear to auscultation. Breath sounds equal bilaterally. GASTROINTESTINAL: Abdomen soft, non-tender, nondistended. Hepatic and splenic margins not palpable. MUSCULOSKELETAL: Extremities without clubbing, cyanosis, or edema. No obvious deformities. NEUROLOGICAL: Awake and alert. No obvious cranial nerve deficits. Motor grossly within normal limits. Five out of 5 muscle strength in the arms and legs. Normal speech. - Urinary Catheter Management Indwelling Urethral Catheter Cath placed during this visit: yes, but has since been removed by the nurse Reason for continuing: Other continuation reason Insertion date: 01/30/18 Insertion time: 21:20 Removal date: 02/06/18 Removal time: 23:00 Results - Labs CBC & Chem 7: 02/13/18 06:02 02/12/18 06:53 - Imaging Impressions Barium Swallow X-Ray 02/13/18 00:00 CONCLUSION: 1. The patient aspirated during the beginning portions of the examination. Therefore, the complete esophagram examination was not performed. 2. The images obtained of the esophagus demonstrate no mucosal abnormality or mass. Assessment and Plan - Assessment (1) Vocal cord edema Code(s): J38.4 - Edema of larynx Status: Acute Plan: Patient with failed barium swallow. Will need to continue with vocal rest and n.p.o. status. Care plan discussed at length with patient and family. ENT following. Continue with IV fluids with multivitamin, dextrose and potassium for now. Follow with swallowing evaluation Friday - Plan Discharge Planning: Continue to follow for improvement and resolution of dysphasia
[2018-02-14] MEDS: Chlorhexidine 0.12% Oral Kit 15 ML UDC OROPHARYNG SCH ×2 (11:55→20:27)
[2018-02-14] MEDS: Sodium Chloride 1 GM Tablet PO SCH ×3 (11:56→19:25)
[2018-02-15] MEDS: Sodium Chloride 1 GM Tablet PO SCH ×5 (02:03→21:07)
[2018-02-15] MEDS: [UNRECOGNIZED DRUG - OTHER] IV.SIG SCH ×3 (02:23→21:06)
[2018-02-15] MEDS: POTASSIUM CHLORIDE IV.SIG SCH ×3 (02:23→21:06)
[2018-02-15] MEDS: MULTIVITAMIN IV.SIG SCH ×3 (02:23→21:06)
[2018-02-15] MEDS: Enoxaparin Inj 40 MG/0.4 ML Syringe SQ SCH (02:25)
[2018-02-15] MEDS: Pantoprazole Inj 40 MG Vial IV.PUSH SCH ×2 (08:43→20:27)
[2018-02-15] MEDS: Nystatin Liq 500,000 UNIT/5 ML UDC SWISH-SWAL SCH ×5 (08:43→21:07)
[2018-02-15] MEDS: Chlorhexidine 0.12% Oral Kit 15 ML UDC OROPHARYNG SCH ×2 (08:43→21:06)
--- NOTE | 2018-02-15 10:07 | P.PNIM ---
Subjective Interval history: Patient seen and evaluated today in follow-up for severe dysphasia. Voice is much stronger. Patient is able to swallow his secretions without difficulty. Synthroid given IV Physical Exam Vital signs: Vital Signs 02/14/18 11:11 02/14/18 15:04 02/14/18 20:00 Temperature 98.4 F 98.6 F 98.4 F Pulse Rate 64 70 67 Respiratory Rate 20 20 20 Blood Pressure 139/78 134/78 148/84 H Pulse Oximetry 96 97 96 02/15/18 00:00 02/15/18 07:22 02/15/18 09:59 Temperature 98.6 F 98.9 F Pulse Rate 68 73 Respiratory Rate 20 20 Blood Pressure 156/79 H 172/86 H 134/82 Pulse Oximetry 96 95 Intake & Output 02/14/18 02/15/18 02/15/18 18:59 06:59 18:59 Intake Total 320 / 320 1020 / 1020 Output Total 500 / 500 Balance 320 / 320 520 / 520 Weight 97.4 kg Intake: IV 320 / 320 1020 / 1020 Diflucan 200 mg Premix Bag 100 100 / 100 ML @ 100 mls/hr IV.SIG Q24H MICHAEL Rx#:[id number] MVI-12 Inj 10 ML KCl Inj 20 MEQ 220 / 220 1020 / 1020 In D5W/1/2 NS Inj 1,000 ML @ 60 mls/hr IV.SIG .Q17H MICHAEL Rx#: [id number] Oral 0 / 0 Output: Urine 500 / 500 Other: # Voids 4 Date of Last Bowel Movement 02/14/18 02/14/18 02/15/18 Narrative: GENERAL: Patient calm resting and with clear voice SKIN: Warm and dry. No rashes or ecchymotic injuries EYES: Pupils equal and round. No scleral icterus. No injection or drainage. ENT: External ear exam normal. No acute nasal bleeding or discharge. Mucous membranes pink and moist. Thrush improving, no erythema in throat. CARDIOVASCULAR: Regular rate and rhythm. No murmurs gallops or rubs appreciated RESPIRATORY: Good air flow and effort without accessory muscle use. Clear to auscultation. Breath sounds equal bilaterally. GASTROINTESTINAL: Abdomen soft, non-tender, nondistended. Hepatic and splenic margins not palpable. MUSCULOSKELETAL: Extremities without clubbing, cyanosis, or edema. No obvious deformities. NEUROLOGICAL: Awake and alert. No obvious cranial nerve deficits. Motor grossly within normal limits. Five out of 5 muscle strength in the arms and legs. Normal speech. - Urinary Catheter Management Indwelling Urethral Catheter Cath placed during this visit: yes, but has since been removed by the nurse Reason for continuing: Other continuation reason Insertion date: 01/30/18 Insertion time: 21:20 Removal date: 02/06/18 Removal time: 23:00 Results - Labs CBC & Chem 7: 02/13/18 06:02 02/12/18 06:53 Assessment and Plan - Assessment (1) Vocal cord edema Code(s): J38.4 - Edema of larynx Status: Acute Plan: Patient with failed barium swallow. Will need to continue with vocal rest and n.p.o. status. Care plan discussed at length with patient and family. ENT following. Continue with IV fluids with multivitamin, dextrose and potassium for now. Follow with swallowing evaluation Friday Continue Synthroid IV - Plan Discharge Planning: Continue to follow for improvement and resolution of dysphasia
[2018-02-15 20:41] VITALS: RESP 18
[2018-02-16] MEDS: Enoxaparin Inj 40 MG/0.4 ML Syringe SQ SCH (03:06)
--- NOTE | 2018-02-16 12:17 | P.PNIM ---
Subjective Interval history: Patient seen and evaluated in follow-up for dysphasia. Much stronger today. Says he ate applesauce yesterday without any difficulty. Awaiting repeat swallow eval. Care plan discussed with patient and spouse at bedside Physical Exam Vital signs: Vital Signs 02/15/18 15:05 02/15/18 16:00 02/15/18 20:00 Temperature 97.5 F L 98.0 F Pulse Rate 74 75 Respiratory Rate 20 16 18 Blood Pressure 123/74 124/83 Pulse Oximetry 95 94 L 02/16/18 00:00 02/16/18 08:00 02/16/18 09:07 Temperature 98.1 F 98.7 F Pulse Rate 65 77 Respiratory Rate 18 18 Blood Pressure 158/98 H 154/83 H Pulse Oximetry 98 96 96 Intake & Output 02/15/18 02/16/18 02/16/18 18:59 06:59 18:59 Intake Total 100 / 100 1020 / 1020 Output Total 1200 / 1200 Balance 100 / 100 -180 / -180 Weight 96.1 kg Intake: IV 100 / 100 1020 / 1020 Diflucan 200 mg Premix Bag 100 100 / 100 ML @ 100 mls/hr IV.SIG Q24H MICHAEL Rx#:[id number] MVI-12 Inj 10 ML KCl Inj 20 MEQ 1020 / 1020 In D5W/1/2 NS Inj 1,000 ML @ 60 mls/hr IV.SIG .Q17H MICHAEL Rx#: [id number] Output: Urine 1200 / 1200 Other: # Voids 4 Date of Last Bowel Movement 02/15/18 02/15/18 Narrative: GENERAL: Patient calm resting and with clear voice SKIN: Warm and dry. No rashes or ecchymotic injuries EYES: Pupils equal and round. No scleral icterus. No injection or drainage. ENT: External ear exam normal. No acute nasal bleeding or discharge. Mucous membranes pink and moist. Thrush improving, no erythema in throat. CARDIOVASCULAR: Regular rate and rhythm. No murmurs gallops or rubs appreciated RESPIRATORY: Good air flow and effort without accessory muscle use. Clear to auscultation. Breath sounds equal bilaterally. GASTROINTESTINAL: Abdomen soft, non-tender, nondistended. Hepatic and splenic margins not palpable. MUSCULOSKELETAL: Extremities without clubbing, cyanosis, or edema. No obvious deformities. NEUROLOGICAL: Awake and alert. No obvious cranial nerve deficits. Motor grossly within normal limits. Five out of 5 muscle strength in the arms and legs. Normal speech. - Urinary Catheter Management Indwelling Urethral Catheter Cath placed during this visit: yes, but has since been removed by the nurse Reason for continuing: Other continuation reason Insertion date: 01/30/18 Insertion time: 21:20 Removal date: 02/06/18 Removal time: 23:00 Results - Labs CBC & Chem 7: 02/13/18 06:02 02/12/18 06:53 Assessment and Plan - Assessment (1) Vocal cord edema Code(s): J38.4 - Edema of larynx Status: Acute Plan: Patient with failed barium swallow. Will need to continue with vocal rest and n.p.o. status. Care plan discussed at length with patient and family. ENT following. Continue with IV fluids with multivitamin, dextrose and potassium for now. Follow with swallowing evaluation Friday Continue Synthroid IV - Plan Discharge Planning: Continue to follow for improvement and resolution of dysphasia
[2018-02-16 15:51] VITALS: BP 130/80; PULSE 75; TEMP 98.7; O2SAT 95
[2018-02-16] MEDS: Pantoprazole Inj 40 MG Vial IV.PUSH SCH (16:13)
[2018-02-16] MEDS: Nystatin Liq 500,000 UNIT/5 ML UDC SWISH-SWAL SCH (16:17)
--- NOTE | 2018-02-26 16:54 | P.DS ---
Date of admission: 01/30/18 02:48 Primary care physician: Luke Gutiérrez DO Brief History from admission: 01/30: Patient is a 62-year-old male with history of hypertension, hypothyroidism , alcoholism, presents the emergency room with multiple complaints. Patient reports that he is an alcoholic, reports that he usually drinks about 1/5 of whiskey per day. Patient reports that he decided to quit drinking alcohol 2 days ago and has put himself on a detox schedule. Patient has been decreasing the amount of alcohol he has been drinking, reports that today he only drinks 6 beers. Patient reports that tonight, he checked his blood pressure and noted it to be elevated and in the 200's. Reports that on route to the ER, he developed chest pain. Reports that he had chest tightness to his mid sternum. Denies any diaphoresis with this chest pain. Patient reports mild shortness of breath with this chest pain, reports resolution of chest pain while in the emergency room. Patient denies any history of coronary artery disease, she does not follow with a gospel singer. Patient reports that he thinks that the symptoms are due to his alcohol withdrawal. Patient reports that he is feeling shaky. Patient reports that he has not been feeling well over the past 2 days as he has been unable to tolerate p.o.'s. Reports "i just don't have an appetite and I'm not feeling well with the withdrawl symptoms." Patient tells me he actually came to the hospital because his blood pressure was running extremely high in the 240 systolic range at home. Patient was noted to be hyponatremic with a sodium of 108 in the ER. Patient was accepted for admission by critical care medicine service. He has been receiving half normal saline overnight. This morning when I evaluated the patient he was awake and alert resting comfortably in bed not in any acute distress. DS: Diagnosis - Discharge Diagnosis (1) Vocal cord edema Status: Acute DS: Medications - Discharge Medications Prescriptions: nystatin 5 ml SWISH-SWAL QID #40 ml DS: Summary Hospital Course: 01/30: Patient is a 62-year-old male with history of hypertension, hypothyroidism , alcoholism, presents the emergency room with multiple complaints. Patient reports that he is an alcoholic, reports that he usually drinks about 1/5 of whiskey per day. Patient reports that he decided to quit drinking alcohol 2 days ago and has put himself on a detox schedule. Patient has been decreasing the amount of alcohol he has been drinking, reports that today he only drinks 6 beers. Patient reports that tonight, he checked his blood pressure and noted it to be elevated and in the 200's. Reports that on route to the ER, he developed chest pain. Reports that he had chest tightness to his mid sternum. Denies any diaphoresis with this chest pain. Patient reports mild shortness of breath with this chest pain, reports resolution of chest pain while in the emergency room. Patient denies any history of coronary artery disease, she does not follow with a gospel singer. Patient reports that he thinks that the symptoms are due to his alcohol withdrawal. Patient reports that he is feeling shaky. Patient reports that he has not been feeling well over the past 2 days as he has been unable to tolerate p.o.'s. Reports "i just don't have an appetite and I'm not feeling well with the withdrawl symptoms." Patient tells me he actually came to the hospital because his blood pressure was running extremely high in the 240 systolic range at home. Patient was noted to be hyponatremic with a sodium of 108 in the ER. Patient was accepted for admission by critical care medicine service. He has been receiving half normal saline overnight. This morning when I evaluated the patient he was awake and alert resting comfortably in bed not in any acute distress. 01/31: Patient was complaining of some epigastric discomfort yesterday morning. CT abdomen pelvis was ordered however patient went into worsening alcohol withdrawal and despite starting Precedex and multiple boluses of Ativan was staying very agitated. Eventually he became more lethargic with tachypnea. He had also been vomiting previously. Decision was made to intubate and patient was placed on mechanical ventilation after intubation by ER physician. Of note patient had a difficult airway with some laryngeal edema noted per report and a 6.5 ET tube was used for intubation after failed attempt at intubating with an 8 Maltese and 7 Maltese ET tube. This morning patient is sedated with Versed and fentanyl drips, orally intubated on mechanical ventilation at the time of my evaluation. He was initiated on Son-Synephrine for hypotension following intubation and sedation. Currently he is on Son-Synephrine 70 mics per minute. He has had a good urine output overnight. He was started on 3% saline at 10 cc an hour last evening and the sodium has come up to 115 mEq/liter this morning. He has also been receiving LR at 1 50 cc an hour. NG tube was placed after intubation and 1 L of gastric contents were suctioned out. Patient did spike a temperature of 100.5 axillary this morning. Pancultures were ordered and empiric Zosyn to be started in view of concern for aspiration. 02/01: Remains sedated, orally intubated on mechanical ventilation. On Levophed 2 mics per minute. Significant positive fluid balance. Sodium 122. CT abdomen pelvis done yesterday revealed inflammation around tail of pancreas with fluid around liver consistent with pancreatitis. 02/02: Remains sedated, orally intubated on mechanical ventilation. Femoral central line replaced with right IJ central line today. Remains on Levophed for pressor support. 02/03: remains intubated. perioral edema persists, but this is concomitant with significant generalized edema. remains on vasopressor support. lipase trending down. 02/04: continues with severe agitated delirium. precedex added to control agitation. good diuresis with net -2L/24h. 02/05: net -4L/24h. good diuresis. clinically improving. sodium very slowly uptrending. agitation persists. will attempt to start weaning sedation today. 02/06: failed weaning attempts yesterday. today less agitated. tolerating CPAP today. plan to wean to extubate. 02/07: extubated successfully yesterday. net -700cc/24h. confused and CAM+. significant diarrhea as well as nausea and vomiting overnight, not resolved with zofran and reglan. patient denies abdominal pain. only complaint is that he does not want blood work until talking with his . 02/08 This is a 62-year-old male with a history of hypertension, hypothyroidism, alcoholism who decided to quit drinking alcohol cold turkey 2 days prior to admission. He presented to the ER with complaints of chest pain, elevated blood pressure, anorexia, shakes from withdrawal. One day after admission he became very agitated began vomiting profusely and developed tachypnea. He was intubated and placed on a vent on January 31. During the course of his ICU stay he had fevers, was treated for pancreatitis, hyponatremia, hypotension. He made it through his alcohol withdrawal course and successfully extubated on 02/06. He still remains weak and is having trouble talking due to swollen vocal cords in general swollen upper airway. 02/09 62-year-old male who spent time intubated in the ICU for severe alcohol withdrawal. He is 3 days post extubation. Making attempts to speak but his oropharynx is somewhat swollen therefore he speaks in a whisper. He remains somewhat confused reporting a story of being abducted, placed in cage which is why he went into alcohol withdrawal. That story is not reliable. 02/10 Patient is somewhat upset about having his water and food taken away. He failed a swallow evaluation yesterday and was awaiting barium swallow study this morning. His is at bedside. 02/11 Patient remains n.p.o. after failing barium swallow evaluation. He understands that his workup will include an evaluation by ENT. He requests that expanded workup of MRI, which we discussed the value above, be done today rather than waiting. He has been up ambulating and improving each day with physical therapy.. Patient continued to improve with oral rest. He was seen by ENT and recommended the oral rest.. After this. Patient was able to swallow was discharged home - Time Spent with Patient Total time spent providing and/or coordinating discharge services: Less than 30 minutes - Quality: VTE Deep Vein Thrombosis/Pulmonary Embolism Present on Admission: No Exam Narrative: GENERAL: Well-nourished, well-developed patient. SKIN: Warm and dry. HEAD: Normocephalic. EYES: No scleral icterus. No injection or drainage. NECK: Supple, trachea midline. No JVD or lymphadenopathy. CARDIOVASCULAR: Regular rate and rhythm without murmurs, gallops, or rubs. RESPIRATORY: Breath sounds equal bilaterally. No accessory muscle use. GASTROINTESTINAL: Abdomen soft, non-tender, nondistended. MUSCULOSKELETAL: No cyanosis, or edema. BACK: Nontender without obvious deformity. No CVA tenderness. NEUROLOGICAL: Awake and alert. Cranial nerves II through XII intact. Motor and sensory grossly within normal limits. Five out of 5 muscle strength in all muscle groups. Normal speech. Results Procedures completed during hospitalization: Intubation and extubation - Impressions ITS Impressions Abdomen CT 01/31/18 00:00 Examination of the pelvis demonstrates no evidence of free fluid or pelvic mass. No abnormally enlarged inguinal or retroperitoneal lymph nodes are present. A Conway catheter is present within the bladder which does not allow for evaluation. CONCLUSION: Findings of pancreatitis involving the tail with phlegmonous change and fluid surrounding the spleen. Bibasilar atelectasis Hypodense liver compatible with fatty infiltration or hepatocellular disease. Chest X-Ray 02/05/18 17:38 CONCLUSION: 1. . Stable left basilar consolidation/effusion. 2. Stable position of life-support tubes. Abdomen X-Ray 02/07/18 00:00 CONCLUSION: Nonspecific bowel gas pattern with air-filled mildly distended small bowel loops. Abdomen/Pelvis CT 02/07/18 06:11 CONCLUSION: 1. Minimal inflammatory changes/fluid adjacent to the pancreatic tail. Overall findings have improved from previous study. 2. Diverticulosis without diverticulitis. 3. Small bilateral pleural effusions and minimal left basilar density, likely atelectasis/. Bile Acid Absorption NM 02/09/18 00:00 CONCLUSION: 1. Normal gallbladder visualization and no evidence of biliary obstruction. 2. The gallbladder was obscured on the later images in the AP projection by overlying activity in the bowel. No ejection fraction could be calculated. Videofluoroscopic Swallow 02/10/18 00:00 CONCLUSION: Prominent, consistent aspiration Head MRI 02/11/18 00:00 CONCLUSION: 1. No acute hemorrhage, mass or acute infarction. 2. Mild atrophy and chronic small vessel ischemic change. 3. Mild mucosal thickening in the left maxillary sinus and sphenoid sinus. Soft Tissue Neck CT 02/12/18 00:00 CONCLUSION: Barium Swallow X-Ray 02/13/18 00:00 CONCLUSION: 1. The patient aspirated during the beginning portions of the examination. Therefore, the complete esophagram examination was not performed. 2. The images obtained of the esophagus demonstrate no mucosal abnormality or mass. Discharge Plan - Discharge Disposition Patient Disposition: 01 Discharge Home - Discharge Condition Condition: Serious - Discharge Order Discharge Orders: Discharge Order (Routine); Ordered 02/16/18 Ordered By: Taina Thompson - Discharge Details Anticipated Discharge Date: 02/16/18 - Physicians Team Primary Care Provider: Luke Gutiérrez Attending Provider: Taina Thompson Other Providers: Leonila Gotti MD ; Hayden Pimentel MD ; Adam Brasher MD
== END 2018-02-16 17:12 | disposition home or self-care (01) ==
LOC: PHED 00:29 → PHEDA 00:29 → OBSVTOIN 02:48 → PHEDA 05:08 → PHICU 05:25 → PH3 02-10 21:23
PROVIDERS: ADMIT Hospitalist; ATTEND Hospitalist